=== PATIENT | male | born 1945 | race Caucasian/White ===

== ENCOUNTER 2021-02-14 21:49 | Inpatient (IN) ==
[2021-02-14] MEDS ORDERED: SODIUM CHLORIDE 0.9% 500 ML IV SCH (22:00)
[2021-02-14] MEDS ORDERED: OPTIRAY 320 125ml IV ONE (22:11)
[2021-02-14 22:14] LABS: Basophils # (auto) 0.03 K/uL (0-0.2); Basophils % (auto) 0.2 %; Eosinophils % (auto) 0.7 %; Hematocrit (blood only) 44.4 % (42-52); Hemoglobin 14.3 g/dL (14.0-18.0); Immature Granulocytes # (auto) 0.03 K/uL (0.00-0.02); Immature Granulocytes % (auto) 0.2 %; Lymphocytes # (auto) 2.23 K/uL (1.2-3.4); Lymphocytes % (auto) 14.9 %; Mean Corpuscular Hgb Conc 32.2 g/dL (32-36); Mean Corpuscular Volume 99.3 fL (80-100); Mean Platelet Volume 11.5 fL (7.4-10.4); Monocytes # (auto) 1.22 K/uL (0.11-0.59); Monocytes % (auto) 8.1 %; Neutrophils % (auto) 75.9 %; Platelet Count 232 K/uL (130-400); RDW Coefficient of Variation 13.9 % (11.5-14.5); RDW Standard Deviation 50.6 fL (36.4-46.3); Red Blood Count 4.47 M/uL (4.7-6.1); White Blood Count 15.01 K/uL (4.8-10.8)
[2021-02-14] MEDS ORDERED: ONDANSETRON INJ 2 MG/ML 2 ML VIAL ONE (22:23)
[2021-02-14 22:31] LABS: Alanine Aminotransferase 34 U/L (12-78); Albumin Level 3.6 gm/dl (3.4-5.0); Aspartate Aminotransferase 27 U/L (15-37); Blood Urea Nitrogen 18 mg/dl (7-18); Calcium 9.2 mg/dl (8.5-10.1); Carbon Dioxide 25 mmol/L (21-32); Chloride 110 mmol/L (98-107); Est GFR (African American) 67.9 ml/min; Est GFR (Non-African American) 58.6 ml/min; Glucose 189 mg/dl (70-99); Lipase 102 U/L (73-393); Magnesium 2.1 mg/dl (1.8-2.4); Potassium 5.1 mmol/L (3.5-5.1); Sodium 141 mmol/L (136-145)
[2021-02-14 22:42] LABS: Albumin Globulin Ratio 0.9 (0.9-2); Alkaline Phosphatase 100 U/L (45-117); Bilirubin,Total 0.9 mg/dl (0.2-1); Creatine Kinase 107 U/L (39-308); Creatine Kinase MB 1.1 ng/ml (0.5-3.6); Total Protein 7.6 gm/dl (6.4-8.2); Troponin I < 0.015 ng/ml (0-0.045)
[2021-02-14 23:00] LABS: T4 Free Thyroxine 1.12 ng/dl (0.8-1.6)
--- NOTE | 2021-02-14 23:09 | Emergency Department Note ---
Impression & Plan Syncope, Bradycardia, Abnormal EKG, Back pain ED Provider Note NAME: ABELINO BUENO AGE: 75 SEX: M : 1945 ARRIVES VIA: Ambulance INFORMANT: Patient, EMS personnel ED PROVIDER(S): Rj Akbar DO CHIEF COMPLAINT: Syncope HPI: The patient is a 75-year-old male who presented to the emergency department by ambulance for an evaluation after having a syncopal episode. The patient had a syncopal episode and states that over the course of the last few weeks he has been having dizziness and lightheadedness. He denies having any vertigo symptoms but states when he tries to stand up he gets very lightheaded and feels as though he may pass out. He states he did formally have a syncopal episode when he was in the shower last week. He thinks he did not hurt himself but went to see his family doctor recently and was scheduled for some testing. He had another episode tonight of dizziness and passed out. He now has severe pain between his shoulder blades. He has nausea. I did receive a prehospital notification about the patient. The patient was severely bradycardic but appeared to have a normal blood pressure. He was mentating well. He was given atropine without improvement of his severe bradycardia. He does have a history of atrial fibrillation. He states he does not take digoxin. He states he is been compliant with all his outpatient medications. He denies having any recent traveling. He said no fever. He denies having any rashes. The patient symptoms are moderate to severe. He was placed directly into room B1. ROS: See above HPI for pertinent positives & negatives. A total of 10 systems reviewed and were otherwise negative. PAST MEDICAL HISTORY: See Below PAST SURGICAL HISTORY: See Below FAMILY HISTORY: See Below SOCIAL HISTORY: See Below HOME MEDICATIONS: See Below ALLERGIES: See Below VITALS: See Below PHYSICAL EXAMINATION: GENERAL: The patient is awake and alert. He is very anxious appearing and appears to be uncomfortable. EYES: The conjunctivae are clear. The pupils are round and reactive. EARS, NOSE, MOUTH AND THROAT: The nose is without any evidence of any deformity. NECK: The neck is nontender and supple. RESPIRATORY: Normal respiratory effort is noted there is no evidence of wheezing rhonchi or rales CARDIOVASCULAR: Bradycardic rate was noted to auscultation. No definite murmur was noted. GASTROINTESTINAL: The abdomen is moderately distended. There is no guarding or rigidity. No pulsatile mass could be palpated. MUSCULOSKELETAL/EXTREMITIES: There is no evidence of gross deformity full range of motion is noted in the hips and shoulders. SKIN: Skin is warm and dry. Trace pedal edema was noted bilaterally. NEUROLOGIC: Patient is awake alert and oriented x3. MEDICAL DECISION MAKING: The patient is a 75-year-old male who presented to the emergency department for an evaluation after having a syncopal episode. The patient was found to be in very slow atrial fibrillation with a wide-complex. The patient was treated with atropine prior to arrival. He had no significant change in his cardiac rhythm. The patient's blood pressure was stable and was treated with IV fluids in the emergency department. He continued to complain of pain between his shoulder blades. There was concerned that this could represent a vascular emergency. The patient was taken directly to CT. No definite acute disease was noted on the CT that would explain the patient's presentation. He was further treated with IV fluids in the emergency department. He was placed on a front desk monitor as well as a transcutaneous pacemaker. His heart rate did improve. He was reevaluated multiple times. I discussed the patient's laboratory and radiographic studies with him. Given his symptomatic bradycardia he was discussed with the on-call [facility] hospitalist group. They have agreed to evaluate the patient in the emergency department for further management and disposition. Triage Nursing notes reviewed. Prior medical records reviewed Vital Signs: reviewed and remarkable for bradycardia and elevated blood pressure. Differential diagnosis: Vasovagal event, dehydration, infection, hypoglycemia, electrolyte abnormalities, cardiac sources, intracerebral event, pulmonary embolism, seizure, toxicologic, neurologic, as well as other pathologies. ER treatment provided: See below Diagnostics interpreted by me: ECG: An EKG was obtained in the emergency department. My interpretation is junctional rhythm at 31 bpm. Wide-complexes were appreciated. No definite P waves were noted. This favors a very slow atrial fibrillation versus a junctional rhythm with a wide complex. Diffuse ST and T wave abnormalities were noted. This was compared to a tracing from March 192019. Significant changes occurred. A second EKG was obtained in the emergency department. My interpretation is atrial fibrillation at 72 bpm. There were no PVCs noted. QRS continues to be wide at 152 ms. The T wave abnormalities have resolved compared to the earlier tracing. This was compared to the tracing from March 192019. The tracing does appear similar. Cardiac Monitoring: An order was placed for continuous cardiac monitoring. The monitor shows a rate of 29 bpm with bradycardia with atrial fibrillation rhythm. Laboratory studies: As stated above and show below. Imaging studies: See below Consultation(s): I discussed this case with Dr. Brunson [facility] evaluate the patient in the emergency department for further management and disposition. ED COURSE: Procedures: none PDMP:reviewed and no issues Critical Care: I have personally spent greater than 65 minutes of critical care time in the direct management of this patient. This includes bedside care, interpretation of diagnostic studies, and testing, discussion with consultants, patient, and family members, and other required patient management activities. This 65 minutes is in excess of all separately billable procedures. Past Med/Surg History Medical History (Updated 02/15/21 @ 02:20 by Rj Akbar DO) Acute renal failure Acute renal failure Atrial fibrillation and flutter Atrial fibrillation with RVR Diabetes mellitus Hyperkalemia (01/05/14) ND (myocardial infarction) Surgical History History of appendectomy History of arthroplasty of knee History of knee replacement Family History Father Coronary heart disease Mother Breast cancer Brother Pure hypercholesterolemia Other Family history non-contributory Social History Smoking Status: Former smoker Tobacco Type: Cigars Cigarettes Per Day: 40; Second Hand Exposure: Yes; Hx Alcohol Use: No Hx Substance Use: No Preferred Language: Lebanese Communication Ability: Effective Information Resource Consultant Required: No Beliefs That Will Affect Care: None Current Living Situation: Spouse Other Information That Helps Us Care for You: No Feels Safe at Home: Yes Safety Concerns: Feels Safe At This Time Assistive Devices: Denture - Upper and Glasses Allergies Allergies Allergy/AdvReac Type Severity Reaction Status Date / Time No Known Allergies Allergy Verified 02/14/21 22:26 Home Meds Home Medications Medication Instructions Recorded Confirmed diltiazem HCl [Cardizem CD] 120 mg PO QAM 05/14/18 02/14/21 docusate sodium 100 mg PO BIDM 05/14/18 02/14/21 iron,carbonyl-vitamin C [Vitron-C] 1 tab PO QAM 05/14/18 02/14/21 metformin [Glucophage] 1,000 mg PO BID 05/14/18 02/14/21 pantoprazole [Protonix] 40 mg PO QDD 05/14/18 02/14/21 rosuvastatin [Crestor] 40 mg PO QDD 05/14/18 02/14/21 tamsulosin [Flomax] 0.4 mg PO HS 05/14/18 02/14/21 metoprolol succinate 50 mg 50 mg PO QAM tab 04/05/19 02/14/21 tablet,extended release 24 hr warfarin 5 mg tablet See Rx Instructions .ROUTE 04/05/19 02/14/21 .COMPLEX #30 tab acetaminophen [Tylenol Extra 500 mg PO Q6H PRN 10/14/19 02/14/21 Strength] losartan 25 mg PO QDL 10/14/19 02/14/21 glipizide 10 mg PO BIDM 02/14/21 02/14/21 semaglutide [Ozempic] 0.5 mg SUBCUT WK 02/14/21 02/14/21 hydralazine 10 mg PO TID 02/15/21 02/15/21 metoprolol succinate 75 mg PO PM 02/15/21 02/15/21 Previous Rx's Medication Instructions Recorded BiPap Supplies #1 ea 12/06/20 Results & Data (ED) Vital Signs Vital Signs - 24 hr 02/14/21 21:55 02/14/21 22:00 02/14/21 22:25 Temperature 36.4 C L Temperature Source Oral Pulse Rate 32 L 31 L 29 L Pulse Rate from SpO2 Sensor Respiratory Rate 16 18 16 Respiratory Effort / Characteristics Non-Labored Spontaneous Respiratory Depth Normal Respiratory Pattern Regular Blood Pressure 127/64 Blood Pressure Mean 85 Blood Pressure Position Lying Pulse Oximetry 96 94 95 Oxygen Delivery Method Nasal Cannula Nasal Cannula Nasal Cannula Oxygen Flow Rate 2 Sepsis Recent Fever Within 48 Hours No Sepsis New/Unexplained Change in Mental Status N/A Sepsis Action Taken by Nursing No Action Required 02/14/21 22:29 02/14/21 22:43 02/14/21 22:46 Temperature Temperature Source Pulse Rate 66 61 Pulse Rate from SpO2 Sensor 59 L Respiratory Rate 18 23 Respiratory Effort / Characteristics Respiratory Depth Respiratory Pattern Blood Pressure 123/89 147/87 H Blood Pressure Mean 100 107 Blood Pressure Position Pulse Oximetry 96 96 94 Oxygen Delivery Method Nasal Cannula Room Air Oxygen Flow Rate 2 Sepsis Recent Fever Within 48 Hours Sepsis New/Unexplained Change in Mental Status Sepsis Action Taken by Nursing 02/14/21 23:00 02/14/21 23:16 02/14/21 23:30 Temperature Temperature Source Pulse Rate 70 64 60 Pulse Rate from SpO2 Sensor 71 70 64 Respiratory Rate 26 H 21 20 Respiratory Effort / Characteristics Respiratory Depth Respiratory Pattern Blood Pressure 158/103 H 145/92 H 155/81 H Blood Pressure Mean 121 109 105 Blood Pressure Position Pulse Oximetry 95 95 95 Oxygen Delivery Method Oxygen Flow Rate Sepsis Recent Fever Within 48 Hours Sepsis New/Unexplained Change in Mental Status Sepsis Action Taken by Nursing 02/14/21 23:46 02/15/21 00:00 02/15/21 00:16 Temperature Temperature Source Pulse Rate 66 78 85 Pulse Rate from SpO2 Sensor 67 83 79 Respiratory Rate 25 H 19 22 Respiratory Effort / Characteristics Respiratory Depth Respiratory Pattern Blood Pressure 149/75 H 162/106 H 173/88 H Blood Pressure Mean 99 124 116 Blood Pressure Position Pulse Oximetry 94 95 95 Oxygen Delivery Method Oxygen Flow Rate Sepsis Recent Fever Within 48 Hours Sepsis New/Unexplained Change in Mental Status Sepsis Action Taken by [facility] Medications Current Medication List: was personally reviewed by me Laboratory Data Attestation: I reviewed the patient's lab results. Result diagrams: 02/14/21 22:00 02/14/21 22:00 Lab Results 02/14/21 02/14/21 02/14/21 Range/Units 22:00 22:00 22:00 WBC 15.01 H (4.8-10.8) K/uL RBC 4.47 L (4.7-6.1) M/uL Hgb 14.3 (14.0-18.0) g/dL Hct 44.4 (42-52) % MCV 99.3 (80-100) fL MCH 32.0 (25-34) pg MCHC 32.2 (32-36) g/dL RDW Std Deviation 50.6 H (36.4-46.3) fL RDW Coeff of Cookie 13.9 (11.5-14.5) % Plt Count 232 (130-400) K/uL MPV 11.5 H (7.4-10.4) fL Immature Gran % (Auto) 0.2 % Neut % (Auto) 75.9 % Lymph % (Auto) 14.9 % [place] % (Auto) 8.1 % Eos % (Auto) 0.7 % Baso % (Auto) 0.2 % Neut # (Auto) 11.40 H (1.4-6.5) K/uL Lymph # (Auto) 2.23 (1.2-3.4) K/uL [place] # (Auto) 1.22 H (0.11-0.59) K/uL Eos # (Auto) 0.10 (0-0.5) K/uL Baso # (Auto) 0.03 (0-0.2) K/uL Immature Gran # (Auto) 0.03 H (0.00-0.02) K/uL PT Cancelled INR Cancelled APTT Cancelled PTT Ratio Cancelled Sodium (136-145) mmol/L Potassium (3.5-5.1) mmol/L Chloride (98-107) mmol/L Carbon Dioxide (21-32) mmol/L Anion Gap (3-11) BUN (7-18) mg/dl Creatinine (0.6-1.4) mg/dl Est Cr Clr Drug Dosing Est GFR ( Amer) ml/min Est GFR (Non-Af Amer) ml/min BUN/Creatinine Ratio (10-20) Glucose (70-99) mg/dl Calcium (8.5-10.1) mg/dl Magnesium (1.8-2.4) mg/dl Total Bilirubin (0.2-1) mg/dl AST (15-37) U/L ALT (12-78) U/L Alkaline Phosphatase (45-117) U/L Total Creatine Kinase (39-308) U/L CK-MB (CK-2) (0.5-3.6) ng/ml CK/CKMB % Calc (0-3.0) Troponin I (0-0.045) ng/ml Total Protein (6.4-8.2) gm/dl Albumin (3.4-5.0) gm/dl Globulin (2.5-4.0) gm/dl Albumin/Globulin Ratio (0.9-2) Lipase (73-393) U/L TSH (0.300-4.500) uIu/ml Free T4 (0.8-1.6) ng/dl Urine Color Urine Appearance (Clear) Urine pH (4.5-7.5) Ur Specific [place] (1.000-1.030) Urine Protein (Negative) Urine Glucose (UA) (Negative) Urine Ketones (Negative) Urine Blood (Negative) Urine Nitrite (Negative) Urine Bilirubin (Negative) Urine Urobilinogen (Negative) Ur Leukocyte Esterase (Negative) Urine WBC (Auto) (0-5) /hpf Urine RBC (Auto) (0-4) /hpf U Hyaline Cast (Auto) (0-5) /lpf U Epithel Cells (Auto) (0-5) /lpf Urine Bacteria (Auto) (Negative) COVID-19 Eval Order SARS-CoV-2 (PCR) (Negative) Blood Type Cancelled Antibody Screen Cancelled 02/14/21 02/14/21 02/14/21 Range/Units 22:00 22:26 22:26 WBC (4.8-10.8) K/uL RBC (4.7-6.1) M/uL Hgb (14.0-18.0) g/dL Hct (42-52) % MCV (80-100) fL MCH (25-34) pg MCHC (32-36) g/dL RDW Std Deviation (36.4-46.3) fL RDW Coeff of Cookie (11.5-14.5) % Plt Count (130-400) K/uL MPV (7.4-10.4) fL Immature Gran % (Auto) % Neut % (Auto) % Lymph % (Auto) % [place] % (Auto) % Eos % (Auto) % Baso % (Auto) % Neut # (Auto) (1.4-6.5) K/uL Lymph # (Auto) (1.2-3.4) K/uL [place] # (Auto) (0.11-0.59) K/uL Eos # (Auto) (0-0.5) K/uL Baso # (Auto) (0-0.2) K/uL Immature Gran # (Auto) (0.00-0.02) K/uL PT INR APTT PTT Ratio Sodium 141 (136-145) mmol/L Potassium 5.1 (3.5-5.1) mmol/L Chloride 110 H (98-107) mmol/L Carbon Dioxide 25 (21-32) mmol/L Anion Gap 6.0 (3-11) BUN 18 (7-18) mg/dl Creatinine 1.21 (0.6-1.4) mg/dl Est Cr Clr Drug Dosing Not Reportable Est GFR ( Amer) 67.9 ml/min Est GFR (Non-Af Amer) 58.6 ml/min BUN/Creatinine Ratio 15.0 (10-20) Glucose 189 H (70-99) mg/dl Calcium 9.2 (8.5-10.1) mg/dl Magnesium 2.1 (1.8-2.4) mg/dl Total Bilirubin 0.9 (0.2-1) mg/dl AST 27 (15-37) U/L ALT 34 (12-78) U/L Alkaline Phosphatase 100 (45-117) U/L Total Creatine Kinase 107 (39-308) U/L CK-MB (CK-2) 1.1 (0.5-3.6) ng/ml CK/CKMB % Calc 1.0 (0-3.0) Troponin I < 0.015 (0-0.045) ng/ml Total Protein 7.6 (6.4-8.2) gm/dl Albumin 3.6 (3.4-5.0) gm/dl Globulin 4.0 (2.5-4.0) gm/dl Albumin/Globulin Ratio 0.9 (0.9-2) Lipase 102 (73-393) U/L TSH 5.780 H (0.300-4.500) uIu/ml Free T4 1.12 (0.8-1.6) ng/dl Urine Color Urine Appearance (Clear) Urine pH (4.5-7.5) Ur Specific [place] (1.000-1.030) Urine Protein (Negative) Urine Glucose (UA) (Negative) Urine Ketones (Negative) Urine Blood (Negative) Urine Nitrite (Negative) Urine Bilirubin (Negative) Urine Urobilinogen (Negative) Ur Leukocyte Esterase (Negative) Urine WBC (Auto) (0-5) /hpf Urine RBC (Auto) (0-4) /hpf U Hyaline Cast (Auto) (0-5) /lpf U Epithel Cells (Auto) (0-5) /lpf Urine Bacteria (Auto) (Negative) COVID-19 Eval Order Covid19 at [facility] SARS-CoV-2 (PCR) NEGATIVE (Negative) Blood Type Antibody Screen 02/14/21 02/14/21 02/15/21 Range/Units 22:38 23:15 00:18 WBC (4.8-10.8) K/uL RBC (4.7-6.1) M/uL Hgb (14.0-18.0) g/dL Hct (42-52) % MCV (80-100) fL MCH (25-34) pg MCHC (32-36) g/dL RDW Std Deviation (36.4-46.3) fL RDW Coeff of Cookie (11.5-14.5) % Plt Count (130-400) K/uL MPV (7.4-10.4) fL Immature Gran % (Auto) % Neut % (Auto) % Lymph % (Auto) % [place] % (Auto) % Eos % (Auto) % Baso % (Auto) % Neut # (Auto) (1.4-6.5) K/uL Lymph # (Auto) (1.2-3.4) K/uL [place] # (Auto) (0.11-0.59) K/uL Eos # (Auto) (0-0.5) K/uL Baso # (Auto) (0-0.2) K/uL Immature Gran # (Auto) (0.00-0.02) K/uL PT 20.0 H INR 2.1 H APTT 31.2 H PTT Ratio 1.2 Sodium (136-145) mmol/L Potassium (3.5-5.1) mmol/L Chloride (98-107) mmol/L Carbon Dioxide (21-32) mmol/L Anion Gap (3-11) BUN (7-18) mg/dl Creatinine (0.6-1.4) mg/dl Est Cr Clr Drug Dosing Est GFR ( Amer) ml/min Est GFR (Non-Af Amer) ml/min BUN/Creatinine Ratio (10-20) Glucose (70-99) mg/dl Calcium (8.5-10.1) mg/dl Magnesium (1.8-2.4) mg/dl Total Bilirubin (0.2-1) mg/dl AST (15-37) U/L ALT (12-78) U/L Alkaline Phosphatase (45-117) U/L Total Creatine Kinase (39-308) U/L CK-MB (CK-2) (0.5-3.6) ng/ml CK/CKMB % Calc (0-3.0) Troponin I (0-0.045) ng/ml Total Protein (6.4-8.2) gm/dl Albumin (3.4-5.0) gm/dl Globulin (2.5-4.0) gm/dl Albumin/Globulin Ratio (0.9-2) Lipase (73-393) U/L TSH (0.300-4.500) uIu/ml Free T4 (0.8-1.6) ng/dl Urine Color Yellow Urine Appearance Clear (Clear) Urine pH 7.0 (4.5-7.5) Ur Specific [place] 1.042 H (1.000-1.030) Urine Protein Negative (Negative) Urine Glucose (UA) Negative (Negative) Urine Ketones Negative (Negative) Urine Blood Negative (Negative) Urine Nitrite Negative (Negative) Urine Bilirubin Negative (Negative) Urine Urobilinogen Negative (Negative) Ur Leukocyte Esterase 2+ H (Negative) Urine WBC (Auto) >30 H (0-5) /hpf Urine RBC (Auto) 0-4 (0-4) /hpf U Hyaline Cast (Auto) 1-5 (0-5) /lpf U Epithel Cells (Auto) 5-10 H (0-5) /lpf Urine Bacteria (Auto) 4+ H (Negative) COVID-19 Eval Order SARS-CoV-2 (PCR) (Negative) Blood Type A Positive Antibody Screen NEGATIVE Administered Medications Discontinued Medications Sodium Chloride (Nss) 500 mls @ 999 mls/hr IV .Q31M MAGALIE Stop: 02/14/21 22:30 Last Infusion: 02/14/21 23:00 Dose: 0 mls/hr Documented by: [id number] Admin: 02/14/21 22:24 Dose: 999 mls/hr Documented by: [id number] Ioversol (Optiray 320 125ml) 125 ml IV ONCE ONE Stop: 02/14/21 22:12 Last Admin: 02/14/21 22:12 Dose: 119 ml Documented by: [id number] Ondansetron HCl (Ondansetron Inj 2 Mg/Ml 2 Ml Vial) Confirm Administered Dose 4 mg .ROUTE .K-MED ONE Stop: 02/14/21 22:24 Last Admin: 02/14/21 22:24 Dose: 4 mg Documented by: [id number] Imaging Data Radiologist's Impression: Patient: ABELINO BUENO (Male) : 47 Status: ER Date: 02/14/21 22:31 Room #: History: SYNCOPE Slices: 67 Priors: Tech: Ceasar Carvalho @ [phone] Exams: CT HEAD Contrast: Accession Numbers: [id number] Preliminary Findings Only See Final Report For Complete Findings CT HEAD: No intracranial hemorrhage, mass effect or midline shift. There is no abnormal extra axial fluid collection. No evidence of acute infarct. Mild periventricular white matter hypodensities are most consistent with chronic microangiopathy. The visualized paranasal sinuses and mastoid air cells are clear. No fracture. Radiologist: Mishel Dietz MD Study ready at 22:45 and initial results transmitted at 22:52 Patient: ABELINO BUENO (Male) : 47 Status: ER Date: 02/14/21 22:34 Room #: History: SYNCOPE, PAIN BETWEEN SHOULDERS Slices: [id number] Priors: Tech: Ceasar Carvalho @ [phone] Exams: CT CHEST Without Contrast, CTA CHEST Contrast: IV Amt: 119 MLOPTIRAY 320 Accession Numbers: [id number] Preliminary Findings Only See Final Report For Complete Findings CT CHEST Without Contrast: There is an acute mild anterior wedge compression fracture of T8. The lungs are clear. Heart size is normal. No pathologically enlarged lymph nodes. Incidentally noted cholelithiasis. Slight nodularity of the liver is concerning for cirrhosis. Nonobstructing 1.3 cm right renal calculus. CTA CHEST: No aortic aneurysm or dissection. Minimal atherosclerosis without significant stenosis. Radiologist: Mishel Dietz MD Study ready at 22:40 and initial results transmitted at 22:50 Patient: ABELINO BUENO (Male) : 47 Status: ER Date: 02/14/21 22:42 Room #: History: SYNCOPE, PAIN BETWEEN SHOULDERS Slices: [phone] Priors: Tech: DoraCeasar farrar @ [phone] Exams: CTA ABDOMEN & PELVIS With Contrast Contrast: IV Amt: 119 ML OPTIRAY 320 Accession Numbers: [id number] Preliminary Findings Only See Final Report For Complete Findings CTA ABDOMEN & PELVIS With Contrast: IMPRESSION: 1. No dissection. 2. Ectasia of the infrarenal aorta measuring 2.8 cm. 3. Cholelithiasis. 4. Cirrhosis. 5. Nonobstructing 1.2 cm right renal calculus. 6. Appendectomy. 7. Diverticulosis. No obstruction. 8. Incidentally noted fat-containing bilateral inguinal hernias. 9. Incidentally noted accessory left renal artery. 10. No lumbar spine or pelvis fracture. Radiologist: Mishel Dietz MD Study ready at 22:45 and initial results transmitted at 22:59 Patient: ABELINO BUENO (Male) : 47 Status: ER Date: 02/14/21 22:52 Room #: History: SYNCOPE WITH PAIN BETWEENS SHOULDERS Slices: [phone] Priors: Tech: DoraCeasar farrar @ [phone] Exams: CT C SPINE Contrast: Accession Numbers: [id number] Preliminary Findings Only See Final Report For Complete Findings CT C SPINE: No fracture or malalignment. There is no prevertebral soft tissue swelling. There are degenerative changes of the spine. Radiologist: Mishel Dietz MD Study ready at 22:56 and initial results transmitted at 23:06 Discharge Plan Visit Data Chief Complaint: Syncope ED Provider: Rj Akbar Discharge Problem: Syncope, Bradycardia, Abnormal EKG, Back pain Patient Disposition: Admitted As Inpatient Condition: Good Discharge Instructions Interventions: ED Discharge Assessment Last Done: 02/15/21 01:12 Discharge Problem: Syncope Qualifiers: Syncope type: unspecified Qualified Code(s): R55 - Syncope and collapse Back pain Qualifiers: Back pain location: thoracic back pain Chronicity: acute Back pain laterality: midline Qualified Code(s): M54.6 - Pain in thoracic spine
[2021-02-14 23:53] LABS: INR 2.1 (0.9-1.1); Partial Thromboplastin Ratio 1.2; Partial Thromboplastin Time 31.2 Seconds (21.0-31.0)
[2021-02-15 00:57] LABS: Appearance Urine Clear (Clear); Bacteria Urine Automated 4+ (Negative); Bilirubin Urine Negative (Negative); Blood Urine Negative (Negative); Color Urine Yellow; Glucose Urine UA Negative (Negative); Ketones Urine Negative (Negative); Leukocyte Esterase Urine 2+ (Negative); Nitrite Urine Negative (Negative); Protein Urine Negative (Negative); Specific Gravity Urine 1.042 (1.000-1.030); Urobilinogen Urine Negative (Negative); WBC Urine Automated >30 /hpf (0-5)
[2021-02-15 01:33] LABS: RBC Urine Automated 0-4 /hpf (0-4)
[2021-02-15] MEDS ORDERED: [UNRECOGNIZED DRUG - OTHER] SCH (01:48)
[2021-02-15] MEDS ORDERED: POLYETHYLENE (MIRALAX) 17 GM PACK PO PRN (01:48)
[2021-02-15] MEDS ORDERED: NITROGLYCERIN SL 0.4 MG/TAB TAB SL PRN (01:48)
[2021-02-15] MEDS ORDERED: DEXTROSE 50% 50 ML SYRINGE IV PRN (02:00)
[2021-02-15] MEDS ORDERED: GLUCOSE 40% GEL 15 GM TUBE PO PRN (02:00)
[2021-02-15] MEDS ORDERED: CARBOHYDRATES FOR HYPOGLYCEMIA PO PRN (02:00)
[2021-02-15] MEDS ORDERED: GLUCOSE 10 TABS/TUBE PO PRN (02:00)
[2021-02-15] MEDS ORDERED: GLUCAGON FOR INJ 1 MG VIAL IM PRN (02:00)
--- NOTE | 2021-02-15 03:12 | History and Physical Report ---
DATE OF ADMISSION: 02/15/2021 CHIEF COMPLAINT: Syncope and bradycardia. HISTORY OF PRESENT ILLNESS: This is a 75-year-old male with past medical history significant for type 2 diabetes, nonproliferative diabetic retinopathy, hyperlipidemia, sleep apnea, COPD, CAD, chronic atrial fibrillation, hypertension, non-rheumatic aortic valve stenosis, history of colon polyps, obesity, GERD, cholelithiasis, BPH, renal calculi, generalized osteoarthrosis, localized hiatal hernia, choroidal nevus, who lives at home with his , ambulates without any support, comes with episode of syncope. They went to family doctor's office today because of episode of syncope last week when he fell in the bathroom and had a syncopal episode in his bath tub. So family doctor was planning to do carotid ultrasound and as per the patient also was planning to obtain his echo. He said he did fine and he went home. After going home, he was doing okay, and then he went outside to his shed to get something from the shed and when he closed the door of the shed and turned around to come back to his house, which was about 70 to 75 feet away, he suddenly collapsed on the ramp close to the shed. He thinks he laid there for few seconds. was not at that time in the house. She did not see him falling down. When he woke up, he shouted for his and she came and she called his brother and also EMS. When EMS arrived, his heart rate was in 20s. It did not improve even with atropine and when they stood him up he had an episode of vomiting and brought to the hospital. The patient stated that before the syncopal episode, he felt a little dizzy, but no other complaints. He does not remember exactly what happened. In the ER also when he came in, his heart rate initially was in 30s and then it improved into 60s. In AFib currently. Patient had imaging studies with CT of the head and CTA of the chest and CTA of the abdomen and pelvis for which he was given contrast. He says after he was given contrast, he developed some slight heaviness in the right side of chest, but otherwise he does not have any chest pain. He gets short of breath while lying flat. He has some cough from the allergies. He had an episode of head pressure several days ago after a cyst was removed from the back of his head. He had an episode yesterday also of head pressure lasted few seconds. Denies any blurred visions, no double vision, no earache, no runny nose, no sore throat, no dysphagia. Appetite is okay. Currently no nausea, no abdominal pain, normal bowel and bladder movements. Denies any blood in stools, occasional black stools, but he attributes this to the kind of diet he eats. He states he is micturating a lot. No swelling in the legs. Currently, his hemodynamics are stable, alert and oriented. He had his COVID shots. is in the room. ALLERGIES: No known drug allergies. PAST MEDICAL HISTORY: As mentioned above. PAST SURGICAL HISTORY: Bilateral knee arthroplasty, left heart catheterization, colonoscopies, EGDs, heart electroconversion, excision of sebaceous cyst from his back, right knee arthroscopy, right shoulder anterior acromioplasty, appendectomy, repair of left ruptured rotator cuff, repair of the umbilical hernia. MEDICATIONS: The patient is on Tylenol 500 mg p.o. q. 6 hours p.r.n., Cardizem 120 mg p.o. a.m., Colace 100 mg p.o. b.i.d., glipizide 10 mg p.o. b.i.d., hydralazine 10 mg p.o. t.i.d., Vitron-C one tablet p.o. a.m., losartan 25 mg p.o. daily, metformin 1000 mg p.o. b.i.d., Toprol-XL 50 mg in the a.m. and 75 mg in p.m., Protonix 40 mg p.o. daily, Crestor 40 mg p.o. daily, semaglutide 0.5 mg subcutaneous weekly, Flomax 0.4 mg p.o. at bedtime, Warfarin 5 mg as directed. FAMILY HISTORY: Significant for father has lymphoma; mother has breast cancer, colon cancer; father had CABG, defibrillator and pacemaker. SOCIAL HISTORY: , former smoker, quit in 1989, smoked 2 packs a day for 10 years. No alcohol use. No drug use. REVIEW OF SYSTEMS: As per HPI. Rest of the review of systems negative. PHYSICAL EXAMINATION: GENERAL: The patient is obese, currently not in acute distress. VITAL SIGNS: Temperature 36.4, pulse 64, respiratory rate 21, blood pressure 145/92, oxygen 94% on room air. HEENT: Pupils equal, round and reactive to light. Oral mucosa moist. NECK: No JVD. No masses. No carotid bruits. CARDIOVASCULAR: S1 and S2 heard. Irregular rhythm, no murmur, no gallop. RESPIRATORY SYSTEM: Normal AP diameter. No accessory muscle use. No wheezing, no crackles. ABDOMEN: Soft, bowel sounds present, nontender, no distention. CENTRAL NERVOUS SYSTEM: Cranial nerves II-XII grossly intact, nonfocal. EXTREMITIES: No edema, no erythema. LABORATORY DATA: WBC 15, hemoglobin 14.3, hematocrit 44.4, platelets 232. PT 20, INR 2.1, APTT 31.2. Sodium 141, potassium 5.1, chloride 110, bicarbonate 25, BUN 18, creatinine 1.2, serum glucose 189, calcium 9.2, magnesium 2.1, total bilirubin 0.9, AST 27, ALT 34, alkaline phosphatase 100, total creatinine kinase 107. CK-MB 1.1. Troponin less than 0.015. Lipase 102, TSH 5.7, free T4 of 1.1. SARS-CoV-2 PCR negative. IMAGING DATA: CT of the head, preliminary report, no acute findings. Chest CT, acute mild anterior wedge compression fracture of T8. CT of the chest, no dissection or aneurysm. Cervical spine CT, preliminary report, no acute findings. CT of the abdomen and pelvis concerning for liver cirrhosis, cholelithiasis, nonobstructive 1.2 cm right renal calculus. EKG: AFib at a rate of 72, right bundle-branch block, left axis deviation. ASSESSMENT AND PLAN: This 75-year-old male presents with syncope and collapse and bradycardia. 1. Syncope and collapse, symptomatic bradycardia: In the field, his heart rate was in 20s. It did not improve much with atropine. When he came to the ER, it was in 30s, currently it is in the 60s and 70s, and atrial fibrillation and also wide complex. The patient is currently hemodynamically stable. Pacer pads placed. Will hold his home Toprol-XL and diltiazem. Follow serial enzymes, echo. Closely monitor in tele floor. If needed, we will give atropine and notify cardiology urgently. For now, we will keep him n.p.o. and consult cardiology in the a.m. for possible tachybrady syndrome and pacemaker placement. We will also check for Lyme screen. 2. Leukocytosis: Possibly reactive. We will follow the repeat labs. 3. History of atrial fibrillation: Holding his diltiazem and metoprolol because of his bradycardia and syncope. May need pacemaker placement for tachybrady syndrome, on Coumadin. INR is 2.1. Holding Coumadin for any procedures. We will follow the INR. 4. History of diabetes type 2: Holding his glipizide, metformin, semaglutide. Currently npo. Will place him on Lantus 6 units daily and insulin sliding scale. Follow HbA1c level. Follow his blood sugars and adjust the insulin regimen. 5. History of hypertension: Continue with hydralazine and losartan. Holding his Toprol-XL and diltiazem. We will monitor the blood pressure. 6. History of hyperlipidemia: Continue statin. 7. History of gastroesophageal reflux disease: Continue Protonix. 8. History of chronic obstructive sleep apnea: On BiPAP at bedtime. 9. History of benign prostatic hypertrophy: On Flomax. 10. Acute mild wedge compression fracture of T8 on the preliminary report on the CAT scan. When stable, PT, OT, and may need ortho consult. 11. Deep venous thrombosis prophylaxis: On Coumadin, INR therapeutic. DISPOSITION: Closely monitor in the tele floor. Level 1 full code. PT, OT prior to discharge. Social service to help with discharge planning. Job ID: [id number] MTDD
[2021-02-15 05:40] LABS: Basophils # (auto) 0.03 K/uL (0-0.2); Basophils % (auto) 0.2 %; Eosinophils # (auto) 0.01 K/uL (0-0.5); Eosinophils % (auto) 0.1 %; Hematocrit (blood only) 41.5 % (42-52); Hemoglobin 13.6 g/dL (14.0-18.0); Immature Granulocytes # (auto) 0.03 K/uL (0.00-0.02); Immature Granulocytes % (auto) 0.2 %; Lymphocytes # (auto) 2.39 K/uL (1.2-3.4); Mean Corpuscular Hemoglobin 31.6 pg (25-34); Mean Corpuscular Hgb Conc 32.8 g/dL (32-36); Mean Corpuscular Volume 96.5 fL (80-100); Monocytes # (auto) 1.19 K/uL (0.11-0.59); Monocytes % (auto) 9.4 %; Neutrophils # (auto) 8.95 K/uL (1.4-6.5); Neutrophils % (auto) 71.1 %; Platelet Count 199 K/uL (130-400); RDW Standard Deviation 49.5 fL (36.4-46.3)
[2021-02-15 05:55] LABS: INR 2.1 (0.9-1.1); Prothrombin Time 19.7 Seconds (9.0-12.0)
[2021-02-15 06:14] LABS: Anion Gap 0 (3-11); BUN Creatinine Ratio 19.9 (10-20); Blood Urea Nitrogen 15 mg/dl (7-18); Carbon Dioxide 31 mmol/L (21-32); Chloride 110 mmol/L (98-107); Creatinine Clr Calc Pharmacy 103.7 ml/min; Est GFR (African American) 103.6 ml/min; Est GFR (Non-African American) 89.4 ml/min; Glucose 96 mg/dl (70-99); Magnesium 2.3 mg/dl (1.8-2.4); Potassium 4.3 mmol/L (3.5-5.1); Sodium 141 mmol/L (136-145); Troponin I < 0.015 ng/ml (0-0.045)
--- NOTE | 2021-02-15 06:39 | CT Scan Report ---
CT head/brain wo con CLINICAL HISTORY: 75 years-old Male with syncope. Acute syncope TECHNIQUE: Multiple axial CT images of the head were obtained without contrast. A dose lowering tech nique was utilized adhering to the principles of ALARA. CT DOSE: 5261.24 mGy.cm COMPARISON: CT cervical spine of same day, head CT 10/14/2019 FINDINGS: No acute intracranial hemorrhage, midline shift, intracranial mass, hydrocephalus, territorial ischem ia or abnormal extra-axial collection. White matter hypodensities redemonstrated statistically favori ng chronic microvascular ischemic disease. Unchanged calcifications of the left cerebellar hemisphere . The calvarium is intact. The paranasal sinuses, mastoid air cells, and middle ear cavities are clear . IMPRESSION: No acute intracranial abnormality. ACT 112: Negative or not required by law. The above report was generated using voice recognition software. It may contain grammatical, syntax o r spelling errors. Electronically signed by: Korey Chase M.D. 02/15/2021 6:38 AM
[2021-02-15 06:42] LABS: Estimated Average Glucose 174 mg/dl; Hemoglobin A1C 7.7 % (4.5-5.6)
[2021-02-15 06:47] LABS: Lyme Ab IgG w/WB Rflx Negative (Negative); Lyme Ab IgM w/WB Rflx Negative (Negative)
[2021-02-15] MEDS: ACETAMINOPHEN 325 MG TAB PO PRN ×2 (07:38→21:45)
[2021-02-15] MEDS: FERROUS SULFATE 325 MG TAB PO SCH (07:40)
[2021-02-15] MEDS: ASCORBIC ACID 500 MG TAB PO SCH (07:40)
[2021-02-15] MEDS: hydrALAZINE 10 MG TAB PO SCH ×3 (07:41→21:45)
[2021-02-15] MEDS: DOCUSATE SODIUM 100 MG CAP PO SCH ×2 (07:41→17:03)
[2021-02-15] MEDS: INSULIN ASPART 100 UNITS/ML 3 ML PEN SC SCH ×4 (07:53→21:00)
--- NOTE | 2021-02-15 08:02 | CT Scan Report ---
CT angio abdomen pelvis w con CLINICAL HISTORY: 75 years-old Male with syncope acute syncope with chest pain COMPARISON STUDY: CT abdomen pelvis 03/19/2020, chest CT 10/14/2019 TECHNIQUE: Following the IV administration of 119 cc of Optiray, CT angiogram of the abdomen and pelv is was performed from the lung bases the proximal femora. Images are reviewed in the axial, sagittal, and coronal planes. 3-D MIPS images are created and assessed. All measurements were obtained accordi ng to NASCET criteria. IV contrast was administered without complication. A dose lowering technique was utilized adhering to the principles of ALARA. FINDINGS: CTA: The imaged inferior cardiac chambers are unremarkable. Descending thoracic aorta is within normal camara its. Moderate atherosclerotic plaque the thoracic aorta, iliac and visualized femoral arteries. Saccu lar aneurysmal dilation involving the anterior wall of the infrarenal abdominal aorta redemonstrated measuring 3.1 x 2.4 cm. There is a linear transversely oriented line noted within this distribution o n image 387 which may reflect a chronic short segment dissection. The celiac trunk, superior and infe rior mesenteric arteries are widely patent. The common, internal and external iliac arteries and imag ed femoral arteries are patent. The renal arteries are patent. There is an accessory renal artery on the right which feeds the inferior pole. CT ABDOMEN/PELVIS: The lung bases are generally clear. There is no pneumatosis or pneumoperitoneum. Unremarkable spleen, pancreas and adrenal glands. Cholelithiasis without CT evidence of acute cholecystitis. Marginal nod ularity of the liver. No hepatic mass identified. There is no ascites. 1.4 cm calculus of the interpolar right kidney. A 2 mm calcification involves the interpolar cortex o f the right kidney. No ureteral calculi or hydronephrosis. There is a 1.6 cm exophytic lesion with [place] of 23 involving the posterior aspect of the inferior pole left kidney suggestive of a comple x cyst. This previously demonstrated water attenuation on comparison study. Urinary bladder wall thic kening with partial distention. Prostamegaly. Small right and moderate left fat filled inguinal herni as. Small hiatal hernia. Mild nonspecific stranding of the mid mesentery is unchanged. No bowel obstructi on or bowel wall thickening. Mild fecal retention. Colonic diverticulosis without acute diverticuliti s. The appendix appears surgically absent. Unremarkable soft tissues. No acute fracture. Degenerative changes of the spine, pelvis and hips. Lumbar levoscoliosis. IMPRESSION: 1. 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 Additionally, there may be a chronic associated short segment di ssection flap within this distribution. 2. Otherwise unremarkable CTA. 3. Prostamegaly with urinary bladder wall thickening suggestive of chronic bladder outlet obstruction . 4. Nonobstructing right nephrolithiasis. 5. Cholelithiasis. 6. Unchanged inflammatory stranding of the mid mesentery suggestive of mesenteritis. 7. Additional findings as above. ACT 112: Negative or not required by law. The above report was generated using voice recognition software. It may contain grammatical, syntax o r spelling errors. Electronically signed by: Korey Chase M.D. 02/15/2021 8:01 AM
--- NOTE | 2021-02-15 08:07 | CT Scan Report ---
CT OF THE CERVICAL SPINE CLINICAL HISTORY: Neck pain status post trauma COMPARISON STUDY: 10/14/2019 CT DOSE: TECHNIQUE: CT scan of the cervical spine was performed from the skull base to the thoracic inlet. Rema ges are reviewed in the axial, sagittal, and coronal planes. IV contrast was not administered for thi s examination. A dose lowering technique was utilized adhering to the principles of ALARA. FINDINGS: The visualized portions of the lung apices reveal no evidence of pneumothorax. The prevertebral soft tissues are normal. No fractures or subluxations are visualized. There are multilevel degenerative changes IMPRESSION: No evidence of acute fracture or traumatic subluxation. ACT 112: Negative or not required by law. Electronically signed by: Luis M Bonner M.D. 02/15/2021 8:05 AM
--- NOTE | 2021-02-15 08:18 | CT Scan Report ---
CT ANGIOGRAM OF THE CHEST COMBO CLINICAL HISTORY: Syncopal. Pain between shoulders. COMPARISON STUDY: None TECHNIQUE: Before and following the IV administration of 119 cc of Optiray, CT angiogram of the chest was performed from the thoracic inlet to the upper abdomen utilizing the dissection protocol. Images are reviewed in the axial, sagittal, and coronal planes. 3-D MIPS images are created and assessed. I V contrast was administered without complication. A dose lowering technique was utilized adhering to the principles of ALARA. CT DOSE: FINDINGS: There is no axillary, supra clavicle or internal mammary lymphadenopathy seen. Slightly enlarged AP window lymph node measuring 1.2 cm in short axis. Slightly enlarged subcarinal l ymph node measuring 1.2 cm in short axis. Thyroid: Imaged portions of the thyroid gland are normal in size and attenuation. Small esophageal diverticulum is seen at the region of thoracic inlet. Moderate hiatal hernia is seen . Thoracic aorta: The thoracic aorta is normal in caliber and demonstrates standard 3-vessel arch anato my. No dissection is seen. Mild atherosclerotic involvement of the thoracic aorta is seen. Pulmonary vasculature: Minimal dilatation of the main pulmonary artery is seen which measure 2.8 cm i n diameter, could be seen in pulmonary hypertension. Heart: Four-chamber cardiomegaly. Calcifications of the aortic valve and mitral annulus are seen. No pericardial effusion demonstrated. Mild coronary calcifications.. Lungs and pleural spaces: Tracheobronchial tree is patent. Mild atelectasis is seen on dependent portions of bilateral lower lobes. No pleural effusion is seen. Evaluation of lung parenchyma is limited due to respiratory motion artifact. -6 mm pulmonary micronodule is seen within the right upper lobe (8/66) Small pulmonary micronodule is seen within the right lung and marked in PACs on series 8. Upper abdomen: Partially visualized upper abdominal viscera shows mildly dilated stomach filled with ingested material and no acute abnormalities. Possible compression fracture deformity of anterior asp ect of T8. Skeletal structures: Multilevel degenerative changes of the spine. Evaluation is limited due to diffu se osteopenia. IMPRESSION: 1. Normal caliber in the appearance of thoracic aorta without evidence of dissection or aneurysmal d ilatation. There is no aortic wall hematoma is seen. 2. Possible compression fracture deformity of T8 of unknown acuity. Further evaluation with MRI of t horacic spine is suggested. 3. 6 mm pulmonary nodule within the right upper lobe. Further evaluation in 3-6 months with noncontr ast enhanced CT of the chest is recommended according to Fleischner Society guidelines. 4. Mild dilatation of the main pulmonary artery which could be seen in pulmonary hypertension 5. Four-chamber cardiomegaly. Calcifications of aortic valve. 6. Mild mediastinal lymphadenopathy. Attention on follow-up imaging. Please refer to below summary of Fleischner criteria recommendations for follow-up of incidental CT n odules (Kourtney Owens, Guidelines for management of small pulmonary nodules detected on CT scans: A sta tement from the Fleischner Society, Radiology 237: [phone].) SOLID NODULES Solitary nodule size: <6 mm * low risk patients: no follow-up needed * high risk patients: optional CT at 12 months Solitary nodule size: 6-8 mm * low risk patients: follow-up at 6-12 months, then consider further follow-up at 18-24 months * high risk patients: initial follow-up CT at 6-12 months and then at 18-24 months if no change Solitary nodule size: >8 mm * either low or high risk patients - consider follow-up CT at 3 months, and/or CT-PET, and/or biopsy Multiple nodules size: <6 mm * low risk patients: no routine follow-up * high risk patients: optional CT at 12 months Multiple nodules size: 6-8 mm * low risk patients: follow-up at 3-6 months, then consider further follow-up at 18-24 months * high risk patients: follow-up at 3-6 months, then at 18-24 months if no change Multiple nodules size: >8 mm * low risk patients: follow-up at 3-6 months, then consider further follow-up at 18-24 months * high risk patients: follow-up at 3-6 months, then at 18-24 months if no change Note: newly detected indeterminate nodule in persons 35 years of age or older. * low risk patients: minimal or absent history of smoking and/or other known risk factors * high risk patients: history of smoking or of other known risk factors (e.g. first degree relative with lung cancer, or exposure to asbestos, radon, uranium) * if a nodule up to 8 mm is partly solid or is ground glass further follow-up is required after 24 m onths to exclude possible slow growing adenocarcinoma (HERMAN) SUBSOLID NODULES Solitary pure ground-glass nodule * nodule size <6 mm - no CT follow-up required * nodule size >=6 mm - follow-up CT at 6-12 months, then every 2 years until 5 years Solitary part-solid nodule * nodule size <6 mm - no CT follow-up required * nodule size >=6 mm - follow-up CT at 3-6 months. If unchanged, and solid component remains <6 mm, then annual follow-up for 5 years Multiple subsolid nodules * nodule size <6 mm - follow-up CT at 3-6 months, consider further follow-up at 2 and 4 years if sta ble * nodule size >=6 mm - follow-up CT at 3-6 months, subsequent management based on the most suspiciou s nodule(s) ACT 112: Positive. There are findings on this exam that require communication between the performing entity and the patient following Patient Test Result Information Act ([place] Act 112) guidelines. The above report was generated using voice recognition software. It may contain grammatical, syntax o r spelling errors. Electronically signed by: Luci Schwartz DO 02/15/2021 8:17 AM
[2021-02-15] MEDS: INSULIN GLARGINE SOLOSTAR 100 UNITS/ML 3 ML PEN SC SCH (09:08)
[2021-02-15 09:14] LABS: iSTAT Creatinine 1.1 mg/dl (0.6-1.3); iSTAT Hemoglobin 14.6 g/dl (14.0-18.0); iSTAT Ionized Calcium 1.2 mmol/l (1.12-1.32); iSTAT Potassium 5.2 mmol/L (3.3-5.0)
--- NOTE | 2021-02-15 10:24 | Cardiology Consultation ---
Date of Consultation February 15, 2021 Assessment & Plan (1) Syncope: Patient is a complex 75-year-old male as outlined above who presents with 2 syncopal events in the last week with noted profound bradycardia on ER presentation. Heart rates in the 20s and 30s and chronic atrial fibrillation. 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 Suspect patient will warrant permanent pacemaker insertion given past history of similar bradycardia in 2013. Patient tentatively was planned for pacemaker today however review of laboratory studies reveals bacteria and elevated white cell count. Would likely treat urinary tract infection, hold warfarin and tentatively plan for pacemaker on Thursday We will continue to hold metoprolol and diltiazem and follow in hospital. Evaluation and treatment of back pain also warranted (2) Tachy-tye syndrome: (3) Chronic atrial fibrillation: (4) Moderate aortic stenosis: (5) Obstructive sleep apnea: History of Present Illness Reason for Consultation: Atrial fibrillation with symptomatic bradycardia, syncope Requesting Physician: Dr. Saenz Attending Physician: Edwin Saenz MD History of Present Illness Patient is a 75-year-old male with ongoing issues which include 1. Past paroxysmal and now chronic atrial fibrillation/flutter. 2. Aortic valve stenosis, moderate 3. Prior diagnostic cardiac catheterization 2001 without obstructive coronary disease. 4. Hypertension 5. Dyslipidemia 6. Type II diabetes mellitus 7. Obstructive sleep apnea on BiPAP supplementation. 8. Hospitalized in December 2013 following right knee replacement secondary to acute renal insufficiency complicated by acute hypotension and profound bradycardia requiring transient dialysis and trans-venous pacemaker Patient admitted with a history of recent syncope x2. On presentation was found to be in atrial fibrillation with slow ventricular response rate, 20-30. Patient notes a fall into the bathtub approximately 1 week ago with slow recovery. Still has flank and back pain from discomfort. No fevers chills unexplained infections. No chest pains or discomfort. No orthopnea PND or peripheral edema worsening. Allergies Allergy/AdvReac Type Severity Reaction Status Date / Time No Known Allergies Allergy Verified 02/14/21 22:26 Home Medications Medication Instructions Recorded Confirmed Type diltiazem HCl [Cardizem CD] 120 mg PO QAM 05/14/18 02/14/21 History docusate sodium 100 mg PO BIDM 05/14/18 02/14/21 History iron,carbonyl-vitamin C [Vitron-C] 1 tab PO QAM 05/14/18 02/14/21 History metformin [Glucophage] 1,000 mg PO BID 05/14/18 02/14/21 History pantoprazole [Protonix] 40 mg PO QDD 05/14/18 02/14/21 History rosuvastatin [Crestor] 40 mg PO QDD 05/14/18 02/14/21 History tamsulosin [Flomax] 0.4 mg PO HS 05/14/18 02/14/21 History metoprolol succinate 50 mg 50 mg PO QAM tab 04/05/19 02/14/21 History tablet,extended release 24 hr warfarin 5 mg tablet See Rx Instructions .ROUTE 04/05/19 02/14/21 History .COMPLEX #30 tab acetaminophen [Tylenol Extra 500 mg PO Q6H PRN 10/14/19 02/14/21 History Strength] losartan 25 mg PO QDL 10/14/19 02/14/21 History BiPap Supplies #1 ea 12/06/20 12/06/20 Rx glipizide 10 mg PO BIDM 02/14/21 02/14/21 History semaglutide [Ozempic] 0.5 mg SUBCUT WK 02/14/21 02/14/21 History hydralazine 10 mg PO TID 02/15/21 02/15/21 History metoprolol succinate 75 mg PO PM 02/15/21 02/15/21 History Patient History Medical History (Updated 02/15/21 @ 15:17 by Edwin Saenz MD) Acute renal failure Acute renal failure Atrial fibrillation and flutter Atrial fibrillation with RVR Diabetes mellitus Hyperkalemia (01/05/14) CT (myocardial infarction) Surgical History History of appendectomy History of arthroplasty of knee History of knee replacement Family History Father Coronary heart disease Mother Breast cancer Brother Pure hypercholesterolemia Other Family history non-contributory Social History Smoking Status: Former smoker Tobacco Type: Cigars Cigarettes Per Day: 40; Second Hand Exposure: Yes; Hx Alcohol Use: No Hx Substance Use: No Preferred Language: Citizen Of [place] Communication Ability: Effective Executive Creative Director Required: No Beliefs That Will Affect Care: None Current Living Situation: Spouse Other Information That Helps Us Care for You: No Feels Safe at Home: Yes Safety Concerns: Feels Safe At This Time Assistive Devices: Denture - Upper and Glasses Review of Systems Review of Systems: All systems reviewed & are unremarkable except as noted in HPI & below Physical Exam Constitutional: WD/WN, vitals as above + obese; no acute distress Eyes: PERRL, conjunctivae normal, anicteric sclerae ENMT: external ear and nose normal, oropharynx normal Neck: trachea midline, no thyromegaly + thick neck Respiratory: normal respiratory effort, lungs clear to auscultation Cardiovascular: Rate/Rhythm: + irregularly irregular Heart Sounds: normal S1, normal S2 and + murmur (Grade 2/6 systolic murmur throughout the precordium, no diastolic murmur); no gallop Palpation: normal PMI Vessels: normal carotid upstroke and radial pulses present; no JVD and no carotid bruit Extremities: no edema Gastrointestinal (Abdomen): normal bowel sounds, soft, nontender, no hepatosplenomegaly Musculoskeletal: no cyanosis or clubbing, extremities motor strength 5/5 Skin: no rashes, warm and dry Neurologic: PERRL, EOMI, accommodation nl, no face palsy, no dysarthria Psychiatric: A+Ox3, euthymic affect Results & Data ([facility]) Vital Signs (Past 12 Hours) Vital Signs Temp Pulse Pulse Resp BP BP Pulse Ox 02/15/21 07:55 36.8 C 88 18 172/89 H 98 02/15/21 07:07 73 02/15/21 03:04 37.1 C 84 20 182/90 H 93 02/15/21 02:38 90 22 96 02/15/21 01:59 36.7 C 78 20 175/100 H 93 02/15/21 01:55 76 02/15/21 01:00 75 29 H 165/110 H 95 02/15/21 00:45 85 27 H 164/100 H 95 02/15/21 00:30 77 28 H 157/92 H 96 02/15/21 00:16 85 22 173/88 H 95 02/15/21 00:00 78 19 162/106 H 95 02/14/21 23:46 66 25 H 149/75 H 94 02/14/21 23:30 60 20 155/81 H 95 02/14/21 23:16 64 21 145/92 H 95 02/14/21 23:00 70 26 H 158/103 H 95 02/14/21 22:46 61 23 147/87 H 94 02/14/21 22:43 96 02/14/21 22:29 66 18 123/89 96 02/14/21 22:25 29 L 16 95 Laboratory Results Laboratory Results - last 24 hr 02/14/21 02/14/21 02/14/21 22:00 22:00 22:00 WBC 15.01 H RBC 4.47 L Hgb 14.3 POC Hgb Hct 44.4 POC Hct MCV 99.3 MCH 32.0 MCHC 32.2 RDW Std Deviation 50.6 H RDW Coeff of Cookie 13.9 Plt Count 232 MPV 11.5 H Immature Gran % (Auto) 0.2 Neut % (Auto) 75.9 Lymph % (Auto) 14.9 [place] % (Auto) 8.1 Eos % (Auto) 0.7 Baso % (Auto) 0.2 Neut # (Auto) 11.40 H Lymph # (Auto) 2.23 [place] # (Auto) 1.22 H Eos # (Auto) 0.10 Baso # (Auto) 0.03 Immature Gran # (Auto) 0.03 H PT Cancelled INR Cancelled APTT Cancelled PTT Ratio Cancelled POC Sodium Sodium POC Potassium Potassium POC Chloride Chloride Carbon Dioxide POC Total CO2 Anion Gap POC Anion Gap POC BUN BUN Creatinine POC Creatinine Est Cr Clr Drug Dosing Est GFR ( Amer) Est GFR (Non-Af Amer) BUN/Creatinine Ratio Glucose POC Glucose POC Glucose (other) Estimat Average Glucose Hemoglobin A1c Calcium POC Ioniz Calcium Ivan Magnesium Total Bilirubin AST ALT Alkaline Phosphatase Total Creatine Kinase CK-MB (CK-2) CK/CKMB % Calc Troponin I Total Protein Albumin Globulin Albumin/Globulin Ratio Lipase TSH Free T4 Urine Color Urine Appearance Urine pH Ur Specific [place] Urine Protein Urine Glucose (UA) Urine Ketones Urine Blood Urine Nitrite Urine Bilirubin Urine Urobilinogen Ur Leukocyte Esterase Urine WBC (Auto) Urine RBC (Auto) U Hyaline Cast (Auto) U Epithel Cells (Auto) Urine Bacteria (Auto) Lyme Disease IgG Ab Lyme Disease IgM Ab COVID-19 Eval Order SARS-CoV-2 (PCR) Hepatitis C Ab Screen Blood Type Cancelled Antibody Screen Cancelled 02/14/21 02/14/21 02/14/21 22:00 22:11 22:26 WBC RBC Hgb POC Hgb 14.6 Hct POC Hct 43 MCV MCH MCHC RDW Std Deviation RDW Coeff of Cookie Plt Count MPV Immature Gran % (Auto) Neut % (Auto) Lymph % (Auto) [place] % (Auto) Eos % (Auto) Baso % (Auto) Neut # (Auto) Lymph # (Auto) [place] # (Auto) Eos # (Auto) Baso # (Auto) Immature Gran # (Auto) PT INR APTT PTT Ratio POC Sodium 144 Sodium 141 POC Potassium 5.2 H Potassium 5.1 POC Chloride 106 Chloride 110 H Carbon Dioxide 25 POC Total CO2 25 Anion Gap 6.0 POC Anion Gap 19.0 POC BUN 21 H BUN 18 Creatinine 1.21 POC Creatinine 1.1 Est Cr Clr Drug Dosing Not Reportable Est GFR ( Amer) 67.9 Est GFR (Non-Af Amer) 58.6 BUN/Creatinine Ratio 15.0 Glucose 189 H POC Glucose POC Glucose (other) 195 H Estimat Average Glucose Hemoglobin A1c Calcium 9.2 POC Ioniz Calcium Ivan 1.20 Magnesium 2.1 Total Bilirubin 0.9 AST 27 ALT 34 Alkaline Phosphatase 100 Total Creatine Kinase 107 CK-MB (CK-2) 1.1 CK/CKMB % Calc 1.0 Troponin I < 0.015 Total Protein 7.6 Albumin 3.6 Globulin 4.0 Albumin/Globulin Ratio 0.9 Lipase 102 TSH 5.780 H Free T4 1.12 Urine Color Urine Appearance Urine pH Ur Specific [place] Urine Protein Urine Glucose (UA) Urine Ketones Urine Blood Urine Nitrite Urine Bilirubin Urine Urobilinogen Ur Leukocyte Esterase Urine WBC (Auto) Urine RBC (Auto) U Hyaline Cast (Auto) U Epithel Cells (Auto) Urine Bacteria (Auto) Lyme Disease IgG Ab Lyme Disease IgM Ab COVID-19 Eval Order Covid19 at [facility] SARS-CoV-2 (PCR) Hepatitis C Ab Screen Blood Type Antibody Screen 02/14/21 02/14/21 02/14/21 22:26 22:38 23:15 WBC RBC Hgb POC Hgb Hct POC Hct MCV MCH MCHC RDW Std Deviation RDW Coeff of Cookie Plt Count MPV Immature Gran % (Auto) Neut % (Auto) Lymph % (Auto) [place] % (Auto) Eos % (Auto) Baso % (Auto) Neut # (Auto) Lymph # (Auto) [place] # (Auto) Eos # (Auto) Baso # (Auto) Immature Gran # (Auto) PT 20.0 H INR 2.1 H APTT 31.2 H PTT Ratio 1.2 POC Sodium Sodium POC Potassium Potassium POC Chloride Chloride Carbon Dioxide POC Total CO2 Anion Gap POC Anion Gap POC BUN BUN Creatinine POC Creatinine Est Cr Clr Drug Dosing Est GFR ( Amer) Est GFR (Non-Af Amer) BUN/Creatinine Ratio Glucose POC Glucose POC Glucose (other) Estimat Average Glucose Hemoglobin A1c Calcium POC Ioniz Calcium Ivan Magnesium Total Bilirubin AST ALT Alkaline Phosphatase Total Creatine Kinase CK-MB (CK-2) CK/CKMB % Calc Troponin I Total Protein Albumin Globulin Albumin/Globulin Ratio Lipase TSH Free T4 Urine Color Urine Appearance Urine pH Ur Specific [place] Urine Protein Urine Glucose (UA) Urine Ketones Urine Blood Urine Nitrite Urine Bilirubin Urine Urobilinogen Ur Leukocyte Esterase Urine WBC (Auto) Urine RBC (Auto) U Hyaline Cast (Auto) U Epithel Cells (Auto) Urine Bacteria (Auto) Lyme Disease IgG Ab Lyme Disease IgM Ab COVID-19 Eval Order SARS-CoV-2 (PCR) NEGATIVE Hepatitis C Ab Screen Blood Type A Positive Antibody Screen NEGATIVE 02/15/21 02/15/21 02/15/21 00:18 02:04 05:25 WBC 12.60 H RBC 4.30 L Hgb 13.6 L POC Hgb Hct 41.5 L POC Hct MCV 96.5 MCH 31.6 MCHC 32.8 RDW Std Deviation 49.5 H RDW Coeff of Cookie 14.0 Plt Count 199 MPV 11.0 H Immature Gran % (Auto) 0.2 Neut % (Auto) 71.1 Lymph % (Auto) 19.0 [place] % (Auto) 9.4 Eos % (Auto) 0.1 Baso % (Auto) 0.2 Neut # (Auto) 8.95 H Lymph # (Auto) 2.39 [place] # (Auto) 1.19 H Eos # (Auto) 0.01 Baso # (Auto) 0.03 Immature Gran # (Auto) 0.03 H PT INR APTT PTT Ratio POC Sodium Sodium POC Potassium Potassium POC Chloride Chloride Carbon Dioxide POC Total CO2 Anion Gap POC Anion Gap POC BUN BUN Creatinine POC Creatinine Est Cr Clr Drug Dosing Est GFR ( Amer) Est GFR (Non-Af Amer) BUN/Creatinine Ratio Glucose POC Glucose 117 H POC Glucose (other) Estimat Average Glucose Hemoglobin A1c Calcium POC Ioniz Calcium Ivan Magnesium Total Bilirubin AST ALT Alkaline Phosphatase Total Creatine Kinase CK-MB (CK-2) CK/CKMB % Calc Troponin I Total Protein Albumin Globulin Albumin/Globulin Ratio Lipase TSH Free T4 Urine Color Yellow Urine Appearance Clear Urine pH 7.0 Ur Specific [place] 1.042 H Urine Protein Negative Urine Glucose (UA) Negative Urine Ketones Negative Urine Blood Negative Urine Nitrite Negative Urine Bilirubin Negative Urine Urobilinogen Negative Ur Leukocyte Esterase 2+ H Urine WBC (Auto) >30 H Urine RBC (Auto) 0-4 U Hyaline Cast (Auto) 1-5 U Epithel Cells (Auto) 5-10 H Urine Bacteria (Auto) 4+ H Lyme Disease IgG Ab Lyme Disease IgM Ab COVID-19 Eval Order SARS-CoV-2 (PCR) Hepatitis C Ab Screen Blood Type Antibody Screen 02/15/21 02/15/21 02/15/21 05:25 05:25 05:25 WBC RBC Hgb POC Hgb Hct POC Hct MCV MCH MCHC RDW Std Deviation RDW Coeff of Cookie Plt Count MPV Immature Gran % (Auto) Neut % (Auto) Lymph % (Auto) [place] % (Auto) Eos % (Auto) Baso % (Auto) Neut # (Auto) Lymph # (Auto) [place] # (Auto) Eos # (Auto) Baso # (Auto) Immature Gran # (Auto) PT 19.7 H INR 2.1 H APTT PTT Ratio POC Sodium Sodium 141 POC Potassium Potassium 4.3 D POC Chloride Chloride 110 H Carbon Dioxide 31 POC Total CO2 Anion Gap 0 L POC Anion Gap POC BUN BUN 15 Creatinine 0.77 D POC Creatinine Est Cr Clr Drug Dosing 103.7 Est GFR ( Amer) 103.6 Est GFR (Non-Af Amer) 89.4 BUN/Creatinine Ratio 19.9 Glucose 96 POC Glucose POC Glucose (other) Estimat Average Glucose 174 Hemoglobin A1c 7.7 H Calcium 9.0 POC Ioniz Calcium Ivan Magnesium 2.3 Total Bilirubin AST ALT Alkaline Phosphatase Total Creatine Kinase CK-MB (CK-2) CK/CKMB % Calc Troponin I < 0.015 Total Protein Albumin Globulin Albumin/Globulin Ratio Lipase TSH Free T4 Urine Color Urine Appearance Urine pH Ur Specific [place] Urine Protein Urine Glucose (UA) Urine Ketones Urine Blood Urine Nitrite Urine Bilirubin Urine Urobilinogen Ur Leukocyte Esterase Urine WBC (Auto) Urine RBC (Auto) U Hyaline Cast (Auto) U Epithel Cells (Auto) Urine Bacteria (Auto) Lyme Disease IgG Ab Lyme Disease IgM Ab COVID-19 Eval Order SARS-CoV-2 (PCR) Hepatitis C Ab Screen Blood Type Antibody Screen 02/15/21 02/15/21 02/15/21 05:25 05:25 07:33 WBC RBC Hgb POC Hgb Hct POC Hct MCV MCH MCHC RDW Std Deviation RDW Coeff of Cookie Plt Count MPV Immature Gran % (Auto) Neut % (Auto) Lymph % (Auto) [place] % (Auto) Eos % (Auto) Baso % (Auto) Neut # (Auto) Lymph # (Auto) [place] # (Auto) Eos # (Auto) Baso # (Auto) Immature Gran # (Auto) PT INR APTT PTT Ratio POC Sodium Sodium POC Potassium Potassium POC Chloride Chloride Carbon Dioxide POC Total CO2 Anion Gap POC Anion Gap POC BUN BUN Creatinine POC Creatinine Est Cr Clr Drug Dosing Est GFR ( Amer) Est GFR (Non-Af Amer) BUN/Creatinine Ratio Glucose POC Glucose 116 H POC Glucose (other) Estimat Average Glucose Hemoglobin A1c Calcium POC Ioniz Calcium Ivan Magnesium Total Bilirubin AST ALT Alkaline Phosphatase Total Creatine Kinase CK-MB (CK-2) CK/CKMB % Calc Troponin I Total Protein Albumin Globulin Albumin/Globulin Ratio Lipase TSH Free T4 Urine Color Urine Appearance Urine pH Ur Specific [place] Urine Protein Urine Glucose (UA) Urine Ketones Urine Blood Urine Nitrite Urine Bilirubin Urine Urobilinogen Ur Leukocyte Esterase Urine WBC (Auto) Urine RBC (Auto) U Hyaline Cast (Auto) U Epithel Cells (Auto) Urine Bacteria (Auto) Lyme Disease IgG Ab Negative Lyme Disease IgM Ab Negative COVID-19 Eval Order SARS-CoV-2 (PCR) Hepatitis C Ab Screen Neg Blood Type Antibody Screen (1) Syncope Syncope type: unspecified Qualified Code(s): R55 - Syncope and collapse
[2021-02-15] MEDS: LOSARTAN POTASSIUM 25 MG TAB PO SCH (11:41)
[2021-02-15] MEDS: cefTRIAXone SODIUM 2,000 MG in DEXTROSE 5% 50 ML IV SCH (11:41)
--- NOTE | 2021-02-15 13:19 | Electrocardiogram Report ---
Test Reason : Blood Pressure : / mmHG Vent. Rate : 031 BPM Atrial Rate : 394 BPM P-R Int : 000 ms QRS Dur : 158 ms QT Int : 550 ms P-R-T Axes : 000 107 -52 degrees QTc Int : 395 ms Possible Idioventricular rhythm (regular rhythm) Underlying atrial fibrillation Right bundle branch block Marked T-wave abnormality, consider inferolateral ischemia Abnormal ECG When compared with ECG of 19-MAR-2020 19:25, Vent. rate has decreased BY 50 BPM Confirmed by Rj Cha ([id number]) on 02/15/2021 1:18:49 PM Referred By: REFERRED SELF Confirmed By:Rj Cha
--- NOTE | 2021-02-15 13:20 | Electrocardiogram Report ---
Test Reason : Blood Pressure : / mmHG Vent. Rate : 072 BPM Atrial Rate : 070 BPM P-R Int : 000 ms QRS Dur : 152 ms QT Int : 452 ms P-R-T Axes : 045 -64 017 degrees QTc Int : 494 ms Atrial fibrillation Left axis deviation Right bundle branch block Possible Lateral infarct , age undetermined Inferior infarct , age undetermined Abnormal ECG When compared with ECG of 14-FEB-2021 21:55, (unconfirmed) Confirmed by Rj Cha ([id number]) on 02/15/2021 1:19:53 PM Referred By: REFERRED SELF Confirmed By:Rj Cha
--- NOTE | 2021-02-15 15:27 | Hospitalist Progress Note ---
Date of Service February 15, 2021 Assessment & Plan (1) Tachy-tye syndrome: Presented with syncope x2 in last week and found to have bradycardia Has been having slow A. fib with occasional pauses Likely has tachybradycardia syndrome and will require pacemaker Appreciate cardiology input and recommendation Due to possible UTI pacemaker insertion will be done on Patient remains free of symptoms at rest (2) Moderate aortic stenosis: (3) Chronic atrial fibrillation: Has been having slow A. fib with significant bradyarrhythmias We are holding beta-sheldon and Cardizem Likely has tachybradycardia syndrome and will need pacemaker (4) Syncope: (5) Obstructive sleep apnea: Has obstructive sleep apnea and is on BiPAP at night No acute symptoms now (6) Diabetes mellitus: We will continue with SSI (7) UTI (urinary tract infection): Noted to have mild leukocytosis at presentation UA looks suggestive of UTI Ceftriaxone has been added and await urine culture and sensitivity Denies any symptoms (8) VENU treated with BiPAP: As above DVT prophylaxis Coumadin is on hold We will start subcu heparin Admission and Anticipated Discharge Date Admission Date: February 15, 2021 Subjective 02/15/2021 The patient was seen and examined in telemetry unit He was admitted with syncopal episodes with bradycardia Has been feeling much better since admission but is still getting dizzy spells with standing and sitting up Noted to have occasional sinus pauses in the hospital but denies any significant chest pain, palpitation, shortness of breath Denies any fever and/or chills Review of Systems Review of Systems: All systems reviewed and are unremarkable except as noted below Cardiovascular: + lightheadedness and + syncope; no chest pain with activity and no dyspnea at rest Physical Exam Physical Exam: Lying on bed without any acute distress Constitutional: well developed, well nourished, + ill appearing and + obese Eyes: PERRL, conjunctivae normal, anicteric sclerae ENMT: external ear and nose normal, oropharynx normal Neck: trachea midline, no thyromegaly Respiratory: no respiratory distress Auscultation: lungs clear to auscultation bilaterally Cardiovascular: Rate/Rhythm: + irregularly irregular Heart Sounds: + murmur (2/6 ESM over precordium) Extremities: + edema (Trace edema bilaterally) Gastrointestinal (Abdomen): Inspection/Auscultation: normal bowel sounds; abdomen not distended Percussion/Palpation: abdomen soft; abdomen nontender Musculoskeletal: No acute arthritis in any joint Neurologic: ,Alert, awake and oriented x generally weak and lethargic 3 Psychiatric: A+Ox3, euthymic affect Lymphatic: no cervical or axillary lymphadenopathy Results & Data Results & Data ([facility]) Vital Signs (Past 12 Hours) Vital Signs Temp Pulse Pulse Resp BP Pulse Ox 02/15/21 12:34 37.0 C 98 H 16 169/98 H 98 02/15/21 07:55 36.8 C 88 18 172/89 H 98 02/15/21 07:07 73 Laboratory Results Short CBC 02/14/21 02/15/21 Range/Units 22:00 05:25 WBC 15.01 H 12.60 H (4.8-10.8) K/uL Hgb 14.3 13.6 L (14.0-18.0) g/dL Hct 44.4 41.5 L (42-52) % Plt Count 232 199 (130-400) K/uL BMP 02/14/21 02/15/21 22:00 05:25 Sodium 141 141 Potassium 5.1 4.3 D Chloride 110 H 110 H Carbon Dioxide 25 31 BUN 18 15 Creatinine 1.21 0.77 D Glucose 189 H 96 Calcium 9.2 9.0 Cardiac Enzymes 02/14/21 02/15/21 02/15/21 Range/Units 22:00 05:25 11:07 Total Creatine Kinase 107 (39-308) U/L CK-MB (CK-2) 1.1 (0.5-3.6) ng/ml Troponin I < 0.015 < 0.015 < 0.015 (0-0.045) ng/ml Liver Function 02/14/21 Range/Units 22:00 Total Bilirubin 0.9 (0.2-1) mg/dl AST 27 (15-37) U/L ALT 34 (12-78) U/L Alkaline Phosphatase 100 (45-117) U/L Albumin 3.6 (3.4-5.0) gm/dl Urine 02/15/21 Range/Units 00:18 Urine Color Yellow Urine Appearance Clear (Clear) Urine pH 7.0 (4.5-7.5) Ur Specific [place] 1.042 H (1.000-1.030) Urine Protein Negative (Negative) Urine Glucose (UA) Negative (Negative) Medications Administered Current Inpatient Medications Acetaminophen (Acetaminophen 325 Mg Tab) 650 mg PO Q4H PRN PRN Reason: Pain or Fever Stop: 03/17/21 01:47 Last Admin: 02/15/21 07:38 Dose: 650 mg Documented by: Ascorbic Acid (Ascorbic Acid 500 Mg Tab) 250 mg PO QAM [facility] Stop: 03/17/21 08:59 Last Admin: 02/15/21 07:40 Dose: 250 mg Documented by: Dextrose (Dextrose 50% 50 Ml Syringe) 25 - 50 ml IV UD PRN; Protocol PRN Reason: Hypoglycemia Protocol Stop: 03/17/21 01:59 Docusate Sodium (Docusate Sodium 100 Mg Cap) 100 mg PO BIDM [facility] Stop: 03/17/21 07:59 Last Admin: 02/15/21 07:41 Dose: 100 mg Documented by: Ferrous Sulfate (Ferrous Sulfate 325 Mg Tab) [facility] [place]: 03/17/21 08:59 Last Admin: 02/15/21 07:40 Dose: 325 mg Documented by: Glucagon (Glucagon For Inj 1 Mg Vial) 1 mg IM UD PRN; Protocol PRN Reason: Hypoglycemia Protocol Stop: 03/17/21 01:59 Glucose (Glucose 40% Gel 15 Gm Tube) 15 - 30 gm PO UD PRN; Protocol PRN Reason: Hypoglycemia Protocol Stop: 03/17/21 01:59 Glucose (Glucose 10 Tabs/Tube) 4 - 8 tabs PO UD PRN; Protocol PRN Reason: Hypoglycemia Protocol Stop: 03/17/21 01:59 Hydralazine HCl (Hydralazine 10 Mg Tab) 10 mg PO TID [facility] Stop: 03/17/21 08:59 Last Admin: 02/15/21 13:39 Dose: 10 mg Documented by: Ceftriaxone Sodium 2,000 mg/ (Dextrose) 70 mls @ 100 mls/hr IV Q24H [facility]; Protocol Stop: 02/20/21 10:59 Last Infusion: 02/15/21 12:25 Dose: Infused Documented by: Insulin Aspart (Insulin Aspart 100 Units/Ml 3 Ml Pen) 0 units SC ACHS [facility] Stop: 03/17/21 07:29 Last Admin: 02/15/21 11:39 Dose: Not Given Documented by: Insulin Glargine (Insulin Glargine Solostar 100 Units/Ml 3 Ml Pen) 6 units SC DAILY [facility] Stop: 03/17/21 08:59 Last Admin: 02/15/21 09:08 Dose: Not Given Documented by: Losartan Potassium (Losartan Potassium 25 Mg Tab) 25 mg PO QDL [facility] Stop: 03/17/21 11:29 Last Admin: 02/15/21 11:41 Dose: 25 mg Documented by: Miscellaneous (Carbohydrates For Hypoglycemia ) 15 - 30 gm PO UD PRN PRN Reason: Hypoglycemia Treatment Stop: 03/17/21 01:59 Nitroglycerin (Nitroglycerin Sl 0.4 Mg/Tab Tab) 0.4 mg SL UD PRN PRN Reason: Chest Pain Stop: 03/17/21 01:47 Pantoprazole Sodium (Pantoprazole 40 Mg Tab) 40 mg PO QDD [facility] Stop: 03/17/21 16:29 Polyethylene Glycol (Polyethylene (Miralax) 17 Gm Pack) 17 gm PO DAILY PRN PRN Reason: Constipation Stop: 03/17/21 01:47 Rosuvastatin Calcium (Rosuvastatin Calcium 20 Mg Tab) 40 mg PO QDD [facility] Stop: 03/17/21 16:29 Tamsulosin HCl (Tamsulosin Hcl 0.4 Mg Cap) 0.4 mg PO HS [facility] Stop: 03/17/21 20:59 (1) Syncope Syncope type: unspecified Qualified Code(s): R55 - Syncope and collapse
[2021-02-15] MEDS: ROSUVASTATIN CALCIUM 20 MG TAB PO SCH (17:03)
[2021-02-15] MEDS: PANTOprazole 40 MG TAB PO SCH (17:03)
[2021-02-15] MEDS: TAMSULOSIN HCL 0.4 MG CAP PO SCH (21:45)
[2021-02-15] MEDS: HEPARIN SOD 5,000 UNIT/0.5 ML VIAL SQ SCH (21:46)
[2021-02-16 06:18] LABS: Basophils # (auto) 0.03 K/uL (0-0.2); Basophils % (auto) 0.3 %; Eosinophils # (auto) 0.11 K/uL (0-0.5); Eosinophils % (auto) 1.2 %; Hematocrit (blood only) 42.3 % (42-52); Hemoglobin 13.8 g/dL (14.0-18.0); INR 1.4 (0.9-1.1); Immature Granulocytes # (auto) 0.02 K/uL (0.00-0.02); Immature Granulocytes % (auto) 0.2 %; Lymphocytes # (auto) 2.28 K/uL (1.2-3.4); Lymphocytes % (auto) 25.1 %; Mean Corpuscular Hemoglobin 31.7 pg (25-34); Mean Corpuscular Hgb Conc 32.6 g/dL (32-36); Mean Platelet Volume 11.8 fL (7.4-10.4); Monocytes # (auto) 1.11 K/uL (0.11-0.59); Monocytes % (auto) 12.2 %; Neutrophils # (auto) 5.55 K/uL (1.4-6.5); Platelet Count 202 K/uL (130-400); RDW Coefficient of Variation 13.9 % (11.5-14.5); RDW Standard Deviation 49.9 fL (36.4-46.3); Red Blood Count 4.36 M/uL (4.7-6.1)
[2021-02-16 06:39] LABS: BUN Creatinine Ratio 22.4 (10-20); Calcium 9.2 mg/dl (8.5-10.1); Creatinine Clr Calc Pharmacy 109.7 ml/min; Est GFR (African American) 105.9 ml/min; Est GFR (Non-African American) 91.4 ml/min; Magnesium 2.2 mg/dl (1.8-2.4)
[2021-02-16 06:40] LABS: Phosphorus 3.1 mg/dl (2.5-4.9)
[2021-02-16] MEDS: INSULIN ASPART 100 UNITS/ML 3 ML PEN SC SCH ×4 (07:34→21:21)
[2021-02-16] MEDS: DOCUSATE SODIUM 100 MG CAP PO SCH ×2 (07:35→16:25)
[2021-02-16] MEDS: ASCORBIC ACID 500 MG TAB PO SCH (07:35)
[2021-02-16] MEDS: hydrALAZINE 10 MG TAB PO SCH ×3 (07:35→21:00)
[2021-02-16] MEDS: FERROUS SULFATE 325 MG TAB PO SCH (07:35)
[2021-02-16] MEDS: INSULIN GLARGINE SOLOSTAR 100 UNITS/ML 3 ML PEN SC SCH (07:36)
[2021-02-16] MEDS: HEPARIN SOD 5,000 UNIT/0.5 ML VIAL SQ SCH ×2 (07:38→21:01)
--- NOTE | 2021-02-16 07:47 | Cardiology Progress Note ---
Date of Service February 16, 2021 Assessment & Plan (1) Syncope: Patient is a complex 75-year-old male as outlined above who presents with 2 syncopal events in the last week with noted profound bradycardia on ER presentation. Heart rates in the 20s and 30s and chronic atrial fibrillation. 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 Suspect patient will warrant permanent pacemaker insertion given past history of similar bradycardia in 2014. Patient currently off metoprolol and diltiazem with heart rates controlled at rest. Pending treatment of urinary tract infections will proceed to elective single- chamber pacemaker insert (2) Tachy-tye syndrome: (3) Chronic atrial fibrillation: (4) Moderate aortic stenosis: (5) Obstructive sleep apnea: (6) VENU treated with BiPAP: (7) UTI (urinary tract infection): Admission and Anticipated Discharge Date Admission Date: February 15, 2021 Subjective Patient seen and examined, chart, medications, telemetry reviewed. No further arrhythmias or pauses. Blood pressure trending slightly higher off current medications. No chest pains, tachypalpitations dizziness or lightheadedness patient sedentary. Patient denies fevers chills or cough. No dysuria Review of Systems Review of Systems: All systems reviewed & are unremarkable except as noted in HPI & below Physical Exam Constitutional: WD/WN, vitals as above + obese; no acute distress Eyes: PERRL, conjunctivae normal, anicteric sclerae ENMT: external ear and nose normal, oropharynx normal Neck: trachea midline, no thyromegaly + thick neck Respiratory: normal respiratory effort, lungs clear to auscultation Cardiovascular: Rate/Rhythm: + irregularly irregular Heart Sounds: normal S1, normal S2 and + murmur (Grade 2/6 systolic murmur throughout the precordium, no diastolic murmur); no gallop Palpation: normal PMI Vessels: normal carotid upstroke and radial pulses present; no JVD and no carotid bruit Extremities: no edema Gastrointestinal (Abdomen): normal bowel sounds, soft, nontender, no hepatosplenomegaly Musculoskeletal: no cyanosis or clubbing, extremities motor strength 5/5 Skin: no rashes, warm and dry Neurologic: PERRL, EOMI, accommodation nl, no face palsy, no dysarthria Psychiatric: A+Ox3, euthymic affect Results & Data ([place]) Vital Signs (Past 12 Hours) Vital Signs Temp Pulse Pulse Resp BP BP Pulse Ox 02/16/21 07:06 36.9 C 77 169/88 H 96 02/16/21 04:07 37 C 65 20 146/90 H 92 02/16/21 02:55 74 18 96 02/15/21 23:21 58 L 02/15/21 22:41 37.0 C 69 19 155/84 H 92 02/15/21 22:18 86 26 H 95 Laboratory Results Laboratory Results - last 24 hr 02/14/21 02/15/21 02/15/21 22:11 05:25 11:07 WBC RBC Hgb POC Hgb 14.6 Hct POC Hct 43 MCV MCH MCHC RDW Std Deviation RDW Coeff of Cookie Plt Count MPV Immature Gran % (Auto) Neut % (Auto) Lymph % (Auto) [place] % (Auto) Eos % (Auto) Baso % (Auto) Neut # (Auto) Lymph # (Auto) [place] # (Auto) Eos # (Auto) Baso # (Auto) Immature Gran # (Auto) PT INR POC Sodium 144 Sodium POC Potassium 5.2 H Potassium POC Chloride 106 Chloride Carbon Dioxide POC Total CO2 25 Anion Gap POC Anion Gap 19.0 POC BUN 21 H BUN Creatinine POC Creatinine 1.1 Est Cr Clr Drug Dosing Est GFR ( Amer) Est GFR (Non-Af Amer) BUN/Creatinine Ratio Glucose POC Glucose POC Glucose (other) 195 H Calcium POC Ioniz Calcium Ivan 1.20 Phosphorus Magnesium Troponin I < 0.015 Hepatitis C Ab Screen Neg 02/15/21 02/15/21 02/15/21 11:34 16:13 20:31 WBC RBC Hgb POC Hgb Hct POC Hct MCV MCH MCHC RDW Std Deviation RDW Coeff of Cookie Plt Count MPV Immature Gran % (Auto) Neut % (Auto) Lymph % (Auto) [place] % (Auto) Eos % (Auto) Baso % (Auto) Neut # (Auto) Lymph # (Auto) [place] # (Auto) Eos # (Auto) Baso # (Auto) Immature Gran # (Auto) PT INR POC Sodium Sodium POC Potassium Potassium POC Chloride Chloride Carbon Dioxide POC Total CO2 Anion Gap POC Anion Gap POC BUN BUN Creatinine POC Creatinine Est Cr Clr Drug Dosing Est GFR ( Amer) Est GFR (Non-Af Amer) BUN/Creatinine Ratio Glucose POC Glucose 129 H 116 H 114 H POC Glucose (other) Calcium POC Ioniz Calcium Ivan Phosphorus Magnesium Troponin I Hepatitis C Ab Screen 02/16/21 02/16/21 02/16/21 05:22 05:22 05:22 WBC 9.10 RBC 4.36 L Hgb 13.8 L POC Hgb Hct 42.3 POC Hct MCV 97.0 MCH 31.7 MCHC 32.6 RDW Std Deviation 49.9 H RDW Coeff of Cookie 13.9 Plt Count 202 MPV 11.8 H Immature Gran % (Auto) 0.2 Neut % (Auto) 61.0 Lymph % (Auto) 25.1 [place] % (Auto) 12.2 Eos % (Auto) 1.2 Baso % (Auto) 0.3 Neut # (Auto) 5.55 Lymph # (Auto) 2.28 [place] # (Auto) 1.11 H Eos # (Auto) 0.11 Baso # (Auto) 0.03 Immature Gran # (Auto) 0.02 PT 14.0 H INR 1.4 H POC Sodium Sodium 139 POC Potassium Potassium 4.0 POC Chloride Chloride 107 Carbon Dioxide 28 POC Total CO2 Anion Gap 4.0 POC Anion Gap POC BUN BUN 16 Creatinine 0.73 POC Creatinine Est Cr Clr Drug Dosing 109.7 Est GFR ( Amer) 105.9 Est GFR (Non-Af Amer) 91.4 BUN/Creatinine Ratio 22.4 H Glucose 135 H POC Glucose POC Glucose (other) Calcium 9.2 POC Ioniz Calcium Ivan Phosphorus 3.1 Magnesium 2.2 Troponin I Hepatitis C Ab Screen 02/16/21 07:04 WBC RBC Hgb POC Hgb Hct POC Hct MCV MCH MCHC RDW Std Deviation RDW Coeff of Cookie Plt Count MPV Immature Gran % (Auto) Neut % (Auto) Lymph % (Auto) [place] % (Auto) Eos % (Auto) Baso % (Auto) Neut # (Auto) Lymph # (Auto) [place] # (Auto) Eos # (Auto) Baso # (Auto) Immature Gran # (Auto) PT INR POC Sodium Sodium POC Potassium Potassium POC Chloride Chloride Carbon Dioxide POC Total CO2 Anion Gap POC Anion Gap POC BUN BUN Creatinine POC Creatinine Est Cr Clr Drug Dosing Est GFR ( Amer) Est GFR (Non-Af Amer) BUN/Creatinine Ratio Glucose POC Glucose 133 H POC Glucose (other) Calcium POC Ioniz Calcium Ivan Phosphorus Magnesium Troponin I Hepatitis C Ab Screen (1) Syncope Syncope type: unspecified Qualified Code(s): R55 - Syncope and collapse
--- NOTE | 2021-02-16 10:07 | Hospitalist Progress Note ---
Date of Service February 16, 2021 Assessment & Plan (1) Tachy-tye syndrome: Presented with syncope x2 in last week and found to have bradycardia Has been having slow A. fib with occasional pauses Likely has tachybradycardia syndrome and will require pacemaker Appreciate cardiology input and recommendation Due to possible UTI pacemaker insertion will be done on Patient remains free of symptoms at rest Remains stable (2) Moderate aortic stenosis: (3) Chronic atrial fibrillation: Has been having slow A. fib with significant bradyarrhythmias We are holding beta-sehldon and Cardizem Likely has tachybradycardia syndrome and will need pacemaker No significant bradyarrhythmias (4) Syncope: (5) Obstructive sleep apnea: Has obstructive sleep apnea and is on BiPAP at night No acute symptoms now (6) Diabetes mellitus: We will continue with SSI (7) UTI (urinary tract infection): Noted to have mild leukocytosis at presentation UA suggestive of UTI Ceftriaxone has been added and await urine culture and sensitivity Denies any symptoms Urine culture is growing group B beta streptococci-no sensitivity to follow We will discontinue antibiotic after 3 days (8) VENU treated with BiPAP: As above DVT prophylaxis Coumadin is on hold We will start subcu heparin Admission and Anticipated Discharge Date Admission Date: February 15, 2021 Subjective 02/15/2021 The patient was seen and examined in telemetry unit He was admitted with syncopal episodes with bradycardia Has been feeling much better since admission but is still getting dizzy spells with standing and sitting up Noted to have occasional sinus pauses in the hospital but denies any significant chest pain, palpitation, shortness of breath Denies any fever and/or chills 02/16/2021 The patient was seen and examined in telemetry unit He complains of some back pain but denies any other symptoms Denies any fever and/or chills and no dysuria No dizziness at rest Review of Systems Review of Systems: All systems reviewed and are unremarkable except as noted below Musculoskeletal: + back pain (Without any radiation) Physical Exam Physical Exam: Lying on bed without any acute distress Constitutional: well developed, well nourished, + ill appearing and + obese Eyes: PERRL, conjunctivae normal, anicteric sclerae ENMT: external ear and nose normal, oropharynx normal Neck: trachea midline, no thyromegaly Respiratory: no respiratory distress Auscultation: lungs clear to auscultation bilaterally Cardiovascular: Rate/Rhythm: + irregularly irregular Heart Sounds: + murmur (2/6 ESM over precordium) Extremities: + edema (Trace edema bilaterally) Gastrointestinal (Abdomen): Inspection/Auscultation: normal bowel sounds; abdomen not distended Percussion/Palpation: abdomen soft; abdomen nontender Musculoskeletal: Lower thoracic spinal area is tender. No radiation of the pain Neurologic: Alert, awake and oriented x3. No focal sensory and motor deficit appreciated Psychiatric: A+Ox3, euthymic affect Lymphatic: no cervical or axillary lymphadenopathy Results & Data Results & Data ([facility]) Vital Signs (Past 12 Hours) Vital Signs Temp Pulse Pulse Resp BP BP Pulse Ox 02/16/21 08:00 82 02/16/21 07:06 36.9 C 77 169/88 H 96 02/16/21 04:07 37 C 65 20 146/90 H 92 02/16/21 02:55 74 18 96 02/15/21 23:21 58 L 02/15/21 22:41 37.0 C 69 19 155/84 H 92 02/15/21 22:18 86 26 H 95 Laboratory Results Short CBC 02/16/21 Range/Units 05:22 WBC 9.10 (4.8-10.8) K/uL Hgb 13.8 L (14.0-18.0) g/dL Hct 42.3 (42-52) % Plt Count 202 (130-400) K/uL BMP 02/16/21 05:22 Sodium 139 Potassium 4.0 Chloride 107 Carbon Dioxide 28 BUN 16 Creatinine 0.73 Glucose 135 H Calcium 9.2 Cardiac Enzymes 02/15/21 Range/Units 11:07 Troponin I < 0.015 (0-0.045) ng/ml Medications Administered Current Inpatient Medications Acetaminophen (Acetaminophen 325 Mg Tab) 650 mg PO Q4H PRN PRN Reason: Pain or Fever Stop: 03/17/21 01:47 Last Admin: 02/15/21 21:45 Dose: 650 mg Documented by: Ascorbic Acid (Ascorbic Acid 500 Mg Tab) 250 mg PO QAM [facility] Stop: 03/17/21 08:59 Last Admin: 02/16/21 07:35 Dose: 250 mg Documented by: Dextrose (Dextrose 50% 50 Ml Syringe) 25 - 50 ml IV UD PRN; Protocol PRN Reason: Hypoglycemia Protocol Stop: 03/17/21 01:59 Diclofenac Sodium (Diclofenac Sod 1% Gel 100 Gm Tube) 2 gm EXT BID [facility] Stop: 03/18/21 10:14 Docusate Sodium (Docusate Sodium 100 Mg Cap) 100 mg PO BIDM [facility] Stop: 03/17/21 07:59 Last Admin: 02/16/21 07:35 Dose: 100 mg Documented by: Ferrous Sulfate (Ferrous Sulfate 325 Mg Tab) 325 mg PO QAM [facility] Stop: 03/17/21 08:59 Last Admin: 02/16/21 07:35 Dose: 325 mg Documented by: Glucagon (Glucagon For Inj 1 Mg Vial) 1 mg IM UD PRN; Protocol PRN Reason: Hypoglycemia Protocol Stop: 03/17/21 01:59 Glucose (Glucose 40% Gel 15 Gm Tube) 15 - 30 gm PO UD PRN; Protocol PRN Reason: Hypoglycemia Protocol Stop: 03/17/21 01:59 Glucose (Glucose 10 Tabs/Tube) 4 - 8 tabs PO UD PRN; Protocol PRN Reason: Hypoglycemia Protocol Stop: 03/17/21 01:59 Heparin Sodium (Porcine) (Heparin Sod 5,000 Unit/0.5 Ml Vial) 5,000 units SQ Q12 [facility] Stop: 03/17/21 20:59 Last Admin: 02/16/21 07:38 Dose: 5,000 units Documented by: Hydralazine HCl (Hydralazine 10 Mg Tab) 10 mg PO TID [facility] Stop: 03/17/21 08:59 Last Admin: 02/16/21 07:35 Dose: 10 mg Documented by: Ceftriaxone Sodium 2,000 mg/ (Dextrose) 70 mls @ 100 mls/hr IV Q24H [facility]; Protocol Stop: 02/20/21 10:59 Last Infusion: 02/15/21 12:25 Dose: Infused Documented by: Insulin Aspart (Insulin Aspart 100 Units/Ml 3 Ml Pen) 0 units SC ACHS [facility] Stop: 03/17/21 07:29 Last Admin: 02/16/21 07:34 Dose: 7 units Documented by: Insulin Glargine (Insulin Glargine Solostar 100 Units/Ml 3 Ml Pen) 6 units SC DAILY [facility] Stop: 03/17/21 08:59 Last Admin: 02/16/21 07:36 Dose: 6 units Documented by: Losartan Potassium (Losartan Potassium 25 Mg Tab) 25 mg PO QDL [facility] Stop: 03/17/21 11:29 Last Admin: 02/15/21 11:41 Dose: 25 mg Documented by: Miscellaneous (Carbohydrates For Hypoglycemia ) 15 - 30 gm PO UD PRN PRN Reason: Hypoglycemia Treatment Stop: 03/17/21 01:59 Nitroglycerin (Nitroglycerin Sl 0.4 Mg/Tab Tab) 0.4 mg SL UD PRN PRN Reason: Chest Pain Stop: 03/17/21 01:47 Pantoprazole Sodium (Pantoprazole 40 Mg Tab) 40 mg PO QDD [facility] Stop: 03/17/21 16:29 Last Admin: 02/15/21 17:03 Dose: 40 mg Documented by: Polyethylene Glycol (Polyethylene (Miralax) 17 Gm Pack) 17 gm PO DAILY PRN PRN Reason: Constipation Stop: 03/17/21 01:47 Rosuvastatin Calcium (Rosuvastatin Calcium 20 Mg Tab) 40 mg PO QDD [facility] Stop: 03/17/21 16:29 Last Admin: 02/15/21 17:03 Dose: 40 mg Documented by: Tamsulosin HCl (Tamsulosin Hcl 0.4 Mg Cap) 0.4 mg PO HS [facility] Stop: 03/17/21 20:59 Last Admin: 02/15/21 21:45 Dose: 0.4 mg Documented by: (1) Syncope Syncope type: unspecified Qualified Code(s): R55 - Syncope and collapse
[2021-02-16] MEDS: DICLOFENAC SOD 1% GEL 100 GM TUBE EXT SCH ×2 (10:28→21:01)
[2021-02-16] MEDS: cefTRIAXone SODIUM 2,000 MG in DEXTROSE 5% 50 ML IV SCH (10:34)
[2021-02-16] MEDS: LOSARTAN POTASSIUM 25 MG TAB PO SCH (10:34)
--- NOTE | 2021-02-16 11:45 | Cardiology Consultation ---
Date of Consultation February 16, 2021 Assessment & Plan (1) Syncope: Although not documented his syncope is almost certainly due to development of complete heart block, probably with a delay in initiation of his escape rhythm, which he then remained in until after his admission in the ER and al lowed him to become conscious again. (2) Atrioventricular block, complete: Although the onset of complete heart block was not identified he presented to the emergency room in it and remained in it for a short time in the emergency room. It then resolved and has not recurred. This is almost certainly due to intrinsic conduction disease, possibly related to aortic stenosis and calcification in the AV conduction area. He will need a pacemaker and he is agreeable. (3) Chronic atrial fibrillation: He is in permanent atrial fibrillation and over the long run will need anticoagulation. He is currently on warfarin which is on hold. His INR has dropped and should be acceptable for pacemaker implantation Thursday. (4) Aortic stenosis: He has aortic stenosis, patients with aortic stenosis are prone to syncope but in this case I believe we have enough evidence to support heart block as a cause of his syncope which may or may not be related to the aortic stenosis. (5) HBP (high blood pressure): His blood pressure is markedly elevated today and has been since shortly after admission. History of Present Illness Reason for Consultation: Syncope, CHB Attending Physician: Edwin Saenz MD History of Present Illness This is a 75-year-old male who has a history of permanent atrial fibrillation, moderate aortic stenosis with no coronary artery disease based on a catheterization in 2001. He does have a history of hypertension and dyslipidemia as well as diabetes mellitus. He has been having syncope. He presented to the emergency room on February 14, 2021 with a syncopal episode and he also has been having dizziness and lightheadedness over the last several weeks as well as at least one other episode of syncope. Initial evaluation included an electrocardiogram in the emergency room February 14, 2021 at 2155. This showed a regular wide-complex rhythm with a rightward axis and a right bundle pattern at a rate of 31 bpm, consistent with complete heart block and a ventricular escape rhythm. He had underlying atrial fibrillation at that time on his electrocardiogram. Telemetry also showed this rhythm consistently until 20-30 when he suddenly regained AV conduction with an increase in heart rate to a rhythm consistent with atrial fibrillation with normal to rapid AV conduction and a different morphology. Electrocardiography on February 14, 2021 at 2233 showed atrial fibrillation with a heart rate of 72 bpm with a right bundle branch pattern but a leftward axis. He describes his syncopal events as being very sudden although being preceded by a momentary feeling of lightheadedness, then loss of consciousness with no recollection of falling. On this last episode he evidently fell into something, he is not sure what, with some facial trauma. He does have the occasional lightheadedness and dizziness but no other cardiovascular symptoms. He has noticed no change in his exercise ability and has no palpitations. Allergies Allergy/AdvReac Type Severity Reaction Status Date / Time No Known Allergies Allergy Verified 02/14/21 22:26 Home Medications Medication Instructions Recorded Confirmed Type diltiazem HCl [Cardizem CD] 120 mg PO QAM 05/14/18 02/14/21 History docusate sodium 100 mg PO BIDM 05/14/18 02/14/21 History iron,carbonyl-vitamin C [Vitron-C] 1 tab PO QAM 05/14/18 02/14/21 History metformin [Glucophage] 1,000 mg PO BID 05/14/18 02/14/21 History pantoprazole [Protonix] 40 mg PO QDD 05/14/18 02/14/21 History rosuvastatin [Crestor] 40 mg PO QDD 05/14/18 02/14/21 History tamsulosin [Flomax] 0.4 mg PO HS 05/14/18 02/14/21 History metoprolol succinate 50 mg 50 mg PO QAM tab 04/05/19 02/14/21 History tablet,extended release 24 hr warfarin 5 mg tablet See Rx Instructions .ROUTE 04/05/19 02/14/21 History .COMPLEX #30 tab acetaminophen [Tylenol Extra 500 mg PO Q6H PRN 10/14/19 02/14/21 History Strength] losartan 25 mg PO QDL 10/14/19 02/14/21 History BiPap Supplies #1 ea 12/06/20 12/06/20 Rx glipizide 10 mg PO BIDM 02/14/21 02/14/21 History semaglutide [Ozempic] 0.5 mg SUBCUT WK 02/14/21 02/14/21 History hydralazine 10 mg PO TID 02/15/21 02/15/21 History metoprolol succinate 75 mg PO PM 02/15/21 02/15/21 History Patient History Medical History (Updated 02/16/21 @ 11:54 by Yuri Rubio MD) Acute renal failure Acute renal failure Atrial fibrillation and flutter Atrial fibrillation with RVR Diabetes mellitus Hyperkalemia (01/05/14) [place] (myocardial infarction) Surgical History History of appendectomy History of arthroplasty of knee History of knee replacement Family History Father Coronary heart disease Mother Breast cancer Brother Pure hypercholesterolemia Other Family history non-contributory Social History Smoking Status: Former smoker Tobacco Type: Cigars Cigarettes Per Day: 40; Second Hand Exposure: Yes; Hx Alcohol Use: No Hx Substance Use: No Preferred Language: Thai Communication Ability: Effective Tungsten [employer]iner Required: No Beliefs That Will Affect Care: None Current Living Situation: Spouse Other Information That Helps Us Care for You: No Feels Safe at Home: Yes Safety Concerns: Feels Safe At This Time Assistive Devices: Oxygen - Continuous Review of Systems Review of Systems: All systems reviewed & are unremarkable except as noted in HPI & below Physical Exam Physical Exam: Constitutional: Alert, cooperative and in no distress. He is overweight. HEENT: Unremarkable Neck: No jugular venous distention, carotid pulses are irregular but otherwise normal and equal bilaterally without bruits. Pulmonary: Clear to auscultation bilaterally. Cardiac: Irregular rhythm with no murmur, gallop or rub. Abdomen: Soft, nontender with normal bowel sounds. Extremities: No edema. Distal pulses intact. Neurologic: No focal findings. Gait is steady. Skin: No rash, ecchymoses or petechiae. Results & Data ([facility]) Vital Signs (Past 12 Hours) Vital Signs Temp Pulse Pulse Resp BP Pulse Ox 02/16/21 11:03 36.5 C 80 15 175/107 H 94 02/16/21 08:00 82 02/16/21 07:06 36.9 C 77 169/88 H 96 02/16/21 04:07 37 C 65 20 146/90 H 92 02/16/21 02:55 74 18 96 Laboratory Results Cardiac Enzymes 02/15/21 Range/Units 11:07 Troponin I < 0.015 (0-0.045) ng/ml Coagulation 02/16/21 Range/Units 05:22 PT 14.0 H (9.0-12.0) Seconds CBC 02/16/21 Range/Units 05:22 WBC 9.10 (4.8-10.8) K/uL RBC 4.36 L (4.7-6.1) M/uL Hgb 13.8 L (14.0-18.0) g/dL Hct 42.3 (42-52) % Plt Count 202 (130-400) K/uL Neut # (Auto) 5.55 (1.4-6.5) K/uL Lymph # (Auto) 2.28 (1.2-3.4) K/uL [place] # (Auto) 1.11 H (0.11-0.59) K/uL Eos # (Auto) 0.11 (0-0.5) K/uL Baso # (Auto) 0.03 (0-0.2) K/uL Comprehensive Metabolic Panel 02/16/21 Range/Units 05:22 Sodium 139 (136-145) mmol/L Potassium 4.0 (3.5-5.1) mmol/L Chloride 107 (98-107) mmol/L Carbon Dioxide 28 (21-32) mmol/L BUN 16 (7-18) mg/dl Creatinine 0.73 (0.6-1.4) mg/dl Glucose 135 H (70-99) mg/dl Calcium 9.2 (8.5-10.1) mg/dl Intake and Output 02/15/21 02/16/21 02/16/21 22:59 06:59 14:59 Intake Total 100 / 570 200 / 570 70 / 70 Balance 100 / 570 200 / 570 70 / 70 Intake: IV 70 / 70 [id number] SODIUM 2,000 mg In 70 / 70 Dextrose 5% 50 ml @ 100 mls/hr IV Q24H [facility] Rx#:[id number] Oral 100 / 500 200 / 500 Other: # Unmeasured Voids 1 2 Weight 112.4 kg Weight Measurement Method Standing Scale Diagnostic Findings Telemetry: Complete heart block until 20:30 on February 15, 2021, atrial fibrillation with a controlled heart rate since. PG Care Time/CCT Total # of Minutes Spent Total Time Spent with Patient: Total time spent is greater than 50% in coordination of care (as documented) at patient's floor/unit and/or counseling patient: Coding Level of Care Code 21620 Initial Inpt Care Lvl 3 Diagnoses Syncope R55 Syncope type: unspecified Atrioventricular block, complete I44.2 Chronic atrial fibrillation I48.20 Aortic stenosis I35.0 Cardiac valve disease etiology: nonrheumatic HBP (high blood pressure) I10 Hypertension type: essential hypertension (1) Aortic stenosis Cardiac valve disease etiology: nonrheumatic Qualified Code(s): I35.0 - Nonrheumatic aortic (valve) stenosis (2) Syncope Syncope type: unspecified Qualified Code(s): R55 - Syncope and collapse (3) HBP (high blood pressure) Hypertension type: essential hypertension Qualified Code(s): I10 - Essential (primary) hypertension
[2021-02-16] MEDS: ACETAMINOPHEN 325 MG TAB PO PRN ×2 (16:24→21:01)
[2021-02-16] MEDS: ROSUVASTATIN CALCIUM 20 MG TAB PO SCH (16:25)
[2021-02-16] MEDS: PANTOprazole 40 MG TAB PO SCH (16:25)
[2021-02-16] MEDS: TAMSULOSIN HCL 0.4 MG CAP PO SCH (21:00)
[2021-02-17] MEDS: METOPROLOL TARTRATE 25 MG TAB PO SCH ×3 (04:25→20:26)
[2021-02-17] MEDS: ACETAMINOPHEN 325 MG TAB PO PRN (04:27)
[2021-02-17 05:25] LABS: Basophils # (auto) 0.03 K/uL (0-0.2); Basophils % (auto) 0.4 %; Eosinophils % (auto) 1.3 %; Hematocrit (blood only) 44.8 % (42-52); Hemoglobin 14.4 g/dL (14.0-18.0); Immature Granulocytes # (auto) 0.01 K/uL (0.00-0.02); Immature Granulocytes % (auto) 0.1 %; Lymphocytes # (auto) 1.92 K/uL (1.2-3.4); Lymphocytes % (auto) 24.1 %; Mean Corpuscular Hemoglobin 31.6 pg (25-34); Mean Corpuscular Hgb Conc 32.1 g/dL (32-36); Mean Corpuscular Volume 98.5 fL (80-100); Monocytes # (auto) 0.85 K/uL (0.11-0.59); Monocytes % (auto) 10.7 %; Neutrophils # (auto) 5.05 K/uL (1.4-6.5); Neutrophils % (auto) 63.4 %; Platelet Count 208 K/uL (130-400); RDW Coefficient of Variation 13.7 % (11.5-14.5); RDW Standard Deviation 49.4 fL (36.4-46.3); Red Blood Count 4.55 M/uL (4.7-6.1); White Blood Count 7.96 K/uL (4.8-10.8)
[2021-02-17 05:34] LABS: INR 1.2 (0.9-1.1); Prothrombin Time 11.8 Seconds (9.0-12.0)
[2021-02-17 05:51] LABS: BUN Creatinine Ratio 22.4 (10-20); Calcium 9.2 mg/dl (8.5-10.1); Creatinine Clr Calc Pharmacy 119.5 ml/min; Est GFR (African American) 109.7 ml/min; Est GFR (Non-African American) 94.7 ml/min; Magnesium 2.1 mg/dl (1.8-2.4); Potassium 3.7 mmol/L (3.5-5.1)
[2021-02-17] MEDS: FERROUS SULFATE 325 MG TAB PO SCH (07:44)
[2021-02-17] MEDS: INSULIN ASPART 100 UNITS/ML 3 ML PEN SC SCH ×4 (07:44→20:39)
[2021-02-17] MEDS: ASCORBIC ACID 500 MG TAB PO SCH (07:45)
[2021-02-17] MEDS: DOCUSATE SODIUM 100 MG CAP PO SCH ×2 (07:45→17:44)
[2021-02-17] MEDS: hydrALAZINE 10 MG TAB PO SCH ×3 (07:45→20:26)
[2021-02-17] MEDS: INSULIN GLARGINE SOLOSTAR 100 UNITS/ML 3 ML PEN SC SCH (07:46)
[2021-02-17] MEDS: DICLOFENAC SOD 1% GEL 100 GM TUBE EXT SCH ×4 (07:46→20:27)
[2021-02-17] MEDS: HEPARIN SOD 5,000 UNIT/0.5 ML VIAL SQ SCH ×2 (07:54→20:26)
--- NOTE | 2021-02-17 09:34 | Cardiology Progress Note ---
Date of Service February 17, 2021 Assessment & Plan (1) Syncope: Although not documented his syncope is almost certainly due to development of complete heart block, probably with a delay in initiation of his escape rhythm, which he then remained in until after his admission in the ER and allowed him to become conscious again. (2) Atrioventricular block, complete: Although the onset of complete heart block was not identified he presented to the emergency room in it and remained in it for a short time in the emergency room. It then resolved and has not recurred. This is almost certainly due to intrinsic conduction disease, possibly related to aortic stenosis and calcification in the AV conduction area. He will need a pacemaker and he is agreeable. I discussed the indications, procedure, risks and alternatives with him and he understands and agrees to proceed. Consent obtained. We will plan on an 8 AM procedure tomorrow. (3) Chronic atrial fibrillation: He is in permanent atrial fibrillation and over the long run will need anticoagulation. He was on warfarin which is on hold. His INR has dropped and will be acceptable for pacemaker implantation Thursday. He had rapid heart rates during the night which appears to have been associated with anxiety, he will probably need AV yulissa blocking medications but I would not start them until we have a pacemaker in place. (4) Aortic stenosis: He has aortic stenosis, patients with aortic stenosis are prone to syncope but in this case I believe we have enough evidence to support heart block as a cause of his syncope which may or may not be related to the aortic stenosis. (5) HBP (high blood pressure): His blood pressure remains elevated today and has been since shortly after admission. Admission and Anticipated Discharge Date Admission Date: February 15, 2021 Subjective He is feeling well today, he had some sort of episode during the night where he had to sit on the edge of the bed and had an elevated heart rate. It sounds though he may have been agitated although I cannot tell. That resolved quickly and he feels well this morning. No bradycardia observed. Physical Exam Physical Exam: Constitutional: Alert, cooperative and in no distress. He is overweight. HEENT: Unremarkable Neck: No jugular venous distention, carotid pulses are irregular but otherwise normal and equal bilaterally without bruits. Pulmonary: Clear to auscultation bilaterally. Cardiac: Irregular rhythm with no murmur, gallop or rub. Abdomen: Soft, nontender with normal bowel sounds. Extremities: No edema. Distal pulses intact. Neurologic: No focal findings. Gait is steady. Skin: No rash, ecchymoses or petechiae. Results & Data ([facility]) Vital Signs (Past 12 Hours) Vital Signs Temp Pulse Pulse Resp BP Pulse Ox 02/17/21 08:00 78 02/17/21 07:04 36.7 C 85 20 165/86 H 96 02/17/21 03:58 36.6 C 88 20 146/97 H 91 02/17/21 02:52 79 18 96 02/16/21 23:57 36.4 C L 82 87 18 163/103 H 91 02/16/21 22:00 91 H 20 95 Laboratory Results Coagulation 02/17/21 Range/Units 05:13 PT 11.8 (9.0-12.0) Seconds CBC 02/17/21 Range/Units 05:13 WBC 7.96 (4.8-10.8) K/uL RBC 4.55 L (4.7-6.1) M/uL Hgb 14.4 (14.0-18.0) g/dL Hct 44.8 (42-52) % Plt Count 208 (130-400) K/uL Neut # (Auto) 5.05 (1.4-6.5) K/uL Lymph # (Auto) 1.92 (1.2-3.4) K/uL [place] # (Auto) 0.85 H (0.11-0.59) K/uL Eos # (Auto) 0.10 (0-0.5) K/uL Baso # (Auto) 0.03 (0-0.2) K/uL Comprehensive Metabolic Panel 02/17/21 Range/Units 05:13 Sodium 140 (136-145) mmol/L Potassium 3.7 (3.5-5.1) mmol/L Chloride 109 H (98-107) mmol/L Carbon Dioxide 28 (21-32) mmol/L BUN 15 (7-18) mg/dl Creatinine 0.67 (0.6-1.4) mg/dl Glucose 147 H (70-99) mg/dl Calcium 9.2 (8.5-10.1) mg/dl Intake and Output 02/16/21 02/17/21 02/17/21 22:59 06:59 14:59 Other: # Unmeasured Voids 1 Weight 108.3 kg Weight Measurement Method Standing Scale Diagnostic Findings Telemetry: Atrial fibrillation with a generally well-controlled heart rate averaging around 70, however intermittent rapid heart rates up to 175 with agitation. Some aberrancy at high heart rates. PG Care Time/CCT Total # of Minutes Spent Total Time Spent with Patient: Total time spent is greater than 50% in coordination of care (as documented) at patient's floor/unit and/or counseling patient: Coding Level of Care Code 76579 Subseq Hosp Care Lvl 3 Diagnoses Syncope R55 Syncope type: unspecified Atrioventricular block, complete I44.2 Chronic atrial fibrillation I48.20 Aortic stenosis I35.0 Cardiac valve disease etiology: nonrheumatic HBP (high blood pressure) I10 Hypertension type: essential hypertension (1) Syncope Syncope type: unspecified Qualified Code(s): R55 - Syncope and collapse (2) Aortic stenosis Cardiac valve disease etiology: nonrheumatic Qualified Code(s): I35.0 - Nonrheumatic aortic (valve) stenosis (3) HBP (high blood pressure) Hypertension type: essential hypertension Qualified Code(s): I10 - Essential (primary) hypertension
--- NOTE | 2021-02-17 11:47 | Cardiology Progress Note ---
Date of Service February 17, 2021 Assessment & Plan (1) Syncope: Patient is a complex 75-year-old male as outlined above who presents with 2 syncopal events in the last week with noted profound bradycardia on ER presentation. Heart rates in the 20s and 30s and chronic atrial fibrillation. 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 Patient will warrant permanent pacemaker insertion given past history of similar bradycardia in 2014, underlying conduction system disease, bifascicular heart block Plan: Patient for pacemaker tomorrow metoprolol restarted at reduced dose due to elevated heart rates Resume warfarin post pacemaker (2) Tachy-tye syndrome: (3) Chronic atrial fibrillation: (4) Moderate aortic stenosis: (5) Obstructive sleep apnea: (6) VENU treated with BiPAP: Would ensure patient is being treated in hospital (7) UTI (urinary tract infection): Admission and Anticipated Discharge Date Admission Date: February 15, 2021 Subjective Patient was seen and examined, chart, medications, telemetry reviewed. Concern was raised last evening regarding elevated heart rates. Mechanism appear to be atrial fibrillation with underlying conduction abnormalities no ventricular tachycardia. Episode occurred while patient was sitting on side of bed. He denies any chest pains or discomfort. Notes no dizziness or lightheadedness.. No fevers or chills Review of Systems Review of Systems: All systems reviewed & are unremarkable except as noted in Subjective Physical Exam Constitutional: WD/WN, vitals as above + obese; no acute distress Eyes: PERRL, conjunctivae normal, anicteric sclerae ENMT: external ear and nose normal, oropharynx normal Neck: trachea midline, no thyromegaly + thick neck Respiratory: normal respiratory effort, lungs clear to auscultation Cardiovascular: Rate/Rhythm: + irregularly irregular Heart Sounds: normal S1, normal S2 and + murmur (Grade 2/6 systolic murmur throughout the precordium, no diastolic murmur); no gallop Palpation: normal PMI Vessels: normal carotid upstroke and radial pulses present; no JVD and no carotid bruit Extremities: no edema Gastrointestinal (Abdomen): normal bowel sounds, soft, nontender, no hepatosplenomegaly Musculoskeletal: no cyanosis or clubbing, extremities motor strength 5/5 Skin: no rashes, warm and dry Neurologic: PERRL, EOMI, accommodation nl, no face palsy, no dysarthria Psychiatric: A+Ox3, euthymic affect Results & Data ([facility]) Vital Signs (Past 12 Hours) Vital Signs Temp Pulse Pulse Resp BP Pulse Ox 02/17/21 11:38 36.6 C 100 H 20 131/97 95 02/17/21 08:00 78 02/17/21 07:04 36.7 C 85 20 165/86 H 96 02/17/21 03:58 36.6 C 88 20 146/97 H 91 02/17/21 02:52 79 18 96 02/16/21 23:57 36.4 C L 82 87 18 163/103 H 91 Laboratory Results Laboratory Results - last 24 hr 02/16/21 02/16/21 02/17/21 16:04 21:00 05:13 WBC RBC Hgb Hct MCV MCH MCHC RDW Std Deviation RDW Coeff of Cookie Plt Count MPV Immature Gran % (Auto) Neut % (Auto) Lymph % (Auto) [place] % (Auto) Eos % (Auto) Baso % (Auto) Neut # (Auto) Lymph # (Auto) [place] # (Auto) Eos # (Auto) Baso # (Auto) Immature Gran # (Auto) PT 11.8 INR 1.2 H Sodium Potassium Chloride Carbon Dioxide Anion Gap BUN Creatinine Est Cr Clr Drug Dosing Est GFR ( Amer) Est GFR (Non-Af Amer) BUN/Creatinine Ratio Glucose POC Glucose 115 H 105 H Calcium Magnesium 02/17/21 02/17/21 02/17/21 05:13 05:13 07:29 WBC 7.96 RBC 4.55 L Hgb 14.4 Hct 44.8 MCV 98.5 MCH 31.6 MCHC 32.1 RDW Std Deviation 49.4 H RDW Coeff of Cookie 13.7 Plt Count 208 MPV 11.0 H Immature Gran % (Auto) 0.1 Neut % (Auto) 63.4 Lymph % (Auto) 24.1 [place] % (Auto) 10.7 Eos % (Auto) 1.3 Baso % (Auto) 0.4 Neut # (Auto) 5.05 Lymph # (Auto) 1.92 [place] # (Auto) 0.85 H Eos # (Auto) 0.10 Baso # (Auto) 0.03 Immature Gran # (Auto) 0.01 PT INR Sodium 140 Potassium 3.7 Chloride 109 H Carbon Dioxide 28 Anion Gap 3.0 BUN 15 Creatinine 0.67 Est Cr Clr Drug Dosing 119.5 Est GFR ( Amer) 109.7 Est GFR (Non-Af Amer) 94.7 BUN/Creatinine Ratio 22.4 H Glucose 147 H POC Glucose 135 H Calcium 9.2 Magnesium 2.1 02/17/21 11:36 WBC RBC Hgb Hct MCV MCH MCHC RDW Std Deviation RDW Coeff of Cookie Plt Count MPV Immature Gran % (Auto) Neut % (Auto) Lymph % (Auto) [place] % (Auto) Eos % (Auto) Baso % (Auto) Neut # (Auto) Lymph # (Auto) [place] # (Auto) Eos # (Auto) Baso # (Auto) Immature Gran # (Auto) PT INR Sodium Potassium Chloride Carbon Dioxide Anion Gap BUN Creatinine Est Cr Clr Drug Dosing Est GFR ( Amer) Est GFR (Non-Af Amer) BUN/Creatinine Ratio Glucose POC Glucose 131 H Calcium Magnesium (1) Syncope Syncope type: unspecified Qualified Code(s): R55 - Syncope and collapse
[2021-02-17] MEDS: cefTRIAXone SODIUM 2,000 MG in DEXTROSE 5% 50 ML IV SCH (11:50)
[2021-02-17] MEDS: LOSARTAN POTASSIUM 25 MG TAB PO SCH (11:51)
--- NOTE | 2021-02-17 11:54 | Hospitalist Progress Note ---
Date of Service February 17, 2021 Assessment & Plan (1) Tachy-tye syndrome: Presented with syncope x2 in last week and found to have bradycardia Has been having slow A. fib with occasional pauses Likely has tachybradycardia syndrome and will require pacemaker Appreciate cardiology input and recommendation Due to possible UTI pacemaker insertion will be done on Patient remains free of symptoms at rest Has had short runs of V. tach last night and started on a small dose of beta- sheldon Remains tachycardic Will have pacemaker placement tomorrow Compression fracture of the T8 vertebrae Has localized tenderness and pain without any radiation Pain seems to be improving with local NSAID's No radiculopathy If no improvement will get MRI of the thoracic spine (2) Moderate aortic stenosis: (3) Chronic atrial fibrillation: Has been having slow A. fib with significant bradyarrhythmias We are holding beta-sheldon and Cardizem Likely has tachybradycardia syndrome and will need pacemaker No significant bradyarrhythmias in hospital (4) Syncope: (5) Obstructive sleep apnea: Has obstructive sleep apnea and is on BiPAP at night No acute symptoms now (6) Diabetes mellitus: We will continue with SSI (7) UTI (urinary tract infection): Noted to have mild leukocytosis at presentation UA suggestive of UTI Ceftriaxone has been added and await urine culture and sensitivity Denies any symptoms Urine culture is growing group B beta streptococci-no sensitivity to follow We will discontinue antibiotic after 3 days (8) VNEU treated with BiPAP: As above DVT prophylaxis Coumadin is on hold We will start subcu heparin Admission and Anticipated Discharge Date Admission Date: February 15, 2021 Subjective 02/15/2021 The patient was seen and examined in telemetry unit He was admitted with syncopal episodes with bradycardia Has been feeling much better since admission but is still getting dizzy spells with standing and sitting up Noted to have occasional sinus pauses in the hospital but denies any significant chest pain, palpitation, shortness of breath Denies any fever and/or chills 02/16/2021 The patient was seen and examined in telemetry unit He complains of some back pain but denies any other symptoms Denies any fever and/or chills and no dysuria No dizziness at rest 02/17/2021 The patient was seen and examined in telemetry unit He is back pain is reasonably better with Voltaren gel He has had short runs of V. tach yesterday and has been put back on small dose of beta-sheldon Denies any symptoms secondary to UTI Will up PPM placement tomorrow Review of Systems Review of Systems: All systems reviewed and are unremarkable except as noted below Cardiovascular: + lightheadedness and + syncope; no chest pain with activity and no dyspnea at rest Musculoskeletal: + back pain (Without any radiation) Physical Exam Physical Exam: Lying on bed without any acute distress Constitutional: well developed, well nourished, + ill appearing and + obese Eyes: PERRL, conjunctivae normal, anicteric sclerae ENMT: external ear and nose normal, oropharynx normal Neck: trachea midline, no thyromegaly Respiratory: no respiratory distress Auscultation: lungs clear to auscultation bilaterally Cardiovascular: Rate/Rhythm: + irregularly irregular Heart Sounds: + murmur (2/6 ESM over precordium) Extremities: + edema (Trace edema bilaterally) Gastrointestinal (Abdomen): Inspection/Auscultation: normal bowel sounds; abdomen not distended Percussion/Palpation: abdomen soft; abdomen nontender Musculoskeletal: No acute arthritis in any joint Neurologic: Alert, awake and oriented x3. No focal sensory and motor deficit appreciated Psychiatric: A+Ox3, euthymic affect Lymphatic: no cervical or axillary lymphadenopathy Results & Data Results & Data ([facility]) Vital Signs (Past 12 Hours) Vital Signs Temp Pulse Pulse Resp BP Pulse Ox 02/17/21 11:38 36.6 C 100 H 20 131/97 95 02/17/21 08:00 78 02/17/21 07:04 36.7 C 85 20 165/86 H 96 02/17/21 03:58 36.6 C 88 20 146/97 H 91 02/17/21 02:52 79 18 96 02/16/21 23:57 36.4 C L 82 87 18 163/103 H 91 Laboratory Results Short CBC 02/17/21 Range/Units 05:13 WBC 7.96 (4.8-10.8) K/uL Hgb 14.4 (14.0-18.0) g/dL Hct 44.8 (42-52) % Plt Count 208 (130-400) K/uL BMP 02/17/21 05:13 Sodium 140 Potassium 3.7 Chloride 109 H Carbon Dioxide 28 BUN 15 Creatinine 0.67 Glucose 147 H Calcium 9.2 Medications Administered Current Inpatient Medications Acetaminophen (Acetaminophen 325 Mg Tab) 650 mg PO Q4H PRN PRN Reason: Pain or Fever Stop: 03/17/21 01:47 Last Admin: 02/17/21 04:27 Dose: 650 mg Documented by: Ascorbic Acid (Ascorbic Acid 500 Mg Tab) 250 mg PO QAM [facility] Stop: 03/17/21 08:59 Last Admin: 02/17/21 07:45 Dose: 250 mg Documented by: Cefazolin Sodium (Cefazolin 250 Mg/Ml 1 Gm Vial) 2,000 mg IV PREOP MAGALIE; Protocol Stop: 02/19/21 05:59 Dextrose (Dextrose 50% 50 Ml Syringe) 25 - 50 ml IV UD PRN; Protocol PRN Reason: Hypoglycemia Protocol Stop: 03/17/21 01:59 Diclofenac Sodium (Diclofenac Sod 1% Gel 100 Gm Tube) 2 gm EXT QID [facility] Stop: 03/19/21 12:59 Docusate Sodium (Docusate Sodium 100 Mg Cap) 100 mg PO BIDM [facility] Stop: 03/17/21 07:59 Last Admin: 02/17/21 07:45 Dose: 100 mg Documented by: Ferrous Sulfate (Ferrous Sulfate 325 Mg Tab) 325 mg PO QAM [facility] Stop: 03/17/21 08:59 Last Admin: 02/17/21 07:44 Dose: 325 mg Documented by: Glucagon (Glucagon For Inj 1 Mg Vial) 1 mg IM UD PRN; Protocol PRN Reason: Hypoglycemia Protocol Stop: 03/17/21 01:59 Glucose (Glucose 40% Gel 15 Gm Tube) 15 - 30 gm PO UD PRN; Protocol PRN Reason: Hypoglycemia Protocol Stop: 03/17/21 01:59 Glucose (Glucose 10 Tabs/Tube) 4 - 8 tabs PO UD PRN; Protocol PRN Reason: Hypoglycemia Protocol Stop: 03/17/21 01:59 Heparin Sodium (Porcine) (Heparin Sod 5,000 Unit/0.5 Ml Vial) 5,000 units SQ Q12 [facility] Stop: 03/17/21 20:59 Last Admin: 02/17/21 07:54 Dose: 5,000 units Documented by: Hydralazine HCl (Hydralazine 10 Mg Tab) 10 mg PO TID [facility] Stop: 03/17/21 08:59 Last Admin: 02/17/21 07:45 Dose: 10 mg Documented by: Ceftriaxone Sodium 2,000 mg/ (Dextrose) 70 mls @ 100 mls/hr IV Q24H [facility]; Protocol Stop: 02/20/21 10:59 Last Admin: 02/17/21 11:50 Dose: 100 mls/hr Documented by: Lactated Ringer's (Lr) 1,000 mls @ 15 mls/hr IV .Q24H [facility] Stop: 02/21/21 00:39 Insulin Aspart (Insulin Aspart 100 Units/Ml 3 Ml Pen) 0 units SC ACHS [facility] Stop: 03/17/21 07:29 Last Admin: 02/17/21 07:44 Dose: 5 units Documented by: Insulin Glargine (Insulin Glargine Solostar 100 Units/Ml 3 Ml Pen) 6 units SC DAILY [facility] Stop: 03/17/21 08:59 Last Admin: 02/17/21 07:46 Dose: 6 units Documented by: Losartan Potassium (Losartan Potassium 25 Mg Tab) 25 mg PO QDL [facility] Stop: 03/17/21 11:29 Last Admin: 02/16/21 10:34 Dose: 25 mg Documented by: Metoprolol Tartrate (Metoprolol Tartrate 25 Mg Tab) 25 mg PO BID [facility] Stop: 03/19/21 04:19 Last Admin: 02/17/21 08:09 Dose: 25 mg Documented by: Miscellaneous (Carbohydrates For Hypoglycemia ) 15 - 30 gm PO UD PRN PRN Reason: Hypoglycemia Treatment Stop: 03/17/21 01:59 Nitroglycerin (Nitroglycerin Sl 0.4 Mg/Tab Tab) 0.4 mg SL UD PRN PRN Reason: Chest Pain Stop: 03/17/21 01:47 Pantoprazole Sodium (Pantoprazole 40 Mg Tab) 40 mg PO QDD [facility] Stop: 03/17/21 16:29 Last Admin: 02/16/21 16:25 Dose: 40 mg Documented by: Polyethylene Glycol (Polyethylene (Miralax) 17 Gm Pack) 17 gm PO DAILY PRN PRN Reason: Constipation Stop: 03/17/21 01:47 Rosuvastatin Calcium (Rosuvastatin Calcium 20 Mg Tab) 40 mg PO QDD [facility] Stop: 03/17/21 16:29 Last Admin: 02/16/21 16:25 Dose: 40 mg Documented by: Tamsulosin HCl (Tamsulosin Hcl 0.4 Mg Cap) 0.4 mg PO HS [facility] Stop: 03/17/21 20:59 Last Admin: 02/16/21 21:00 Dose: 0.4 mg Documented by: (1) Syncope Syncope type: unspecified Qualified Code(s): R55 - Syncope and collapse
[2021-02-17] MEDS: ROSUVASTATIN CALCIUM 20 MG TAB PO SCH (17:43)
[2021-02-17] MEDS: PANTOprazole 40 MG TAB PO SCH (17:43)
[2021-02-17] MEDS: TAMSULOSIN HCL 0.4 MG CAP PO SCH (20:26)
[2021-02-18 06:09] LABS: INR 1.1 (0.9-1.1); Prothrombin Time 10.9 Seconds (9.0-12.0)
[2021-02-18] MEDS ORDERED: LIDOCAINE 1% LOCAL 20 ML VIAL ONE (06:48)
[2021-02-18] MEDS ORDERED: VANCOMYCIN HCL 1000MG/20ML VIAL ONE (06:49)
[2021-02-18] MEDS ORDERED: BACITRACIN OINT 0.9 GM PKT ONE (06:49)
[2021-02-18] MEDS ORDERED: WATER, STERILE FOR INJ 10 ML VIAL ONE (06:49)
[2021-02-18] MEDS ORDERED: MIDAZOLAM HCL 5 MG/ML 1 ML VIAL ONE (08:02)
[2021-02-18] MEDS ORDERED: fentaNYL citrate 100 MCG/2 ML VIAL ONE (08:03)
--- NOTE | 2021-02-18 08:21 | History & Physical Bridge Note ---
Date of Service February 18, 2021 History & Physical Bridge Note I have examined the patient, reviewed the History & Physical and in the interval since the performance of the History & Physical I have noted the following changes of clinical significance: no changes noted. I reviewed the indications, procedure, risks and alternatives with the patient, as well as his who was in the waiting room, answered all questions. Consent obtained yesterday. Patient understands and agrees to the procedure. I also reviewed the risks and use of sedation, patient understands and consent obtained yesterday.
[2021-02-18] MEDS: LACTATED RINGER'S 1,000 ML IV SCH (09:43)
[2021-02-18] MEDS ORDERED: KETOROLAC TROMETHAMINE 10 MG TABLET PO PRN (10:12)
--- NOTE | 2021-02-18 10:22 | Electrophysiology Report ---
Date of Service February 18, 2021 Electrophysiology Procedure Electrophysiology Procedure Report Preoperative diagnosis: Intermittent complete heart block Permanent atrial fibrillation Postoperative diagnosis: Same Procedure: Single chamber pacemaker implantation Surgeon: Yuri Rubio MD Estimated blood loss: 20 cc Complications: None Disposition: Set Up Technician recovery Procedure details: After obtaining informed consent for the procedure, the patient was brought to the laboratory and prepped and draped in the standard sterile manner. Dye was injected the left arm IV site to opacify the left subclavian vein. The subclavian vein was identified and found to be free of obstruction. The left prepectoral region was anesthetized with 1% lidocaine local anesthetic and left axillary venipuncture was performed by percutaneous technique and a guidewire placed through the left subclavian vein into the superior vena cava. The area was further infiltrated with 1% lidocaine local anesthetic and a 5 cm incision was made parallel to the left clavicle and 2 cm below it and carried down to the anterior pectoralis fascia. A pacemaker pocket was formed by blunt dissection anterior to the pectoralis fascia and a vancomycin-soaked sponge was placed in the pocket. An 8 [place] Medtronic lead introducer was placed over the guidewire into the left subclavian vein, the dilator and guidewire were removed and a C315 sheath was advanced into the right ventricle over a guidewire. The guidewire and the dilator were removed and a bipolar active fixation Select Secure steroid tipped ventricular lead was advanced through the introducer into right ventricle. The ventricular lead was advanced through the sheath into a mid to distal septal location. The screw was extended fixing the lead in position. Penetration into the septum was confirmed with dye injection. Pacing and sensing thresholds were evaluated in bipolar configuration and are recorded on the implant data sheet. Diaphragmatic pacing was evaluated at full output as noted on the implant data sheet. The sheath system was stripped from the ventricular lead and the 7 [place] sheath was also stripped from the lead. Once the lead was in position it was attached to the anterior pectoralis fascia using 2 sutures of 2-0 silk around the lead collar. The vancomycin-soaked sponge was removed from the pocket, hemostasis was obtained, the pacemaker was attached to the lead and placed in the pocket with the lead coiled beneath it. The incision was closed with a running double subcutaneous closure of 3-0 Vicryl absorbable suture, followed by running subcuticular skin closure of 4-0 Vicryl absorbable suture. Bacitracin ointment was placed on the incision and a dressing applied. [facility] Electrophysiology codes Pacing Procedure 1: Pacin Insert/Replace Pacer V Miscellaneous Procedures Procedure 1: EP Miscellaneous: 51114 Contrast injection for venography Procedure 2: EP Miscellaneous: 74272-77 Vengraphy, extremity PG Moderate Sedation Codes Moderate Sedation Codes Procedure 1: Sedation/Anesthesia: 88297 Mod Sedation by the same physician;Init15 Min Child Age 5 & Up Procedure 2: Sedation/Anesthesia: 41207 Mod Sedation by the same physician; Ea [id number] Minutes
[2021-02-18] MEDS: METOPROLOL TARTRATE 25 MG TAB PO SCH (10:58)
[2021-02-18] MEDS ORDERED: METOPROLOL SUCC 50MG EXT REL TAB PO SCH (11:00)
[2021-02-18] MEDS: INSULIN ASPART 100 UNITS/ML 3 ML PEN SC SCH ×4 (11:01→22:33)
[2021-02-18] MEDS: DICLOFENAC SOD 1% GEL 100 GM TUBE EXT SCH ×4 (11:24→20:05)
[2021-02-18] MEDS: HEPARIN SOD 5,000 UNIT/0.5 ML VIAL SQ SCH ×2 (11:24→20:04)
[2021-02-18] MEDS: ASCORBIC ACID 500 MG TAB PO SCH (11:25)
[2021-02-18] MEDS: DOCUSATE SODIUM 100 MG CAP PO SCH ×2 (11:25→16:59)
[2021-02-18] MEDS: INSULIN GLARGINE SOLOSTAR 100 UNITS/ML 3 ML PEN SC SCH (11:28)
[2021-02-18] MEDS: hydrALAZINE 10 MG TAB PO SCH ×3 (11:29→20:03)
[2021-02-18] MEDS: FERROUS SULFATE 325 MG TAB PO SCH (11:29)
[2021-02-18] MEDS: cefTRIAXone SODIUM 2,000 MG in DEXTROSE 5% 50 ML IV SCH (11:32)
--- NOTE | 2021-02-18 11:35 | Cardiology Progress Note ---
Date of Service February 18, 2021 Assessment & Plan (1) Syncope: Patient is a complex 75-year-old male as outlined above who presents with 2 syncopal events in the last week with noted profound bradycardia on ER presentation. Heart rates in the 20s and 30s and chronic atrial fibrillation. 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 Plan: Patient underwent single-chamber pacemaker insertion today. We will resume metoprolol succinate at 50 mg twice per day. Continue to hold diltiazem Resume anticoagulation with warfarin 10 mg ordered p.o. for this evening (2) Tachy-tye syndrome: (3) Chronic atrial fibrillation: (4) Moderate aortic stenosis: (5) Obstructive sleep apnea: (6) VENU treated with BiPAP: Would ensure patient is being treated in hospital (7) UTI (urinary tract infection): Admission and Anticipated Discharge Date Admission Date: February 15, 2021 Subjective Patient seen and examined, chart, medications, telemetry reviewed. Exam performed post pacemaker insertion. Patient without complaint doing well. Tolerated procedure without issues. No chest pains or discomfort. No fevers or chills. Pacemaker incision site clean and bandaged Review of Systems Review of Systems: All systems reviewed & are unremarkable except as noted in Subjective Physical Exam Constitutional: WD/WN, vitals as above + obese; no acute distress Eyes: PERRL, conjunctivae normal, anicteric sclerae ENMT: external ear and nose normal, oropharynx normal Neck: trachea midline, no thyromegaly + thick neck Respiratory: normal respiratory effort, lungs clear to auscultation Cardiovascular: Rate/Rhythm: + irregularly irregular Heart Sounds: normal S1, normal S2 and + murmur (Grade 2/6 systolic murmur throughout the precordium, no diastolic murmur); no gallop Palpation: normal PMI Vessels: normal warner tid upstroke and radial pulses present; no JVD and no carotid bruit Extremities: no edema Chest (Breasts): Chest: + pacemaker (Site clean) Gastrointestinal (Abdomen): normal bowel sounds, soft, nontender, no hepatosplenomegaly Musculoskeletal: no cyanosis or clubbing, extremities motor strength 5/5 Skin: no rashes, warm and dry Neurologic: PERRL, EOMI, accommodation nl, no face palsy, no dysarthria Psychiatric: A+Ox3, euthymic affect Results & Data ([facility]) Vital Signs (Past 12 Hours) Vital Signs Temp Pulse Pulse Resp BP Pulse Ox 02/18/21 10:20 74 18 142/94 H 96 02/18/21 10:07 78 18 169/96 H 96 02/18/21 07:34 91 H 02/18/21 07:23 36.8 C 85 20 147/85 H 91 02/18/21 03:26 36.8 C 82 18 140/91 93 02/18/21 03:10 18 02/18/21 00:00 83 Laboratory Results Laboratory Results - last 24 hr 02/17/21 02/17/21 02/17/21 11:36 16:18 20:27 PT INR POC Glucose 131 H 124 H 110 H 02/18/21 02/18/21 02/18/21 05:41 07:23 11:08 PT 10.9 INR 1.1 POC Glucose 131 H 179 H Medications Administered Current Medications Acetaminophen (Acetaminophen 325 Mg Tab) 650 mg PO Q4H PRN PRN Reason: Pain or Fever Stop: 03/17/21 01:47 Last Admin: 02/17/21 04:27 Dose: 650 mg Documented by: Ascorbic Acid (Ascorbic Acid 500 Mg Tab) [facility] [place] Stop: 03/17/21 08:59 Last Admin: 02/18/21 11:25 Dose: 250 mg Documented by: Cefazolin Sodium (Cefazolin 250 Mg/Ml 1 Gm Vial) 2,000 mg IV PREOP [facility]; Protocol Stop: 02/19/21 05:59 Last Admin: 02/18/21 09:43 Dose: 2,000 mg Documented by: Dextrose (Dextrose 50% 50 Ml Syringe) 25 - 50 ml IV UD PRN; Protocol PRN Reason: Hypoglycemia Protocol Stop: 03/17/21 01:59 Diclofenac Sodium (Diclofenac Sod 1% Gel 100 Gm Tube) 2 gm EXT QID [facility] Stop: 03/19/21 12:59 Last Admin: 02/18/21 11:24 Dose: 2 gm Documented by: Docusate Sodium (Docusate Sodium 100 Mg Cap) 100 mg PO BIDM [facility] Stop: 03/17/21 07:59 Last Admin: 02/18/21 11:25 Dose: 100 mg Documented by: Ferrous Sulfate (Ferrous Sulfate 325 Mg Tab) [facility] [place] Stop: 03/17/21 08:59 Last Admin: 02/18/21 11:29 Dose: 325 mg Documented by: Glucagon (Glucagon For Inj 1 Mg Vial) 1 mg IM UD PRN; Protocol PRN Reason: Hypoglycemia Protocol Stop: 03/17/21 01:59 Glucose (Glucose 40% Gel 15 Gm Tube) 15 - 30 gm PO UD PRN; Protocol PRN Reason: Hypoglycemia Protocol Stop: 03/17/21 01:59 Glucose (Glucose 10 Tabs/Tube) 4 - 8 tabs PO UD PRN; Protocol PRN Reason: Hypoglycemia Protocol Stop: 03/17/21 01:59 Heparin Sodium (Porcine) (Heparin Sod 5,000 Unit/0.5 Ml Vial) 5,000 units SQ Q12 [facility] Stop: 03/17/21 20:59 Last Admin: 02/18/21 11:24 Dose: 5,000 units Documented by: Hydralazine HCl (Hydralazine 10 Mg Tab) 10 mg PO TID [facility] Stop: 03/17/21 08:59 Last Admin: 02/18/21 11:29 Dose: 10 mg Documented by: Ceftriaxone Sodium 2,000 mg/ (Dextrose) 70 mls @ 100 mls/hr IV Q24H [facility]; Pr otocol Stop: 02/20/21 10:59 Last Admin: 02/18/21 11:32 Dose: 100 mls/hr Documented by: Lactated Ringer's (Lr) 1,000 mls @ 15 mls/hr IV .Q24H [facility] Stop: 02/21/21 00:39 Last Admin: 02/18/21 09:43 Dose: 15 mls/hr Documented by: Insulin Aspart (Insulin Aspart 100 Units/Ml 3 Ml Pen) 0 units SC ACHS [facility] Stop: 03/17/21 07:29 Last Admin: 02/18/21 11:01 Dose: Not Given Documented by: Insulin Glargine (Insulin Glargine Solostar 100 Units/Ml 3 Ml Pen) 6 units SC DAILY [facility] Stop: 03/17/21 08:59 Last Admin: 02/18/21 11:28 Dose: 6 units Documented by: Ketorolac Tromethamine (Ketorolac Tromethamine 10 Mg Tablet) 10 mg PO Q6H PRN PRN Reason: Pain (rating 4,5,6,7,8,9,10) Stop: 02/23/21 10:11 Losartan Potassium (Losartan Potassium 25 Mg Tab) 25 mg PO QDL [facility] Stop: 03/17/21 11:29 Last Admin: 02/17/21 11:51 Dose: 25 mg Documented by: Metoprolol Succinate (Metoprolol Succ 50mg Ext Rel Tab) 50 mg PO QAM [facility] Stop: 03/20/21 10:59 Last Admin: 02/18/21 11:23 Dose: 50 mg Documented by: Miscellaneous (Carbohydrates For Hypoglycemia ) 15 - 30 gm PO UD PRN PRN Reason: Hypoglycemia Treatment Stop: 03/17/21 01:59 Nitroglycerin (Nitroglycerin Sl 0.4 Mg/Tab Tab) 0.4 mg SL UD PRN PRN Reason: Chest Pain Stop: 03/17/21 01:47 Pantoprazole Sodium (Pantoprazole 40 Mg Tab) 40 mg PO QDD [facility] Stop: 03/17/21 16:29 Last Admin: 02/17/21 17:43 Dose: 40 mg Documented by: Polyethylene Glycol (Polyethylene (Miralax) 17 Gm Pack) 17 gm PO DAILY PRN PRN Reason: Constipation Stop: 03/17/21 01:47 Rosuvastatin Calcium (Rosuvastatin Calcium 20 Mg Tab) 40 mg PO QDD [facility] Stop: 03/17/21 16:29 Last Admin: 02/17/21 17:43 Dose: 40 mg Documented by: Tamsulosin HCl (Tamsulosin Hcl 0.4 Mg Cap) 0.4 mg PO HS [facility] Stop: 03/17/21 20:59 Last Admin: 02/17/21 20:26 Dose: 0.4 mg Documented by: (1) Syncope Syncope type: unspecified Qualified Code(s): R55 - Syncope and collapse
[2021-02-18] MEDS: LOSARTAN POTASSIUM 25 MG TAB PO SCH (12:21)
--- NOTE | 2021-02-18 13:52 | Electrocardiogram Report ---
Test Reason : Blood Pressure : / mmHG Vent. Rate : 076 BPM Atrial Rate : 576 BPM P-R Int : 000 ms QRS Dur : 142 ms QT Int : 418 ms P-R-T Axes : 000 -71 019 degrees QTc Int : 470 ms Atrial fibrillation Left axis deviation Right bundle branch block Inferior infarct (cited on or before 14-FEB-2021) Anterolateral infarct (cited on or before 14-FEB-2021) Abnormal ECG When compared with ECG of 14-FEB-2021 22:33, No significant change Confirmed by Yuri Rubio ([id number]) on 02/18/2021 1:52:04 PM Referred By: REFERRED SELF Confirmed By:Yuri Rubio
--- NOTE | 2021-02-18 13:59 | Hospitalist Progress Note ---
Date of Service February 18, 2021 Assessment & Plan (1) Tachy-tye syndrome: Presented with syncope x2 in last week and found to have bradycardia Has been having slow A. fib with occasional pauses Likely has tachybradycardia syndrome and will require pacemaker Appreciate cardiology input and recommendation Due to possible UTI pacemaker insertion will be done on Patient remains free of symptoms at rest Has had short runs of V. tach last night and started on a small dose of beta- sheldon Status post permanent pacemaker placement with ventricular lead on 02/18/2021 Remains stable and will be sent home tomorrow Compression fracture of the T8 vertebrae Has localized tenderness and pain without any radiation Pain seems to be improving with local NSAID's No radiculopathy If no improvement will get MRI of the thoracic spine Back pain is much better (2) Moderate aortic stenosis: (3) Chronic atrial fibrillation: Has been having slow A. fib with significant bradyarrhythmias We are holding beta-sheldon and Cardizem Likely has tachybradycardia syndrome and will need pacemaker No significant bradyarrhythmias in hospital Coumadin has been restarted Beta-sheldon has been restarted (4) Syncope: (5) Obstructive sleep apnea: Has obstructive sleep apnea and is on BiPAP at night No acute symptoms now (6) Diabetes mellitus: We will continue with SSI (7) UTI (urinary tract infection): Noted to have mild leukocytosis at presentation UA suggestive of UTI Ceftriaxone has been added and await urine culture and sensitivity Denies any symptoms Urine culture is growing group B beta streptococci-no sensitivity to follow We will discontinue antibiotic after 3 days We will discontinue antibiotic from tomorrow (8) VENU treated with BiPAP: As above DVT prophylaxis Coumadin Discharge home tomorrow Admission and Anticipated Discharge Date Admission Date: February 15, 2021 Subjective 02/15/2021 The patient was seen and examined in telemetry unit He was admitted with syncopal episodes with bradycardia Has been feeling much better since admission but is still getting dizzy spells with standing and sitting up Noted to have occasional sinus pauses in the hospital but denies any significant chest pain, palpitation, shortness of breath Denies any fever and/or chills 02/16/2021 The patient was seen and examined in telemetry unit He complains of some back pain but denies any other symptoms Denies any fever and/or chills and no dysuria No dizziness at rest 02/17/2021 The patient was seen and examined in telemetry unit He is back pain is reasonably better with Voltaren gel He has had short runs of V. tach yesterday and has been put back on small dose of beta-sheldon Denies any symptoms secondary to UTI PPM tomorrow 02/18/2021 The patient was seen and examined in telemetry unit He is a status post PPM placement with ventricular lead He has been stable since surgery Complains some local pain but denies any other symptoms Review of Systems Review of Systems: All systems reviewed and are unremarkable except as noted below Cardiovascular: no chest pain with activity, no dyspnea at rest, no lightheadedness and no syncope Musculoskeletal: + back pain (Without any radiation) Physical Exam Physical Exam: Lying on bed without any acute distress Constitutional: well developed, well nourished, + ill appearing and + obese Eyes: PERRL, conjunctivae normal, anicteric sclerae ENMT: external ear and nose normal, oropharynx normal Neck: trachea midline, no thyromegaly Respiratory: no respiratory distress Auscultation: lungs clear to auscultation bilaterally Cardiovascular: Rate/Rhythm: + irregularly irregular Heart Sounds: + murmur (2/6 ESM over precordium) Extremities: + edema (Trace edema bilaterally) Gastrointestinal (Abdomen): Inspection/Auscultation: normal bowel sounds; abdomen not distended Percussion/Palpation: abdomen soft; abdomen nontender Musculoskeletal: Some pain at the pacemaker insertion site. Has left upper extremity sling Neurologic: Alert, awake and oriented x3 Psychiatric: A+Ox3, euthymic affect Lymphatic: no cervical or axillary lymphadenopathy Results & Data Results & Data ([facility]) Vital Signs (Past 12 Hours) Vital Signs Temp Pulse Pulse Resp BP Pulse Ox 02/18/21 12:30 16 136/107 H 93 02/18/21 11:57 16 138/114 H 91 02/18/21 11:27 105 H 17 142/90 H 92 02/18/21 10:57 16 142/92 H 91 02/18/21 10:42 37 C 98 H 16 145/96 H 93 02/18/21 10:20 74 18 142/94 H 96 02/18/21 10:07 78 18 169/96 H 96 02/18/21 07:34 91 H 02/18/21 07:23 36.8 C 85 20 147/85 H 91 02/18/21 03:26 36.8 C 82 18 140/91 93 02/18/21 03:10 18 Medications Administered Current Inpatient Medications Acetaminophen (Acetaminophen 325 Mg Tab) 650 mg PO Q4H PRN PRN Reason: Pain or Fever Stop: 03/17/21 01:47 Last Admin: 02/17/21 04:27 Dose: 650 mg Documented by: Ascorbic Acid (Ascorbic Acid 500 Mg Tab) 250 mg PO QAM [facility] Stop: 03/17/21 08:59 Last Admin: 02/18/21 11:25 Dose: 250 mg Documented by: Cefazolin Sodium (Cefazolin 250 Mg/Ml 1 Gm Vial) 2,000 mg IV PREOP [facility]; Protocol Stop: 02/19/21 05:59 Last Admin: 02/18/21 09:43 Dose: 2,000 mg Documented by: Dextrose (Dextrose 50% 50 Ml Syringe) 25 - 50 ml IV UD PRN; Protocol PRN Reason: Hypoglycemia Protocol Stop: 03/17/21 01:59 Diclofenac Sodium (Diclofenac Sod 1% Gel 100 Gm Tube) 2 gm EXT QID [facility] Stop: 03/19/21 12:59 Last Admin: 02/18/21 12:23 Dose: 2 gm Documented by: Docusate Sodium (Docusate Sodium 100 Mg Cap) 100 mg PO BIDM [facility] Stop: 03/17/21 07:59 Last Admin: 02/18/21 11:25 Dose: 100 mg Documented by: Ferrous Sulfate (Ferrous Sulfate 325 Mg Tab) 325 mg PO QAM [facility] Stop: 03/17/21 08:59 Last Admin: 02/18/21 11:29 Dose: 325 mg Documented by: Glucagon (Glucagon For Inj 1 Mg Vial) 1 mg IM UD PRN; Protocol PRN Reason: Hypoglycemia Protocol Stop: 03/17/21 01:59 Glucose (Glucose 40% Gel 15 Gm Tube) 15 - 30 gm PO UD PRN; Protocol PRN Reason: Hypoglycemia Protocol Stop: 03/17/21 01:59 Glucose (Glucose 10 Tabs/Tube) 4 - 8 tabs PO UD PRN; Protocol PRN Reason: Hypoglycemia Protocol Stop: 03/17/21 01:59 Heparin Sodium (Porcine) (Heparin Sod 5,000 Unit/0.5 Ml Vial) 5,000 units SQ Q12 [facility] Stop: 03/17/21 20:59 Last Admin: 02/18/21 11:24 Dose: 5,000 units Documented by: Hydralazine HCl (Hydralazine 10 Mg Tab) 10 mg PO TID [facility] Stop: 03/17/21 08:59 Last Admin: 02/18/21 13:30 Dose: Not Given Documented by: Ceftriaxone Sodium 2,000 mg/ (Dextrose) 70 mls @ 100 mls/hr IV Q24H [facility]; Protocol Stop: 02/20/21 10:59 Last Infusion: 02/18/21 12:23 Dose: Infused Documented by: Lactated Ringer's (Lr) 1,000 mls @ 15 mls/hr IV .Q24H [facility] Stop: 02/21/21 00:39 Last Admin: 02/18/21 09:43 Dose: 15 mls/hr Documented by: Insulin Aspart (Insulin Aspart 100 Units/Ml 3 Ml Pen) 0 units SC ACHS [facility] Stop: 03/17/21 07:29 Last Admin: 02/18/21 12:04 Dose: 7 units Documented by: Insulin Glargine (Insulin Glargine Solostar 100 Units/Ml 3 Ml Pen) 6 units SC DAILY [facility] Stop: 03/17/21 08:59 Last Admin: 02/18/21 11:28 Dose: 6 units Documented by: Ketorolac Tromethamine (Ketorolac Tromethamine 10 Mg Tablet) 10 mg PO Q6H PRN PRN Reason: Pain (rating 4,5,6,7,8,9,10) Stop: 02/23/21 10:11 Losartan Potassium (Losartan Potassium 25 Mg Tab) 25 mg PO QDL [facility] Stop: 03/17/21 11:29 Last Admin: 02/18/21 12:21 Dose: 25 mg Documented by: Metoprolol Succinate (Metoprolol Succ 50mg Ext Rel Tab) 50 mg PO BID [facility] Stop: 03/20/21 20:59 Miscellaneous (Carbohydrates For Hypoglycemia ) 15 - 30 gm PO UD PRN PRN Reason: Hypoglycemia Treatment Stop: 03/17/21 01:59 Nitroglycerin (Nitroglycerin Sl 0.4 Mg/Tab Tab) 0.4 mg SL UD PRN PRN Reason: Chest Pain Stop: 03/17/21 01:47 Pantoprazole Sodium (Pantoprazole 40 Mg Tab) 40 mg PO QDD [facility] Stop: 03/17/21 16:29 Last Admin: 02/17/21 17:43 Dose: 40 mg Documented by: Polyethylene Glycol (Polyethylene (Miralax) 17 Gm Pack) 17 gm PO DAILY PRN PRN Reason: Constipation Stop: 03/17/21 01:47 Rosuvastatin Calcium (Rosuvastatin Calcium 20 Mg Tab) 40 mg PO QDD [facility] Stop: 03/17/21 16:29 Last Admin: 02/17/21 17:43 Dose: 40 mg Documented by: Tamsulosin HCl (Tamsulosin Hcl 0.4 Mg Cap) 0.4 mg PO HS [facility] Stop: 03/17/21 20:59 Last Admin: 02/17/21 20:26 Dose: 0.4 mg Documented by: Warfarin Sodium (Warfarin Sod 10 Mg Tab) 10 mg PO TODAY@1600 ONE Stop: 02/18/21 16:01 (1) Syncope Syncope type: unspecified Qualified Code(s): R55 - Syncope and collapse
--- NOTE | 2021-02-18 14:03 | Electrocardiogram Report ---
Test Reason : Blood Pressure : / mmHG Vent. Rate : 110 BPM Atrial Rate : 102 BPM P-R Int : 000 ms QRS Dur : 152 ms QT Int : 340 ms P-R-T Axes : 000 -78 043 degrees QTc Int : 460 ms Poor data quality, interpretation may be adversely affected Atrial fibrillation with rapid ventricular response Left axis deviation Right bundle branch block Possible Lateral infarct (cited on or before 14-FEB-2021) Abnormal ECG When compared with ECG of 16-FEB-2021 17:44, (unconfirmed) HR has increased Confirmed by Yuri Rubio ([id number]) on 02/18/2021 2:02:51 PM Referred By: REFERRED SELF Confirmed By:Yuri Rubio
[2021-02-18] MEDS ORDERED: WARFARIN SOD 10 MG TAB PO ONE (16:00)
[2021-02-18] MEDS: ROSUVASTATIN CALCIUM 20 MG TAB PO SCH (16:57)
[2021-02-18] MEDS: PANTOprazole 40 MG TAB PO SCH (16:57)
[2021-02-18] MEDS: TAMSULOSIN HCL 0.4 MG CAP PO SCH (20:04)
[2021-02-18] MEDS: METOPROLOL SUCC 50MG EXT REL TAB PO SCH (20:04)
[2021-02-19 06:27] LABS: Basophils # (auto) 0.03 K/uL (0-0.2); Basophils % (auto) 0.3 %; Eosinophils # (auto) 0.15 K/uL (0-0.5); Eosinophils % (auto) 1.7 %; Immature Granulocytes # (auto) 0.02 K/uL (0.00-0.02); Immature Granulocytes % (auto) 0.2 %; Lymphocytes # (auto) 2.36 K/uL (1.2-3.4); Lymphocytes % (auto) 26.9 %; Mean Corpuscular Hemoglobin 31.3 pg (25-34); Mean Corpuscular Hgb Conc 31.8 g/dL (32-36); Mean Corpuscular Volume 98.4 fL (80-100); Mean Platelet Volume 11.2 fL (7.4-10.4); Monocytes # (auto) 1.02 K/uL (0.11-0.59); Monocytes % (auto) 11.6 %; Neutrophils % (auto) 59.3 %; Platelet Count 224 K/uL (130-400); RDW Coefficient of Variation 13.7 % (11.5-14.5); RDW Standard Deviation 48.9 fL (36.4-46.3); Red Blood Count 4.47 M/uL (4.7-6.1); White Blood Count 8.78 K/uL (4.8-10.8)
[2021-02-19 06:34] LABS: INR 1.1 (0.9-1.1); Prothrombin Time 10.9 Seconds (9.0-12.0)
[2021-02-19 07:00] LABS: BUN Creatinine Ratio 27.5 (10-20); Calcium 9.3 mg/dl (8.5-10.1); Est GFR (African American) 95.9 ml/min; Est GFR (Non-African American) 82.7 ml/min; Magnesium 2.2 mg/dl (1.8-2.4); Phosphorus 3.3 mg/dl (2.5-4.9); Potassium 4.1 mmol/L (3.5-5.1)
[2021-02-19] MEDS: LACTATED RINGER'S 1,000 ML IV SCH (07:38)
[2021-02-19] MEDS: INSULIN GLARGINE SOLOSTAR 100 UNITS/ML 3 ML PEN SC SCH (08:13)
[2021-02-19] MEDS: INSULIN ASPART 100 UNITS/ML 3 ML PEN SC SCH ×2 (08:13→11:48)
[2021-02-19] MEDS: DICLOFENAC SOD 1% GEL 100 GM TUBE EXT SCH ×2 (08:56→14:03)
[2021-02-19] MEDS: ASCORBIC ACID 500 MG TAB PO SCH (08:57)
[2021-02-19] MEDS: FERROUS SULFATE 325 MG TAB PO SCH (08:57)
[2021-02-19] MEDS: DOCUSATE SODIUM 100 MG CAP PO SCH (08:57)
[2021-02-19] MEDS: HEPARIN SOD 5,000 UNIT/0.5 ML VIAL SQ SCH (08:58)
[2021-02-19] MEDS: hydrALAZINE 10 MG TAB PO SCH ×2 (08:58→14:03)
[2021-02-19] MEDS: METOPROLOL SUCC 50MG EXT REL TAB PO SCH (08:59)
--- NOTE | 2021-02-19 09:17 | XRay Report ---
XR chest 2V PA/lateral HISTORY: Pacemaker placement. Follow-up. Evaluate for pneumothorax. COMPARISON: Chest 05/13/2018. FINDINGS: Interval placement left-sided single lead pacemaker. The lead appears intact. No pneumothor ax. No pleural effusions. The heart is top normal in size. No new focal lung consolidations to sugges t pneumonia. No evidence for bone edema. IMPRESSION: 1. Interval placement of a left-sided single lead pacemaker. No pneumothorax. 2. The patient's known T8 fracture is better appreciated on the recent chest CT ACT 112: Negative or not required by law. Electronically signed by: Joseph Hector M.D. 02/19/2021 9:16 AM
--- NOTE | 2021-02-19 10:53 | Hospitalist Progress Note ---
Date of Service February 19, 2021 Assessment & Plan (1) Tachy-tye syndrome: Presented with syncope x2 in last week and found to have bradycardia Has been having slow A. fib with occasional pauses Likely has tachybradycardia syndrome and will require pacemaker Appreciate cardiology input and recommendation Due to possible UTI pacemaker insertion will be done on Patient remains free of symptoms at rest Has had short runs of V. tach last night and started on a small dose of beta- sheldon Status post permanent pacemaker placement with ventricular lead on 02/18/2021 Remains stable following pacemaker insertion Status post chest x-ray-no pneumothorax Will be discharged this afternoon Compression fracture of the T8 vertebrae Has localized tenderness and pain without any radiation Pain seems to be improving with local NSAID's No radiculopathy If no improvement will get MRI of the thoracic spine Back pain is much better-advised to have further evaluation if pain is persisting (2) Moderate aortic stenosis: (3) Chronic atrial fibrillation: Has been having slow A. fib with significant bradyarrhythmias We are holding beta-sheldon and Cardizem Likely has tachybradycardia syndrome and will need pacemaker No significant bradyarrhythmias in hospital Coumadin has been restarted Beta-sheldon has been restarted (4) Syncope: (5) Obstructive sleep apnea: Has obstructive sleep apnea and is on BiPAP at night No acute symptoms now (6) Diabetes mellitus: We will continue with SSI (7) UTI (urinary tract infection): Noted to have mild leukocytosis at presentation UA suggestive of UTI Ceftriaxone has been added and await urine culture and sensitivity Denies any symptoms Urine culture is growing group B beta streptococci-no sensitivity to follow We will discontinue antibiotic after 3 days We will discontinue antibiotic from tomorrow (8) VENU treated with BiPAP: As above DVT prophylaxis Coumadin Discharge home this afternoon Admission and Anticipated Discharge Date Admission Date: February 15, 2021 Subjective 02/15/2021 The patient was seen and examined in telemetry unit He was admitted with syncopal episodes with bradycardia Has been feeling much better since admission but is still getting dizzy spells with standing and sitting up Noted to have occasional sinus pauses in the hospital but denies any significant chest pain, palpitation, shortness of breath Denies any fever and/or chills 02/16/2021 The patient was seen and examined in telemetry unit He complains of some back pain but denies any other symptoms Denies any fever and/or chills and no dysuria No dizziness at rest 02/17/2021 The patient was seen and examined in telemetry unit He is back pain is reasonably better with Voltaren gel He has had short runs of V. tach yesterday and has been put back on small dose of beta-sheldon Denies any symptoms secondary to UTI PPM tomorrow 02/18/2021 The patient was seen and examined in telemetry unit He is a status post PPM placement with ventricular lead He has been stable since surgery Complains some local pain but denies any other symptoms 02/19/2021 The patient was seen and examined in telemetry unit He has been feeling a lot better following pacemaker insertion denies any more dizziness His back pain is almost resolved Review of Systems Review of Systems: All systems reviewed and are unremarkable except as noted below Musculoskeletal: + back pain (Resolved with local NSAID use) Physical Exam Physical Exam: Lying in bed comfortably Constitutional: well developed, well nourished and + obese; no acute distress and not ill appearing Eyes: PERRL, conjunctivae normal, anicteric sclerae ENMT: external ear and nose normal, oropharynx normal Mallampati Class: III Neck: trachea midline, no thyromegaly + thick neck Respiratory: no respiratory distress Auscultation: lungs clear to auscultation bilaterally Cardiovascular: Rate/Rhythm: + irregularly irregular Heart Sounds: normal S1, normal S2 and + murmur (2/6 ESM over precordium) Extremities: + edema (Trace edema bilaterally) Chest (Breasts): Chest: + pacemaker (Site tender to palpate) Gastrointestinal (Abdomen): normal bowel sounds, soft, nontender, no hepatosplenomegaly Inspection/Auscultation: normal bowel sounds; abdomen not distended Percussion/Palpation: abdomen soft; abdomen nontender Musculoskeletal: No acute arthritis in any joint Skin: no rashes, warm and dry Neurologic: PERRL, EOMI, accommodation nl, no face palsy, no dysarthria Psychiatric: A+Ox3, euthymic affect Lymphatic: no cervical or axillary lymphadenopathy Results & Data Results & Data ([facility]) Vital Signs (Past 12 Hours) Vital Signs Temp Pulse Pulse Resp BP Pulse Ox 02/19/21 07:35 71 02/19/21 07:00 36.7 C 77 18 114/75 93 02/19/21 04:00 84 02/19/21 03:51 37.1 C 76 18 139/79 92 02/19/21 02:19 78 21 92 02/18/21 23:50 78 18 93 02/18/21 23:18 36.6 C 67 18 149/99 H 92 Laboratory Results Short CBC 02/19/21 Range/Units 06:05 WBC 8.78 (4.8-10.8) K/uL Hgb 14.0 (14.0-18.0) g/dL Hct 44.0 (42-52) % Plt Count 224 (130-400) K/uL BMP 02/19/21 06:05 Sodium 140 Potassium 4.1 Chloride 108 H Carbon Dioxide 33 H BUN 25 H Creatinine 0.91 Glucose 153 H Calcium 9.3 Medications Administered Current Inpatient Medications Acetaminophen (Acetaminophen 325 Mg Tab) 650 mg PO Q4H PRN PRN Reason: Pain or Fever Stop: 03/17/21 01:47 Last Admin: 02/17/21 04:27 Dose: 650 mg Documented by: Ascorbic Acid (Ascorbic Acid 500 Mg Tab) 250 mg PO QAM [facility] Stop: 03/17/21 08:59 Last Admin: 02/19/21 08:57 Dose: 250 mg Documented by: Dextrose (Dextrose 50% 50 Ml Syringe) 25 - 50 ml IV UD PRN; Protocol PRN Reason: Hypoglycemia Protocol Stop: 03/17/21 01:59 Diclofenac Sodium (Diclofenac Sod 1% Gel 100 Gm Tube) 2 gm EXT QID [facility] Stop: 03/19/21 12:59 Last Admin: 02/19/21 08:56 Dose: 2 gm Documented by: Docusate Sodium (Docusate Sodium 100 Mg Cap) 100 mg PO BIDM [facility] Stop: 03/17/21 07:59 Last Admin: 02/19/21 08:57 Dose: 100 mg Documented by: Ferrous Sulfate (Ferrous Sulfate 325 Mg Tab) 325 mg PO QAM [facility] Stop: 03/17/21 08:59 Last Admin: 02/19/21 08:57 Dose: 325 mg Documented by: Glucagon (Glucagon For Inj 1 Mg Vial) 1 mg IM UD PRN; Protocol PRN Reason: Hypoglycemia Protocol Stop: 03/17/21 01:59 Glucose (Glucose 40% Gel 15 Gm Tube) 15 - 30 gm PO UD PRN; Protocol PRN Reason: Hypoglycemia Protocol Stop: 03/17/21 01:59 Glucose (Glucose 10 Tabs/Tube) 4 - 8 tabs PO UD PRN; Protocol PRN Reason: Hypoglycemia Protocol Stop: 03/17/21 01:59 Heparin Sodium (Porcine) (Heparin Sod 5,000 Unit/0.5 Ml Vial) 5,000 units SQ Q12 [facility] Stop: 03/17/21 20:59 Last Admin: 02/19/21 08:58 Dose: 5,000 units Documented by: Hydralazine HCl (Hydralazine 10 Mg Tab) 10 mg PO TID [facility] Stop: 03/17/21 08:59 Last Admin: 02/19/21 08:58 Dose: 10 mg Documented by: Ceftriaxone Sodium 2,000 mg/ (Dextrose) 70 mls @ 100 mls/hr IV Q24H [facility]; Protocol Stop: 02/20/21 10:59 Last Infusion: 02/18/21 12:23 Dose: Infused Documented by: Lactated Ringer's (Lr) 1,000 mls @ 15 mls/hr IV .Q24H [facility] Stop: 02/21/21 00:39 Last Infusion: 02/19/21 07:38 Dose: Infused Documented by: Insulin Aspart (Insulin Aspart 100 Units/Ml 3 Ml Pen) 0 units SC ACHS [facility] Stop: 03/17/21 07:29 Last Admin: 02/19/21 08:13 Dose: 5 units Documented by: Insulin Glargine (Insulin Glargine Solostar 100 Units/Ml 3 Ml Pen) 6 units SC DAILY [facility] Stop: 03/17/21 08:59 Last Admin: 02/19/21 08:13 Dose: 6 units Documented by: Ketorolac Tromethamine (Ketorolac Tromethamine 10 Mg Tablet) 10 mg PO Q6H PRN PRN Reason: Pain (rating 4,5,6,7,8,9,10) Stop: 02/23/21 10:11 Last Admin: 02/18/21 17:12 Dose: 10 mg Documented by: Losartan Potassium (Losartan Potassium 25 Mg Tab) 25 mg PO QDL [facility] Stop: 03/17/21 11:29 Last Admin: 02/18/21 12:21 Dose: 25 mg Documented by: Metoprolol Succinate (Metoprolol Succ 50mg Ext Rel Tab) 50 mg PO BID [facility] Stop: 03/20/21 20:59 Last Admin: 02/19/21 08:59 Dose: 50 mg Documented by: Miscellaneous (Carbohydrates For Hypoglycemia ) 15 - 30 gm PO UD PRN PRN Reason: Hypoglycemia Treatment Stop: 03/17/21 01:59 Nitroglycerin (Nitroglycerin Sl 0.4 Mg/Tab Tab) 0.4 mg SL UD PRN PRN Reason: Chest Pain Stop: 03/17/21 01:47 Pantoprazole Sodium (Pantoprazole 40 Mg Tab) 40 mg PO QDD [facility] Stop: 03/17/21 16:29 Last Admin: 02/18/21 16:57 Dose: 40 mg Documented by: Polyethylene Glycol (Polyethylene (Miralax) 17 Gm Pack) 17 gm PO DAILY PRN PRN Reason: Constipation Stop: 03/17/21 01:47 Rosuvastatin Calcium (Rosuvastatin Calcium 20 Mg Tab) 40 mg PO QDD [facility] Stop: 03/17/21 16:29 Last Admin: 02/18/21 16:57 Dose: 40 mg Documented by: Tamsulosin HCl (Tamsulosin Hcl 0.4 Mg Cap) 0.4 mg PO HS [facility] Stop: 03/17/21 20:59 Last Admin: 02/18/21 20:04 Dose: 0.4 mg Documented by: (1) Syncope Syncope type: unspecified Qualified Code(s): R55 - Syncope and collapse
--- NOTE | 2021-02-19 11:31 | Electrocardiogram Report ---
Test Reason : Blood Pressure : / mmHG Vent. Rate : 078 BPM Atrial Rate : 000 BPM P-R Int : 000 ms QRS Dur : 164 ms QT Int : 420 ms P-R-T Axes : 000 -71 031 degrees QTc Int : 478 ms Atrial fibrillation Left axis deviation Non-specific intra-ventricular conduction block Minimal voltage criteria for LVH, may be normal variant ( Guin product ) Abnormal ECG When compared with ECG of 17-FEB-2021 03:54, (unconfirmed) No significant change Confirmed by Yuri Rubio ([id number]) on 02/19/2021 11:30:54 AM Referred By: REFERRED SELF Confirmed By:Yuri Rubio
[2021-02-19] MEDS: LOSARTAN POTASSIUM 25 MG TAB PO SCH (11:48)
--- NOTE | 2021-02-19 12:02 | Cardiology Progress Note ---
Date of Service February 19, 2021 Assessment & Plan (1) Status post placement of cardiac pacemaker: He is doing well postop pacemaker implantation and the device is working well. The chest x-ray looks good with good lead position and no pneumothorax. The incision looks good. From my standpoint he is stable for discharge. He is scheduled for follow-up with Astrid. Admission and Anticipated Discharge Date Admission Date: February 15, 2021 Subjective He is feeling well today with minimal incisional discomfort. He has had no chest discomfort, no shortness of breath and no further lightheadedness or dizziness. Physical Exam Physical Exam: The incision is clean and dry, no bleeding or drainage. The site is not swollen and minimally tender. Lungs are clear Cardiac rhythm is regular with no rub Results & Data ([facility]) Vital Signs (Past 12 Hours) Vital Signs Temp Pulse Pulse Resp BP Pulse Ox 02/19/21 07:35 71 02/19/21 07:00 36.7 C 77 18 114/75 93 02/19/21 04:00 84 02/19/21 03:51 37.1 C 76 18 139/79 92 02/19/21 02:19 78 21 92 02/18/21 23:50 78 18 93 02/18/21 23:18 36.6 C 67 18 149/99 H 92 Laboratory Results Coagulation 02/19/21 Range/Units 06:05 PT 10.9 (9.0-12.0) Seconds CBC 02/19/21 Range/Units 06:05 WBC 8.78 (4.8-10.8) K/uL RBC 4.47 L (4.7-6.1) M/uL Hgb 14.0 (14.0-18.0) g/dL Hct 44.0 (42-52) % Plt Count 224 (130-400) K/uL Neut # (Auto) 5.20 (1.4-6.5) K/uL Lymph # (Auto) 2.36 (1.2-3.4) K/uL Long # (Auto) 1.02 H (0.11-0.59) K/uL Eos # (Auto) 0.15 (0-0.5) K/uL Baso # (Auto) 0.03 (0-0.2) K/uL Comprehensive Metabolic Panel 02/19/21 Range/Units 06:05 Sodium 140 (136-145) mmol/L Potassium 4.1 (3.5-5.1) mmol/L Chloride 108 H (98-107) mmol/L Carbon Dioxide 33 H (21-32) mmol/L BUN 25 H (7-18) mg/dl Creatinine 0.91 (0.6-1.4) mg/dl Glucose 153 H (70-99) mg/dl Calcium 9.3 (8.5-10.1) mg/dl Intake and Output 02/18/21 02/19/21 02/19/21 22:59 06:59 14:59 Intake Total 360 / 940 150 / 940 328.75 / 328.75 Balance 360 / 940 150 / 940 328.75 / 328.75 Intake: IV 328.75 / 328.75 Lactated Ringer's 1,000 ml @ 15 328.75 / 328.75 mls/hr IV .Q24H [facility] Rx#: [id number] Oral 360 / 870 150 / 870 Other: # Unmeasured Voids 1 Weight 107.3 kg Weight Measurement Method Standing Scale Diagnostic Findings Telemetry: Occasional ventricular pacing, appropriate pacemaker function Chest x-ray: Good lead position, no pneumothorax Postop electrocardiogram: Appropriate pacemaker inhibition (atrial fibrillation with a controlled heart rate) Pacemaker evaluation: Excellent pacing and sensing characteristics PG Care Time/CCT Total # of Minutes Spent Total Time Spent with Patient: Total time spent is greater than 50% in coordination of care (as documented) at patient's floor/unit and/or counseling patient: Coding Level of Care Code None Diagnoses Status post placement of cardiac pacemaker Z95.0 CPT Codes Pacemaker Single Lead Programming - 10955 ([id number])
--- NOTE | 2021-02-19 13:26 | Cardiology Progress Note ---
Date of Service February 19, 2021 Assessment & Plan (1) Syncope: Patient is a complex 75-year-old male as outlined above who presents with 2 syncopal events in the last week with noted profound bradycardia on ER presentation. Heart rates in the 20s and 30s and chronic atrial fibrillation. 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 Plan: Patient underwent single-chamber pacemaker insertion . Patient stable for discharge, resume previous dosing warfarin 7.5 mg p.o. daily Continue metoprolol as ordered Would not restart diltiazem Cardiology appointment scheduled 03/01/2021 (2) Tachy-tye syndrome: (3) Chronic atrial fibrillation: (4) Moderate aortic stenosis: (5) Obstructive sleep apnea: (6) VENU treated with BiPAP: Would ensure patient is being treated in hospital (7) UTI (urinary tract infection): Admission and Anticipated Discharge Date Admission Date: February 15, 2021 Subjective Patient was seen and examined, chart, medications, telemetry reviewed. No complaints. Pacemaker site healing well. Rhythm with intermittent pacing dev ice interrogation functioning appropriate Review of Systems Review of Systems: All systems reviewed & are unremarkable except as noted in Subjective Physical Exam Constitutional: WD/WN, vitals as above + obese; no acute distress Eyes: PERRL, conjunctivae normal, anicteric sclerae ENMT: external ear and nose normal, oropharynx normal Neck: trachea midline, no thyromegaly + thick neck Respiratory: normal respiratory effort, lungs clear to auscultation Cardiovascular: Rate/Rhythm: + irregularly irregular Heart Sounds: normal S1, normal S2 and + murmur (Grade 2/6 systolic murmur throughout the precordium, no diastolic murmur); no gallop Palpation: normal PMI Vessels: normal carotid upstroke and radial pulses present; no JVD and no carotid bruit Extremities: no edema Chest (Breasts): Chest: + pacemaker (Site clean) Gastrointestinal (Abdomen): normal bowel sounds, soft, nontender, no hepatosplenomegaly Musculoskeletal: no cyanosis or clubbing, extremities motor strength 5/5 Skin: no rashes, warm and dry Neurologic: PERRL, EOMI, accommodation nl, no face palsy, no dysarthria Psychiatric: A+Ox3, euthymic affect Results & Data ([facility]) Vital Signs (Past 12 Hours) Vital Signs Temp Pulse Pulse Resp BP BP Pulse Ox 02/19/21 12:05 37.0 C 73 20 114/75 94 02/19/21 11:24 37.0 C 73 20 163/57 H 94 02/19/21 11:04 36.6 C 80 18 147/85 H 98 02/19/21 07:35 71 02/19/21 07:00 36.7 C 77 18 114/75 93 02/19/21 04:00 84 02/19/21 03:51 37.1 C 76 18 139/79 92 02/19/21 02:19 78 21 92 (1) Syncope Syncope type: unspecified Qualified Code(s): R55 - Syncope and collapse
--- NOTE | 2021-02-19 18:11 | Discharge Summary ---
Date of Service February 19, 2021 Admission HPI Per Admitting Provider DICTATED BY: Brandin Brunson MD DATE OF ADMISSION: 02/15/2021 CHIEF COMPLAINT: Syncope and bradycardia. HISTORY OF PRESENT ILLNESS: This is a 75-year-old male with past medical history significant for type 2 diabetes, nonproliferative diabetic retinopathy, hyperlipidemia, sleep apnea, COPD, CAD, chronic atrial fibrillation, hypertension, non-rheumatic aortic valve stenosis, history of colon polyps, obesity, GERD, cholelithiasis, BPH, renal calculi, generalized osteoarthrosis, localized hiatal hernia, choroidal nevus, who lives at home with his , ambulates without any support, comes with episode of syncope. They went to family doctor's office today because of episode of syncope last week when he fell in the bathroom and had a syncopal episode in his bath tub. So family doctor was planning to do carotid ultrasound and as per the patient also was planning to obtain his echo. He said he did fine and he went home. After going home, he was doing okay, and then he went outside to his shed to get something from the shed and when he closed the door of the shed and turned around to come back to his house, which was about 70 to 75 feet away, he suddenly collapsed on the ramp close to the shed. He thinks he laid there for few seconds. was not at that time in the house. She did not see him falling down. When he woke up, he shouted for his and she came and she called his brother and also EMS. When EMS arrived, his heart rate was in 20s. It did not improve even with atropine and when they stood him up he had an episode of vomiting and brought to the hospital. The patient stated that before the syncopal episode, he felt a little dizzy, but no other complaints. He does not remember exactly what happened. In the ER also when he came in, his heart rate initially was in 30s and then it improved into 60s. In AFib currently. Patient had imaging studies with CT of the head and CTA of the chest and CTA of the abdomen and pelvis for which he was given contrast. He says after he was given contrast, he developed some slight heaviness in the right side of chest, but otherwise he does not have any chest pain. He gets short of breath while lying flat. He has some cough from the allergies. He had an episode of head pressure several days ago after a cyst was removed from the back of his head. He had an episode yesterday also of head pressure lasted few seconds. Denies any blurred visions, no double vision, no earache, no runny nose, no sore throat, no dysphagia. Appetite is okay. Currently no nausea, no abdominal pain, normal bowel and bladder movements. Denies any blood in stools, occasional black stools, but he attributes this to the kind of diet he eats. He states he is micturating a lot. No swelling in the legs. Currently, his hemodynamics are stable, alert and oriented. He had his COVID shots. is in the room. Admission Exam Per Admitting Provider GENERAL: The patient is obese, currently not in acute distress. VITAL SIGNS: Temperature 36.4, pulse 64, respiratory rate 21, blood pressure 145/92, oxygen 94% on room air. HEENT: Pupils equal, round and reactive to light. Oral mucosa moist. NECK: No JVD. No masses. No carotid bruits. CARDIOVASCULAR: S1 and S2 heard. Irregular rhythm, no murmur, no gallop. RESPIRATORY SYSTEM: Normal AP diameter. No accessory muscle use. No wheezing, no crackles. ABDOMEN: Soft, bowel sounds present, nontender, no distention. CENTRAL NERVOUS SYSTEM: Cranial nerves II-XII grossly intact, nonfocal. EXTREMITIES: No edema, no erythema. Principal Diagnosis Tachybradycardia syndrome status post PPM placement, syncope, chronic atrial fibrillation on anticoagulation, type 2 diabetes, compression fracture of T8 vertebrae without radiculopathy. Discharge Exam Constitutional well developed, well nourished and + obese; no acute distress and not ill appearing Eyes PERRL, conjunctivae normal, anicteric sclerae ENMT external ear and nose normal, oropharynx normal Mallampati Class: III Neck trachea midline, no thyromegaly + thick neck Respiratory no respiratory distress Auscultation: lungs clear to auscultation bilaterally Cardiovascular Rate/Rhythm: + irregularly irregular Heart Sounds: normal S1, normal S2 and + murmur (2/6 ESM over precordium) Extremities: + edema (Trace edema bilaterally) Chest (Breasts) Chest: + pacemaker (Site tender to palpate) Gastrointestinal (Abdomen) normal bowel sounds, soft, nontender, no hepatosplenomegaly Inspection/Auscultation: normal bowel sounds; abdomen not distended Percussion/Palpation: abdomen soft; abdomen nontender Skin no rashes, warm and dry Neurologic PERRL, EOMI, accommodation nl, no face palsy, no dysarthria Psychiatric A+Ox3, euthymic affect Lymphatic no cervical or axillary lymphadenopathy Discharge Data Allergies Allergy/AdvReac Type Severity Reaction Status Date / Time No Known Allergies Allergy Verified 02/14/21 22:26 Consultations 02/14/21 23:37 ED Decision to Admit Stat 02/15/21 08:00 Consult Cardiology Routine 02/15/21 10:17 Consult Cardiac Electrophysiology Routine Procedures Performed Operation Date: 02/15/21 13:00 <No data on this case meets the specified criteria> Operation Date: 02/18/21 08:00 Actual Procedures p Pacer with Ventricular Lead - Yuri Rubio MD s Venogram, Unilateral - Yuri Rubio MD Ordered Studies 02/14/21 21:54 CT angio abdomen pelvis w con Urgent CT angio chest dissec wo/w con Urgent CT cervical spine wo con Urgent 02/14/21 21:55 CT head/brain wo con Urgent 02/18/21 06:40 CL Cath Imgs for PACS use only Routine Hospital Course (1) Tachy-tye syndrome: Presented with syncope x2 in last week and found to have bradycardia Has been having slow A. fib with occasional pauses Likely has tachybradycardia syndrome and will require pacemaker Appreciate cardiology input and recommendation Due to possible UTI pacemaker insertion will be done on Patient remains free of symptoms at rest Has had short runs of V. tach last night and started on a small dose of beta- sheldon Status post permanent pacemaker placement with ventricular lead on 02/18/2021 Remains stable following pacemaker insertion Status post chest x-ray-no pneumothorax Will be discharged this afternoon Compression fracture of the T8 vertebrae Has localized tenderness and pain without any radiation Pain seems to be improving with local NSAID's No radiculopathy If no improvement will get MRI of the thoracic spine Back pain is much better-advised to have further evaluation if pain is persisting (2) Moderate aortic stenosis: (3) Chronic atrial fibrillation: Has been having slow A. fib with significant bradyarrhythmias We are holding beta-sheldon and Cardizem Likely has tachybradycardia syndrome and will need pacemaker No significant bradyarrhythmias in hospital Coumadin has been restarted Beta-sheldon has been restarted (4) Syncope: (5) Obstructive sleep apnea: Has obstructive sleep apnea and is on BiPAP at night No acute symptoms now (6) Diabetes mellitus: We will continue with SSI (7) UTI (urinary tract infection): Noted to have mild leukocytosis at presentation UA suggestive of UTI Ceftriaxone has been added and await urine culture and sensitivity Denies any symptoms Urine culture is growing group B beta streptococci-no sensitivity to follow We will discontinue antibiotic after 3 days We will discontinue antibiotic from tomorrow (8) VENU treated with BiPAP: As above DVT prophylaxis Coumadin Discharge home this afternoon Total Time Total Time Spent Total Time Spent (In Minutes): 35 minutes Total Time Includes: Examination of the Patient, Discharge Planning, Medication Reconciliation and Communication With Other Providers Discharge Plan Discharge Items Patient Disposition: Home - Self-Care Reason For Visit: SYNCOPE Discharge Diagnosis: Tachybradycardia syndrome status post PPM placement, syncope, chronic atrial fibrillation on anticoagulation, type 2 diabetes, compression fracture of T8 vertebrae without radiculopathy. Condition on Discharge: Good Activity: As commented below Lifting: Gradually increase as tolerated Exercise/Sports: Gradually increase as tolerated Non-emergency contact: Primary Care Provider Call non-emergency contact if: you have any medication questions and your symptoms worsen Follow-up/Referrals: Jason Jameson DO [Primary Care Provider] - (Date & Time 02/26/2021 11:00 AM Provider Jason Jameson DO Department [facility] ) Diet: Carb Consistent or DM2 Addtl Attending Provider Instructions: Your diltiazem has been discontinued Please keep appointments with your PCP and the installation coordinator Have regular follow-up appointment with coagulation clinic-take your Coumadin 7.5 mg daily for the next few days until you are evaluated by the coagulation clinic within 3 to 4 days. If your back pain gets worse or if you develop any referred pain, you will need to have further evaluation by orthopedic surgeon as discussed ACTIVITY RECOMMENDATIONS: * Do not raise affected arm over head for 2 weeks. SPECIAL CARE INSTRUCTIONS: * If bleeding occurs, apply direct pressure to area for 5 minutes. * Call your doctor if you have severe pain, fever, drainage or bleeding at site. * Keep dressing on and dry for 48 hours then remove. * Keep any scheduled doctor's appointment. * Implant Card - hand held device with website information given. SKIN IRRITATION: * You may experience some redness and/or swelling in the area where radiation was administered. If any skin irritation occurs, please contact your family physician. FOLLOW UP VISIT: Keep any scheduled doctor appointments. Pending Studies at Discharge: No Stand-Alone Forms: My [facility] [employer], Smoking Cessation Medications and DC Order Prescriptions: New diclofenac sodium 1 % gel 2 g topical QID PRN (Reason: pain) Qty: 50 RF: 0 Continued warfarin 5 mg tablet See Rx Instructions .ROUTE .COMPLEX Qty: 30 RF: 0 (DME) BiPap Supplies Misc See Rx Instructions .MEDSUPPLY Qty: 1 RF: 0 Vitron-C 65 mg iron- 125 mg Tablet,Delayed Release (Dr/Ec) 1 tab PO QAM RF: 0 tamsulosin [Flomax] 0.4 mg capsule 0.4 mg PO HS RF: 0 pantoprazole [Protonix] 40 mg tablet,delayed release (DR/EC) 40 mg PO QDD RF: 0 metformin [Glucophage] 1,000 mg tablet 1,000 mg PO BID RF: 0 docusate sodium 100 mg Capsule 100 mg PO BIDM RF: 0 rosuvastatin [Crestor] 40 mg tablet 40 mg PO QDD RF: 0 acetaminophen [Tylenol Extra Strength] 500 mg Tablet 500 mg PO Q6H PRN (Reason: Pain) RF: 0 losartan 25 mg tablet 25 mg PO QDL RF: 0 glipizide 10 mg Tablet 10 mg PO BIDM RF: 0 Ozempic 0.25 mg or 0.5 mg(2 mg/1.5 mL) Pen Injector 0.5 mg SUBCUT WK RF: 0 hydralazine 10 mg tablet 10 mg PO TID RF: 0 Changed metoprolol succinate 50 mg tablet extended release 24 hr 50 mg PO BID Qty: 0 RF: 0 Discontinued diltiazem HCl [Cardizem CD] 120 mg capsule,extended release 24hr 120 mg PO QAM RF: 0 metoprolol succinate 50 mg Tablet Extended Release 24 Hr 75 mg PO PM RF: 0 Discharge Orders: Discharge Order (Routine); Ordered 02/19/21 Ordered By: Edwin Buitrago/Other Patient Handouts: Managing Type 2 Diabetes, Discharge Instructions for ..., A1C Admission Data Admit Date/Time: 02/15/21 00:22 Attending Provider: Edwin Saenz Admit Provider: Brandin Brunson Primary Care Provider: Jason Jameson Other Providers: Brandin Brunson ; Stanford Solitario ; Desmond Watson ; Wil Anglin ; Preston Tamez ; Kyle Brown ; Fabiano Scott ; Nichol Morales ; Estefany Newell ; Anita Pinon ; Oleksandr Du ; Yuri Rubio Other Interventions: Discharge Summary Assessment (RN) Last Done: 02/19/21 12:05
== END 2021-02-19 15:08 | disposition home or self-care (01) | DRG 243 ==
LOC: ED 21:49 → 2E 02-15 00:22

== ENCOUNTER 2024-08-31 18:03 | Observation (INO) ==
[2024-08-31 18:41] VITALS: TEMP 98.4
[2024-08-31 20:54] LABS: iSTAT Creatinine 0.9 mg/dl (0.6-1.3); iSTAT Hemoglobin 14.6 g/dl (14.0-18.0); iSTAT Ionized Calcium 1.12 mmol/l (1.12-1.32); iSTAT Potassium 4.4 mmol/L (3.3-5.0)
[2024-08-31 20:55] LABS: Base Excess VBG -0.6 mEq/L; HCO3 VBG 28 mmol/L; Oxygen Saturation VBG < 60.0 %; PCO2 VBG 64 mmHg (38-50); PO2 VBG 31 mmHg; pH VBG 7.25 (7.36-7.41)
[2024-08-31 21:03] LABS: Albumin Globulin Ratio 1.2 (0.9-2); Albumin Level 3.9 gm/dl (3.4-5.0); BUN Creatinine Ratio 15.1 (10-20); Bilirubin,Total 1.7 mg/dl (0.2-1.0); Calcium 8.6 mg/dl (8.6-10.3); Creatinine Clr Calc Pharmacy 85.7 ml/min; Globulin 3.3 gm/dl (2.5-4.0); Magnesium 2.1 mg/dl (1.7-2.4); Potassium 4.3 mmol/L (3.5-5.1); Total Protein 7.2 gm/dl (6.0-8.3)
[2024-08-31 21:09] LABS: Troponin I High Sensitivity 8.8 pg/ml (0-20)
[2024-08-31 21:16] LABS: Basophils # (auto) 0.04 K/uL (0.00-0.20); Basophils % (auto) 0.3 %; Hematocrit (blood only) 42.9 % (42.0-52.0); Hemoglobin 13.5 g/dl (14.0-18.0); Immature Granulocytes # (auto) 0.05 K/uL (0.01-0.20); Immature Granulocytes % (auto) 0.4 %; Lymphocytes # (auto) 1.27 K/uL (1.20-3.40); Lymphocytes % (auto) 10.8 %; Mean Corpuscular Hemoglobin 30.6 pg (25.0-34.0); Mean Corpuscular Hgb Conc 31.5 g/dL (32.0-36.0); Mean Corpuscular Volume 97.3 fL (80.0-100.0); Mean Platelet Volume 12.6 fL (9.4-12.4); Monocytes # (auto) 0.68 K/uL (0.11-0.59); Monocytes % (auto) 5.8 %; Neutrophils # (auto) 9.67 K/uL (1.40-6.50); Neutrophils % (auto) 82.7 %; Platelet Count 151 K/uL (130-400); RDW Coefficient of Variation 13.6 % (11.5-14.5); RDW Standard Deviation 48.6 fL (36.4-46.3); Red Blood Count 4.41 M/uL (4.70-6.10); White Blood Count 11.71 K/ul (4.8-10.8)
[2024-08-31 21:32] LABS: INR 1.1 (0.9-1.1); Prothrombin Time 12.3 Seconds (9.0-12.0)
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
--- NOTE | 2024-08-31 22:16 | XRay Report ---
Exam(s): XR CXR 1 VIEW EXAM: XR Chest, 1 View CLINICAL HISTORY: Reason for exam: ams. TECHNIQUE: Frontal view of the chest. COMPARISON: 02/19/21 FINDINGS: Lungs: Pulmonary vascular congestion and bilateral interstitial opacities. No consolidation. Pleural space: Unremarkable. No pleural effusion or pneumothorax. Heart: Cardiomegaly and aortic valve replacement. Bones/joints: Degenerative skeletal changes without evidence of acute osseous abnormality. Tubes, lines and devices: Left chest wall ICD with single right ventricular lead. IMPRESSION: Pulmonary vascular congestion and bilateral interstitial opacities. Appearance suggests pulmonary edema, but atypical infection is a possibility. Electronically signed by: Sharron Miller M.D. 08/31/24 22:15 PM
--- NOTE | 2024-08-31 22:27 | CT Scan Report ---
Exam(s): CT HEAD Without Contrast EXAM: CT Head Without Intravenous Contrast CLINICAL HISTORY: Reason for exam: ams. TECHNIQUE: Axial computed tomography images of the head/brain without intravenous contrast. CTDI is 38.03 mGy and DLP is 703.85 mGy-cm. Automated exposure control was utilized for the study. A dose lowering technique was utilized adhering to the principles of ALARA. COMPARISON: 03/22/22 FINDINGS: Brain: Age-related parenchymal volume loss. Mild chronic small vessel ischemic change. Frias-white matter differentiation maintained. No hemorrhage, mass effect, parenchymal edema, or midline shift. Stable left cerebellar calcifications. Ventricles: Unremarkable. No hydrocephalus. Bones/joints: Unremarkable. No acute fracture. Soft tissues: Stable nonspecific focal subcutaneous induration of the right parieto-occipital scalp (axial 24). Vasculature: Intracranial atherosclerosis. Sinuses: Unremarkable as visualized. Mastoid air cells: Unremarkable as visualized. No mastoid effusion. IMPRESSION: No acute intracranial process. Electronically signed by: Sharron Miller M.D. 08/31/24 22:26 PM
[2024-08-31 22:40] LABS: Appearance Urine Cloudy (Clear); Bacteria Urine Automated 4+ (None Seen); Bilirubin Urine Negative (Negative); Blood Urine Negative (Negative); Color Urine Yellow; Epithelial Cell Urine Auto 0-2 /hpf (0-2); Glucose Urine UA 2+ (Negative); Ketones Urine 1+ (Negative); Leukocyte Esterase Urine 2+ (Negative); Nitrite Urine Positive (Negative); Protein Urine 1+ (Negative); Specific Gravity Urine 1.023 (1.000-1.030); Urobilinogen Urine Negative (Negative); WBC Urine Automated >50 /hpf (0-5)
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
[2024-09-01] MEDS: ACETAMINOPHEN 1,000 MG/100 ML VIAL IV STA (00:34)
[2024-09-01] MEDS ORDERED: POLYETHYLENE (MIRALAX) 17 GM PACK PO PRN (00:36)
[2024-09-01] MEDS ORDERED: NITROGLYCERIN SL 0.4 MG/TAB TAB SL PRN (00:36)
[2024-09-01] MEDS ORDERED: GLUCOSE 10 TAB/TUBE PO PRN (00:36)
[2024-09-01] MEDS ORDERED: DEXTROSE 50% 50 ML SYRINGE IV PRN (00:36)
[2024-09-01] MEDS ORDERED: GLUCAGON FOR INJ 1 MG VIAL SQ PRN (00:36)
[2024-09-01] MEDS ORDERED: CARBOHYDRATES FOR HYPOGLYCEMIA PO PRN (00:36)
[2024-09-01] MEDS ORDERED: GLUCOSE 40% GEL 15 GM TUBE PO PRN (00:36)
[2024-09-01] MEDS ORDERED: ACETAMINOPHEN 325 MG TAB PO PRN (00:36)
[2024-09-01] MEDS ORDERED: ACETAMINOPHEN 1,000 MG/100 ML VIAL IV PRN (00:36)
[2024-09-01] MEDS: FUROSEMIDE INJ 20 MG/2 ML VIAL IV ONE (01:37)
[2024-09-01] MEDS: cefTRIAXone SODIUM 2,000 MG/50 ML BAG IV SCH (01:45)
[2024-09-01 04:30] LABS: Base Excess VBG 1.8 mEq/L; HCO3 VBG 29 mmol/L; Oxygen Saturation VBG 72.5 %; PCO2 VBG 53 mmHg (38-50); PO2 VBG 41 mmHg; pH VBG 7.34 (7.36-7.41)
[2024-09-01 04:41] LABS: Basophils # (auto) 0.02 K/uL (0.00-0.20); Basophils % (auto) 0.2 %; Hematocrit (blood only) 39.4 % (42.0-52.0); Hemoglobin 12.7 g/dl (14.0-18.0); Immature Granulocytes # (auto) 0.03 K/uL (0.01-0.20); Immature Granulocytes % (auto) 0.3 %; Lymphocytes # (auto) 1.68 K/uL (1.20-3.40); Lymphocytes % (auto) 16.2 %; Mean Corpuscular Hemoglobin 31.3 pg (25.0-34.0); Mean Corpuscular Hgb Conc 32.2 g/dL (32.0-36.0); Mean Platelet Volume 11.4 fL (9.4-12.4); Monocytes # (auto) 1.18 K/uL (0.11-0.59); Monocytes % (auto) 11.4 %; Neutrophils # (auto) 7.48 K/uL (1.40-6.50); Neutrophils % (auto) 71.9 %; Platelet Count 144 K/uL (130-400); RDW Coefficient of Variation 13.4 % (11.5-14.5); RDW Standard Deviation 47.8 fL (36.4-46.3); Red Blood Count 4.06 M/uL (4.70-6.10); White Blood Count 10.39 K/ul (4.8-10.8)
[2024-09-01 04:50] LABS: BUN Creatinine Ratio 15.1 (10-20); Calcium 8.2 mg/dl (8.6-10.3); Creatinine Clr Calc Pharmacy 69.5 ml/min; Magnesium 1.9 mg/dl (1.7-2.4)
--- OUTSIDE RECORDS SUMMARY | 2024-09-01 05:15 | External Medical Summary | Summary of Care ---
Author Name Unknown Organization [facility] Address [address] [address] Phone [phone] Care Team Providers Care Insulation Inspector Name Role Phone Jason Jameson DO Primary Care Provider Reason for Visit * Reason Comments Follow Up Encounter Details Date Type Department Care Team (Late st Contact Info) Description 08/09/2024 9:00 AM EST Office Visit Cardiology, [facility] [address] [place] [id number] Nichol Morales PA-C [address] [place] [phone] Chronic atrial fibrillation (HCC)*; DYSLIPIDEMIA, GOAL LDL BELOW 70; HTN, goal below 130/80; S/P TAVR (transcatheter aortic valve replacement) Allergies No known active allergiesdocumented as of this encounter (statuses as of 08/16/2024) Medications aspirin enteric coated 81 MG TBEC TAKE 1 TABLET BY MOUTH DAILY. 31 Tab 11 018 Active Accu-Chek Softclix Lancets USE TO TEST BLOOD SUGAR 4 TIMES DAILY DIRECTED E11.9 400 Each 3 021 Active Additional Information Patient taking differently: Use to test blood sugar 1 time daily as directed E11.9, Reported on 08/09/2024 BiPAP every night at bedtime. Active Amoxicillin 500 MG Oral Capsule (Amoxil)Indication s:Severe aortic stenosis,S/P TAVR (transcatheter aortic valve replacement),Perma nent atrial fibrillation (HCC),Tachy-tye syndrome (HCC),Cardiac pacemaker in situ,HTN, goal below 130/80,VENU (obstructive sleep apnea),Nonobstruct brie atherosclerosis of coronary artery,Abdominal aortic aneurysm (AAA) 30 to 34 mm in diameter ([facility]) Take 4 capsules 1 hour prior to any dental work 4 Capsule 4 023 Active Additional Information Patient not taking.Reported on 08/09/2024 Accu-Chek Guide w/Device Kit Use as directed. Use to test BG values E11.9 1 Kit 023 Active Accu-Chek Softclix Lancets Use to test BG once daily E11.9 100 Each 5 023 Active Metoprolol Succinate ER 50 MG Oral Tablet Extended Release 24 Hour (toPROL XL)Indications:HTN , goal below 140/90,Atrial flutter, unspecified type ([facility]) TAKE 1 TABLET BY MOUTH TWICE A DAY 180 Tablet 3 024 Active Ozempic (2 MG/DOSE) 8 MG/3ML Subcutaneous Solution Pen-injector (Semaglutide (2 MG/DOSE))Indicatio ns:DM type 2, goal HbA1c < 8% ([facility]) Inject 2 mg under the skin once a week. 9 mL 3 024 Active Pantoprazole Sodium 40 MG Oral Tablet Delayed Release (Protonix)Indicati ons:Dyspepsia TAKE 1 TABLET BY MOUTH EVERY DAY 90 Tablet 3 024 Active Rosuvastatin Calcium 40 MG Oral Tablet (Crestor) TAKE 1 TABLET BY MOUTH EVERY DAY 90 Tablet 3 024 Active Vitron-C 65-125 MG Oral Tablet (Iron-Vitamin C 65-125 mg per tab)Indications:Lo w ferritin level TAKE 1 TABLET BY MOUTH EVERY DAY 90 Tablet 3 024 Active metFORMIN HCl 1000 MG Oral Tablet (Glucophage)Indica tions:HTN, goal below 140/90 TAKE 1 TABLET BY MOUTH TWICE A DAY WITH BREAKFAST AND DINNER 180 Tablet 3 024 Active Warfarin Sodium 5 MG Oral Tablet (Coumadin)Indicati ons:Chronic atrial fibrillation (HCC),Anticoagulat ion management encounter,[facility] current use of anticoagulant therapy,Atrial flutter, unspecified type (HCC) TAKE 10MG (2 TABLETS) MON AND FRI, 7.5MG (1 AND 1/2 TABLETS) ALL OTHER DAYS 160 Tablet 3 024 Active hydroCHLOROthiazid e 12.5 MG Oral CapsuleIndications :Hyperkalemia,HTN, goal below 140/90 Take 1 Capsule by mouth in the morning. 90 Capsule 5 024 Active hydrALAZINE HCl 10 MG Oral Tablet (Apresoline) TAKE 1 TABLET BY MOUTH THREE TIMES A DAY 270 Tablet 5 024 Active Accu-Chek Guide In Vitro Strip (Glucose Blood) USE TO TEST BLOOD SUGAR VALUES ONCE DAILY E 11.9 100 Strip 11 024 Active Finasteride 5 MG Oral Tablet (Proscar) Take 1 Tablet by mouth in the morning. 90 Tablet 3 024 Active Pen [place] 32G X 6 MM Use as directed. Inject 15 units daily E11.9 100 Each 3 024 Active Tresiba FlexTouch 200 UNIT/ML Subcutaneous Solution Pen-injector (Insulin Degludec) Inject 17 Units under the skin in the morning. E11.9. 15 mL 3 024 Active Tamsulosin HCl 0.4 MG Oral Capsule (Flomax) TAKE 1 CAPSULE BY MOUTH EVERY DAY IN THE MORNING 90 Capsule 1 024 Active Losartan Potassium 25 MG Oral Tablet (Cozaar)Indication s:HTN, goal below 140/90 TAKE 1 TABLET BY MOUTH EVERY DAY 90 Tablet 1 024 Active Mupirocin 2 % External Ointment (Bactroban)Indicat ions:Folliculitis To affected area for up to 14 days. 30 g 1 023 2023 Discontinued documented as of this encounter (statuses as of 08/16/2024) Active Problems Problem Noted Date Diagnosed Date Carpal tunnel syndrome, right 2024 Left inguinal pain 05/04/2024 Nocturia 05/04/2024 Impotence 05/04/2024 Urge incontinence 05/04/2024 S/P TAVR (transcatheter aortic valve replacement ) 10/07/2022 VENU treated with BiPAP 08/20/2021 AAA (abdominal aortic aneurysm) 04/04/2021 Overview (04/04/2021): 3.2 cm AAA noted on US Aorta 03/18/21 Scapholunate advanced collapse of right wrist Hiatal hernia 11/14/2020 Cholelithiasis 11/14/2020 Inguinal hernia 11/14/2020 Renal calculi 11/14/2020 BPH with obstruction/lower urinary tract symptom s 12/30/2017 Gastroesophageal reflux disease without esophagi tis 03/18/2017 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 DM type 2, goal HbA1c < 8% 06/21/2009 Overview (12/18/2015): Per Diabetes Taxonomy. ICD-10 update of inactive term Localized, primary osteoarthritis of hand 2008 HYPERTENSIVE HEART DZ 04/12/2009 Overview (04/12/2009): Per Heart Failure Taxonomy Protocol. HX COLON POLYP- 02/2000 + 04/15/05 02/20/2005 ATHEROSCLEROTIC CORONARY DISEASE 08/27/2002 Sleep apnea 02/19/2001 GENERAL OSTEOARTHROSIS documented as of this encounter (statuses as of 08/16/2024) Resolved Problems Problem Noted Date Diagnosed Date Resolved Date COPD, group B, by GOLD 2017 classification 03/04/2021 08/20/2021 Overview: Per COPD GOLD Classification CKD (chronic kidney disease) stage 3, GFR 30-59 ml/min 10/18/2019 02/14/2021 COPD, severity to be determined 05/19/2018 09/03/2018 Chronic obstructive pulmonary disease 05/19/2018 03/07/2021 Overview: Per COPD GOLD Classification Nonrheumatic aortic valve stenosis 11/06/2017 10/08/2022 ATN (acute tubular necrosis) 03/24/2014 12/16/2016 Overview (03/24/2014): Needed acute hemodialysis HTN, GOAL BELOW 140/80 04/12/201211/28 Overview: Per HTN Protocol #27. 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 Orozco 10/201003/04/2011 03/18/2017 Diabetes mellitus with background retinopathy 11/21/19 11 09/03/2018 Overview (11/08/2015): ICD-10 update of inactive term Retinal edema 10/24/2009 03/18/2017 HTN, GOAL BELOW 130/80 09/19/200904/15 Overview (09/19/2009): Per HTN Taxonomy. ADVANCE DIRECTIVE INFORMATION 03/16/2006 06/27/2024 Overview (03/16/2006): Yes, Patient instructed to provide copy of advance directive for provider to review and to be scanned into Electronic Medical Record Type 2 diabetes mellitus wit h hemoglobin A1c goal of less than 7.0% 09/19/2003 06/21/2009 Overview (12/18/2015): Per Diabetes Taxonomy. ICD-10 update of inactive term OBESITY, UNSPECIFIED 12/21/2002 010 Overview (11/19/2009): Per Obesity Taxonomy Hypertensive Heart Dz, severity unknown 08/27/2002 04/12/2009 Overview (04/12/2009): Per Heart Failure Taxonomy Protocol. Other chest pain 02/19/2001 01/21/2017 HTN, goal below 140/90 09/19 Overview (09/19/2009): Per HTN Taxonomy. Esophageal reflux 03/18/2017 PURE HYPERCHOLESTEROLEM 07/24 Overview (08/02/2009): Per Lipid Taxonomy. documented as of this encounter (statuses as of 08/16/2024) Immunizations Name Administration Dates Next Due COVID-19 mRNA, LNP-s, No Pre serve, 2-Dose Series (Moderna) 11/26/2020,10/29/2020 COVID-19, MRNA-LNP, PF, 30 M CG/0.3 mL, 12 YRS AND ABOVE, IM (PFIZER-Comirnaty) 05/24/2023 COVID-19, mRNA, LNP-s, PF, B ooster, 100mcg/0.5mg (Moderna) 08/12/2021 Covid-19, Mrna, Lnp-s, Pf, B ivalent, 30 Mcg, IM, 12 yrs and above (Pfizer) 06/06/2022 H1N1 2009 Influenza, IM 09/24/2009 Pneumococcal Conjugate Vacc, 13 Valent (Prevnar) 12/27/2014 Pneumococcal Polysaccharide PPV23 (Pneumovax) 06/22/2012,02/19/2006 RSV Vac., Recomb, Adjuvant, PF,0.5 Ml (Arexvy) 10/19/2023 Season Influenza, Quad, PF, Adjuvanted, 65+ Yrs, IM (FLUAD) 05/07/2020 Seasonal Influenza Vac., MDV , IM, 0.5 mL (Fluzone) 05/02/2015,05/05/2014,05/09/2013,05/18,05/13/2011,06/07/2010,05/24/2009 ,06/16/2008,07/06/2007,06/26/2006 Seasonal Influenza, PF, 6 M & above, IM , (FluLaval or Fluzone) 05/10/2018,05/18/2017 Seasonal Influenza, Quadriva lent Hd (Fluzone Hd) 05/20/2023,05/01/2022,05/06/2021 Seasonal Influenza, Quadriva lent, No Preserve, IM 06/04/2016 Seasonal Influenza, Trivalen t, Adjuvanted, 65+ YRS, PF, (Fluad) 05/11/2019 TDAP (age 10 and older)(Boostrix) 09/03/2018 TDAP, Age 7 and older, IM (Adacel) 02/07/2008 Varicella Zoster Vaccine (Adult) 04/12/2012 documented as of this encounter Social History Tobacco Use Types Packs/Day Years Used Date Smoking Tobacco: Former Cigarettes 3 25.9 1 965 - 07/27/1990 Smokeless Tobacco: Never Comments:passive smoke expos ure at wk - as of 10-22-06 no smoke exposure Alcohol Use Standard Drinks/Week Comments No 0 (1 standard drink = 0.6 oz pur e alcohol) PHQ-2 Answer Date Recorded PHQ Adult Total Score 0 10/22/2023 Hunger Vital Sign Answer Date Recorded Within the past 12 months, y ou worried that your food would run out before you got the money to buy more. Never true 12/19/19 24 Within the past 12 months, t he food you bought just didn't last and you didn't have money to get more. Never true 12/19/2023 Childcare Answer Date Recorded Do you feel overwhelmed with taking care of a child, family member or friend? No 12/19/2023 Does your family need help f inding childcare? (Household - for ages 0-17 years) Not on file 12/19/2023 Clothing Answer Date Recorded Have you been unable to get clothing when it was really needed? No 12/19/2023 Is your family able to get c lothes or diapers when needed? (Household - for ages 0-17 years) Not on file 12/19/2023 Personal Safety Answer Date Recorded Do you feel unsafe or have concerns for your saf ety? No 12/19/2023 Do you have concerns for you r family's safety? (Household - for ages 0-17 years) Not on file 12/19/2023 Utilities Answer Date Recorded Do you have trouble paying y our heating, water, or electric bill? No 12/19/2023 Is your family able to pay t he heat, water, or electric bill? (Household - for ages 0-17 years) Not on file 12/19/2023 Does your family have access to good internet? (Household - for ages 0-17 years) Not on file 12/19/2023 Employment Status Answer Date Recorded Are you unemployed or without regular income? No 12/19/2023 Does the household have a re gular source of income? (Household - for ages 0-17 years) Not on file 12/19/2023 Social Connections Answer Date Recorded How often do you feel lonely or isolated from th ose around you? Never 12/19/2023 Financial Resource Strain Answer Date R ecorded Do you have any trouble payi ng for your medications, or do you think you might in the future? No 12/19/2023 Does your family have troubl e paying for medicine? (Household - for ages 0-17 years) Not on file 12/19/2023 Transportation Needs Answer Date Record ed READ ONLY Do you have troubl e getting a ride to medical visits or work? Never True 12/19/2023 Does your family have a hard time getting a ride to doctors visits? (Household - for ages 0-17 years) Not on file 12/19/2023 Has lack of transportation k ept you from medical appointments, meetings, work, or from getting things needed for daily living? Check all that apply. (Adult - for ages 18 years and over) Not on file 12/19/2023 Do you (or your family) have trouble finding or paying for a ride (transportation)? (Household - for ages 0-17 years) Not on file 12/19/2023 Housing Stability Answer Date Recorded Do you currently live in a s helter or have no steady place to sleep at night? No 12/19/2023 READ ONLY Do you think you a re at risk of becoming homeless? No 12/19/2023 Does your family worry about paying for your home or becoming homeless? (Household - for ages 0-17 years) Not on file 0 12/19/2023 Are you homeless or worried that you might be in the future? (Adult - for ages 18 years and over) Not on file Are you (or your family) alcira eless or worried that you might be in the future? (Household - for ages 0-17 years) Not on file Food Insecurity Answer Date Recorded Do you need food for this week? No 12/19/2023 Are you able to get enough f ood for your family? (Household - for ages 0-17 years) Not on file 12/19/2023 Does your family need food t his week? (Household - for ages 0-17 years) Not on file 12/19/2023 Do you always have enough fo od for your family? 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 Answer Date of Assessment Author No 10/07/2022 8:37 PM Rhiannon Duncan RN * Are you blind or do you have serious difficulty seeing, even when wearing glasses? Answer Date of Assessment Author No 10/07/2022 8:37 PM Rhiannon Duncan RN * Do you have serious difficulty walking or climbing stairs? (5 years old or older) Answer Date of Assessment Author No 10/07/2022 8:37 PM Rhiannon Duncan RN * Do you have difficulty dressing or bathing? (5 years old or older) Answer Date of Assessment Author No 10/07/2022 8:37 PM Rhiannon Duncan RN * Because of a physical, mental, or emotional condition, do you have difficulty doing errands alone such as visiting a doctors office or shopping? (15 years old or older) Answer Date of Assessment Author No 10/07/2022 8:37 PM Rhiannon Duncan RN documented as of this encounter Mental Status * Because of a physical, mental, or emotional condition, do you have serious difficulty concentrating, remembering, or making decisions? (5 years old or older) Answer Entry Date Author No 10/07/2022 8:37 PM Rhiannon Duncan RN documented in this encounter Progress Notes * Nichol Morales PA-C - 08/09/2024 9:14 AM EST Cardiology F/U: Primary [facility] Dr. Anglin Past medical history: Severe aortic stenosis, status post TAVR (#26 mm Pal Ford S3 ultra valve underinflated by 1cc) , 10/07/[address] Smith Persistent atrial fibrillation/flutter, on coumadin Nonobstructive CAD per cardiac catheterization, 2001 Angiographically normal coronary arteries per cardiac catheterization 07/16/2022, pre TAVR Hypertension Dyslipidemia Type 2 diabetes VENU, on BiPAP Hospitalized in December 2013 following right knee replacement secondary to acute renal insufficiency complicated by acute hypotension and profound bradycardia requiring transient dialysis and trans-venous pacemaker Profound bradycardia requiring hospitalization February 14, 2021, single-chamber LBB pacemaker insertion February 18, 2021 Medtronic Sipsey XT SR MRI [id number] Infrarenal abdominal aneurysm, small-- stable on recent CTA of the abdomen History of Present Illness The patient, with a history of severe aortic stenosis status post TAVR, chronic atrial fibrillationon chronic Coumadin, nonobstructive CAD, hypertension, dyslipidemia, VENU, type two diabetes, and bradycardia leading to single chamber pacemaker, presents today feeling well. The patient reports sporadic episodes of chest heaviness and shortness of breath, which can occur both at rest and during activity. These episodes are brief, lasting approximately fifteen seconds, and are not associated with any other symptoms. The patient denies any correlation between these episodes and exertion, noting he can unload a ton of food pellets without experiencing any chest discomfort. No palpitations, dizziness, syncope or near syncope. No orthopnea, PND, or increased lower extremity edema. No fever, chills, cough, hematochezia, melena, or hemoptysis. Most recent echo dated 10/23/2023 (1 year post TAVR) showed a preserved LVEF of 55-59%. TAVR gradients stable. Patient states he is compliant with all medications and offers no side effects. Review of Systems: See HPI for pertinent positives. All others negative, other than those noted in HPI. 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 (HCC) DM type 2 with diabetic peripheral neuropathy (HCC) Gastroesophageal reflux disease without esophagitis BPH with obstruction/lower urinary tract symptoms Hiatal hernia Cholelithiasis Inguinal hernia Renal calculi Scapholunate advanced collapse of right wrist AAA (abdominal aortic aneurysm) (HCC) VENU treated with BiPAP S/P TAVR (transcatheter aortic valve replacement) Left inguinal pain Nocturia Impotence Urge incontinence Carpal tunnel syndrome, right Social History Tobacco Use Smoking status: Former Current packs/day: 0.00 Average packs/day: 3.0 packs/day for 25.9 years (77.8 ttl pk-yrs) Types: Cigarettes Start date: 1964 Quit date: 07/27/1990 Years since quittin.0 Smokeless tobacco: Never Tobacco comments: passive smoke exposure at wk - as of 10-22-06 no smoke exposure Vaping Use Vaping status: Never Used Substance Use Topics Alcohol use: No Drug use: No Review of patient's allergies indicates: No Known Allergies Current Outpatient Medications Medication Sig Dispense Refill aspirin enteric coated 81 MG TBEC TAKE 1 TABLET BY MOUTH DAILY. 31 Tab 11 Accu-Chek Softclix Lancets USE TO TEST BLOOD SUGAR 4 TIMES DAILY DIRECTED E11.9 (Patient taking differently: Use to test blood sugar 1 time daily as directed E11.9) 400 Each 3 BiPAP every night at bedtime. Accu-Chek Guide w/Device Kit Use as directed. Use to test BG values E11.9 1 Kit 0 Accu-Chek Softclix Lancets Use to test BG once daily E11.9 100 Each 5 Metoprolol Succinate ER 50 MG Oral Tablet Extended Release 24 Hour (toPROL XL) TAKE 1 TABLET BY MOUTH TWICE A DAY 180 Tablet 3 Ozempic (2 MG/DOSE) 8 MG/3ML Subcutaneous Solution Pen-injector (Semaglutide (2 MG/DOSE)) Inject 2 mg under the skin once a week. 9 mL 3 Pantoprazole Sodium 40 MG Oral Tablet Delayed Release (Protonix) TAKE 1 TABLET BY MOUTH EVERY DAY 90 Tablet 3 Rosuvastatin Calcium 40 MG Oral Tablet (Crestor) TAKE 1 TABLET BY MOUTH EVERY DAY 90 Tablet 3 Vitron-C 65-125 MG Oral Tablet (Iron-Vitamin C 65-125 mg per tab) TAKE 1 TABLET BY MOUTH EVERY DAY 90 Tablet 3 metFORMIN HCl 1000 MG Oral Tablet (Glucophage) TAKE 1 TABLET BY MOUTH TWICE A DAY WITH BREAKFAST AND DINNER 180 Tablet 3 Warfarin Sodium 5 MG Oral Tablet (Coumadin) TAKE 10MG (2 TABLETS) MON AND FRI, 7.5MG (1 AND 1/2 TABLETS) ALL OTHER DAYS 160 Tablet 3 hydroCHLOROthiazide 12.5 MG Oral Capsule Take 1 Capsule by mouth in the morning. 90 Capsule 5 hydrALAZINE HCl 10 MG Oral Tablet (Apresoline) TAKE 1 TABLET BY MOUTH THREE TIMES A DAY 270 Tablet 5 Accu-Chek Guide In Vitro Strip (Glucose Blood) USE TO TEST BLOOD SUGAR VALUES ONCE DAILY E 11.9 100Strip 11 Finasteride 5 MG Oral Tablet (Proscar) Take 1 Tablet by mouth in the morning. 90 Tablet 3 Pen [place] 32G X 6 MM Use as directed. Inject 15 units daily E11.9 100 Each 3 Tresiba FlexTouch 200 UNIT/ML Subcutaneous Solution Pen-injector (Insulin Degludec) Inject 17 Unitsunder the skin in the morning. E11.9. 15 mL 3 Tamsulosin HCl 0.4 MG Oral Capsule (Flomax) TAKE 1 CAPSULE BY MOUTH EVERY DAY IN THE MORNING 90 Capsule 1 Losartan Potassium 25 MG Oral Tablet (Cozaar) TAKE 1 TABLET BY MOUTH EVERY DAY 90 Tablet 1 Amoxicillin 500 MG Oral Capsule (Amoxil) Take 4 capsules 1 hour prior to any dental work (Patient not taking: Reported on 08/09/2024) 4 Capsule 4 No current facility-administered medications for this visit. I. Physical Exam BP 130/72 | Pulse 74 | Wt 113.4 kg (250 lb) | BMI 35.87 kg/m | BSA 2.37 m General: No acute distress. A+Ox3. HEENT: Normocephalic. Atraumatic. Conjunctiva and sclera clear. NECK: No carotid bruits. No JVD. Carotid upstrokes are brisk. Heart: RRR. +S1, S2, no murmur. Lungs: Clear to auscultation. No wheezes, rhonchi, rales. Abdomen: Normal bowel sounds. Soft. Nontender. No masses or organomegaly. No abdominal bruits. Extremities: No edema. No clubbing or cyanosis. Pulses: radial=2/4, posterior tibial=2/4, dorsalis pedis = 2/4. NEURO: No focal deficits. PSYCH: Normal. Lab data/imaging study review: EKG performed today and reviewed personally: Ventricular paced rhythm Device interrogation - see scanned report Jun 2024 Appropriate function and battery longevity Echo 1 year post TAVR 10/23/2023 The examination is limited quality but adequate for evaluation of the referral indication. The LV wall thickness is mildly increased (concentric). The septal motion is abnormal consistent with intraventricular conduction delay. The regional left ventricular wall motion is otherwise normal. The left atrium is severely enlarged. The patient is status post TAVR with Ford type prosthetic valve. The aortic valve prosthesis systolic gradients are normal for this type prosthesis. Significant aortic valve prosthesis regurgitation is absent. The peak aortic valve velocity through the TAVR is 2.7 m/sec, mean gradient=13 mm Hg. Mild mitral regurgitation is present. Mild tricuspid regurgitation is present. There is no evidence of pulmonary hypertension. Compared to the report of the previous study dated 11/27/2022, no significant interval change. Echo 1 month post TAVR 11/27/2022 Interpretation Summary The examination is adequate to evaluate the referral indication. The LV wall thickness is mildly increased (concentric). The septal motion is abnormal consistent with intraventricular conduction delay. The regional left ventricular wall motion is otherwise normal. The qualitative LV ejection fraction is 60-64% (normal). The left atrium is severely enlarged. The patient is status post TAVR with Ford type prosthetic valve. Aortic valve prosthesis stenosis is absent. Significant aortic valve prosthesis regurgitation is absent. The peak aortic valve velocity through the TAVR is 2.7 m/sec, mean gradient=14 mm Hg. Mild mitral regurgitation is present. Mild tricuspid regurgitation is present. The aortic root and proximal ascending aorta are normal sized. Compared to the report of the prior study dated 10/08/22, there has been no significant interval change Echocardiogram POD1 10/08/2022 The qualitative LV ejection fraction is 60-64% (normal). The patient is status post TAVR with Ford type prosthetic valve. Aortic valve prosthesis stenosis is absent. Significant aortic valve prosthesis regurgitation is absent. Mild mitral regurgitation is present. Intraop Echocardiogram 10/07/2022 Transthoracic echocardiogram performed pre and post transcatheter implant of a 26 mm Ford aortic valve. Findings discussed with Dr. Smith. Pre-DELORES The qualitative LV ejection fraction is 60-64% (normal). No LV segmental wall motion abnormalities. Severe aortic valve stenosis is present. Post-DELORES The qualitative LV ejection fraction is 60-64% (normal). No LV segmental wall motion abnormalities. The patient is status post TAVR with Ford type prosthetic valve. Aortic valve prosthesis stenosis is absent. Significant aortic valve prosthesis regurgitation is absent. No pericardial effusion is noted. The peak velocity/mean gradient may be underestimated due to imaging while the patient is supine during the procedure Cardiac Catheterization 07/16/2022 The coronary arteries are angiographically normal. 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 Compared to last available study changes are noted as follows: severe aortic stenosis is now present. Normal LV chamber size with mild concentric LVH. Normal LV systolic function without regional wall motion abnormalities. Calculated LV ejection Fraction = 61% (bi-plane method of discs). The aortic valve has three leaflets. The aortic valve is severely calcified. The aortic valve opening is severely reduced. Severe aortic valve stenosis is present. There is no significant aortic regurgitation. There is severe mitral annular calcification. Mitral stenosis is absent. Mild mitral regurgitation is present. Mild tricuspid regurgitation. Pulmonary hypertension is present. The estimated pulmonary artery systolic pressure is 42 mm Hg. Severe left atrial enlargement. Moderate right atrial enlargement. Ao V2 max: 436.3 cm/sec Ao mean P.1 mmHg JUAN CARLOS(I,D): 0.69 cm 2 Echo 12/2021 The examination is adequate to evaluate the referral indication. There was atrial fibrillation during the examination. The LV wall thickness is mildly increased (concentric). The left ventricular wall motion is normal. The qualitative LV ejection fraction is 55-59% (normal). The left atrium is mildly enlarged. Mild mitral regurgitation is present. The aortic valve has three leaflets. The aortic valve is severely calcified. Borderline severe to severe aortic stenosis is present. Mild tricuspid regurgitation is present. There is no evidence of pulmonary hypertension. There is some degree of oxyj-hi-bmrw variability of the aortic valve velocities/should gradients. Compared to the previous study dated 11/05/2020, the severity aortic stenosis has progressed. Ao V2 max: 398.6 cm/sec Ao mean P.6 mmHg JUAN CARLOS(I,D): 0.76 cm 2 Impression/Plan: Assessment & Plan Right Wrist Lump - Preop Eval/risk assessment Lump on right wrist for two years post-fall. -stable EKG findings -stable cardiac symptoms Severe aortic stenosis S/P TAVR (transcatheter aortic valve replacement) -H/O Severe aortic stenosis, status post TAVR (#26 mm Pal Ford S3 ultra valve underinflated by 1cc) , 10/07/[address] Smith -NYHA class 2 -1 year post TAVR echocardiogram demonstrated stable TAVR gradients. 1. Antibiotics are needed for all dental work: Amoxicillin 2 g- Take 4 capsules 1 hour prior to anydental work 2. ASA 81 mg daily continued indefinitely Atrial Fibrillation Chronic atrial fibrillation managed with Coumadin. History of three mini- strokes. Instructed to hold Coumadin before surgery but continue aspirin. Discussed perioperative management with Coumadin clinic. - Hold Coumadin before surgery for 5 days - Continue aspirin - Coordinate with Coumadin clinic for perioperative management Abdominal aortic aneurysm (AAA) 30 to 34 mm in diameter -The infrarenal abdominal aorta is focally dilated measuring up to 3.1 cm, stable per CT abdomen 05/2023 Chest Heaviness and Shortness of Breath Intermittent chest heaviness and shortness of breath, not exertion-related. Symptoms brief, lasting~15 seconds. Nonobstructive CAD with normal coronary arteries on recent cath. EKG normal. Symptoms possibly related to environmental dust exposure. - Monitor symptoms - Consider environmental modifications to reduce dust exposure General Health Maintenance Blood pressure and cholesterol well-controlled. Compliant with medications and regular follow-ups. - Continue current medications - Schedule regular follow-ups for blood pressure and cholesterol monitoring The patient is to continue all current medications as listed above. No changes were made at today'svisit. Patient is being evaluated in the cardiology office for ongoing care/risk management for TAVR; Afib; Pacemaker. I spent a total of 30 minutes on the date of service in preparation, delivery, and documentation ofthe care provided to Dave Dow excluding any time spent in the performance of separately billed services. The patient agrees to the above plan and will call with additional questions or concerns. ER with all emergencies advised. Follow-up: Return in about 6 months (around 02/07/2025). | Check-out note: With Dr. Derrek Morales PA-C Department of Cardiology Text in this note was generated using an ambient documentation service. I discussed the use of a device to record and summarize our discussion today. All persons present during the encounter consented to its use. This chart was completed in part utilizing [employer] Speech Voice Recognition Software. Grammatical errors, random word insertions, prounoun errors, and incomplete sentences are an occasional consequence of this system due to software limitations, ambient noise, and hardware issues. Any formal questions or concerns about the content, text, or information contained within the body of this dictation should be directly addressed to the provider for clarification. documented in this encounter Procedure Notes * Desmond Watson DO - 08/09/2024 9:15 AM ESTAssociated Order(s): EKG REASON FOR STUDY: routine;routine CONCLUSIONS: Ventricular-paced rhythm Abnormal ECG When compared with ECG of 16-Jun-2023 15:21, Ventricular paced rhythm has replaced atrial fibrillation with intermittent ventricular paced rhythm. Ventricular Rate: 73 Atrial Rate: 81 QRS Duration: 180 QT/QTc: 456/502 ms P-R-T Wilcox: 0 : 86 : -31 degrees documented in this encounter Nursing Notes * Oberteuffer, Cori, TRACK LAYING EQUIPMENT OPERATOR - 08/09/2024 9:01 AM EST Examination Room: 1 Name: Dave Dow Date of : (1945) Reason for Visit: 6m Interim Hospitalization(s): none Problems/Concerns: denied Chest Pain/SOB: occasional chest pain and SOB. Happens at rest. My [facility] is a way you can talk to your provider online through e-mail. Would you like to sign up? I can activate it for you? ALREADY ACTIVE Patient was instructed to not get up on the exam table until directed and assisted by their provider; patient is to remain seated in the chair/ wheelchair/ exam table for fall prevention and safety reasons. Patient is aware to have assistance to step down off exam table with personnel. Patient voiced full comprehension of instructions. documented in this encounter Plan of Treatment Upcoming Encounters Date Type Department Care Team (Latest Contact Info) Description 08/31/2024 10:24 AM EST Hospital Encounter OR [facility], Operating Room [facility] [address] [place] [phone] Damien Morales MD [address] [place] [address] 08/31/2024 10:24 AM EST - 08/31/2024 1:01 PM EST Surgery OR [facility], Operating Room [facility] [address] [place] [phone] Damien Morales MD [address] [place] [address] NEUROPLASTY MEDIAN NERVE AT CARPAL TUNNEL 09/01/2024 10:40 AM EST Anticoagulation Pharmacy, [facility] [address] [place] [address] [facility] [address] [place] [address] 09/01/2024 10:50 AM EST [facility] [place] [address] [facility] [address] [place] [address] 09/01/2024 1:00 PM EST Office Visit Orthopaedics [facility] [place] [address] Nichol Vargas PA-C [address] [place] [address] 09/07/2024 11:30 AM EST Office Visit [facility]opaedics [facility] [address] [facility] [place] [address] Damien Morales MD [address] [place] [address] 09/14/2024 11:15 AM EST Procedure Only Urology, [facility] [place] [address] Luis Manuel Tyler MD [address] [place] [address] 10/27/2024 3:40 PM EST Office Visit Family Practice [facility] [address] [place] [address] Jason Jameson DO [address] [place] [address] 02/23/2025 4:00 PM EDT Office Visit Cardiology, [facility] [address] [place] [address] Wil Anglni MD [address] [place] [address] 05/31/2025 11:40 AM EDT Office Visit Sleep Disorders Ctr [facility] [address] [place] [phone] Radha Waldrop, [address] [place] [address] Scheduled Procedures Name Priority Associated Diagnoses Date/Ti me NEUROPLASTY MEDIAN NERVE AT CARPAL TUNNEL Scapholunate advanced collapse of right wrist 08/31/2024 10:24 AM EST ARTHRODESIS WRIST LIMITED WITH AUTOGRAFT Scapholunate advanced collapse of right wrist 08/31/2024 10:24 AM EST Health Maintenance Due Date Last Done Comments COVID-19 Vaccine ( season) 2024 04/29/2024, 05/24/2023, 06/06/2022, Additional history exists Albumin/Creatinine Ratio 10/21/2024 024, 04/30/2023, 11/10/2022, Additional history exists B-12 10/21/2024 10/22/2023, 10/23, 02/18/2022, Additional history exists Depression Screening 10/21/2024 10/22/2023 Diabetic Eye Exam 12/10/2024 12/11/2023, , 05/03/2021, Additional history exists HbA1c 01/04/2025 07/07/2024, 10/0 04/2024, 03/01/2024, Additional history exists GFR 05/04/2025 05/04/2024, 10/22, 10/22/2023, Additional history exists Adult Wellness Visit 05/12/2025 05/12/2024 Diabetic Foot Exam 07/07/2025 07/07/2024, 0 02/19/2023, 02/18/2022, Additional history exists DTap/Tdap Vaccines (3 - Td or Tdap) 09/03/2028 09/03/2018, 02/07/2008, 08/21/1997, Additional history exists Zoster Vaccines Discontinued 04/12/2012 Pneumococcal Vaccine: 65+ Years Completed 12/27/2014, 06/22/2012, 02/19/2006 Influenza Vaccine (FLU shot) Completed 04/29/2024, 05/20/2023, 05/01/2022, Additional history exists HPV (Gardasil) Vaccine Aged Out No lo nger eligible based on patient's age to complete this topic Hepatitis B Vaccine Aged Out No longe r eligible based on patient's age to complete this topic MENINGOCOCCAL (MENACTRA/MENVEO) Aged Out No longer eligible based on patient's age to complete this topic documented as of this encounter Medical Devices Implanted Type Area Equipment Operating Engineer Device Identifier Shelf Expiration Date Model / Serial / Lot Electrode Pacing [id number] - [id number] Implanted:Qty: 1 on 10/07/2022 by Giovanni Smith MD at [facility] : MEDICAL [id number] 06/23/2027 [id number] / / [id number] Valve Ford 3 Ultra 26mm - [id number] Implanted:Qty: 1 on 10/07/2022 by Giovanni Smith MD at [facility] [employer] [id number] 04/07/2023 [id number] / / documented as of this encounter Procedures Procedure Name Priority Date/Time Associated Diagnosis Comments AR ECG ROUTINE ECG W/LEAST 12 LDS W/I&R Routine 08/09/2024 9:15 AM EST Chronic atrial fibrillation (HCC) DYSLIPIDEMIA, GOAL LDL BELOW 70 HTN, goal below 130/80 S/P TAVR (transcatheter aortic valve replacement) documented in this encounter Results * EKG (08/09/2024 9:15 AM EST) 08/09/2024 9:15 AM EST Narrative Procedure Note Desmond Watson, - 08/09/2024 9:15 AM EST REASON FOR STUDY: routine;routine CONCLUSIONS: Ventricular-paced rhythm Abnormal ECG When compared with ECG of 16-Jun-2023 15:21, Ventricular paced rhythm has replaced atrial fibrillation withintermittent ventricular paced rhythm. Ventricular Rate: 73 Atrial Rate: 81 QRS Duration: 180 QT/QTc: 456/502 ms P-R-T Wilcox: 0 : 86 : -31 degrees us Nichol Morales PA-C EKG Final Result [facility] documented in this encounter Visit Diagnoses Diagnosis Scapholunate advanced collapse of right wrist- Primary Chronic atrial fibrillation (HCC)- Primary Atrial fibrillation DYSLIPIDEMIA, GOAL LDL BELOW 70 Other and unspecified hyperlipidemia HTN, goal below 130/80 Unspecified essential hypertension S/P TAVR (transcatheter aortic valve replacement) Heart valve replaced by other means Scapholunate advanced collapse of right wrist documented in this encounter Advance Directives * Full Code (Latest Code Status on File) Date Activated Date Inactivated Comments 10/07/2022 1:07 PM 10/08/2022 8:13 PM This order r eflects the patients wishes and were consensually agreed upon. Question Answer Comments Discussion of Advance Direct mago occurred with: Not Discussed due to patient's condition Care Teams Insulation Inspector Relationship Specialty Start Date End Date Jason Jameson DO [address] [facility] [place] [address] PCP - General Family Medicine 05/11/19 documented as of this encounter"
--- OUTSIDE RECORDS SUMMARY | 2024-09-01 05:15 | External Medical Summary | Summary of Care ---
Author Name Unknown Organization [facility] Address [address] [place] [address] Care Team Providers Care Fiber Analyst Name Role Phone Erna Jamesonr Tammy Primary Care Provider Reason for Visit * Reason Onset Date Comments Surgery 08/25/2024 Encounter Details Date Type Department Care Team (Late st Contact Info) Description 08/25/2024 Telephone Pharmacy, [facility] [place] [address] [facility] [place] [address] [facility] [address] [place] [address] Surgery Allergies No known active allergiesdocumented as of this encounter (statuses as of 08/25/2024) Medications aspirin enteric coated 81 MG TBEC TAKE 1 TABLET BY MOUTH DAILY. 31 Tab 11 03/17/20 18 Active Accu-Chek Softclix Lancets USE TO TEST BLOOD SUGAR 4 TIMES DAILY DIRECTED E11.9 400 Each 3 12/19/19 21 Active Additional Information Patient taking differently: Use to test blood sugar 1 time daily as directed E11.9, Reported on 08/25/2024 BiPAP every night at bedtime. Active Amoxicillin 500 MG Oral Capsule (Amoxil)Indications :Severe aortic stenosis,S/P TAVR (transcatheter aortic valve replacement),Perman ent atrial fibrillation (HCC),Tachy-tye syndrome (HCC),Cardiac pacemaker in situ,HTN, goal below 130/80,VENU (obstructive sleep apnea),Nonobstructi ve atherosclerosis of coronary artery,Abdominal aortic aneurysm (AAA) 30 to 34 mm in diameter (HCC) Take 4 capsules 1 hour prior to any dental work 4 Capsule 4 11/11/19 23 Active Additional Information Patient not taking.Reported on 08/25/2024 Accu-Chek Guide w/Device Kit Use as directed. Use to test BG values E11.9 1 Kit 03/17/20 23 Active Accu-Chek Softclix Lancets Use to test BG once daily E11.9 100 Each 5 03/18/20 23 Active Metoprolol Succinate ER 50 MG Oral Tablet Extended Release 24 Hour (toPROL XL)Indications:HTN, goal below 140/90,Atrial flutter, unspecified type (HCC) TAKE 1 TABLET BY MOUTH TWICE A DAY 180 Tablet 3 09/09/19 24 Active Ozempic (2 MG/DOSE) 8 MG/3ML Subcutaneous Solution Pen-injector (Semaglutide (2 MG/DOSE))Indication s:DM type 2, goal HbA1c < 8% (HCC) Inject 2 mg under the skin once a week. 9 mL 3 10/29/19 24 Active Pantoprazole Sodium 40 MG Oral Tablet Delayed Release (Protonix)Indicatio ns:Dyspepsia TAKE 1 TABLET BY MOUTH EVERY DAY 90 Tablet 3 11/21/19 24 Active Additional Information Patient taking differently: DINNER, This med should NOT be Crushed or Chewed, Reported on 08/25/2024 Rosuvastatin Calcium 40 MG Oral Tablet (Crestor) TAKE 1 TABLET BY MOUTH EVERY DAY 90 Tablet 3 11/21/19 24 Active Additional Information Patient taking differently: HS, Reported on 08/25/2024 Vitron-C 65-125 MG Oral Tablet (Iron-Vitamin C 65-125 mg per tab)Indications:Low ferritin level TAKE 1 TABLET BY MOUTH EVERY DAY 90 Tablet 3 11/23/19 24 Active metFORMIN HCl 1000 MG Oral Tablet (Glucophage)Indicat ions:HTN, goal below 140/90 TAKE 1 TABLET BY MOUTH TWICE A DAY WITH BREAKFAST AND DINNER 180 Tablet 3 11/21/19 24 Active Warfarin Sodium 5 MG Oral Tablet (Coumadin)Indicatio ns:Chronic atrial fibrillation (HCC),Anticoagulati on management encounter,snf current use of anticoagulant therapy,Atrial flutter, unspecified type (HCC) TAKE 10MG (2 TABLETS) MON AND FRI, 7.5MG (1 AND 1/2 TABLETS) ALL OTHER DAYS 160 Tablet 3 01/13/20 24 Active hydroCHLOROthiazide 12.5 MG Oral CapsuleIndications: Hyperkalemia,HTN, goal below 140/90 Take 1 Capsule by mouth in the morning. 90 Capsule 5 01/25/20 24 Active hydrALAZINE HCl 10 MG Oral Tablet (Apresoline) TAKE 1 TABLET BY MOUTH THREE TIMES A DAY 270 Tablet 5 04/22/20 24 Active Accu-Chek Guide In Vitro Strip (Glucose Blood) USE TO TEST BLOOD SUGAR VALUES ONCE DAILY E 11.9 100 Strip 11 04/26/20 24 Active Finasteride 5 MG Oral Tablet (Proscar) Take 1 Tablet by mouth in the morning. 90 Tablet 3 05/04/20 24 Active Pen Ouray 32G X 6 MM Use as directed. Inject 15 units daily E11.9 100 Each 3 06/02/20 24 Active Tresiba FlexTouch 200 UNIT/ML Subcutaneous Solution Pen-injector (Insulin Degludec) Inject 17 Units under the skin in the morning. E11.9. 15 mL 3 06/02/20 24 Active Tamsulosin HCl 0.4 MG Oral Capsule (Flomax) TAKE 1 CAPSULE BY MOUTH EVERY DAY IN THE MORNING 90 Capsule 1 06/03/20 24 Active Losartan Potassium 25 MG Oral Tablet (Cozaar)Indications :HTN, goal below 140/90 TAKE 1 TABLET BY MOUTH EVERY DAY 90 Tablet 1 07/20/20 24 Active Additional Information Patient taking differently: DAILY NOON, Reported on 08/25/2024 documented as of this encounter (statuses as of 08/25/2024) Active Problems Problem Noted Date Diagnosed Date [...] 130/80 10/29/2015 Overview: Per HTN Protocol #27. snf current use of anticoagulant therapy 0 03/09/2012 [...] as of this encounter (statuses as of 08/25/2024) Resolved Problems Problem Noted Date Diagnosed Date [...] 03/18/2017 Overview (12/26/2011): 01/02 dx CORNEAL FOREIGN BODY-patriciai merlene- Dr. 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 Diagosis for coumadin therapy is atrial fib. No hx of recent DVT, PE, MVR, [place] or CVA. CHADS2 score of 4 Patient will take their last dose of coumadin 1, then restart coumadin the evening of the procedure with 10 mg for 2 days, then resume previous dose. Repeat pt/inr 2 weeks after procedure. Lindsay Mercedes [facility] Clinical Pharmacist 08/25/2024, 1:03 PM * Telephone Encounter - Licha Senior cigar machine feeder - 08/25/2024 12:49 PM EST Caller's name: Dave Preferred call back number(OFFICE NUMBER FOR ): Patient Phone Numbers Reason for call: Pt called back wanting to speak to pharmacist, stated he really needs a call back today. I told him I would resend the message as a high priority. Please advise. Thank you, Licha Senior Forest Fire Warden [facility] 08/25/2024, 12:49 PM * Telephone Encounter - Sandra Jung CPhT - 08/25/2024 10:13 AM EST Caller's name: Dave Preferred call back number(OFFICE NUMBER FOR [facility]): [phone] Reason for call: requesting a call from Lindsay, he is scheduled for orthopedic surgery 08/31/2024 and needs instructions for holding the warfarin. Sandra Jung CPhT, MA Blueprint Machine Operator II [facility] (formerly Telepharmacy) [address] [facility] [phone] [place] [address] ext [phone] documented in this encounter Plan of Treatment Upcoming Encounters Date Type Department Care Team (Latest Contact Info) Description 08/31/2024 10:24 AM EST Hospital Encounter OR [facility], Operating Room [facility] [address] [place] [address] Damien Morales MD [address] [place] [address] 08/31/2024 10:24 AM EST - 08/31/2024 1:01 PM EST Surgery OR [facility], Operating Room [facility] [address] [place] [address] Damien Morales MD [address] [place] [address] NEUROPLASTY MEDIAN NERVE AT CARPAL TUNNEL 09/01/2024 1:00 PM EST Office Visit Orthopaedics [facility] [address] [place] [address] Nichol Vargas PA-C [address] [place] [address] 09/07/2024 11:30 AM EST Office Visit Orthopaedics [facility] [address] [place] [address] Damien Morales MD [address] [place] [address] 09/14/2024 11:15 AM EST Procedure Only Urology, [facility] [address] [place] [address] Luis Manuel Tyler MD [address] [place] [id number] 09/20/2024 9:40 AM EST [facility]ticoagulation Pharmacy, [facility] [address] [facility] [place] [address] [facility] [place] [address] 09/20/2024 9:50 AM EST Office Visit Pharmacy, [facility] [address] [facility] [place] [address] [facility] [address] [facility] [place] [address] 10/27/2024 3:40 PM EST Office Visit Family Practice [facility] [address] [facility] [place] [address] Jason Jameson, DO [address] [place] [address] 02/23/2025 4:00 PM EDT Office Visit Cardiology, [facility] [address] [facility] [place] [address] Wil Anglin MD [address] [place] [address] 05/31/2025 11:40 AM EDT Office Visit Sleep Disorders Ctr [facility] [address] [facility] [place] [phone] Radha Waldrop, DO [address] [place] [address] Scheduled Procedures Name Priority Associated Diagnoses Date/Ti [...] 05/03/2021, Additional history exists HbA1c 01/04/2025 07/07/2024, 100 04/2024, 03/01/2024, Additional history exists GFR 05/04/2025 05/04/2024, 10/22, 10/22/2023, Additional history exists Adult Wellness Visit 05/12/2025 05/12/2024 Diabetic Foot Exam 07/07/2025 07/07/2024, 0 02/19/2023, 02/18/2022, Additional history exists DTap/Tdap Vaccines (3 - Td or Tdap) 09/03/2028 09/03/2018, 02/07/2008, 08/21/1997, Additional history exists Zoster Vaccines Discontinued 04/12/2012 Pneumococcal Vaccine: 50+ Years Completed 12/27/2014, 06/22/2012, 02/19/2006 Influenza Vaccine [...] this encounter Medical Devices Implanted Type Area Drug Abuse Technician Device Identifier Shelf Expiration Date Model / Serial / Lot Electrode Pacing [id number] - [id number] Implanted:Qty: 1 on 10/07/2022 by Giovanni Smith MD at [facility] : MEDICAL [id number] 06/23/2027 007 [id number] / / [id number] Valve Ford 3 Ultra 26mm - [id number] Implanted:Qty: 1 on 10/07/2022 by Giovanni Smith MD at [facility] [employer] [id number] 04/07/2023 [id number] / / documented as of this encounter Advance Directives * Full Code (Latest Code Status on File) Date Activated Date Inactivated Comments 10/07/2022 1:07 PM 10/08/2022 8:13 PM This order r eflects the patients wishes and were consensually agreed upon. Question Answer Comments Discussion of Advance Direct mago occurred with: Not Discussed due to patient's condition Care Teams Fiber Analyst Relationship Specialty Start Date End Date Jason Jameson DO [address] [place] [address] PCP - General Family Medicine 05/11/19 documented as of this encounter
--- OUTSIDE RECORDS SUMMARY | 2024-09-01 05:15 | External Medical Summary ---
Author Name Unknown Address Unknown Organization : Laboratory Report Ordering Provider Test Date Status RAPHAEL KANG 08/31/2024 13:56:54 Final Observation Date Value Abnormality Reference (Units ) Status Glucose Point of Care 08/31/2024 13:56:54 179 Above high normal 70-120 (mg/dL) Final Performing Location
--- OUTSIDE RECORDS SUMMARY | 2024-09-01 05:15 | External Medical Summary | Summary of Care ---
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 Name Role Phone Jason Jameson Primary Care Provider Reason for Referral * Evaluate & Treat - Unlimited Visits (Within 10 days (routine)) - Authorized Specialty Diagnoses / Procedures Referred By Eric grullon Referred To Contact Physical Therapy / Physical Medicine And Rehab Diagnoses Scapholunate advanced collapse of right wrist Damien Morales MD [address] [place] [address] Phone: tel: fax: Referral ID Status Reason Start Date Expiration Date Visits Requested Visits Authorized [id number] Authorized Specialty Services Required 4 [phone] Question Answer Referral Priority Within 10 days (routine) Where should this appointment be scheduled? External Comments Diagnosis: SLAC wrist right wrist Rx: Hand therapy referral for adaptive aids. He will be seeing you postop but has some concern about personal hygiene and may need adaptive aids to perform perineal care. This consultation should occur preoperatively. This referral is valid only for Molly Alfaro CHT, MPT Reason for Visit * Reason Comments Follow Up R wrist and hand Encounter Details Date Type Department Care Team (Late st Contact Info) Description 2024 9:00 AM EST Office Visit Orthopaedics [facility] [address] [place] [address] Damien Morales MD [address] [place] [address] Scapholunate advanced collapse of right wrist*; Carpal tunnel syndrome, right Allergies No known active allergiesdocumented as of this encounter (statuses as of 07/26/2024) Medications aspirin enteric coated 81 MG TBEC TAKE 1 TABLET BY MOUTH DAILY. 31 Tab 11 03/17/20 18 Active Accu-Chek Softclix Lancets USE TO TEST BLOOD SUGAR 4 TIMES DAILY DIRECTED E11.9 400 Each 3 12/19/19 21 Active Additional Information Patient taking differently: Use to test blood sugar 1 time daily as directed E11.9, Reported on 10/14/2022 BiPAP every night at bedtime. Active Amoxicillin [...] work 4 Capsule 4 11/11/19 23 Active Mupirocin 2 % External Ointment (Bactroban)Indicati ons:Folliculitis To affected area for up to 14 days. 30 g 1 02/20/20 23 Active Additional Information Patient not taking.Reported on 05/31/2024 Accu-Chek Guide w/Device Kit Use as directed. 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 90 Tablet 05/04/20 24 Active Pen Ladoga 32G X 6 MM Use as directed. Inject 15 units daily E11.9 100 Each 3 06/02/20 24 Active Tresiba FlexTouch 200 UNIT/ML Subcutaneous Solution Pen-injector (Insulin Degludec) Inject 17 Units under the skin in the morning. E11.9. 15 mL 3 06/02/20 Active Tamsulosin HCl 0.4 MG Oral Capsule (Flomax) TAKE 1 CAPSULE BY MOUTH EVERY DAY IN THE MORNING 90 Capsule 1 06/03/20 Active Losartan Potassium 25 MG Oral Tablet (Cozaar)Indications :HTN, goal below 140/90 TAKE 1 TABLET BY MOUTH EVERY DAY 90 Tablet 1 07/20/20 Active documented as of this encounter (statuses as of 07/26/2024) Active Problems Problem Noted Date Diagnosed Date [...] 130/80 10/29/2015 Overview: Per HTN Protocol #27. 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 Orozco 10/201003/04/2011 03/18/2017 Diabetes mellitus with background [...] as of this encounter (statuses as of 07/26/2024) Immunizations Name Administration Dates Next Due COVID-19 mRNA, LNP-s, No Pre serve, 2-Dose Series (Moderna) 11/26/2020,10/29/2020 COVID-19, MRNA-LNP, PF, 30 M CG/0.3 mL, 12 YRS AND ABOVE, IM (PFIZER-Comirnaty) 05/24/2023 COVID-19, mRNA, LNP-s, PF, B ooster, 100mcg/0.5mg (Moderna) 08/12/2021 Covid-19, Mrna, Lnp-s, Pf, B ivalent, 30 Mcg, IM, 12 yrs and above (Pfizer) 06/06/2022 Diptheria/Tetanus (Adult) 08/21/19972006 H1N1 2009 Influenza, IM 09/24/2009 Pneumococcal Conjugate Vacc, 13 Valent (Prevnar) 12/27/2014 Pneumococcal Polysaccharide PPV23 (Pneumovax) 06/22/2012,02/19/2006 RSV Vac., Recomb, Adjuvant, PF,0.5 Ml (Arexvy) 10/19/2023 Season Influenza, Quad, PF, Adjuvanted, 65+ Yrs, IM (FLUAD) 05/07/2020 Seasonal Influenza Vac., MDV , IM, 0.5 mL (Fluzone) 05/02/2015,05/05/2014,05/09/2013,04/25,05/13/2011,06/07/2010,05/24/20 09,06/16/2008,07/06/2007,06/26/2006,1 ,06/13/2003,06/23/2002,08/04,06/11/1999 Seasonal Influenza, PF, 6 M & above, [...] expos ure at wk - as of 3-1-07 no smoke exposure Alcohol Use Standard Drinks/Week [...] 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 He has been working on his diabetes and his hemoglobin A1c isnow 7.9 which is down from 9.4 which it was several months ago when we had to cancel his surgery. He continues to have pain in the right wrist. Patient Active Problem List Diagnosis Sleep apnea ATHEROSCLEROTIC CORONARY DISEASE HX COLON POLYP- 02/2000 + 04/15/05 GENERAL OSTEOARTHROSIS HYPERTENSIVE HEART DZ Localized, primary osteoarthritis of hand DM type 2, goal HbA1c < 8% (HCC) DYSLIPIDEMIA, GOAL LDL BELOW 70 Severe obesity with body mass index (BMI) of 35.0 to 39.9 with serious comorbidity (HCC) retirement current use of anticoagulant therapy Chronic atrial [...] Impotence Urge incontinence Carpal tunnel syndrome, right Current Outpatient Medications Medication Sig Dispense Refill aspirin enteric coated 81 MG TBEC TAKE 1 TABLET BY MOUTH DAILY. 31 Tab 11 Accu-Chek Softclix Lancets USE TO TEST BLOOD SUGAR 4 TIMES DAILY DIRECTED E11.9 (Patient taking differently: Use to test blood sugar 1 time daily as directed E11.9) 400 Each 3 BiPAP every night at bedtime. Amoxicillin 500 MG Oral Capsule (Amoxil) Take 4 capsules 1 hour prior to any dental work 4 Capsule 4 Mupirocin 2 % External Ointment (Bactroban) To affected area for up to 14 days. (Patient not taking: Reported on 05/31/2024) 30 g 1 Accu-Chek Guide w/Device Kit Use as directed. [...] in the morning. 90 Tablet 3 Pen Ladoga 32G X 6 MM Use as directed. [...] BY MOUTH EVERY DAY 90 Tablet 1 No current facility-administered medications for this visit. 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 Orozco 11/20/2010 DM type 2, goal A1c below 7 Dyslipidemia, goal LDL below 70 08/02/2009 Per Lipid Taxonomy. Encounter for long-term (current) use of anticoagulants 03/09/2012 Esophageal reflux GENERAL OSTEOARTHROSIS HTN, goal below 140/80 04/12/2012 Per HTN Protocol #27. HTN, goal to be determined HX COLON POLYP- 02/2000 + 04/15/05 02/20/2005 HYPERTENSIVE HEART DZ 04/12/2009 Per Heart Failure Taxonomy Protocol. LOC PRIM OSTEOARTH-HAND 05/25/2009 Low testosterone 12/26/2011 Retinal edema 10/24/2009 SLEEP APNEA NOS 02/19/2001 Sleep apnea, obstructive Social History Tobacco Use Smoking status: Former Current packs/day: 0.00 Average packs/day: 3.0 packs/day for 25.9 years (77.8 ttl pk-yrs) Types: Cigarettes Start date: 1964 Quit date: 07/27/1990 Years since quittin.0 Smokeless tobacco: Never Tobacco comments: passive smoke exposure at wk - as of 10-22-06 no smoke exposure Substance Use Topics Alcohol use: No Vaping/E-Cigarette Use Vaping/E-Cigarette Use Never User Passive Exposure No Counseling Given? No Vaping/E-Cigarette Substances Nicotine No Other No Flavoring No THC No Cannabidiol (CBD) No Vaping/E-Cigarette Devices Disposable No Pre-filled or Refillable Cartridge No Refillable Tank No Pre-filled Pod No PHYSICAL EXAM: He continues to have numbness in his right thumb index and middle fingers. Range of motion of the right wrist is limited in his painful. Does not make a tight fist. X-rays of the right wrist were obtained today and they show essentially no significant interval change. I personally reviewed these films. There is a rather advanced SLAC wrist. 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 PLAN: When I had talked him about surgery last time, I was considering performing a proximal row carpectomy with an OATS procedure to resurface the capitate. I had a long talk with him today regarding his level of activity. I am not sure that this procedure would hold up well enough for him. I therefore recommended that we perform a midcarpal fusion along with excision of the scaphoid and triquetrum (SLAC wrist reconstruction. ). I will also release his carpal tunnel concurrently. Risks, benefits, alternatives and realistic expectations were explained in detail.. Surgery is to be scheduled under general anesthesia. Damien Morales MD documented in this encounter Nursing Notes * Saira Morataya CMA - 2024 9:00 AM EST Chief Complaint Patient presents with Follow Up R wrist and hand A1C 7.9 as of 07/07/24 FU to reschedule sx documented in this encounter Plan of Treatment Upcoming Encounters Date Type Department Care Team (Latest Contact Info) Description 08/09/2024 9:00 AM EST Office Visit Cardiology, [facility] [address] [place] [address] Nichol Morales PA-C [address] [place] [address] 08/31/2024 9:37 AM EST Hospital Encounter OR [facility], Operating Room [facility] [address] [place] [address] Damien Morales MD [address] [place] [address] 08/31/2024 9:37 AM EST - 08/31/2024 12:14 PM EST Surgery OR [facility], Operating Room [facility] [address] [place] [phone] Damien Morales MD [address] [place] [address] NEUROPLASTY MEDIAN NERVE AT CARPAL TUNNEL 09/01/2024 10:40 AM EST Anticoagulation Pharmacy, [facility] [address] [place] [address] [facility] [address] [place] [address] 09/01/2024 10:50 AM EST Office Visit Pharmacy, [facility] [address] [place] [address] [facility] [address] [place] [address] 09/02/2024 10:00 AM EST Nurse Only Orthopaedics [facility] [address] [place] [address] Dusty, Nurse Ortho [facility] [address] [place] [address] 09/07/2024 11:30 AM EST Office Visit Orthopaedics [facility] [address] [place] [address] Damien Morales MD [address] [facility] [place] [address] 09/14/2024 11:15 AM EST Procedure Only Urology, [facility] [address] [facility] [place] [address] Luis Manuel Tyler MD [address] [place] [address] 10/27/2024 3:40 PM EST Office Visit Family Practice [facility] [place] [address] Jason Jameson, DO [address] [place] [address] 05/31/2025 11:40 AM EDT Office Visit Sleep Disorders Ctr [facility] [address] [facility] [place] [phone] Radha Waldrop, DO [address] [place] [address] Scheduled Procedures Name Priority Associated Diagnoses Date/Ti me NEUROPLASTY MEDIAN NERVE AT CARPAL TUNNEL Scapholunate advanced collapse of right wrist 08/31/2024 9:37 AM EST ARTHRODESIS WRIST LIMITED WITH AUTOGRAFT Scapholunate advanced collapse of right wrist 08/31/2024 9:37 AM EST Scheduled Referrals Name Type Priority Associated Diagnoses Orde r Schedule PHYSICAL THERAPY REFERRAL OP Referral Within 10 days (routine) Scapholunate advanced collapse of right wrist Ordered: 2024 Health Maintenance Due Date Last Done Comments COVID-19 Vaccine ( season) 2024 04/29/2024, 05/24/2023, 06/06/2022, Additional history exists Albumin/Creatinine Ratio 10/21/2024 024, 04/30/2023, 11/10/2022, Additional history exists B-12 10/21/2024 10/22/2023, 10/23, 02/18/2022, Additional history exists Depression Screening 10/21/2024 10/22/2023 Diabetic Eye Exam 12/10/2024 12/11/2023, , 05/03/2021, Additional history exists HbA1c 01/04/2025 07/07/2024, 1004/2024, 03/01/2024, Additional history exists GFR 05/04/2025 05/04/2024, [...] this encounter Medical Devices Implanted Type Area Software Engineer Intern Device Identifier Shelf Expiration Date Model / Serial / Lot Electrode Pacing [id number] - [id number] Implanted:Qty: 1 on 10/07/2022 by Giovanni Smith MD at [facility] : MEDICAL [id number] 06/23/2027 [id number] / / [id number] Valve Ford 3 Ultra 26mm - [id number] Implanted:Qty: 1 on 10/07/2022 by Giovanni Smith MD at [facility] [employer] [id number] 04/07/2023 [id number] / / documented as of this encounter Procedures Procedure Name Priority Date/Time Associated Diagnosis Comments XR WRIST 3 OR MORE VIEWS Routine 2024 9:10 AM EST Scapholunate advanced collapse of right wrist documented in this encounter Results * XR WRIST 3 OR MORE VIEWS (2024 9:10 AM EST) Anatomical Region Laterality Modality Upper Extremity, Wrist Digital R adiography 07/23/2024 7:01 AM EST Impressions 07/23/2024 6:59 AM EST IMPRESSION Stable chronic findings as above. Narrative 07/23/2024 6:59 AM EST EXAM XR WRIST 3 OR MORE VIEWS,2024 9:10 am HISTORY 79 y/o withpain COMPARISON XR WRIST 3 OR MORE VIEWS, ACC: [id number], dated 2024-01-08 10:05:23 TECHNIQUE XR WRIST 3 OR MORE VIEWSRT FINDINGS No visible fracture. Severe 1st CMC osteoarthritis again noted. There is widening of the scapholunate interval. Complete loss of the radioscaphoid joint space with subchondral sclerosis. Similar changes at the lunate-capitate articulation. Findings are consistent with early stage scapholunate advanced collapse (SLAC). Atherosclerotic calcifications are noted. There is mild diffuse soft tissue swelling. Overall, there has been no significant interval change. Procedure Note Evert Lovett MD - 07/23/2024 EXAM XR WRIST 3 OR MORE VIEWS,2024 9:10 am HISTORY 79 y/o withpain COMPARISON XR WRIST 3 OR MORE VIEWS, ACC: [id number], dated 2024-01-08 10:05:23 TECHNIQUE XR WRIST 3 OR MORE VIEWSRT FINDINGS No visible fracture. Severe 1st CMC osteoarthritis again noted. There iswidening of the scapholunate interval. Complete loss of the radioscaphoidjoint space with subchondral sclerosis. Similar changes at thelunate-capitate articulation. Findings are consistent with early stagescapholunate advanced collapse (SLAC). Atherosclerotic calcifications arenoted. There is mild diffuse soft tissue swelling. Overall, there hasbeen no significant interval change. IMPRESSION IMPRESSION Stable chronic findings as above. us Damien Morales MD RADIOLOGY ([facility]) Final Result documented in this encounter Visit Diagnoses Diagnosis Scapholunate advanced collapse of right wrist- Primary Carpal tunnel syndrome, right Carpal tunnel syndrome Scapholunate advanced collapse of right wrist- Primary Scapholunate advanced collapse of right wrist documented in this encounter Advance Directives * Full Code (Latest Code Status on File) Date Activated Date Inactivated Comments 10/07/2022 1:07 PM 10/08/2022 8:13 PM This order r eflects the patients wishes and were consensually agreed upon. Question Answer Comments Discussion of Advance Direct mago occurred with: Not Discussed due to patient's condition Care Teams Sewage Plant Supervisor Relationship Specialty Start Date End Date Jason Jameson DO [address] [place] [address] PCP - General Family Medicine 05/11/19 documented as of this encounter
--- OUTSIDE RECORDS SUMMARY | 2024-09-01 05:15 | External Medical Summary ---
Author Name Unknown Address Unknown Organization : Laboratory Report Ordering Provider Test Date Status RAPHAEL KANG 08/31/2024 09:07:38 Final Observation Date Value Abnormality Reference (Units ) Status Glucose Point of Care 08/31/2024 09:07:38 148 Above high normal 70-120 (mg/dL) Final Performing Location
--- OUTSIDE RECORDS SUMMARY | 2024-09-01 05:15 | External Medical Summary ---
Author Name Unknown Address Unknown Organization : Laboratory Report Ordering Provider Test Date Status RAPHAEL KANG 08/31/2024 12:54:33 Final Observation Date Value Abnormality Reference (Units ) Status Glucose Point of Care 08/31/2024 12:54:33 150 Above high normal 70-120 (mg/dL) Final Performing Location
--- OUTSIDE RECORDS SUMMARY | 2024-09-01 05:15 | External Medical Summary ---
Author Name Unknown Address Unknown Organization : Laboratory Report Ordering Provider Test Date Status RAPHAEL KANG 08/31/2024 16:30:52 Final Observation Date Value Abnormality Reference (Units ) Status Glucose Point of Care 08/31/2024 16:30:52 211 Above high normal 70-120 (mg/dL) Final Performing Location
--- OUTSIDE RECORDS SUMMARY | 2024-09-01 05:16 | External Medical Summary | Summary of Care ---
Author Name Unknown Organization [facility] Address [address] [place] [address] Phone [phone] Care Team Providers Care Job Honer Name Role Phone Jason Jameson Primary Care Provider Encounter Details Date Type Department Care Team (Late st Contact Info) Description 04/21/2024 Telephone Family Practice [facility] [address] [place] [address] Amy Jeff CRNP [address] [place] [address] Allergies No known active allergiesdocumented as of this encounter (statuses as of 07/21/2024) Medications aspirin enteric coated 81 MG TBEC [...] dental work 4 Capsule 4 023 Active Mupirocin 2 % External Ointment (Bactroban)Indicat ions:Folliculitis To affected area for up to 14 days. 30 g 1 023 Active Additional Information Patient not taking.Reported on 05/31/2024 Accu-Chek Guide w/Device Kit Use as directed. Use to test BG values E11.9 1 Kit 023 Active Accu-Chek Softclix Lancets Use to test BG once daily E11.9 100 Each 5 023 Active Metoprolol Succinate ER 50 MG Oral Tablet Extended Release 24 Hour (toPROL XL)Indications:HTN , goal below 140/90,Atrial flutter, unspecified type ([facility]) TAKE 1 TABLET BY MOUTH TWICE A DAY 180 Tablet 3 024 Active Ozempic (2 MG/DOSE) 8 MG/3ML Subcutaneous Solution Pen-injector (Semaglutide (2 MG/DOSE))Indicatio ns:DM type 2, goal HbA1c < 8% ([facility]) Inject 2 mg under [...] (Coumadin)Indicati ons:Chronic atrial fibrillation (HCC),Anticoagulat ion management encounter,retirement current use of anticoagulant therapy,Atrial flutter, unspecified type (HCC) TAKE 10MG (2 TABLETS) MON AND FRI, 7.5MG (1 AND 1/2 TABLETS) ALL OTHER DAYS 160 Tablet 3 024 Active hydroCHLOROthiazid e 12.5 MG Oral CapsuleIndications :Hyperkalemia,HTN, goal below 140/90 Take 1 Capsule by mouth in the morning. 90 Capsule 5 024 Active Losartan Potassium 25 MG Oral Tablet (Cozaar)Indication s:HTN, goal below 140/90 TAKE 1 TABLET BY MOUTH EVERY DAY 90 Tablet 1 024 2023 Discontinued documented as of this encounter (statuses as of 07/21/2024) Active Problems Problem Noted Date Diagnosed Date Left inguinal pain 05/04/2024 Nocturia 05/04/2024 Impotence [...] 130/80 10/29/2015 Overview: Per HTN Protocol #27. retirement current use of anticoagulant therapy 0 03/09/2012 [...] as of this encounter (statuses as of 07/21/2024) Resolved Problems Problem Noted Date Diagnosed Date [...] as of this encounter (statuses as of 07/21/2024) Immunizations Name Administration Dates Next Due COVID-19 [...] expos ure at wk - as of 307 no smoke exposure Alcohol Use Standard Drinks/Week [...] No 12/19/2023 Does the household have a [facility] general hospitallar source of income? 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 file [...] Rhiannon Duncan RN documented in this encounter Plan of Treatment Upcoming Encounters Date Type Department Care Team (Late st Contact Info) Description 2024 9:00 AM EST Office Visit Orthopaedics [facility] [address] [place] [address] Damien Morales MD [address] [place] [address] 08/09/2024 9:00 AM EST Office Visit Cardiology, [facility] [address] [place] [address] Nichol Morales PA-C [address] [place] [address] 09/01/2024 10:40 AM EST Anticoagulation Pharmacy, [facility] [address] [place] [address] [facility] [place] [address] 09/01/2024 10:50 AM EST Office Visit Pharmacy, [facility] [address] [facility] [place] [address] [facility] [address] [facility] [place] [address] 09/14/2024 11:15 AM EST Procedure Only Urology, [facility] [address] [facility] [place] [address] Luis Manuel Tyler MD [address] [place] [id number] 10/27/2024 3:40 PM EST Office Visit Family Practice [facility] [address] [facility] [place] [address] Jason Jameson, DO [address] [facility] [place] [address] 05/31/2025 11:40 AM EDT Office Visit Sleep Disorders Ctr [facility] [address] [facility] [place] [phone] Radha Waldrop, DO [address] [facility] [place] [address] Health Maintenance Due Date Last Done Comments [...] this encounter Medical Devices Implanted Type Area Red Lead Burner Device Identifier Shelf Expiration Date Model / Serial / Lot Electrode Pacing [id number] - [id number] Implanted:Qty: 1 on 10/07/2022 by Giovanni Smith MD at [facility] : MEDICAL [id number] 06/23/2027 007 [id number] / / [id number] Valve Ford 3 Ultra 26mm - [id number] Implanted:Qty: 1 on 10/07/2022 by Giovanni Smith MD at [facility] [employer] [id number] 04/07/2023 [id number] / / documented as of this encounter Advance Directives * Full Code (Latest Code Status on File) Date Activated Date Inactivated Comments 10/07/2022 1:07 PM 10/08/2022 8:13 PM This order r eflects the patients wishes and were consensually agreed upon. Question Answer Comments Discussion of Advance Direct mago occurred with: Not Discussed due to patient's condition Care Teams Job Honer Relationship Specialty Start Date End Date Jason Jameson DO [address] [place] [address] PCP - General Family Medicine 05/11/19 documented as of this encounter
--- OUTSIDE RECORDS SUMMARY | 2024-09-01 05:16 | External Medical Summary | Summary of Care ---
Author Name Unknown Organization [facility] [address] [facility] [address] Phone [phone] Care Team Providers Care Adviser Sales Name Role Phone aJson Jameson Primary Care Provider Reason for Visit * Reason Comments Dosage Adjustment In Person (Anticoag Cl inic) Diabetes Follow-Up Encounter Details Date Type Department Care Team (Late st Contact Info) Description 07/07/2024 10:10 AM EST Office Visit Pharmacy, [facility] [address] [facility] [place] [address] [facility] [address] [facility] [place] [address] DM type 2, goal HbA1c < 8% ([facility])*; Type 2 diabetes mellitus with hemoglobin A1c goal of less than 7.0% ([facility]) Allergies No known active allergiesdocumented as of this encounter (statuses as of 07/07/2024) Medications aspirin enteric coated 81 MG TBEC TAKE 1 TABLET BY MOUTH DAILY. 31 Tab 11 03/17/20 18 Active Accu-Chek Softclix Lancets USE TO TEST BLOOD SUGAR 4 TIMES DAILY DIRECTED E11.9 400 Each 3 12/19/19 Active Additional Information Patient taking differently: Use [...] (AAA) 30 to 34 mm in diameter ([facility]) Take 4 capsules 1 hour prior to any dental work 4 Capsule 4 11/11/19 23 Active Mupirocin 2 % External Ointment (Bactroban)Indicati ons:Folliculitis To affected area for up to 14 days. 30 g 1 02/20/20 23 Active Additional Information Patient not taking.Reported on 05/31/2024 Accu-Chek Guide w/Device Kit Use as directed. Use to test BG values E11.9 1 Kit 03/17/20 Active Accu-Chek Softclix Lancets Use to test BG once daily E11.9 100 Each 5 03/18/20 23 Active Metoprolol Succinate ER 50 MG Oral Tablet Extended Release 24 Hour (toPROL XL)Indications:HTN, goal below 140/90,Atrial flutter, unspecified type ([facility]) TAKE 1 TABLET BY MOUTH TWICE A DAY 180 Tablet 3 09/09/19 24 Active Ozempic (2 MG/DOSE) 8 MG/3ML Subcutaneous Solution Pen-injector (Semaglutide (2 MG/DOSE))Indication s:DM type 2, goal HbA1c < 8% ([facility]) Inject 2 mg under the skin once a week. 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 [...] MORNING 90 Capsule 1 06/03/20 24 Active documented as of this encounter (statuses as of 07/07/2024) Active Problems Problem Noted Date Diagnosed Date [...] 130/80 10/29/2015 Overview: Per HTN Protocol #27. 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 - 07/07/2024 10:54 AM ARCHELLE Diabetes: Keeping Feet Healthy Inspect your feet every day for signs of a problem. Diabetes can damage nerves in your feet and cause neuropathy. This condition makes it hard for you to feel injuries or sore spots. Diabetes can also change blood flow, making it harder for small problems, like a blister, to heal properly. In fact, minor injuries can quickly become serious infections that send you to the hospital. Practice self-care to protect your feet and keep them healthy. Take Special Care Inspect your feet daily for problems such as redness, blisters, cracks, dry skin, or numbness. Use a mirror to see the bottoms of your feet. Or, ask for help. Manage your diabetes. Monitor and control your blood sugar. Take all your medications as prescribed. Avoid walking barefoot, even indoors. Wash your feet with warm water and mild soap. Dry well, especially between toes. Dont treat corns or calluses yourself. Talk to your doctor or planning division superintendent (a doctor who specializes in foot care) if you need assistance trimming your toenails. Use moisturizing cream or lotion if you have dry skin, but dont use it between toes. Dont use heating pads on your feet. If you have neuropathy, you could get a burn and not feel it. Stop smoking. Smoking restricts blood flow and can make it harder for wounds to heal. Have Regular Checkups Foot problems can develop quickly. So be sure to follow your healthcare teams schedule for regular checkups. During office visits, take off your shoes and socks as soon as you get in the exam room. Ask your healthcare provider to examine your feet for problems. This will make it easier to find and treat small skin irritations before they get worse. Regular checkups can also help keep track of the blood flow and feeling in your feet. If you have neuropathy, you may need to have checkups more often. Wear Proper Footwear Wearing proper footwear is very important. If areas of your feet have been damaged by too much pressure, your healthcare provider may recommend changing your footwear. In some cases, avoiding high heels or tight work boots may be all thats needed. Or, your healthcare provider may recommend special shoes or custom inserts. These help protect your feet and keep existing irritations from getting worse. If you need special footwear, ask your healthcare provider if you qualify for [employer] diabetic shoe program. Make Sure Shoes and Socks Fit Any pair of shoes--new or old--should feel comfortable as soon as you put them on. There shouldnt be any rubbing when you walk. Wear the right shoe for any activity. For instance, a running shoe is designed to keep your feet injury-free while jogging. Buy shoes at the end of the day, when your feet are larger. Make sure they provide support without feeling too loose. Make sure your socks fit, t oo. Wear soft, seamless, well-padded socks for activity. Cotton or microfiber socks are best to help to absorb sweat. To protect your feet, avoid shoes that are open-toed or open-heeled. If you have questions about what kinds of shoes and socks are best, talk to your healthcare team. Get Regular Exercise Regular exercise improves blood flow in your feet. It also increases foot strength and flexibility.Gentle exercises, like walking or riding a stationary bicycle, are best. You can also do special foot exercises. Just be sure to talk with your healthcare provider before starting any exercise program. Also mention if any exercise causes pain, redness, or other signs of foot problems. Note: If you have any kind of break in the skin of your foot or ankle, keep the area clean. Then call your doctor--especially if the area doesnt appear to be healing. [id number] [employer], [address] [place] [address], [place] [address]. All rights reserved. This information is not intended as a substitute for professional medical care. Always follow your healthcare professional's instructions. documented in this encounter Progress Notes * Miriam Lloyd RPh - 07/07/2024 10:18 AM EST Medication Therapy [facility] - Diabetes Management Progress Note Dave Jurado Paloma, identified by name and date of , is a 78 year old male being seen for diabetes management/education. Patient presents for return diabetic visit. DIABETES: Current diabetic medications: Ozempic 2 mg weekly - Thursday INCREASE: Tresiba 20 units daily Metformin 1000 mg BID Medication Injection Site: Abdomen Lifestyle: Diet: unchanged Glucose Review/SMBG: Readings per patient memory/recall: Patient is currently testing 1 times a day, rotating times - 160s on average Hypoglycemia: Does your blood sugar go below 70 mg/dL? No Hyperglycemia symptoms present: none Recent Labs Units 06/01/24 1550 03/01/24 1345 10/22/23 1540 HEMOGLOBIN A1C - [facility] % 8.7* -- 9.3* HEMOGLOBIN A1C POCT - [facility] % -- 9.4* -- Recent Labs Units 05/04/24 1209 11/04/23 1059 10/22/23 1540 ESTIMATED GLOMERULAR FILTRATION RATE - [facility] mL/min 61 53* 68 CREATININE - [facility] mg/dL 1.2 1.4* 1.1 HYPERTENSION: Patient on ACEi/ARB: yes BP Readings from Last 3 Encounters: 05/31/24 116/80 05/12/24 131/57 04/21/24 122/68 Blood pressure at goal: yes HYPERLIPIDEMIA: Recent Labs Units 05/04/24 1209 10/22/23 1540 04/30/23 1254 LDL CHOLESTEROL (CALCULATED) - [facility] mg/dL 71 -- -- LDL CHOLESTEROL (DIRECT MEASURE) - [facility] mg/dL -- 76 80 Does patient have clinical ASCVD? Yes, is patient LDL less than 55 mg/dL? No: Maxed on statin, consider starting ezetimibe at next visit HEALTH MAINTENANCE REVIEW: Health Maintenance Due Topic Date Due Diabetic Foot Exam 02/20/2024 COVID-19 Vaccine ( season) 2024 ASSESSMENT & PLAN: ICD-10-CM 1. DM type 2, goal HbA1c < 8% ([facility]) E11.9 BG Readings - Blood sugars controlled. POC A1c today is at goal of <8%. Patient reported POC BG averages 160s. Congratulated patient on this achievement. Patient interested in CGM but was unable to get Dexcom caprice set up on phone and would prefer a brownfield program coordinator. Will send Josselyn 3 to [facility]. Medications - Reviewed current regimen, patient is adherent to regimen. Reports no side effects to Ozempic. Diet, Exercise, Lifestyle - No significant lifestyle changes since last visit. Discussed with patient. Patient is agreeable to SMBG 1 time(s) daily vs CGM if able. Patient aware to contact clinic if any hypoglycemia before next visit. MEDICATION CHANGES: no change Diabetic Medications: Ozempic 2 mg weekly - Thursday Tresiba 20 units daily Metformin 1000 mg BID Freestyle Josselyn 3 bundle sent to [facility] HEALTH MAINTENANCE INTERVENTIONS: Labs: Up to Date, POC A1c checked today Immunizations: Needs COVID Foot Exam: Completed today Eye Exam: Up to Date Annual Wellness Visit: Up to Date FOLLOW UP: Return to clinic in 8 weeks 09/01/2024 I spent a total of 40-54 minutes (exact time 50 mins) on the date of service in preparation, delivery, and documentation of the care provided to Dave Dow excluding any time spent in the performance of separately billed services. Miriam Lloyd, PharmD, [facility] Clinical Pharmacist - Windshield Installer Medication Therapy Management Clinic 07/07/2024, 10:18 AM Socks and Shoes Removed for Annual Diabetic Foot Screening RIGHT FOOT: No Reddened, Cracking, Or Open Areas Noted. RIGHT Dorsalis Pedis Pulse: Palpable RIGHT Posterior Tibial Pulse: Palpable RIGHT Monofilament:Patient reports feeling monofilament pressure on plantar surface of foot LEFT FOOT: No Reddened, Cracking or Open Areas Noted. LEFT Dorsalis Pedis Pulse: Palpable LEFT Posterior Tibial Pulse: Palpable LEFT Monofilament:Patient reports difficulty feeling monofilament at Great toe- plantar surface Do you need diabetic shoes: No documented in this encounter Plan of Treatment Upcoming Encounters Date Type Department Care Team (Late st Contact Info) Description 08/09/2024 9:00 AM EST Office Visit Cardiology, [facility] [address] [facility] [place] [address] Nichol Morales, ALAN [address] [place] [address] 09/01/2024 10:40 AM EST Anticoagulation Pharmacy, [facility] [address] [facility] [place] [address] [facility] [address] [facility] [place] [address] 09/01/2024 10:50 AM EST Office Visit Pharmacy, [facility] [address] [facility] [place] [address] [facility] [address] [facility] [place] [address] 09/14/2024 11:15 AM EST Procedure Only Urology, [facility] [address] [facility] [place] [address] Luis Manuel Tyler MD [address] [place] [id number] 10/27/2024 3:40 PM EST Office Visit Family Practice [facility] [address] [facility] [place] [address] Jason Jameson, DO [address] [place] [address] 05/31/2025 11:40 AM EDT Office Visit Sleep Disorders Ctr [facility] [address] [facility] [place] [phone] Radha Waldrop, DO [address] [place] [address] Health Maintenance Due Date Last Done Comments [...] this encounter Medical Devices Implanted Type Area Validation Architect Device Identifier Shelf Expiration Date Model / Serial / Lot Electrode Pacing [id number] - [id number] Implanted:Qty: 1 on 10/07/2022 by Giovanni Smith MD at [facility] : MEDICAL [id number] 06/23/2027 007 [id number] / / [id number] Valve Ford 3 Ultra 26mm - [id number] Implanted:Qty: 1 on 10/07/2022 by Giovanni Smith MD at [facility] [employer] [id number] 04/07/2023 [id number] / / documented as of this encounter Procedures Procedure Name Priority Date/Time Associated Diagnosis Comments HEMOGLOBIN A1C, POINT OF CARE ARLIN 07/07/2024 10:19 AM EST DM type 2, goal HbA1c < 8% (HCC) documented in this encounter Results * (ABNORMAL) HEMOGLOBIN A1C, POINT OF CARE (07/07/2024 10:19 AM EST) Hemoglobin A1c 7.9(H) 4.0 - 5.6 % 07/07/2024 10:59 AM EST [facility] Blood 07/07/2024 10:1 9 AM EST 07/07/2024 10:59 AM EST [facility] LAB POINT OF CARE TEST DOCKED DEVICE UNSOLICITED RESULTS Final Result [facility]10 [address] [facility] [place] [address] documented in this encounter Visit Diagnoses Diagnosis DM type 2, goal HbA1c < 8% (HCC)- Primary Type 2 diabetes mellitus with hemoglobin A1c goal of less than 7.0% (HCC) documented in this encounter Advance Directives * Full Code (Latest Code Status on File) Date Activated Date Inactivated Comments 10/07/2022 1:07 PM 10/08/2022 8:13 PM This order r eflects the patients wishes and were consensually agreed upon. Question Answer Comments Discussion of Advance Direct mago occurred with: Not Discussed due to patient's condition Care Teams Adviser Sales Relationship Specialty Start Date End Date Jason Jameson DO [address] [place] [address] PCP - General Family Medicine 05/11/19 documented as of this encounter
--- OUTSIDE RECORDS SUMMARY | 2024-09-01 05:16 | External Medical Summary | Summary of Care ---
Author Name Unknown Organization [facility] Address [address] [facility] [place] [address] Phone [phone] Care Team Providers Care Legal Investigator Name Role Phone Jason Jameson Primary Care Provider Reason for Visit * Reason Onset Date Comments Advice 07/15/2024 Patient has call ed in and is asking for a return call back to go over his lab results for his A1C? He is trying to get his hand surgery rescheduled? He has had recent labs done on 07/07/24 in [facility]. Encounter Details Date Type Department Care Team (Late st Contact Info) Description 07/15/2024 Telephone Orthopaedics [facility] [address] [place] [address] Damien Morales MD [address] [facility] [place] [address] Advice (Patient has called in and is askin... 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 [...] as of this encounter (statuses as of 07/18/2024) Active Problems Problem Noted Date Diagnosed Date [...] 130/80 10/29/2015 Overview: Per HTN Protocol #27. halfway current use of anticoagulant therapy 0 03/09/2012 [...] as of this encounter (statuses as of 07/18/2024) Resolved Problems Problem Noted Date Diagnosed Date [...] as of this encounter (statuses as of 07/18/2024) Immunizations Name Administration Dates Next Due COVID-19 [...] No 12/19/2023 Does the household have a [facility] source of income? 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 * Telephone Encounter - Jackelyn Genao OSA - 07/15/2024 9:39 AM EST Patient has called in and is asking for a return call back to go over his lab results for his A1C? He is trying to get his hand surgery rescheduled? He has had recent labs done on 07/07/24 in [facility]. documented in this encounter Plan of Treatment Upcoming Encounters Date Type Department Care Team (Late st Contact Info) Description 2024 9:00 AM EST Office Visit Orthopaedics [facility] [address] [place] [address] [place] Morales MD [address] [place] [address] 08/09/2024 9:00 AM EST Office Visit Cardiology, [facility] [address] [place] [address] Nichol Morales PA-C [address] [place] [address] 09/01/2024 10:40 AM EST Anticoagulation Pharmacy, [facility] [address] [facility] [place] [address] [facility] [place] [address] 09/01/2024 10:50 AM EST Office Visit Pharmacy, [facility] [address] [facility] [place] [address] [facility] [address] [facility] [place] [address] 09/14/2024 11:15 AM EST Procedure Only Urology, [facility] [address] [facility] [place] [address] Luis Manuel Tyler MD [address] [place] [id number] 10/27/2024 3:40 PM EST Office Visit Family Practice [facility] [address] [facility] [place] [address] Jason Jameson, DO [address] [facility] [place] [address] 05/31/2025 11:40 AM EDT Office Visit Sleep Disorders Ctr [facility] [address] [facility] [place] [phone] Radha Waldrop, DO [address] [facility] [place] [address] Health Maintenance Due Date Last Done Comments [...] this encounter Medical Devices Implanted Type Area Solder Cream Maker Device Identifier Shelf Expiration Date Model / Serial / Lot Electrode Pacing [id number] - [id number] Implanted:Qty: 1 on 10/07/2022 by Giovanni Smith MD at [facility] : MEDICAL [id number] 06/23/2027 007 [id number] / / [id number] Valve Ford 3 Ultra 26mm - [id number] Implanted:Qty: 1 on 10/07/2022 by Giovanni Smith MD at [facility] [employer] [id number] 04/07/2023 [id number] / / documented as of this encounter Advance Directives * Full Code (Latest Code Status on File) Date Activated Date Inactivated Comments 10/07/2022 1:07 PM 10/08/2022 8:13 PM This order r eflects the patients wishes and were consensually agreed upon. Question Answer Comments Discussion of Advance Direct mago occurred with: Not Discussed due to patient's condition Care Teams Legal Investigator Relationship Specialty Start Date End Date Jason Jameson DO [address] [place] [address] PCP - General Family Medicine 05/11/19 documented as of this encounter
--- OUTSIDE RECORDS SUMMARY | 2024-09-01 05:16 | External Medical Summary | Summary of Care ---
Author Name Unknown Organization [facility] Address [address] [place] [address] Phone [phone] Care Team Providers Care Real Property Appraiser Name Role Phone Cristian Jameson DO Primary Care Provider Reason for Visit * Reason Comments eRx-Medication Refill Encounter Details Date Type Department Care Team (Late st Contact Info) Description 07/20/2024 Refill Pharmacy[facility] [address] [place] [address] Cristian Jameson DO [address] [place] [address] HTN, goal below 140/90 Allergies No known active allergiesdocumented as of this encounter (statuses as of 07/20/2024) Medications aspirin enteric coated 81 MG TBEC [...] , goal below 140/90,Atrial flutter, unspecified type ([facility]) TAKE 1 TABLET BY MOUTH TWICE A DAY 180 Tablet 3 024 Active Ozempic (2 MG/DOSE) 8 MG/3ML Subcutaneous Solution Pen-injector (Semaglutide (2 MG/DOSE))Indicatio ns:DM type 2, goal HbA1c < 8% ([facility]) Inject 2 mg under the [...] (Coumadin)Indicati ons:Chronic atrial fibrillation (HCC),Anticoagulat ion management encounter,longterm current use of anticoagulant therapy,Atrial flutter, unspecified [...] morning. 90 Tablet 3 024 Active Pen [place] 32G X 6 MM Use as directed. [...] EVERY DAY 90 Tablet 1 024 Active Losartan Potassium 25 MG Oral Tablet (Cozaar)Indication s:HTN, goal below 140/90 TAKE 1 TABLET BY MOUTH EVERY DAY 90 Tablet 1 024 2023 Discontinued documented as of this encounter (statuses as of 07/20/2024) Active Problems Problem Noted Date Diagnosed Date [...] 130/80 10/29/2015 Overview: Per HTN Protocol #27. 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 file Not [...] Notes * Telephone Encounter - Lindsay Mercedes [facility] - 07/20/2024 8:03 AM EST Signed Prescriptions: Disp Refills Losartan Potassium 25 MG Oral Tablet (Coza*90 Tab*1 Sig: TAKE 1 TABLET BY MOUTH EVERY DAYAuthorizing Provider: CRISTIAN JAMESON User: LINDSAY MERCEDES documented in this encounter Plan of Treatment Upcoming Encounters Date Type Department Care Team (Late st Contact Info) Description 2024 9:00 AM EST Office Visit [facility] [address] [place] [address] Damien Morales MD [address] [place] [address] 08/09/2024 9:00 AM EST Office Visit Cardiology, [facility] [address] [place] [address] Nichol Morales PA-C [address] [place] [address] 09/01/2024 10:40 AM EST Anticoagulation Pharmacy, [facility] [address] [place] [address] [facility] [address] [place] [address] 09/01/2024 10:50 AM EST Office Visit Pharmacy, [facility] [address] [facility] [place] [address] [facility] [address] [facility] [place] [address] 09/14/2024 11:15 AM EST Procedure Only Urology, [facility] [address] [facility] [place] [address] Luis Manuel Tyler MD [address] [place] [address] 10/27/2024 3:40 PM EST Office [facility] [place] [address] Cristian Jameson, DO [address] [place] [address] 05/31/2025 11:40 AM EDT Office Visit Sleep Disorders Ctr [facility] [address] [facility] [place] [phone] Radha Waldrop, DO 132 [facility] [place] [address] Health Maintenance Due Date Last Done Comments [...] this encounter Medical Devices Implanted Type Area Nursery Hand Device Identifier Shelf Expiration Date Model / Serial / Lot Electrode Pacing [id number] - [id number] Implanted:Qty: 1 on 10/07/2022 by Giovanni Smith MD at [facility] : MEDICAL [id number] 06/23/2027 007 151P / / [id number] Valve Ford 3 Ultra 26mm - [id number] Implanted:Qty: 1 on 10/07/2022 by Giovanni Smith MD at [facility] [employer] [id number] 04/07/2023 [id number] / / documented as of this encounter Visit Diagnoses Diagnosis HTN, goal below 140/90 Unspecified essential hypertension documented in this encounter Advance Directives * Full Code (Latest Code Status on File) Date Activated Date Inactivated Comments 10/07/2022 1:07 PM 10/08/2022 8:13 PM This order r eflects the patients wishes and were consensually agreed upon. Question Answer Comments Discussion of Advance Direct mago occurred with: Not Discussed due to patient's condition Care Teams Real Property Appraiser Relationship Specialty Start Date End Date Cristian Jameson DO [address] [place] [address] PCP - General Family Medicine 05/11/19 documented as of this encounter
--- OUTSIDE RECORDS SUMMARY | 2024-09-01 05:16 | External Medical Summary | Summary of Care ---
Author Name Unknown Organization [facility] Address [address] [place] [address] Phone [phone] Care Team Providers Care Tattoo Technician Name Role Phone Jason Jameson Primary Care Provider Reason for Referral * Evaluate & Treat - Unlimited Visits (Within 10 days (routine)) - Authorized Specialty Diagnoses / Procedures Referred By Eric grullon Referred To Contact Physical Therapy / Physical Medicine And Rehab Diagnoses Scapholunate advanced collapse of right wrist Damien Morales MD [address] [place] [address] Phone: tel: fax: Referral ID Status Reason Start Date Expiration Date Visits Requested Visits Authorized [id number] Authorized Specialty Services Required 4 [phone] [...] 2024 9:00 AM EST Office Visit Orthopaedics [facility] [address] [facility] [place] [address] Damien Morales MD [address] [place] [address] Scapholunate advanced collapse of right wrist*; Carpal tunnel syndrome, right Allergies No known active allergiesdocumented as of this encounter (statuses as of 2024) Medications aspirin enteric coated 81 MG TBEC [...] (Coumadin)Indicatio ns:Chronic atrial fibrillation (HCC),Anticoagulati on management encounter,prison current use of anticoagulant therapy,Atrial flutter, unspecified [...] morning. 90 Tablet 05/04/20 24 Active Pen [place] 32G X 6 MM Use as directed. [...] as of this encounter (statuses as of 2024) Active Problems Problem Noted Date Diagnosed Date [...] 130/80 10/29/2015 Overview: Per HTN Protocol #27. 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 90 Tablet 3 Pen [place] 32G X 6 MM Use as directed. [...] 08/09/2024 9:00 AM EST Office Visit Cardiology, [facility] [place] [address] Nichol Morales PA-C [address] [place] [address] 09/01/2024 10:40 AM EST Anticoagulation Pharmacy, [facility] [address] [facility] [place] [address] [facility] [place] [address] 09/01/2024 10:50 AM EST Office Visit Pharmacy, [facility] [place] [address] [facility] [place] [address] 09/14/2024 11:15 AM EST Procedure Only Urology, [facility] [address] [facility] [place] [address] Luis Manuel Tyler MD [address] [place] [address] 10/27/2024 3:40 PM EST Office Visit Family Practice [facility] [address] [facility] [place] [address] Jason Jameson, DO [address] [place] [address] 05/31/2025 11:40 AM EDT Office Visit Sleep Disorders Ctr [facility] [address] [facility] [place] [phone] Radha Waldrop, DO [address] [place] [address] Pending Results Name Type Priority Associated Diagnoses Date /Time XR WRIST 3 OR MORE VIEWS Medical Imaging Routine Scapholunate advanced collapse of right wrist 2024 9:10 AM EST Scheduled Procedures Name Priority Associated Diagnoses Date/Ti me NEUROPLASTY MEDIAN NERVE AT CARPAL TUNNEL Scapholunate advanced collapse of right wrist ARTHRODESIS WRIST LIMITED WI TH AUTOGRAFT Scapholunate advanced collapse of right wrist Scheduled Referrals Name Type Priority Associated Diagnoses [...] 03/01/2024, Additional history exists GFR 05/04/2025 05/04/2024, 0310/2023, 10/22/2023, Additional history exists Adult Wellness Visit [...] this encounter Medical Devices Implanted Type Area Supervisor Safety Deposit Device Identifier Shelf Expiration Date Model / Serial / Lot Electrode Pacing [id number] - [id number] Implanted:Qty: 1 on 10/07/2022 by Giovanni Smith MD at [facility] [place] : MEDICAL [id number] 06/23/2027 007 151P / / [id number] Valve Ford 3 Ultra 26mm - [id number] Implanted:Qty: 1 on 10/07/2022 by Giovanni Smith MD at [facility] [employer] [id number] 04/07/2023 [id number] / / documented as of this encounter Visit Diagnoses Diagnosis Scapholunate advanced collapse of right wrist- Primary Carpal tunnel syndrome, right Carpal tunnel syndrome documented in this encounter Advance Directives * Full Code (Latest Code Status on File) Date Activated Date Inactivated Comments 10/07/2022 1:07 PM 10/08/2022 8:13 PM This order r eflects the patients wishes and were consensually agreed upon. Question Answer Comments Discussion of Advance Direct mago occurred with: Not Discussed due to patient's condition Care Teams Tattoo Technician Relationship Specialty Start Date End Date Jason Jameson DO [address] [facility] [place] [address] PCP - General Family Medicine 05/11/19 documented as of this encounter
--- OUTSIDE RECORDS SUMMARY | 2024-09-01 05:16 | External Medical Summary | Summary of Care ---
Author Name Unknown Organization [facility] Address [address] [facility] [address] Phone [phone] Care Team Providers Care Records Specialist Name Role Phone Jason Jameson DO Primary Care Provider Reason for Visit * Reason Onset Date Comments Other 07/19/2024 Encounter Details Date Type Department Care Team (Late st Contact Info) Description 07/19/2024 Telephone [facility], [facility] [address] [place] [address] [place] [address] Jason Jameson DO [address] [place] [address] Other Allergies No known active allergiesdocumented as of this encounter (statuses as of 07/19/2024) Medications aspirin enteric coated 81 MG TBEC [...] any dental work 4 Capsule 4 11/11/19 Active Mupirocin 2 % External Ointment (Bactroban)Indicati ons:Folliculitis To affected area for up to 14 days. 30 g 1 02/20/20 Active Additional Information Patient not taking.Reported on 05/31/2024 Accu-Chek Guide w/Device Kit Use as directed. Use to test BG values E11.9 1 Kit 03/17/20 Active Accu-Chek Softclix Lancets Use to test BG once daily E11.9 100 Each 5 03/18/20 Active Metoprolol Succinate ER 50 MG Oral Tablet Extended Release 24 Hour (toPROL XL)Indications:HTN, goal below 140/90,Atrial flutter, unspecified type ([facility]) TAKE 1 TABLET BY MOUTH TWICE A DAY 180 Tablet 3 09/09/19 24 Active Ozempic (2 MG/DOSE) 8 MG/3ML Subcutaneous Solution Pen-injector (Semaglutide (2 MG/DOSE))Indication s:DM type 2, goal HbA1c < 8% ([facility]) Inject 2 mg under the skin [...] (Coumadin)Indicatio ns:Chronic atrial fibrillation (HCC),Anticoagulati on management encounter,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 90 Tablet 3 05/04/20 Active Pen [place] 32G X 6 MM Use as directed. Inject 15 units daily E11.9 100 Each 3 06/02/20 Active Tresiba FlexTouch 200 UNIT/ML Subcutaneous Solution Pen-injector (Insulin Degludec) Inject 17 Units under the skin in the morning. E11.9. 15 mL 3 06/02/20 Active Tamsulosin HCl 0.4 MG Oral Capsule (Flomax) TAKE 1 CAPSULE BY MOUTH EVERY DAY IN THE MORNING 90 Capsule 1 06/03/20 Active documented as of this encounter (statuses as of 07/19/2024) Active Problems Problem Noted Date Diagnosed Date [...] 130/80 10/29/2015 Overview: Per HTN Protocol #27. 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 Lindsay Mercedes, Pharm D, BCACP Clinical Pharmacist 07/19/2024, 3:46 PM * Telephone Encounter - Love Troncoso PHARM Tech - 07/19/2024 3:32 PM EST Caller's name: Mahamed from [facility] call back number(OFFICE NUMBER FOR ): [phone] Reason for call: Mahamed called in, he said they need signed corresponding office notes as to why the patient needs the diabetes medical supplies. He wanted to let you know the patient already received them and is currently using them as well. Please advise. Thank you, Love Troncoso Electro Plater I [facility] ([facility]) 07/19/2024, 3:32 PM documented in this encounter Plan of Treatment Upcoming Encounters Date Type Department Care Team (Late st Contact Info) Description 2024 9:00 AM EST Office Visit Orthopaedics [facility] [address] [place] [address] Damien Morales MD [address] [place] [address] 08/09/2024 9:00 AM EST Office Visit Cardiology, [facility] [address] [place] [address] Nichol Morales PA-C [address] [place] [address] 09/01/2024 10:40 AM EST Anticoagulation Pharmacy, [facility] [address] [place] [address] [facility] [address] [place] [address] 09/01/2024 10:50 AM EST Office Visit Pharmacy, [facility] [address] [place] [address] [facility] [place] [address] 09/14/2024 11:15 AM EST Procedure Only Urology, [facility] [address] [place] [address] Luis Manuel Tyler MD [address] [place] [address] 10/27/2024 3:40 PM EST Office Visit Family Practice [facility] [address] [place] [address] Jason Jameson, DO [address] [place] [address] 05/31/2025 11:40 AM EDT Office Visit Sleep Disorders Ctr [facility] [place] [phone] Radha Waldrop, DO 132 [facility] [place] [address] Health Maintenance Due Date Last Done Comments [...] this encounter Medical Devices Implanted Type Area Data Abstractor Device Identifier Shelf Expiration Date Model / Serial / Lot Electrode Pacing [id number] - [id number] Implanted:Qty: 1 on 10/07/2022 by Giovanni Smith MD at [facility] : MEDICAL [id number] 06/23/2027 007 151P / / [id number] Valve Ford 3 Ultra 26mm - [id number] Implanted:Qty: 1 on 10/07/2022 by Giovanni Smith MD [place] [facility] [employer] [id number] 04/07/2023 [id number] / / documented as of this encounter Advance Directives * Full Code (Latest Code Status on File) Date Activated Date Inactivated Comments 10/07/2022 1:07 PM 10/08/2022 8:13 PM This order r eflects the patients wishes and were consensually agreed upon. Question Answer Comments Discussion of Advance Direct mago occurred with: Not Discussed due to patient's condition Care Teams Records Specialist Relationship Specialty Start Date End Date Jason Jameson DO [address] [place] [address] PCP - General Family Medicine 05/11/19 documented as of this encounter
--- OUTSIDE RECORDS SUMMARY | 2024-09-01 05:16 | External Medical Summary | Summary of Care ---
Author Name Unknown Organization [facility] Address [address] [place] [address] Phone [phone] Care Team Providers Care Field Advisor Name Role Phone Jason Jameson Primary Care Provider Reason for Referral * Evaluate & Treat - Unlimited Visits (Within 10 days (routine)) - Authorized Specialty Diagnoses / Procedures Referred By Eric grullon Referred To Contact Physical Therapy / Physical Medicine And Rehab Diagnoses Scapholunate advanced collapse of right wrist Damien Morales MD [address] [place] [address] Phone: tel: fax: Referral ID Status Reason Start Date Expiration Date Visits Requested Visits Authorized [id number] Authorized Specialty Services Required 4 [phone] [...] 2024 9:00 AM EST Office Visit Orthopaedics [facility] [address] [facility] [place] [address] Damien Morales MD [address] [place] [address] Scapholunate advanced collapse of right wrist*; Carpal [...] (Coumadin)Indicatio ns:Chronic atrial fibrillation (HCC),Anticoagulati on management encounter,halfway current use of anticoagulant therapy,Atrial flutter, unspecified [...] morning. 90 Tablet 05/04/20 24 Active Pen [place] 32G X 6 MM Use as directed. 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 90 Tablet 3 Pen [place] 32G X 6 MM Use as directed. [...] 08/09/2024 9:00 AM EST Office Visit Cardiology, [facility] [address] [facility] [place] [address] Nichol Morales PA-C [address] [place] [address] 09/01/2024 10:40 AM EST Anticoagulation Pharmacy, [facility] [address] [facility] [place] [address] [facility] [place] [address] 09/01/2024 10:50 AM EST Office Visit Pharmacy, [facility] [address] [facility] [place] [address] [facility] [place] [address] 09/14/2024 11:15 AM EST Procedure Only Urology, [facility] [address] [facility] [place] [address] Luis Manuel Tyler MD [address] [place] [address] 10/27/2024 3:40 PM EST Office Visit Family Practice [facility] [address] [facility] [place] [address] Jason Jameson, DO [address] [place] [address] 05/31/2025 11:40 AM EDT Office Visit [facility] Disorders Ctr [facility] [address] [facility] [place] [phone] Radha Waldrop, DO [address] [facility] [place] [address] Pending Results Name Type Priority Associated Diagnoses [...] this encounter Medical Devices Implanted Type Area Pharmacy Scheduler Device Identifier Shelf Expiration Date Model / Serial / Lot Electrode Pacing [id number] - [id number] Implanted:Qty: 1 on 10/07/2022 by Giovanni Smith MD at [facility] [place] [facility] [employer] : MEDICAL [id number] 06/23/2027 007 151P / / [id number] Valve Ford 3 Ultra 26mm - [id number] Implanted:Qty: 1 on 10/07/2022 by Giovanni Smith MD at [facility] [employer] [id number] 04/07/2023 [id number] / / documented as of this encounter [...] Discussed due to patient's condition Care Teams Field Advisor Relationship Specialty Start Date End Date Jason Jameson DO [address] [facility] [place] [address] PCP - General Family Medicine 05/11/19 documented as of this encounter
--- OUTSIDE RECORDS SUMMARY | 2024-09-01 05:16 | External Medical Summary | Summary of Care ---
Author Name Unknown Organization [facility] Address [address] [facility] [address] Phone [phone] Care Team Providers Care Oven Attendant Name Role Phone Jason Jameson Primary Care Provider Reason for Visit * Reason Comments Dosage Adjustment In Person (Anticoag Cl inic) Encounter Details Date Type Department Care Team (Latest Contact Info) Description 07/07/2024 10:00 AM [facility] Anticoagulation Pharmacy, [facility] [address] [facility] [place] [address] [facility] [address] [facility] [place] [address] Anticoagulation management encounter*; Chronic atrial fibrillation (HCC) Allergies No known active allergiesdocumented as of [...] (AAA) 30 to 34 mm in diameter ([facility]) Take 4 capsules 1 hour [...] XL)Indications:HTN, goal below 140/90,Atrial flutter, unspecified type ([facility]) TAKE 1 TABLET BY MOUTH TWICE A DAY 180 Tablet 3 09/09/19 24 Active Ozempic (2 MG/DOSE) 8 MG/3ML Subcutaneous Solution Pen-injector (Semaglutide (2 MG/DOSE))Indication s:DM type 2, goal HbA1c < 8% ([facility]) Inject 2 mg under the [...] (Coumadin)Indicatio ns:Chronic atrial fibrillation (HCC),Anticoagulati on management encounter,senior living current use of anticoagulant therapy,Atrial flutter, unspecified [...] 90 Tablet 3 05/04/20 24 Active Pen [place] 32G X 6 MM Use as directed. [...] 130/80 10/29/2015 Overview: Per HTN Protocol #27. 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 Not on file [...] Notes * Miriam Lloyd RPh - 07/07/2024 12:15 PM EST Medication Therapy Disease Management - Anticoagulation Patient: Dave Dow | : 1945 Subjective Contacts Contact Date/Time Type Contact Phone/Fax 06/30/2024 05:12 AM EST Vendor (Outgoing) Dave Dow [phone] Patient-Reported Symptoms: Patient Findings Negatives: Signs/symptoms of thrombosis, Signs/symptoms of bleeding, Change in health, Change in alcohol use, Change in activity, Upcoming invasive procedure, Missed doses, Extra doses, Change in medications, Change in diet/appetite, Bruising Objective Current Warfarin Dose As of 07/07/2024 Warfarin maintenance plan: 10 mg (5 mg x 2) every Mon, Fri; 5 mg (5 mg x 1) all other days INR Result As of 07/07/2024 INR goal: 2.0-3.0 INR used for dosin.3 (07/07/2024) Assessment & Plan Warfarin Plan As of 07/07/2024 Full warfarin instructions: 10 mg every Mon, Fri; 5 mg all other days No change documented: Miriam Lloyd RPh Next INR check: 09/01/2024 Repeat PT/INR in 8 week(s) Weekly dose: not changed Additional Dosing Information: I spent a total of 10-19 minutes (exact time 10 mins) on the date of service in preparation, delivery, and documentation of the care provided to Dave Dow excluding any time spent in the performance of separately billed services or time spent by another provider/QHP. Miriam Lloyd, PharmD, [facility] Clinical Pharmacist 07/07/2024, 12:15 PM documented in this encounter Plan of Treatment Upcoming Encounters Date Type Department Care Team (Late st Contact Info) Description 08/09/2024 9:00 AM EST Office Visit Cardiology, [facility] [address] [place] [address] Nichol Morales PA-C [address] [place] [address] 09/01/2024 10:40 AM EST Anticoagulation Pharmacy, [facility] [address] [facility] [place] [address] [facility] [place] [address] 09/01/2024 10:50 AM EST Office Visit Pharmacy, [facility] [address] [facility] [place] [address] [facility] [address] [facility] [place] [address] 09/14/2024 11:15 AM EST Procedure Only Urology, [facility] [address] [facility] [place] [address] Luis Manuel Tyler MD [address] [place] [address] 10/27/2024 3:40 PM EST Office Visit Family Practice [facility] [address] [facility] [place] [address] Jason Jameson, DO [address] [facility] [place] [address] 05/31/2025 11:40 AM EDT Office Visit Sleep Disorders Ctr [facility] [address] [facility] [place] [phone] Radha Waldrop, DO [address] [facility] [place] [address] Health Maintenance Due Date Last Done Comments COVID-19 Vaccine ( season) 2024 04/29/2024, 05/24/2023, 06/06/2022, Additional history exists Albumin/Creatinine Ratio 10/21/20242 024, 04/30/2023, 11/10/2022, Additional history exists B-12 10/21/2024 10/22/2023, 03/2 , 02/18/2022, Additional history exists Depression Screening 10/21/2024 [...] this encounter Medical Devices Implanted Type Area Bookkeeping Manager Device Identifier Shelf Expiration Date Model / Serial / Lot Electrode Pacing [id number] - [id number] Implanted:Qty: 1 on 10/07/2022 by Giovanni Smith MD at [facility] : MEDICAL [id number] 06/23/2027 007 [id number] / / [id number] Valve Ford 3 Ultra 26mm - [id number] Implanted:Qty: 1 on 10/07/2022 by Giovanni Smith MD at [facility] [place] [employer] [id number] 04/07/2023 [id number] / / documented as of this encounter Procedures Procedure Name Priority Date/Time Associated Diagnosis Comments INR FINGERSTICK, POINT OF CARE ARLIN 07/07/2024 10:14 AM EST documented in this encounter Results * INR FINGERSTICK, POINT OF CARE (07/07/2024 10:14 AM EST) Fingerstick INR 2.3 INR 10:52 AM EST [facility] Blood 07/07/2024 10:1 4 AM EST 07/07/2024 10:52 AM EST Narrative [facility] - 07/07/2024 10:52 AM EST Therapeutic ranges for non-operative patients: Prophylaxsis/treatment of DVT: (Range:2.0-3.0) Treatment of pulmonary embolism:(Range:2.0-3.0) Prevention of systemic embolism from: -tissue heart valves -acute myocardial infarction -valvular heart disease -atrial fibrillation (Range: 2.0-3.0) Mechanical prosthetic valves: (Range: 2.5-3.5) [facility] POINT OF CARE TEST DOCKED DEVICE UNSOLICITED RESULTS Final Result [facility] [address] [place] [address] documented in this encounter Visit Diagnoses Diagnosis Anticoagulation management encounter- Primary Encounter for therapeutic drug monitoring Chronic atrial fibrillation (HCC) Atrial fibrillation documented in this encounter Advance Directives * Full Code (Latest Code Status on File) Date Activated Date Inactivated Comments 10/07/2022 1:07 PM 10/08/2022 8:13 PM This order r eflects the patients wishes and were consensually agreed upon. Question Answer Comments Discussion of Advance Direct mago occurred with: Not Discussed due to patient's condition Care Teams Oven Attendant Relationship Specialty Start Date End Date Jason Jameson DO [address] [place] [address] PCP - General Family Medicine 05/11/19 documented as of this encounter"
--- OUTSIDE RECORDS SUMMARY | 2024-09-01 05:16 | External Medical Summary | Summary of Care ---
Author Name Unknown Organization [facility] Address [address] [place] [address] Phone [phone] Care Team Providers Care Zinc Plate Grainer Name Role Phone Jason Jameson Primary Care Provider Reason for Referral * Evaluate & Treat - Unlimited Visits (Within 10 days (routine)) - Authorized Specialty Diagnoses / Procedures Referred By Eric grullon Referred To Contact Physical Therapy / Physical Medicine And Rehab Diagnoses Scapholunate advanced collapse of right wrist Damien Morales MD [address] [place] [address] Phone: tel: fax: Referral ID Status Reason Start Date Expiration Date Visits Requested Visits Authorized [id number] Authorized Specialty Services Required 4 [phone] [...] 9:00 AM EST Office Visit Orthopaedics [facility] [address] [facility] [place] [address] Damien Morales MD [address] [place] [address] Scapholunate advanced collapse of right wrist*; Carpal [...] (Coumadin)Indicatio ns:Chronic atrial fibrillation (HCC),Anticoagulati on management encounter,[facility] current use of anticoagulant therapy,Atrial flutter, unspecified [...] morning. 90 Tablet 05/04/20 24 Active Pen [place] 32G X 6 MM Use as directed. [...] 130/80 10/29/2015 Overview: Per HTN Protocol #27. 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 90 Tablet 3 Pen [place] 32G X 6 MM Use as directed. [...] 9:00 AM EST Office Visit Cardiology, [facility] [address] [facility] [place] [address] Nichol Morales PA-C [address] [place] [address] 09/01/2024 10:40 AM EST Anticoagulation Pharmacy, [facility] [address] [facility] [place] [address] [facility] [place] [address] 09/01/2024 10:50 AM EST Office Visit Pharmacy, [facility] [address] [facility] [place] [address] [facility] [address] [facility] [place] [address] 09/14/2024 11:15 AM EST Procedure Only Urology, [facility] [address] [facility] [place] [address] Luis Manuel Tyler MD [address] [place] [address] 10/27/2024 3:40 PM EST Office Visit Family Practice [facility] [address] [facility] [place] [address] Jason Jameson, DO [address] [place] [address] 05/31/2025 11:40 AM EDT Office Visit Sleep Disorders Ctr [facility] [address] [facility] [place] [phone] Radha Waldrop, DO [address] [facility] [place] [address] Pending Results Name Type Priority Associated Diagnoses [...] this encounter Medical Devices Implanted Type Area Global Cmo Device Identifier Shelf Expiration Date Model / Serial / Lot Electrode Pacing [id number] - [id number] Implanted:Qty: 1 on 10/07/2022 by Giovanni Smith MD [place] [facility] [place] MEDICAL [id number] 06/23/2027 007 [id number] / / [id number] Valve Ford 3 Ultra 26mm - [id number] Implanted:Qty: 1 on 10/07/2022 by Giovanni Smith MD [place] [facility] [employer] [id number] 04/07/2023 [id number] / / documented as of this encounter [...] Discussed due to patient's condition Care Teams Zinc Plate Grainer Relationship Specialty Start Date End Date Jason Jameson DO [address] [facility] [place] [address] PCP - General Family Medicine 05/11/19 documented as of this encounter
--- OUTSIDE RECORDS SUMMARY | 2024-09-01 05:16 | External Medical Summary | Summary of Care ---
Author Name Unknown Organization [facility] Address [address] [place] [address] Phone [phone] Care Team Providers Care Rough And Trueing Machine Operator Name Role Phone Jason Jameson Primary Care Provider Encounter Details Date Type Department Care Team (Late st Contact Info) Description 07/12/2024 Result Scan Unspecified Department Wil Anglin MD [address] [place] [address] <No scans attached> Allergies No known active allergiesdocumented as of this encounter (statuses as of 07/12/2024) Medications aspirin enteric coated 81 MG TBEC [...] (Coumadin)Indicatio ns:Chronic atrial fibrillation (HCC),Anticoagulati on management encounter,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 90 Tablet 3 05/04/20 Active Pen [place] 32G X 6 MM Use as directed. [...] as of this encounter (statuses as of 07/12/2024) Active Problems Problem Noted Date Diagnosed Date [...] 130/80 10/29/2015 Overview: Per HTN Protocol #27. 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 Not on file [...] 08/09/2024 9:00 AM EST Office Visit Cardiology, [facility] [address] [place] [address] Nichol Morales PA-C [address] [place] [address] 09/01/2024 10:40 AM EST Anticoagulation Pharmacy, [facility] [address] [facility] [place] [address] [facility] [place] [address] 09/01/2024 10:50 AM EST Office Visit Pharmacy, [facility] [place] [address] [facility] [place] [address] 09/14/2024 11:15 AM EST Procedure Only Urology, [facility] [place] [address] Luis Manuel Tyler MD [address] [place] [id number] 10/27/2024 3:40 PM EST Office Visit Family Practice [facility] [address] [place] [address] Jason Jameson, DO [address] [facility] [place] [address] 05/31/2025 11:40 AM EDT Office Visit Sleep Disorders Ctr [facility] [address] [place] [phone] Radha Waldrop, DO [address] [place] [address] Health Maintenance Due Date Last Done Comments [...] this encounter Medical Devices Implanted Type Area Surface Water Technician Device Identifier Shelf Expiration Date Model / Serial / Lot Electrode Pacing [id number] - [id number] Implanted:Qty: 1 on 10/07/2022 by Giovanni Smith MD at [facility] BARD : MEDICAL [id number] 06/23/2027 007 [id number] / / [id number] Valve Ford 3 Ultra 26mm - [id number] Implanted:Qty: 1 on 10/07/2022 by Giovanni Smith MD at [facility] [employer] [id number] 04/07/2023 [id number] / / documented as of this encounter Procedures Procedure Name Priority Date/Time Associated Diagnosis Comments CARDIOLOGY SCANNED RESULT 07/12/2024 documented in this encounter Results * CARDIOLOGY SCANNED RESULT (07/12/2024) 07/12/2024 us Wil Anglin MD OTHER Final Result documented in this encounter Advance Directives * Full Code (Latest Code Status on File) Date Activated Date Inactivated Comments 10/07/2022 1:07 PM 10/08/2022 8:13 PM This order r eflects the patients wishes and were consensually agreed upon. Question Answer Comments Discussion of Advance Direct mago occurred with: Not Discussed due to patient's condition Care Teams Rough And Trueing Machine Operator Relationship Specialty Start Date End Date Jason Jameson DO [address] [place] [address] PCP - General Family Medicine 05/11/19 documented as of this encounter
--- OUTSIDE RECORDS SUMMARY | 2024-09-01 05:17 | External Medical Summary ---
Author Name Unknown Address Unknown Organization K0G:[facility] - [address] [place] [address] Laboratory Report Ordering Provider Test Date Status MALINI ASHBY 07/07/2024 10:19:39 Final Observation Date Value Abnormality Reference (Units ) Status HbA1C 07/07/2024 10:19:39 7.9 Above high normal 4. 0-5.6 (%) Final Performing Location [facility] 0 - [address] [place] [address]
--- OUTSIDE RECORDS SUMMARY | 2024-09-01 05:17 | External Medical Summary | Summary of Care ---
Author Name Unknown Organization [facility] Address [address] [address] Phone [phone] Care Team Providers Care Pit Crew Support Worker Name Role Phone Jason Jameson DO Primary Care Provider Reason for Visit * Reason Onset Date Comments Advice 05/31/2024 Encounter Details Date Type Department Care Team (Late st Contact Info) Description 05/31/2024 Telephone Orthopaedics [facility] [address] [place] [address] Damien Morales MD [address] [place] [phone] Advice Allergies No known active allergiesdocumented as of this encounter (statuses as of 06/02/2024) Medications Medication Sig Dispensed Refills Start Date End Date Status aspirin enteric coated 81 MG TBEC TAKE 1 TABLET BY MOUTH DAILY. 31 Tab 11 03/17/2018 Active Accu-Chek Softclix Lancets USE TO TEST BLOOD SUGAR 4 TIMES DAILY DIRECTED E11.9 400 Each 3 12/18/2020 Active Additional Information Patient taking differently: Use to test blood sugar 1 time daily as directed E11.9, Reported on 10/14/2022 BiPAP every night at bedtime. Active Amoxicillin 500 MG Oral Capsule (Amoxil)Indications: Severe aortic stenosis,S/P TAVR (transcatheter aortic valve replacement),Permane nt atrial fibrillation (HCC),Tachy-tye syndrome (HCC),Cardiac pacemaker in situ,HTN, goal below 130/80,VENU (obstructive sleep apnea),Nonobstructiv e atherosclerosis of coronary artery,Abdominal aortic aneurysm (AAA) 30 to 34 mm in diameter (HCC) Take 4 capsules 1 hour prior to any dental work 4 Capsule 4 11/10/2022 Active Mupirocin 2 % External Ointment (Bactroban)Indicatio ns:Folliculitis To affected area for up to 14 days. 30 g 1 02/19/2023 Active Additional Information Patient not taking.Reported on 05/31/2024 Accu-Chek Guide w/Device Kit Use as directed. Use to test BG values E11.9 1 Kit 03/17/2023 Active Accu-Chek Softclix Lancets Use to test BG once daily E11.9 100 Each 5 03/18/2023 Active Metoprolol Succinate ER 50 MG Oral Tablet Extended Release 24 Hour (toPROL XL)Indications:HTN, goal below 140/90,Atrial flutter, unspecified type (HCC) TAKE 1 TABLET BY MOUTH TWICE A DAY 180 Tablet 3 09/09/2023 Active Ozempic (2 MG/DOSE) 8 MG/3ML Subcutaneous Solution Pen-injector (Semaglutide (2 MG/DOSE))Indications :DM type 2, goal HbA1c < 8% ([facility]) Inject 2 mg under the skin once a week. 9 mL 3 10/29/2023 Active Pantoprazole Sodium 40 MG Oral Tablet Delayed Release (Protonix)Indication s:Dyspepsia TAKE 1 TABLET BY MOUTH EVERY DAY 90 Tablet 3 11/21/2023 Active Rosuvastatin Calcium 40 MG Oral Tablet (Crestor) TAKE 1 TABLET BY MOUTH EVERY DAY 90 Tablet 3 11/21/2023 Active Vitron-C 65-125 MG Oral Tablet (Iron-Vitamin C 65-125 mg per tab)Indications:Low ferritin level TAKE 1 TABLET BY MOUTH EVERY DAY 90 Tablet 3 11/23/2023 Active metFORMIN HCl 1000 MG Oral Tablet (Glucophage)Indicati ons:HTN, goal below 140/90 TAKE 1 TABLET BY MOUTH TWICE A DAY WITH BREAKFAST AND DINNER 180 Tablet 3 11/21/2023 Active Tamsulosin HCl 0.4 MG Oral Capsule (Flomax) TAKE 1 CAPSULE BY MOUTH EVERY MORNING 90 Capsule 1 12/31/2023 Active Warfarin Sodium 5 MG Oral Tablet (Coumadin)Indication s:Chronic atrial fibrillation (HCC),Anticoagulatio n management encounter,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 90 Capsule 5 01/25/2024 Active hydrALAZINE HCl 10 MG Oral Tablet (Apresoline) TAKE 1 TABLET BY MOUTH THREE TIMES A DAY 270 Tablet 5 04/22/2024 Active Accu-Chek Guide In Vitro Strip (Glucose Blood) USE TO TEST BLOOD SUGAR VALUES ONCE DAILY E 11.9 100 Strip 11 04/26/2024 Active Finasteride 5 MG Oral Tablet (Proscar) Take 1 Tablet by mouth in the morning. 90 Tablet 3 05/04/2024 Active Pen [place] 32G X 6 MM Use as directed. Inject 15 units daily E11.9 100 Each 3 03/01/2024 05/31/20 24 Discontinu ed(Refill) Tresiba FlexTouch 200 UNIT/ML Subcutaneous Solution Pen-injector (Insulin Degludec) Inject 17 Units under the skin in the morning. E11.9. 15 mL 3 03/31/2024 05/31/20 24 Discontinu ed(Refill) documented as of this encounter (statuses as of 06/02/2024) Active Problems Problem Noted Date Diagnosed Date Left inguinal pain 05/04/2024 Nocturia 05/04/2024 Impotence 05/04/2024 Urge incontinence 05/04/2024 S/P TAVR (transcatheter aortic valve replacement ) 10/07/2022 VENU treated with BiPAP 08/20/2021 AAA (abdominal aortic aneurysm) 04/04/2021 Overview: 3.2 cm AAA noted on US Aorta [...] 130/80 10/29/2015 Overview: Per HTN Protocol #27. 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 DM type 2, goal HbA1c < 8% 06/21/2009 Overview: Per Diabetes Taxonomy. ICD-10 update of inactive term Localized, primary osteoarthritis of hand 2008 HYPERTENSIVE HEART DZ 04/12/2009 Overview: Per Heart Failure Taxonomy Protocol. ADVANCE DIRECTIVE INFORMATION 03/16/2006 Overview: Yes, Patient instructed to provide copy of advance directive for provider to review and to be scanned into Electronic Medical Record HX COLON POLYP- 02/2000 + 04/15/05 02/20/2005 ATHEROSCLEROTIC CORONARY DISEASE 08/27/2002 Sleep apnea 02/19/2001 GENERAL OSTEOARTHROSIS documented as of this encounter (statuses as of 06/02/2024) Resolved Problems Problem Noted Date Diagnosed Date [...] 10/08/2022 ATN (acute tubular necrosis) 03/24/2014 12/16/2016 Overview: Needed acute hemodialysis HTN, GOAL BELOW 140/80 04/12/201211/28 Overview: Per HTN Protocol #27. 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 Orozco 10/201003/04/2011 03/18/2017 Diabetes mellitus with background retinopathy 11/21/19 11 09/03/2018 Overview: ICD-10 update of inactive term Retinal edema 10/24/2009 03/18/2017 HTN, GOAL BELOW 130/80 09/19/200904/15 Overview: Per HTN Taxonomy. Type 2 diabetes mellitus wit h hemoglobin A1c goal of less than 7.0% 09/19/2003 06/21/2009 Overview: Per Diabetes Taxonomy. ICD-10 update of inactive term OBESITY, UNSPECIFIED 12/21/2002 010 Overview: Per Obesity Taxonomy Hypertensive Heart Dz, severity unknown 08/27/2002 04/12/2009 Overview: Per Heart Failure Taxonomy Protocol. Other chest pain 02/19/2001 01/21/2017 HTN, goal below 140/90 09/19 Overview: Per HTN Taxonomy. Esophageal reflux 03/18/2017 PURE HYPERCHOLESTEROLEM 07/24 Overview: Per Lipid Taxonomy. documented as of this encounter (statuses as of 06/02/2024) Immunizations Name Administration Dates Next Due COVID-19 mRNA, LNP-s, No Pre serve, 2-Dose Series (Moderna) 11/26/2020,10/29/2020 COVID-19, MRNA-LNP, 23-24, P F, 30 MCG/0.3 mL, 12 YRS AND ABOVE, IM (PFIZER-Comirnat) 05/24/2023 COVID-19, mRNA, LNP-s, PF, B ooster, [...] Assigned at Male 10/18/2019 10:41 AM EST Gender Identity Male 10/18/2019 10:41 AM EST Sexual Orientation Straight 10/18/2019 10 :41 AM EST Job Start Date Occupation Industry Not on file Not on file Not on file documented as of this encounter Functional Status Functional Status Response Date of Assess ment Are you deaf or do you have serious difficulty h earing? No 10/07/2022 Are you blind or do you have serious difficulty seeing, even when wearing glasses? No 10/07/2022 Do you have serious difficul ty walking or climbing stairs? (5 years old or older) No 10/07/2022 Do you have difficulty dress ing or bathing? (5 years old or older) No 10/07/2022 Because of a physical, menta l, or emotional condition, do you have difficulty doing errands alone such as visiting a doctor s office or shopping? (15 years old or older) No 10/07/19 Cognitive Status Response Date of Assessm ent Because of a physical, menta l, or emotional condition, do you have serious difficulty concentrating, remembering, or making decisions? (5 years old or older) No 10/07/2022 documented as of this encounter Miscellaneous Notes * Telephone Encounter - Mame Zavaleta LPN - 06/01/2024 10:27 AM EDT Spoke with patient via telephone, last A1C was drawn in February 2024. New order placed for lab , pt states he has an appt this afternoon, will get blood drawn while at [facility]. Pt voiced understanding if A1C is less than 8, surgery can be rescheduled. Mame Osborn LPN * Telephone Encounter - Ashley Grider OSA - 05/31/2024 2:06 PM EDT Patient called in and would like to move forward with his surgery. I spoke with Mame Merlene and she is going to send a telemed to Dr Morales to see what his next course of action is. I told him we would call as soon as we heard back from Dr Morales documented in this encounter Plan of Treatment Upcoming Encounters Date Type Department Care Team (Late st Contact Info) Description 07/07/2024 10:00 AM EST Anticoagulation Pharmacy, [facility] [address] [facility] [place] [address] [facility] [address] [facility] [place] [address] 07/07/2024 10:10 AM EST Office Visit Pharmacy, [facility] [address] [facility] [place] [address] [facility] [address] [facility] [place] [address] 08/09/2024 9:00 AM EST Office Visit Cardiology, [facility] [address] [facility] [place] [address] Nichol Morales PA-C [address] [place] [address] 09/14/2024 11:15 AM EST Procedure Only Urology, [facility] [address] [facility] [place] [address] Luis Manuel Tyler MD [address] [place] [id number] 10/27/2024 3:40 PM EST Office Visit Family Practice [facility] [address] [facility] [place] [address] Jason Jameson DO [address] [place] [address] 05/31/2025 11:40 AM EDT Office Visit Sleep Disorders Ctr [facility] [address] [place] [phone] Radha Waldrop, [address] [place] [address] Health Maintenance Due Date Last Done Comments Diabetic Foot Exam 02/20/2024 02/19/2023, 0 02/18/2022, 02/14/2021, Additional history exists Albumin/Creatinine Ratio 10/21/2024 024, 04/30/2023, 11/10/2022, Additional history exists B-12 10/21/2024 10/22/2023, 10/23, 02/18/2022, Additional history exists Depression Screening 10/21/2024 10/22/2023 HbA1c 11/30/2024 06/01/2024, 07/0 04/2024, 10/22/2023, Additional history exists Diabetic Eye Exam 12/10/2024 12/11/2023, , 05/03/2021, Additional history exists GFR 05/04/2025 05/04/2024, 10/22, 10/22/2023, Additional history exists Adult Wellness Visit 05/12/2025 05/12/2024 DTap/Tdap Vaccines (3 - Td or Tdap) 09/03/2028 09/03/2018, 02/07/2008, 08/21/1997, Additional history exists Zoster Vaccines Discontinued 04/12/2012 Pneumococcal Vaccine: 65+ Years Completed 12/27/2014, 06/22/2012, 02/19/2006 COVID-19 Vaccine Completed 04/29/2024, 08/2022, 06/06/2022, Additional history exists Influenza Vaccine (FLU shot) Completed 04/29/2024, 05/20/2023, [...] this encounter Medical Devices Implanted Type Area Shingle Packer Device Identifier Shelf Expiration Date Model / Serial / Lot Electrode Pacing [id number] - [id number] Implanted:Qty: 1 on 10/07/2022 by Giovanni Smith MD at [facility]ARD : MEDICAL [id number] 06/23/2027 007 [id number] / / [id number] Valve Ford 3 Ultra 26mm - [id number] Implanted:Qty: 1 on 10/07/2022 by Giovanni Smith MD at [facility] [employer] [id number] 04/07/2023 [id number] / / documented as of this encounter Advance Directives * Full Code (Latest Code Status on File) Date Activated Date Inactivated Comments 10/07/2022 1:07 PM 10/08/2022 8:13 PM This order r eflects the patients wishes and were consensually agreed upon. Question Answer Comments Discussion of Advance Direct mago occurred with: Not Discussed due to patient's condition Care Teams Pit Crew Support Worker Relationship Specialty Start Date End Date Jason Jameson DO [address] [place] [address] PCP - General Family Medicine 05/11/19 documented as of this encounter
--- OUTSIDE RECORDS SUMMARY | 2024-09-01 05:17 | External Medical Summary | Summary of Care ---
Author Name Unknown Organization [facility] Address [address] [place] [address] Phone [phone] Care Team Providers Care Portable Feed Mill Operator Name Role Phone Jason Jameson Primary Care Provider Encounter Details Date Type Department Care Team (Late st Contact Info) Description 05/31/2024 Telephone Orthopaedics 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 90 Tablet 3 05/04/2024 Active Pen [place] 32G X 6 MM Use as directed. Inject 15 units daily E11.9 100 Each 3 03/01/2024 05/31/20 Discontinu ed(Refill) Tresiba FlexTouch 200 UNIT/ML Subcutaneous Solution Pen-injector (Insulin Degludec) Inject 17 Units under the skin in the morning. E11.9. 15 mL 3 03/31/2024 05/31/20 Discontinu ed(Refill) documented as of this encounter [...] 130/80 10/29/2015 Overview: Per HTN Protocol #27. 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 [...] MCG/0.3 mL, 12 YRS AND ABOVE, IM (PFIZER-Comirnaty) [...] Telephone Encounter - Mame Zavaleta LPN - 05/31/2024 2:00 PM EDT T/C from pt stating he is ready to reschedule surgery that was cancelled 03/02/24 documented in this encounter Plan of Treatment Upcoming Encounters Date Type Department Care Team (Late st Contact Info) Description 07/07/2024 10:00 AM EST [facility] [address] [place] [address] [facility] [facility] [place] [address] [place] [address] 07/07/2024 10:10 AM EST Office Visit Pharmacy, [facility] [address] [place] [address] [facility] [address] [place] [address] 08/09/2024 9:00 AM EST Office Visit Cardiology, [facility] [address] [place] [address] Nichol Morales, PAJaquelin [address] [place] [address] 09/14/2024 11:15 AM EST Procedure Only Urology, [facility] [address] [place] [address] Luis Manuel Tyler MD [address] [place] [address] 10/27/2024 3:40 PM EST Office Visit Family Practice [facility] [address] [facility] [place] [address] Jason Jameson, DO [address] [facility] [place] [address] 05/31/2025 11:40 AM EDT Office Visit Sleep Disorders Ctr [facility] [address] [facility] [place] [phone] Radha Waldrop, DO [address] [facility] [place] [address] Health Maintenance Due Date Last Done Comments Diabetic Foot Exam 02/20/2024 02/19/2023, 0 02/18/2022, 02/14/2021, Additional history exists Albumin/Creatinine Ratio 10/21/2024 024, 04/30/2023, 11/10/2022, Additional history exists B-12 10/21/2024 10/22/2023, 10/23, 02/18/2022, Additional history exists Depression Screening 10/21/2024 10/22/2023 HbA1c 11/30/2024 06/01/2024, 07/0 04/2024, 10/22/2023, Additional history exists Diabetic Eye Exam 12/10/2024 12/11/2023, , 05/03/2021, Additional history exists GFR 05/04/2025 05/04/2024, /10/2023, 10/22/2023, Additional history exists Adult Wellness Visit [...] this encounter Medical Devices Implanted Type Area Plastics Fabricator And Assembler Device Identifier Shelf Expiration Date Model / Serial / Lot Electrode Pacing [id number] - [id number] Implanted:Qty: 1 on 10/07/2022 by Giovanni Smith MD at [facility] : MEDICAL [id number] 06/23/2027 007 [id number] / / [id number] Valve Ford 3 Ultra 26mm - [id number] Implanted:Qty: 1 on 10/07/2022 by Giovanni Smith MD at [facility] [employer] [id number] 04/07/2023 [id number] / / documented as of this encounter Advance Directives * Full Code (Latest Code Status on File) Date Activated Date Inactivated Comments 10/07/2022 1:07 PM 10/08/2022 8:13 PM This order r eflects the patients wishes and were consensually agreed upon. Question Answer Comments Discussion of Advance Direct mago occurred with: Not Discussed due to patient's condition Care Teams Portable Feed Mill Operator Relationship Specialty Start Date End Date Jason Jameson DO [address] [place] [address] PCP - General Family Medicine 05/11/19 documented as of this encounter
--- OUTSIDE RECORDS SUMMARY | 2024-09-01 05:17 | External Medical Summary ---
Author Name Unknown Address Unknown Organization K01:[facility] [place] [address] [facility] [address] Laboratory Report Ordering Provider Test Date Status RAPHAEL KANG 06/01/2024 15:50:50 Final Observation Date Value Abnormality Reference (Units ) Status HbA1C 06/01/2024 15:50:50 8.7 Above high normal 4. 0-5.6 (%) Final The use of HbA1c to monitor glycemic status is based on normal hemoglobin and HbA composition. This test should not be used in patients with abnormal hemoglobin that affects the half life of the red blood cell or the in vivo glycation rates. Glucose, estimated average 06/01/2024 15:50:50 203 Above high normal <126 (mg/dL) Antonio العراقي Performing Location [facility] [place] [address] [facility] [address]
--- OUTSIDE RECORDS SUMMARY | 2024-09-01 05:17 | External Medical Summary | Summary of Care ---
Author Name Unknown Organization [facility] Address [address] [facility] [place] [address] Phone [phone] Care Team Providers Care Community Relations Officer Name Role Phone Jason Jameson Primary Care Provider Reason for Visit * Reason Comments Outpatient Testing Encounter Details Date Type Department Care Team (Late st Contact Info) Description 06/01/2024 4:40 PM EDT Laboratory Laboratory, [facility] [address] [facility] [place] [phone] [facility] 132 [place] [address] Scapholunate advanced collapse of right wrist; DM type 2, goal HbA1c < 8% ([facility]) Allergies No known active allergiesdocumented as of this encounter (statuses as of 06/01/2024) Medications Medication Sig Dispensed Refills Start Date [...] bedtime. Active Amoxicillin 500 MG Oral Capsule (Amoxil)Indications:S evere aortic stenosis,S/P TAVR (transcatheter aortic valve replacement),Permanen t atrial fibrillation (HCC),Tachy-tye syndrome (HCC),Cardiac pacemaker in situ,HTN, goal below 130/80,VENU (obstructive sleep apnea),Nonobstructive atherosclerosis of coronary artery,Abdominal aortic aneurysm (AAA) 30 to 34 mm in diameter ([facility]) Take 4 capsules 1 hour prior to any dental work 4 Capsule 4 11/10/2022 Active Mupirocin 2 % External Ointment (Bactroban)Indication s:Folliculitis To affected area for up to 14 [...] XL)Indications:HTN, goal below 140/90,Atrial flutter, unspecified type ([facility]) TAKE 1 TABLET BY MOUTH TWICE A DAY 180 Tablet 3 09/09/2023 Active Ozempic (2 MG/DOSE) 8 MG/3ML Subcutaneous Solution Pen-injector (Semaglutide (2 MG/DOSE))Indications: DM type 2, goal HbA1c < 8% ([facility]) Inject 2 mg under the skin once a week. 9 mL 3 10/29/2023 Active Pantoprazole Sodium 40 MG Oral Tablet Delayed Release (Protonix)Indications :Dyspepsia TAKE 1 TABLET BY MOUTH EVERY DAY 90 Tablet 3 11/21/2023 Active Rosuvastatin Calcium 40 MG Oral Tablet (Crestor) TAKE 1 TABLET BY MOUTH EVERY DAY 90 Tablet 3 11/21/2023 Active Vitron-C 65-125 MG Oral Tablet (Iron-Vitamin C 65-125 mg per tab)Indications:Low ferritin level TAKE 1 TABLET BY MOUTH EVERY DAY 90 Tablet 3 11/23/2023 Active metFORMIN HCl 1000 MG Oral Tablet (Glucophage)Indicatio ns:HTN, goal below 140/90 TAKE 1 TABLET BY MOUTH TWICE A DAY WITH BREAKFAST AND DINNER 180 Tablet 3 11/21/2023 Active Tamsulosin HCl 0.4 MG Oral Capsule (Flomax) TAKE 1 CAPSULE BY MOUTH EVERY MORNING 90 Capsule 1 12/31/2023 Active Warfarin Sodium 5 MG Oral Tablet (Coumadin)Indications :Chronic atrial fibrillation (HCC),Anticoagulation management encounter,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 90 Capsule 5 01/25/2024 Active Pen [place] 32G X 6 MM Use as directed. Inject 15 units daily E11.9 100 Each 3 03/01/2024 Active Tresiba FlexTouch 200 UNIT/ML Subcutaneous Solution Pen-injector (Insulin Degludec) Inject 17 Units under the skin in the morning. E11.9. 15 mL 3 03/31/2024 Active hydrALAZINE HCl 10 MG Oral Tablet (Apresoline) TAKE 1 TABLET BY MOUTH THREE TIMES A DAY 270 Tablet 5 04/22/2024 Active Accu-Chek Guide In Vitro Strip (Glucose Blood) USE TO TEST BLOOD SUGAR VALUES ONCE DAILY E 11.9 100 Strip 11 04/26/2024 Active Finasteride 5 MG Oral Tablet (Proscar) Take 1 Tablet by mouth in the morning. 90 Tablet 3 05/04/2024 Active documented as of this encounter (statuses as of 06/01/2024) Active Problems Problem Noted Date Diagnosed Date [...] 130/80 10/29/2015 Overview: Per HTN Protocol #27. 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 0 03/09/2012 [...] as of this encounter (statuses as of 06/01/2024) Resolved Problems Problem Noted Date Diagnosed Date [...] as of this encounter (statuses as of 06/01/2024) Immunizations Name Administration Dates Next Due COVID-19 [...] No 10/07/2022 documented as of this encounter Plan of Treatment Upcoming Encounters Date Type Department Care Team (Late st Contact Info) Description 07/07/2024 10:00 AM EST Anticoagulation Pharmacy, [facility] [address] [address] [facility] [address] [place] [address] 07/07/2024 10:10 AM EST Office Visit Pharmacy, [facility] [address] [place] [address] [facility] [address] [place] [address] 08/09/2024 9:00 AM EST Office Visit Cardiology, [facility] [address] [place] [address] Nichol Morales PA-C [address] [place] [address] 09/14/2024 11:15 AM EST Procedure Only Urology, [facility] [address] [place] [address] Luis Manuel Tyler MD [address] [place] [address] 10/27/2024 3:40 PM EST Office Visit Family Practice [facility] [address] [place] [address] Jason Jameson, DO [address] [place] [address] 05/31/2025 11:40 AM EDT Office Visit [facility] Disorders Ctr [facility] 132 [facility] [place] [phone] Radha Waldrop, DO [address] [place] [address] Pending Results Name Type Priority Associated Diagnoses Date /Time HEMOGLOBIN A1C Lab Routine Scapholunate advanced collapse of right wrist DM type 2, goal HbA1c < 8% ([facility]) 06/01/2024 3:50 PM EDT Health Maintenance Due Date Last Done Comments Diabetic Foot Exam 02/20/2024 02/19/2023, 0 02/18/2022, 02/14/2021, Additional history exists HbA1c 09/01/2024 03/01/2024, 09/25, 04/30/2023, Additional history exists Albumin/Creatinine Ratio 10/21/2024 024, [...] this encounter Medical Devices Implanted Type Area Behavioral Medical Director Device Identifier Shelf Expiration Date Model / Serial / Lot Electrode Pacing [id number] - [id number] Implanted:Qty: 1 on 10/07/2022 by Giovanni Smith MD at [facility] BARD : MEDICAL [id number] 06/23/2027 007 151P / / [id number] Valve Ford 3 Ultra 26mm - [id number] Implanted:Qty: 1 on 10/07/2022 by Giovanni Smith MD at [facility] [employer] [id number] 04/07/2023 [id number] / / documented as of this encounter Visit Diagnoses Diagnosis Scapholunate advanced collapse of right wrist DM type 2, goal HbA1c < 8% (HCC) documented in this encounter Advance Directives * Full Code (Latest Code Status on File) Date Activated Date Inactivated Comments 10/07/2022 1:07 PM 10/08/2022 8:13 PM This order r eflects the patients wishes and were consensually agreed upon. Question Answer Comments Discussion of Advance Direct mago occurred with: Not Discussed due to patient's condition Care Teams Community Relations Officer Relationship Specialty Start Date End Date Jason Jameson DO [address] [place] [address] PCP - General Family Medicine 05/11/19 documented as of this encounter
--- OUTSIDE RECORDS SUMMARY | 2024-09-01 05:17 | External Medical Summary | Summary of Care ---
Author Name Unknown Organization [facility] Address [address] [facility] [place] [address] Phone [phone] Care Team Providers Care Collar Closer Lockstitch Name Role Phone Jason Jameson Primary Care Provider Reason for Visit * Reason Onset Date Comments Advice 05/31/2024 Other 05/31/2024 Dave was in on 07/07/24 stating he had his A1C drawn again today, reading 7.9. He would like a call back to discuss moving forward with the surgery that was cancelled in February. He was a little upset because he said he has not heard anything back from anyone in regards to this.Please call patient Encounter Details Date Type Department Care Team (Late st Contact Info) Description 05/31/2024 Telephone Orthopaedics [facility] [address] [facility] [place] [address] Damien Morales MD [address] [facility] [place] [address] Advice; Other (Dave was in on 07/07/24 st... Allergies No known active allergiesdocumented as of [...] (AAA) 30 to 34 mm in diameter ([facility]) Take 4 capsules 1 hour prior to [...] , goal below 140/90,Atrial flutter, unspecified type ([facility]) TAKE 1 TABLET BY MOUTH TWICE A DAY 180 Tablet 3 024 Active Ozempic (2 MG/DOSE) 8 MG/3ML Subcutaneous Solution Pen-injector (Semaglutide (2 MG/DOSE))Indicatio ns:DM type 2, goal HbA1c < 8% ([facility]) Inject 2 mg under the skin once [...] (Coumadin)Indicati ons:Chronic atrial fibrillation (HCC),Anticoagulat ion management encounter,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 90 Tablet 3 024 Active Tamsulosin HCl 0.4 MG Oral Capsule (Flomax) TAKE 1 CAPSULE BY MOUTH EVERY MORNING 90 Capsule 1 024 2023 Discontinued Pen [place] 32G X 6 MM Use as directed. Inject 15 units daily E11.9 100 Each 3 024 2023 Discontinued(R efill) Tresiba FlexTouch 200 UNIT/ML Subcutaneous Solution Pen-injector (Insulin Degludec) Inject 17 Units under the skin in the morning. E11.9. 15 mL 3 024 2023 Discontinued(R efill) documented as of this encounter (statuses as [...] 130/80 10/29/2015 Overview: Per HTN Protocol #27. 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 He would like a call back to discuss moving forward with the surgery that was cancelled in February. He was a little upset because he said he has not heard anything back from anyone in regards to this. Please call patient * Telephone Encounter - Mame Zavaleta LPN - 06/01/2024 10:27 AM EDT Spoke with patient via telephone, last A1C was drawn in February 2024. New order placed for lab , pt states he has an appt this afternoon, will get blood drawn while at [facility]. Pt voiced understanding if A1C is less than 8, surgery can be rescheduled. Mame Osborn LPN * Telephone Encounter - Ashley Grider OSA - 05/31/2024 2:06 PM EDT Patient called in and would like to move forward with his surgery. I spoke with Mame Osborn and she is going to send a telemed to Dr Morales to see what his next course of action is. I told him we would call as soon as we heard back from Dr Morales documented in this encounter Plan of Treatment Upcoming Encounters Date Type Department Care Team (Late st Contact Info) Description 08/09/2024 9:00 AM EST Office Visit Cardiology, [facility] [address] [place] [address] Nichol Morales, ALAN [address] [place] [address] 09/01/2024 10:40 AM EST Anticoagulation Pharmacy, [facility] [address] [facility] [place] [address] [facility] [place] [address] 09/14/2024 11:15 AM EST Procedure Only Urology, [facility] [address] [facility] [place] [address] Luis Manuel Tyler MD [address] [place] [address] 10/27/2024 3:40 PM EST Office Visit Family Practice [facility] [address] [place] [phone] Jason Jameson, DO [address] [place] [address] 05/31/2025 11:40 AM EDT Office Visit Sleep Disorders Ctr [facility] [address] [place] [phone] Radha Waldrop, DO [address] [place] [address] Health Maintenance Due Date Last Done Comments COVID-19 Vaccine (7 - 2024-25 season) 2024 04/29/2024, 05/24/2023, 06/06/2022, Additional history exists Albumin/Creatinine Ratio 10/21/2024 024, 04/30/2023, 11/10/2022, Additional history exists B-12 10/21/2024 10/22/2023, 10/23, 02/18/2022, Additional history exists Depression Screening 10/21/2024 10/22/2023 Diabetic Eye Exam 12/10/2024 12/11/2023, , 05/03/2021, Additional history exists HbA1c 01/04/2025 07/07/2024, 04/2024, 03/01/2024, Additional history exists GFR 05/04/2025 [...] this encounter Medical Devices Implanted Type Area Bee Rancher Device Identifier Shelf Expiration Date Model / Serial / Lot Electrode Pacing [id number] - [id number] Implanted:Qty: 1 on 10/07/2022 by Giovanni Smith MD at [facility] : MEDICAL [id number] 06/23/2027 007 151P / / [id number] Valve Ford 3 Ultra 26mm - [id number] Implanted:Qty: 1 on 10/07/2022 by Giovanni Smith MD at [facility] [employer] [id number] 04/07/2023 [id number] / / documented as of this encounter Advance Directives * Full Code (Latest Code Status on File) Date Activated Date Inactivated Comments 10/07/2022 1:07 PM 10/08/2022 8:13 PM This order reflects the patients wishes and were consensually agreed upon. Question Answer Comments Discussion of Advance Direct mago occurred with: Not Discussed due to patient's condition Care Teams Collar Closer Lockstitch Relationship Specialty Start Date End Date Jason Jameson DO [address] [place] [phone] PCP - General Family Medicine 05/11/19 documented as of this encounter
--- OUTSIDE RECORDS SUMMARY | 2024-09-01 05:17 | External Medical Summary | Summary of Care ---
Author Name Unknown Organization [facility] Address [address] [facility] [place] [address] Phone [phone] Care Team Providers Care Sharepoint Specialist Name Role Phone Jason Jameson DO Primary Care Provider Reason for Visit * Reason Onset Date Comments Medication Refill 05/31/2024 Encounter Details Date Type Department Care Team (Late st Contact Info) Description 05/31/2024 Refill [facility]ized [facility], [facility] Bernard [address] [place] [address] [place] [phone] [facility] [address] [facility] [place] [address] Allergies No known active [...] :DM type 2, goal HbA1c < 8% ([facility]) Inject 2 mg under the skin [...] (Coumadin)Indication s:Chronic atrial fibrillation (HCC),Anticoagulatio n management encounter,[facility] current use of anticoagulant therapy,Atrial [...] morning. 90 Tablet 3 05/04/2024 Active Pen [place] 32G X 6 MM Use as directed. Inject 15 units daily E11.9 100 Each 3 06/02/2024 Active Tresiba FlexTouch 200 UNIT/ML Subcutaneous Solution Pen-injector (Insulin Degludec) Inject 17 Units under the skin in the morning. E11.9. 15 mL 3 06/02/2024 Active Pen [place] 32G X 6 MM Use as directed. [...] 130/80 10/29/2015 Overview: Per HTN Protocol #27. [facility] current use of anticoagulant therapy 0 03/09/2012 [...] encounter Miscellaneous Notes * Telephone Encounter - Aleisha Sullivan [facility] - 06/02/2024 9:08 AM EDTSigned Prescriptions: Disp Refills Pen [place] 32G X 6 MM 100 Ea*3 Sig: Use as directed. Inject 15 units daily E11.9 Authorizing Provider: BERNARDO SOLORZANO Ordering User: ALEISHA SULLIVAN Tresiramiro FlexTouch 200 UNIT/ML Subcutaneous*15 mL 3 Sig: Inject 17 Units under the skin in the morning. E11.9. Authorizing Provider: BERNARDO SOLORZANO Ordering er: ALEISHA SULLIVAN * Telephone Encounter - Liane Meraz, paediatrician - 05/31/2024 1:47 PM EDT Did you pend patient's preferred pharmacy and medication before forwarding?yes Pharmacy: [id number] [address] [facility] Pending Prescriptions: Disp Refills Pen [place] 32G X 6 MM 100 Ea*3 Sig: Use as directed. Inject 15 units daily E11.9 Tresiba FlexTouch 200 UNIT/ML Subcutaneou*15 mL 3 Sig: Inject 17 Units under the skin in the morning. E11.9. Last Visit: Visit date not found (in office), Visit date not found (telemedicine) Next Visit: Visit date not found If no future appointments scheduled, and last appointment is greater than a year ago, please schedule patient for a follow-up appointment Last date the medication was ordered: 03/01/24, 03/31/24 Is this request for a controlled substance?No Urine Drug Screen:No results found. However, due to the size of the patient record, not all encounters were searched. Please check Results Review for a complete set of results. Patient Phone Numbers Labs: Lab Results Component Value Date/Time CREAT 1.2 05/04/2024 12:09 PM CREAT 0.9 04/18/2020 10:22 AM POTASSIUM 4.8 05/04/2024 12:09 PM POTASSIUM 4.4 04/18/2020 10:22 AM TSH 1.62 11/04/2023 10:59 AM TSH 1.62 04/18/2020 10:22 AM LDL 71 05/04/2024 12:09 PM LDL 68 04/18/2020 10:22 AM LDL 73 08/12/2019 10:25 AM ALT 19 10/22/2023 03:40 PM ALT 13 01/28/2019 10:21 AM HGBA1C 9.4 (H) 03/01/2024 01:45 PM HGBA1C 7.2 (H) 04/18/2020 10:22 AM documented in this encounter Plan of Treatment Upcoming Encounters Date Type Department Care Team (Late st Contact Info) Description 07/07/2024 10:00 AM EST Anticoagulation Pharmacy, [facility] [address] [facility] [place] [address] [facility] [place] [address] 07/07/2024 10:10 AM EST Office Visit Pharmacy, [facility] [address] [facility] [place] [address] [facility] [address] [facility] [place] [address] 08/09/2024 9:00 AM EST Office Visit Cardiology, [facility] [address] [place] [address] Nichol Morales PA-C [address] [place] [address] 09/14/2024 11:15 AM EST Procedure Only Urology, [facility] [address] [facility] [place] [address] Luis Manuel Tyler MD [address] [place] [id number] 10/27/2024 3:40 PM EST Office Visit Family Practice [facility] [address] [facility] [place] [address] Jason Jameson DO [address] [place] [address] 05/31/2025 11:40 AM EDT Office Visit Sleep Disorders Ctr [facility] [address] [place] [phone] Radha Waldrop, [address] [place] [address] Health Maintenance Due Date Last Done Comments [...] this encounter Medical Devices Implanted Type Area Scouring Pads Supervisor Device Identifier Shelf Expiration Date Model / Serial / Lot Electrode Pacing [id number] - [id number] Implanted:Qty: 1 on 10/07/2022 by Giovanni Smith MD at [facility] [place] : MEDICAL [id number] 06/23/2027 007 151P / / [id number] Valve Ford 3 Ultra 26mm - [id number] Implanted:Qty: 1 on 10/07/2022 by Giovanni Smith MD at [facility] [employer] [id number] 04/07/2023 [id number] / / documented as of this encounter Advance Directives * Full Code (Latest Code Status on File) Date Activated Date Inactivated Comments 10/07/2022 1:07 PM 10/08/2022 8:13 PM This order r eflects the patients wishes and were consensually agreed upon. Question Answer Comments Discussion of Advance Direct maog occurred with: Not Discussed due to patient's condition Care Teams Sharepoint Specialist Relationship Specialty Start Date End Date Jason Jameson DO [address] [place] [address] PCP - General Family Medicine 05/11/19 documented as of this encounter
--- OUTSIDE RECORDS SUMMARY | 2024-09-01 05:17 | External Medical Summary | Summary of Care ---
Author Name Unknown Organization [facility] Address [address] [address] Phone [phone] Care Team Providers Care Tool Storage Attendant Name Role Phone Jason Jameson Primary Care Provider Reason for Visit * Reason Comments Follow Up Rt SLAC wrist Encounter Details Date Type Department Care Team (Late st Contact Info) Description 01/13/2024 2:30 PM EDT Office Visit Orthopaedics [facility] [address] [place] [address] Pearl Lim MD [address] [place] [address] Scapholunate advanced collapse of right wrist*; DM type 2, goal HbA1c < 8% ([facility]) Allergies No known active allergiesdocumented [...] (AAA) 30 to 34 mm in diameter ([facility]) Take 4 capsules 1 hour [...] XL)Indications:HTN, goal below 140/90,Atrial flutter, unspecified type ([facility]) TAKE 1 TABLET BY MOUTH TWICE A DAY 180 Tablet 3 09/09/19 24 Active Ozempic (2 MG/DOSE) 8 MG/3ML Subcutaneous Solution Pen-injector (Semaglutide (2 MG/DOSE))Indication s:DM type 2, goal HbA1c < 8% ([facility]) Inject 2 mg under the [...] DINNER 180 Tablet 3 11/21/19 24 Active Tamsulosin HCl 0.4 MG Oral Capsule (Flomax) TAKE 1 CAPSULE BY MOUTH EVERY MORNING 90 Capsule 1 12/31/19 24 Active Warfarin Sodium 5 MG Oral Tablet (Coumadin)Indicatio ns:Chronic atrial fibrillation (HCC),Anticoagulati on management encounter,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,Atrial flutter, unspecified type (HCC) TAKE 10MG (2 TABLETS) MON AND FRI, 7.5MG (1 AND 1/2 TABLETS) ALL OTHER DAYS 160 Tablet 3 01/13/20 24 Active Losartan Potassium 25 MG Oral Tablet (Cozaar)Indications :HTN, goal below 140/90 TAKE 1 TABLET BY MOUTH EVERY DAY 90 Tablet 1 01/13/20 24 Active hydrALAZINE HCl 10 MG Oral Tablet (Apresoline) TAKE 1 TABLET BY MOUTH THREE TIMES A DAY 270 Tablet 5 02/06/20 23 024 Discontinued Accu-Chek Guide In Vitro Strip (Glucose Blood) Use to test BG values once daily E 11.9 100 Strip 11 03/17/20 23 024 Discontinued hydroCHLOROthiazide 12.5 MG Oral Capsule (Hydrodiuril)Indica tions:Hyperkalemia, HTN, goal below 140/90 Take 1 Capsule by mouth in the morning. 30 Capsule 5 10/24/19 24 024 Discontinued(Re fill) documented as of this encounter (statuses as [...] 10/29/2015 Overview: Per HTN Protocol #27. 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 We had a long discussion last week about surgical options. Was very focused on preserving as much motion as possible and we decided on a proximal row carpectomy with an oats procedure. In thinking about this after he left and over the weekend, I was not comfortable that this was the best choice. He has at this point a good radial l unate joint and I think that the reconstruction should be centered about that joint which is working as opposed to trying to make the capitate work in the lunate facet by resurfacing it with an osteochondral bone plug. I explained that to him in detail and we decided together to change the proposedprocedure to a SLAC wrist reconstruction with bone graft from the distal radius. He is quite comfortable with that. Date of surgery is still going to be March 02, 2024. 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 ([facility]) DM type 2 with diabetic peripheral neuropathy ([facility]) Gastroesophageal reflux disease without esophagitis BPH with obstruction/lower urinary tract symptoms Hiatal hernia Cholelithiasis Inguinal hernia Renal calculi Scapholunate advanced collapse of right wrist AAA (abdominal aortic aneurysm) ([facility]) VENU treated with BiPAP S/P TAVR (transcatheter aortic valve replacement) Current Outpatient Medications Medication Sig Dispense Refill [...] to any dental work 4 Capsule 4 hydrALAZINE HCl 10 MG Oral Tablet (Apresoline) TAKE 1 TABLET BY MOUTH THREE TIMES A DAY 270 Tablet 5 Mupirocin 2 % External Ointment (Bactroban) To affected area for up to 14 days. 30 g 1 Accu-Chek Guide w/Device Kit Use as directed. Use to test BG values E11.9 1 Kit 0 Accu-Chek Guide In Vitro Strip (Glucose Blood) Use to test BG values once daily E 11.9 100 Strip 11 Accu-Chek Softclix Lancets Use to test BG once daily E11.9 100 Each 5 Metoprolol Succinate ER 50 MG Oral Tablet Extended Release 24 Hour (toPROL XL) TAKE 1 TABLET BY MOUTH TWICE A DAY 180 Tablet 3 hydroCHLOROthiazide 12.5 MG Oral Capsule (Hydrodiuril) Take 1 Capsule by mouth in the morning. 30 Capsule 5 Ozempic (2 MG/DOSE) 8 MG/3ML Subcutaneous Solution [...] WITH BREAKFAST AND DINNER 180 Tablet 3 Tamsulosin HCl 0.4 MG Oral Capsule (Flomax) TAKE 1 CAPSULE BY MOUTH EVERY MORNING 90 Capsule 1 Warfarin Sodium 5 MG Oral Tablet (Coumadin) TAKE 10MG (2 TABLETS) MON AND FRI, 7.5MG (1 AND 1/2 TABLETS) ALL OTHER DAYS 160 Tablet 3 Losartan Potassium 25 MG Oral Tablet (Cozaar) [...] date: 1963 Quit date: 07/27/1990 Years since quittin.4 Smokeless tobacco: Never Tobacco comments: passive smoke [...] Tank No Pre-filled Pod No PHYSICAL EXAM: No change ASSESSMENT: [facility] wrist PLAN: See above. Pearl Lim MD documented in this encounter Nursing Notes * Denise Zavaleta LPN - 01/13/2024 2:21 PM EDT Rt [facility] wrist discuss surgical options. Denise Osborn LPN documented in this encounter Miscellaneous Notes * Addendum Note - Denise Zavaleta LPN - 06/01/2024 10:30 AM EDTAddended by: DENISE ZAVALETA on: 06/01/2024 10:30 AM Modules accepted: Orders * Addendum Note - Pearl Lim MD - 01/13/2024 2:47 PM EDTAddended by: PEARL LIM on: 01/13/2024 02:47 PM Modules accepted: Orders documented in this encounter Plan of Treatment Upcoming Encounters Date Type Department Care Team (Late st Contact Info) Description 07/07/2024 10:00 AM EST Anticoagulation Pharmacy, [facility] [address] [facility] [place] [address] [facility] [address] [facility] [place] [address] 07/07/2024 10:10 AM EST Office Visit Pharmacy, [facility] [address] [facility] [place] [address] [facility] [address] [place] [address] 08/09/2024 9:00 AM EST Office Visit Cardiology, [facility] [address] [facility] [place] [address] Nichol Morales PA-C [address] [facility] [place] [address] 09/14/2024 11:15 AM EST Procedure Only Urology, [facility] [address] [place] [address] Luis Manuel Tyler MD [address] [facility] [place] [address] 10/27/2024 3:40 PM EST Office Visit Family Practice [facility] [address] [facility] [place] [address] Jason Jameson, DO [address] [facility] [place] [address] 05/31/2025 11:40 AM EDT Office Visit Sleep Disorders Ctr [facility] [address] [facility] [place] [phone] Radha Waldrop, DO [address] [facility] [place] [address] Scheduled Orders Name Type Priority Associated Diagnoses Orde r Schedule HEMOGLOBIN A1C Lab Routine Scapholunate advanced collapse of right wrist DM type 2, goal HbA1c < 8% ([facility]) Expected: 06/01/2024, Expires: 06/01/2025 Health Maintenance Due Date Last Done Comments [...] this encounter Medical Devices Implanted Type Area Content Publisher Device Identifier Shelf Expiration Date Model / Serial / Lot Electrode Pacing [id number] - [id number] Implanted:Qty: 1 on 10/07/2022 by Giovanni Smith MD at [facility] CR BARD : MEDICAL [id number] 06/23/2027 007 [id number] / / [id number] Valve Ford 3 Ultra 26mm - [id number] Implanted:Qty: 1 on 10/07/2022 by Giovanni Smith MD at [facility] [employer] [id number] 04/07/2023 [id number] / / documented as of this encounter Visit Diagnoses Diagnosis Scapholunate advanced collapse of right wrist- Primary DM type 2, goal HbA1c < 8% ([facility]) documented in this encounter Advance Directives * Full Code (Latest Code Status on File) Date Activated Date Inactivated Comments 10/07/2022 1:07 PM 10/08/2022 8:13 PM This order r eflects the patients wishes and were consensually agreed upon. Question Answer Comments Discussion of Advance Direct mago occurred with: Not Discussed due to patient's condition Care Teams Tool Storage Attendant Relationship Specialty Start Date End Date Jason Jameson DO [address] [place] [address] PCP - General Family Medicine 05/11/19 documented as of this encounter
--- OUTSIDE RECORDS SUMMARY | 2024-09-01 05:17 | External Medical Summary ---
Author Name Unknown Address Unknown Organization K0G[facility] [address] [place] [address] Laboratory Report Ordering Provider Test Date Status MALINI ASHBY 07/07/2024 10:14:27 Final Therapeutic ranges for non-o perative patients:
Prophylaxsis/treatment of DVT: (Range:2.0-3.0)
Treatment of pulmonary embolism:(Range:2.0-3.0)
Prevention of systemic embolism from:
-tissue heart valves
-acute myocardial infarction
-valvular heart disease
-atrial fibrillation
(Range: 2.0-3.0)
Mechanical prosthetic valves: (Range: 2.5-3.5) Observation Date Value Abnormality Reference (Units ) Status INR in Capillary blood by Coagulation assay 07/07/2024 10:14:27 2.3 (INR) Final Performing Location [facility] [address] [place] [id number]
--- OUTSIDE RECORDS SUMMARY | 2024-09-01 05:17 | External Medical Summary | Summary of Care ---
Author Name Unknown Organization [facility] Address [address] [facility] [facility] [address] Phone [phone] Care Team Providers Care Nurse Practitioner Manager Name Role Phone Jason Jameson DO Primary Care Provider Reason for Visit * Reason Onset Date Comments Advice 05/31/2024 Encounter Details Date Type Department Care Team (Late st Contact Info) Description 05/31/2024 Telephone Orthopaedics [facility] [address] [place] [phone] Damien Morales MD [address] [place] [address] Advice Allergies No known active allergiesdocumented as [...] XL)Indications:HTN, goal below 140/90,Atrial flutter, unspecified type ([facility]) TAKE 1 TABLET BY MOUTH TWICE A DAY 180 Tablet 3 09/09/2023 Active Ozempic (2 MG/DOSE) 8 MG/3ML Subcutaneous Solution Pen-injector (Semaglutide (2 MG/DOSE))Indications: DM type 2, goal HbA1c < 8% ([facility]) Inject 2 mg under the skin [...] Tablet (Coumadin)Indications :Chronic atrial fibrillation (HCC),Anticoagulation management encounter,correction current use of anticoagulant therapy,Atrial flutter, unspecified [...] morning. 90 Capsule 5 01/25/2024 Active Pen [place] 32G X 6 MM Use as directed. 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 Pt voiced understanding if A1C is [...] Description 07/07/2024 10:00 AM EST Anticoagulation Pharmacy, [facility] [address] [facility] [place] [address] [facility] [place] [address] 07/07/2024 10:10 AM EST Office Visit Pharmacy, [facility] [address] [facility] [place] [address] [facility] [place] [address] 08/09/2024 9:00 AM EST Office Visit Cardiology, [facility] [address] [facility] [place] [address] Nichol Morales PA-C [address] [place] [address] 09/14/2024 11:15 AM EST Procedure Only Urology, [facility] [address] [facility] [place] [address] Luis Manuel Tyler MD [address] [place] [address] 10/27/2024 3:40 PM EST Office Visit Family Practice [facility] [address] [facility] [place] [address] Jason Jameson DO [address] [place] [address] 05/31/2025 11:40 AM EDT Office Visit Sleep Disorders Ctr [facility] [address] [facility] [place] [phone] Radha Waldrop, [address] [place] [address] Health Maintenance Due Date Last Done Comments [...] this encounter Medical Devices Implanted Type Area Client Evaluator Device Identifier Shelf Expiration Date Model / Serial / Lot Electrode Pacing [id number] - [id number] Implanted:Qty: 1 on 10/07/2022 by Giovanni Smith MD [place] [facility] [place] : MEDICAL [id number] 06/23/2027 007 151P / / [id number] Valve Ford 3 Ultra 26mm - [id number] Implanted:Qty: 1 on 10/07/2022 by Giovanni Smith MD at [facility] [employer] [id number] 04/07/2023 [id number] / / documented as of this encounter Advance Directives * Full Code (Latest Code Status on File) Date Activated Date Inactivated Comments 10/07/2022 1:07 PM 10/08/2022 8:13 PM This order r eflects the patients wishes and were consensually agreed upon. Question Answer Comments Discussion of Advance Direct mago occurred with: Not Discussed due to patient's condition Care Teams Nurse Practitioner Manager Relationship Specialty Start Date End Date Jason Jameson DO [address] [place] [address] PCP - General Family Medicine 05/11/19 documented as of this encounter
--- OUTSIDE RECORDS SUMMARY | 2024-09-01 05:17 | External Medical Summary | Summary of Care ---
Author Name Unknown Organization [facility] Address [address] [facility] [address] Phone [phone] Care Team Providers Care Contract Agent Name Role Phone Jason Jameson Primary Care Provider Reason for Visit * Reason Onset Date Comments Advice 05/31/2024 Other 05/31/2024 Dvae was in on 07/07/24 stating he had [...] st Contact Info) Description 05/31/2024 Telephone Orthopaedics [facility] [address] [facility] [place] [address] [place]ien Morales MD [address] [facility] [place] [address] Advice; Other (Dave was in on 07/07/24 [...] 30 to 34 mm in diameter ([facility]) Take 4 capsules 1 hour prior [...] goal below 140/90,Atrial flutter, unspecified type ([facility]) TAKE 1 TABLET BY MOUTH TWICE A DAY 180 Tablet 3 024 Active Ozempic (2 MG/DOSE) 8 MG/3ML Subcutaneous Solution Pen-injector (Semaglutide (2 MG/DOSE))Indicatio ns:DM type 2, goal HbA1c < 8% ([facility]) Inject 2 mg under the skin [...] (Coumadin)Indicati ons:Chronic atrial fibrillation (HCC),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 [...] 130/80 10/29/2015 Overview: Per HTN Protocol #27. 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 Pt voiced understanding if A1C is [...] 08/09/2024 9:00 AM EST Office Visit Cardiology, [facility] [address] [place] [address] Nichol Morales, ALAN [address] [place] [address] 09/01/2024 10:40 AM EST Anticoagulation Pharmacy, [facility] [address] [facility] [place] [address] [facility] [place] [address] 09/14/2024 11:15 AM EST Procedure Only Urology, [facility] [address] [facility] [place] [address] Luis Manuel Tyler MD [address] [place] [address] 10/27/2024 3:40 PM EST Office Visit Family Practice [facility] [address] [place] [address] Jason Jameson, DO [address] [place] [address] 05/31/2025 11:40 AM EDT Office Visit Sleep Disorders Ctr [facility] [address] [place] [phone] Radha Waldrop, DO [address] [place] [address] Health Maintenance Due Date Last Done Comments [...] this encounter Medical Devices Implanted Type Area Fish House Worker Device Identifier Shelf Expiration Date Model / Serial / Lot Electrode Pacing [id number] - [id number] Implanted:Qty: 1 on 10/07/2022 by Giovanni Smith MD at [facility] CR BARD : MEDICAL [id number] 06/23/2027 007 151P / / [id number] Valve Ford 3 Ultra 26mm - [id number] Implanted:Qty: 1 on 10/07/2022 by Giovanni Smith MD at [facility] [employer] [id number] 04/07/2023 [id number] / / documented as of this encounter Advance Directives * Full Code (Latest Code Status on File) Date Activated Date Inactivated Comments 10/07/2022 1:07 PM 10/08/2022 8:13 PM This order reflects the patients wishes and were consensually agreed upon. Question Answer Comments Discussion of Advance Direct mago occurred with: Not Discussed due to patient's condition Care Teams Contract Agent Relationship Specialty Start Date End Date Jason Jameson DO [address] [place] [address] PCP - General Family Medicine 05/11/19 documented as of this encounter
--- OUTSIDE RECORDS SUMMARY | 2024-09-01 05:17 | External Medical Summary | Summary of Care ---
Author Name Unknown Organization [facility] Address [address] [facility] [place] [address] Phone [phone] Care Team Providers Care Plate Glass Polisher Name Role Phone Cristian Jameson DO Primary Care Provider Reason for Visit * Reason Comments eRx-Medication Refill Encounter Details Date Type Department Care Team (Late st Contact Info) Description 06/02/2024 Refill Family Practice [facility] [address] [place] [address] Cristian Jameson DO [address] [place] [address] Allergies No known active allergiesdocumented as of this encounter (statuses as of 06/03/2024) Medications Medication Sig Dispensed Refills Start Date End Date Status aspirin enteric coated 81 MG TBEC TAKE 1 TABLET BY MOUTH DAILY. 31 Tab 11 8 Active Accu-Chek Softclix Lancets USE TO TEST BLOOD SUGAR 4 TIMES DAILY DIRECTED E11.9 400 Each 3 1 Active Additional Information Patient taking differently: Use [...] to any dental work 4 Capsule 4 3 Active Mupirocin 2 % External Ointment (Bactroban)Indicati ons:Folliculitis To affected area for up to 14 days. 30 g 1 3 Active Additional Information Patient not taking.Reported on 05/31/2024 Accu-Chek Guide w/Device Kit Use as directed. Use to test BG values E11.9 1 Kit 3 Active Accu-Chek Softclix Lancets Use to test BG once daily E11.9 100 Each 5 3 Active Metoprolol Succinate ER 50 MG Oral Tablet Extended Release 24 Hour (toPROL XL)Indications:HTN, goal below 140/90,Atrial flutter, unspecified type ([facility]) TAKE 1 TABLET BY MOUTH TWICE A DAY 180 Tablet 3 4 Active Ozempic (2 MG/DOSE) 8 MG/3ML Subcutaneous Solution Pen-injector (Semaglutide (2 MG/DOSE))Indication s:DM type 2, goal HbA1c < 8% ([facility]) Inject 2 mg under the skin once a week. 9 mL 3 4 Active Pantoprazole Sodium 40 MG Oral Tablet Delayed Release (Protonix)Indicatio ns:Dyspepsia TAKE 1 TABLET BY MOUTH EVERY DAY 90 Tablet 3 4 Active Rosuvastatin Calcium 40 MG Oral Tablet (Crestor) TAKE 1 TABLET BY MOUTH EVERY DAY 90 Tablet 3 4 Active Vitron-C 65-125 MG Oral Tablet (Iron-Vitamin C 65-125 mg per tab)Indications:Low ferritin level TAKE 1 TABLET BY MOUTH EVERY DAY 90 Tablet 3 4 Active metFORMIN HCl 1000 MG Oral Tablet (Glucophage)Indicat ions:HTN, goal below 140/90 TAKE 1 TABLET BY MOUTH TWICE A DAY WITH BREAKFAST AND DINNER 180 Tablet 3 4 Active Warfarin Sodium 5 MG Oral Tablet (Coumadin)Indicatio ns:Chronic atrial fibrillation (HCC),Anticoagulati on management encounter,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 90 Capsule 5 4 Active hydrALAZINE HCl 10 MG Oral Tablet (Apresoline) TAKE 1 TABLET BY MOUTH THREE TIMES A DAY 270 Tablet 5 4 Active Accu-Chek Guide In Vitro Strip (Glucose Blood) USE TO TEST BLOOD SUGAR VALUES ONCE DAILY E 11.9 100 Strip 11 4 Active Finasteride 5 MG Oral Tablet (Proscar) Take 1 Tablet by mouth in the morning. 90 Tablet 3 4 Active Pen [place] 32G X 6 MM Use as directed. Inject 15 units daily E11.9 100 Each 3 4 Active Tresiba FlexTouch 200 UNIT/ML Subcutaneous Solution Pen-injector (Insulin Degludec) Inject 17 Units under the skin in the morning. E11.9. 15 mL 3 4 Active Tamsulosin HCl 0.4 MG Oral Capsule (Flomax) TAKE 1 CAPSULE BY MOUTH EVERY DAY IN THE MORNING 90 Capsule 1 4 Active Tamsulosin HCl 0.4 MG Oral Capsule (Flomax) TAKE 1 CAPSULE BY MOUTH EVERY MORNING 90 Capsule 1 4 06/03/20 24 Discontinued documented as of this encounter (statuses as of 06/03/2024) Active Problems Problem Noted Date Diagnosed Date [...] 10/29/2015 Overview: Per HTN Protocol #27. intermediate current use of anticoagulant therapy 0 03/09/2012 [...] as of this encounter (statuses as of 06/03/2024) Resolved Problems Problem Noted Date Diagnosed Date [...] as of this encounter (statuses as of 06/03/2024) Immunizations Name Administration Dates Next Due COVID-19 [...] encounter Miscellaneous Notes * Telephone Encounter - Arron Damon RPh - 06/03/2024 3:38 PM EDT Signed Prescriptions: Disp Refills Tamsulosin HCl 0.4 MG Oral Capsule (Flomax)90 Cap*1 Sig: TAKE 1 CAPSULE BY MOUTH EVERY DAY IN THE MORNINGAuthorizing Provider: CRISTIAN JAMESON User: ARRON DAMON documented in this encounter Plan of Treatment Upcoming Encounters Date Type Department Care Team (Late st Contact Info) Description 07/07/2024 10:00 AM EST Anticoagulation Pharmacy, [facility] [address] [facility] [place] [address] [facility] [place] [address] 07/07/2024 10:10 AM EST Office Visit Pharmacy, [facility] [address] [facility] [place] [address] [facility] [address] [facility] [place] [address] 08/09/2024 9:00 AM EST Office Visit Cardiology, [facility] [address] [facility] [place] [address] Nichol Morales, ALAN 132 [facility] [place] [address] 09/14/2024 11:15 AM EST Procedure Only Urology, [facility] [address] [facility] [place] [address] Luis Manuel Tyler MD [address] [place] [address] 10/27/2024 3:40 PM EST Office Visit Family Practice [facility] [address] [facility] [place] [address] Cristian Jameson, DO 132 [facility] [place] [address] 05/31/2025 11:40 AM EDT Office Visit Sleep Disorders Ctr [facility] [address] [facility] [place] [phone] Radha Waldrop, DO [address] [facility] [place] [address] Health Maintenance Due Date Last Done Comments [...] this encounter Medical Devices Implanted Type Area Director Labor Standards Device Identifier Shelf Expiration Date Model / Serial / Lot Electrode Pacing [id number] - [id number] Implanted:Qty: 1 on 10/07/2022 by Giovanni Smith MD at [facility] : MEDICAL [id number] 06/23/2027 007 [id number] / / [id number] Valve Ford 3 Ultra 26mm - [id number] Implanted:Qty: 1 on 10/07/2022 by Giovanni Smith MD at [facility] [place] [employer] [id number] 04/07/2023 [id number] / / documented as of this encounter Advance Directives * Full Code (Latest Code Status on File) Date Activated Date Inactivated Comments 10/07/2022 1:07 PM 10/08/2022 8:13 PM This order r eflects the patients wishes and were consensually agreed upon. Question Answer Comments Discussion of Advance Direct mago occurred with: Not Discussed due to patient's condition Care Teams Plate Glass Polisher Relationship Specialty Start Date End Date Cristian Jameson DO [address] [place] [address] PCP - General Family Medicine 05/11/19 documented as of this encounter
--- OUTSIDE RECORDS SUMMARY | 2024-09-01 05:18 | External Medical Summary | Summary of Care ---
Author Name Unknown Organization [facility] Address [address] [facility] [address] Phone [phone] Care Team Providers Care Coding Coordinator Name Role Phone Jason Jameson Primary Care Provider Reason for Visit * Reason Onset Date Comments FYI 05/13/2024 Encounter Details Date Type Department Care Team (Late st Contact Info) Description 05/13/2024 Telephone Centralized Clinical Pharmacy Services, Michael Bernard [address] [place] [address] [place] [phone] [facility] Becky [address] [facility] [place] [phone] FY Allergies No known active allergiesdocumented as of this encounter (statuses as of 05/13/2024) Medications Medication Sig Dispensed Refills Start Date [...] 14 days. 30 g 1 02/19/2023 Active Accu-Chek Guide w/Device Kit Use as directed. Use to test BG values E11.9 1 Kit 03/17/2023 Active Accu-Chek Softclix Lancets Use to test BG once daily E11.9 100 Each 5 03/18/2023 Active Metoprolol Succinate ER 50 MG Oral Tablet Extended Release 24 Hour (toPROL XL)Indications:HTN, goal below 140/90,Atrial flutter, unspecified type ([facility]) TAKE 1 TABLET BY MOUTH TWICE A DAY 180 Tablet 3 09/09/2023 Active Ozempic (2 MG/DOSE) 8 MG/3ML Subcutaneous Solution Pen-injector (Semaglutide (2 MG/DOSE))Indications: DM type 2, goal HbA1c < 8% ([facility]) Inject 2 mg under the skin once [...] Tablet (Coumadin)Indications :Chronic atrial fibrillation (HCC),Anticoagulation management encounter,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 90 Capsule 5 01/25/2024 Active Pen [place] 32G X 6 MM Use as directed. 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 hali Orozco [...] as of this encounter (statuses as of 05/13/2024) Immunizations Name Administration Dates Next Due COVID-19 [...] Adjuvanted, 65+ Yrs, IM (FLUAD) 05/07/2020 Seasonal Influenza, PF, 6 M & above, IM , (FluLaval or Fluzone) 05/10/2018,05/18/2017 Seasonal Influenza, Quadriva lent Hd (Fluzone Hd) 05/20/2023,05/01/2022,05/06/2021 Seasonal Influenza, Quadriva lent, No Preserve, IM 06/04/2016 Seasonal Influenza, Trivalen t, (IIV3), with Preserv, (Fluzone) 05/02/2015,05/05/2014,05/09/2013,05/18,05/13/2011,06/07/2010,05/24/2009 ,06/16/2008,07/06/2007,06/26/2006 Seasonal Influenza, Trivalen t, Adjuvanted, 65+ YRS, [...] expos ure at wk - as of 3--07 no smoke exposure Alcohol Use Standard Drinks/Week [...] Telephone Encounter - Lindsay Mercedes RPh - 05/13/2024 10:03 AM EDT Patient Phone Numbers Left message for patient. Told him to hold on to the Dexcom sensor andbring to next appointment Fausto'll help him download everything and set it up at next visit. I also am not in [place] today, so please do not return. Lindsay Mercedes, Pharm D, BCACP Clinical Pharmacist 05/13/2024, 10:05 AM * Telephone Encounter - Love Troncoso PHARM Tech - 05/13/2024 9:50 AM EDT Caller's name: Dave Lucho call back number(OFFICE NUMBER FOR ): [phone] Reason for call: Patient called in, he said he wants to return his G7 sensor since he is having trouble programming things into his phone. He was planning on bringing in the device this afternoon. Please advise. Thank you, Love Troncoso Hand Clipper I [facility] ([facility]) 05/13/2024, 9:50 AM documented in this encounter Plan of Treatment Upcoming Encounters Date Type Department Care Team (Late st Contact Info) Description 05/31/2024 11:20 AM EDT Office Visit [facility] Disorders Ctr [facility] [place] [phone] Radha Waldrop DO [address] [place] [address] 07/07/2024 10:00 AM EST Anticoagulation Pharmacy, [facility] 132 [facility] [place] [address] [place] [address] 07/07/2024 10:10 AM EST Office Visit Pharmacy, [facility] [address] [facility] [place] [address] [facility] [place] [address] 08/09/2024 9:00 AM EST Office Visit Cardiology, [facility] [address] [facility] [place] [address] Nichol Morales PA-C [address] [place] [address] 09/14/2024 11:15 AM EST Procedure Only Urology, [facility] [address] [facility] [place] [address] Luis Manuel Tyler MD [address] [place] [address] 10/27/2024 3:40 PM EST Office Visit Family [facility] [address] [place] [address] Jason Jameson, [address] [place] [address] Health Maintenance Due Date Last Done Comments [...] this encounter Medical Devices Implanted Type Area Author'S Agent Device Identifier Shelf Expiration Date Model / Serial / Lot Electrode Pacing [id number] - [id number] Implanted:Qty: 1 on 10/07/2022 by Giovanni Smith MD at [facility] : MEDICAL [id number] 06/23/2027 007 151P / / [id number] Valve Ford 3 Ultra 26mm - [id number] Implanted:Qty: 1 on 10/07/2022 by Giovanni Smith MD at [facility] [employer] [id number] 04/07/2023 [id number] / / documented as of this encounter Advance Directives * Full Code (Latest Code Status on File) Date Activated Date Inactivated Comments 10/07/2022 1:07 PM 10/08/2022 8:13 PM This order r eflects the patients wishes and were consensually agreed upon. Question Answer Comments Discussion of Advance Direct mago occurred with: Not Discussed due to patient's condition Care Teams Coding Coordinator Relationship Specialty Start Date End Date Jason Jameson DO 132 [facility] [place] [address] PCP - General Family Medicine 05/11/19 documented as of this encounter
--- OUTSIDE RECORDS SUMMARY | 2024-09-01 05:18 | External Medical Summary | Summary of Care ---
Author Name Unknown Organization [facility] Address [address] [facility] [address] Phone [phone] Care Team Providers Care Breast Surgeon Name Role Phone Jason Jameson Primary Care Provider Reason for Visit * Reason Comments Dosage Adjustment In Person (Anticoag Cl inic) Encounter Details Date Type Department Care Team (Latest Contact Info) Description 05/12/2024 1:00 PM EDT Anticoagulation Pharmacy, [facility] 132 [facility] [place] [address] [facility] 132 [facility] [place] [address] Anticoagulation management encounter*; Chronic atrial fibrillation (HCC) [...] to 34 mm in diameter ([facility]) Take 4 capsules 1 hour prior [...] below 140/90,Atrial flutter, unspecified type ([facility]) TAKE 1 TABLET BY MOUTH TWICE A DAY 180 Tablet 3 09/09/2023 Active Ozempic (2 MG/DOSE) 8 MG/3ML Subcutaneous Solution Pen-injector (Semaglutide (2 MG/DOSE))Indications: DM type 2, goal HbA1c < 8% ([facility]) Inject 2 mg under the [...] Tablet (Coumadin)Indications :Chronic atrial fibrillation (HCC),Anticoagulation management encounter,custodial current use of anticoagulant therapy,Atrial flutter, unspecified [...] 90 Capsule 5 01/25/2024 Active Pen [place] 32G X 6 MM Use as directed. [...] 130/80 10/29/2015 Overview: Per HTN Protocol #27. custodial current use of anticoagulant therapy 0 03/09/2012 [...] as of this encounter Progress Notes * Laurita Paula, [facility] - 05/12/2024 1:10 PM EDT Images from the original note were not included. Medication Therapy Disease Management - Anticoagulation Patient: Dave Dow | : 1945 Subjective Contacts Contact Date/Time Type Contact Phone/Fax 05/05/2024 05:10 AM EDT Vendor (Outgoing) PalomaDave alex [phone] 05/09/2024 05:13 AM EDT Vendor (Outgoing) Paloma Dave Jurado [phone] 05/11/2024 05:11 AM EDT Vendor (Outgoing) Paloma Dave Rhiannon [phone] Patient-Reported Symptoms: Patient Findings Negatives: Signs/symptoms of thrombosis, Signs/symptoms of bleeding, Change in health, Change in alcohol use, Change in activity, Upcoming invasive procedure, Missed doses, Extra doses, Change in medications, Change in diet/appetite, Bruising Objective Current Warfarin Dose As of 05/12/2024 INR Result As of 05/12/2024 INR goal: 2.0-3.0 INR used for dosin.3 (05/12/2024) Assessment & Plan Warfarin Plan As of 05/12/2024 Full warfarin instructions: 05/12: Hold; Otherwise 10 mg every Mon, Fri; 5 mg all other days Next INR check: 07/07/2024 Repeat PT/INR in 8 week(s) Weekly dose: not changed Additional Dosing Information: I spent a total of 10-19 minutes (exact time 15 mins) on the date of service in preparation, delivery, and documentation of the care provided to Dave Dow excluding any time spent in the performance of separately billed services or time spent by another provider/QHP. Laurita Paula PharmD, [facility] PGY1 Nat[facility] 05/13/2024 8:20 AM documented in this encounter Plan of Treatment Upcoming Encounters Date Type Department Care Team (Late st Contact Info) Description 05/31/2024 11:20 AM EDT Office Visit Sleep Disorders Ctr [facility] [address] [place] [phone] Radha Waldrop DO [address] [place] [address] 07/07/2024 10:00 AM EST Anticoagulation Pharmacy, [facility] [address] [place] [address] [facility] [address] [place] [address] 07/07/2024 10:10 AM EST Office Visit Pharmacy, [facility] [address] [address] [facility] [address] [place] [address] 08/09/2024 9:00 AM EST Office Visit [facility], [facility] [address] [place] [address] Nichol Morales, ALAN [address] [place] [address] 09/14/2024 11:15 AM EST Procedure Only Urology, [facility] [address] [place] [address] Luis Manuel Tyler MD [address] [place] [address] 10/27/2024 3:40 PM EST Office Visit Family Practice [facility] [address] [place] [address] Jason Jameson DO [address] [place] [address] Health Maintenance Due Date Last Done Comments [...] this encounter Medical Devices Implanted Type Area Rn Clinician Device Identifier Shelf Expiration Date Model / Serial / Lot Electrode Pacing [id number] - [id number] Implanted:Qty: 1 on 10/07/2022 by Giovanni Smith MD at [facility] : MEDICAL [id number] 06/23/2027 007 151P / / [id number] Valve Ford 3 Ultra 26mm - [id number] Implanted:Qty: 1 on 10/07/2022 by Giovanni Smith MD at [facility] [employer] [id number] 04/07/2023 [id number] / / documented as of this encounter Procedures Procedure Name Priority Date/Time Associated Diagnosis Comments INR FINGERSTICK, POINT OF CARE STAT 05/12/2024 1:16 PM EDT Chronic atrial fibrillation (HCC) Anticoagulation management encounter documented in this encounter Results * INR FINGERSTICK, POINT OF CARE (05/12/2024 1:16 PM EDT) Fingerstick INR 3.3 INR 7:34 AM EDT [facility]10 Blood 05/12/2024 1:16 PM EDT 05/13/2024 7:34 AM EDT Narrative [facility]-10 - 05/13/2024 7:34 AM EDT Therapeutic ranges for non-operative patients: Prophylaxsis/treatment of DVT: (Range:2.0-3.0) Treatment of pulmonary embolism:(Range:2.0-3.0) Prevention of systemic embolism from: -tissue heart valves -acute myocardial infarction -valvular heart disease -atrial fibrillation (Range: 2.0-3.0) Mechanical prosthetic valves: (Range: 2.5-3.5) Lindsaytre Mercedes [facility] LAB POINT OF C ARE TEST DOCKED DEVICE UNSOLICITED RESULTS [facility] [place] 57-10 [address] [address] documented in this encounter Visit Diagnoses Diagnosis [...] Discussed due to patient's condition Care Teams Breast Surgeon Relationship Specialty Start Date End Date Jason Jameson DO [address] [address] PCP - General Family Medicine 05/11/19 documented as of this encounter"
--- OUTSIDE RECORDS SUMMARY | 2024-09-01 05:18 | External Medical Summary | Summary of Care ---
Author Name Unknown Organization [facility] Address [address] [place] [place] [address] Phone [phone] Care Team Providers Care Pharmacy Student Name Role Phone Jason Jameson Primary Care Provider Encounter Details Date Type Department Care Team (Late st Contact Info) Description 05/31/2024 Telephone Orthopaedics [facility] [address] [place] [address] Damien Morales MD [address] [place] [address] Allergies No known active allergiesdocumented as of this encounter (statuses as of 05/31/2024) Medications Medication Sig Dispensed Refills Start Date [...] Tablet (Coumadin)Indications :Chronic atrial fibrillation (HCC),Anticoagulation management encounter,shelter current use of anticoagulant therapy,Atrial [...] morning. 90 Capsule 5 01/25/2024 Active Pen [place] 32G X 6 MM Use as directed. [...] as of this encounter (statuses as of 05/31/2024) Active Problems Problem Noted Date Diagnosed Date [...] 130/80 10/29/2015 Overview: Per HTN Protocol #27. 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 0 03/09/2012 [...] as of this encounter (statuses as of 05/31/2024) Resolved Problems Problem Noted Date Diagnosed Date [...] 10/201003/04/2011 03/18/2017 Diabetes mellitus with background retinopathy 11/21/1909/03/2018 Overview: ICD-10 update of inactive term Retinal [...] as of this encounter (statuses as of 05/31/2024) Immunizations Name Administration Dates Next Due COVID-19 [...] Description 07/07/2024 10:00 AM EST [facility] [address] [place] [address] [facility] [place] [address] [place] [address] 07/07/2024 10:10 AM EST [facility] [address] [place] [address] [facility] [place] [address] [place] [address] 08/09/2024 9:00 AM EST Office Visit Cardiology, [facility] 132 [facility] [place] [address] Nichol Morales PA-C [address] [place] [address] 09/14/2024 11:15 AM EST Procedure Only Urology, [facility] 132 [facility] [place] [address] Luis Manuel Tyler MD [address] [place] [address] 10/27/2024 3:40 PM EST Office Visit Family [facility] [place] [address] Jason Jameson, DO 132 [facility] [place] [address] 05/31/2025 11:40 AM EDT Office Visit [facility] Disorders Ctr [facility] 132 [facility] [place] [phone] Radha Waldrop, DO 132 [facility] [place] [address] Health Maintenance Due Date Last Done Comments [...] this encounter Medical Devices Implanted Type Area Departmental Secretary Device Identifier Shelf Expiration Date Model / Serial / Lot Electrode Pacing [id number] - [id number] Implanted:Qty: 1 on 10/07/2022 by Giovanni Smith MD at [facility] [employer] : MEDICAL [id number] 06/23/2027 007 151P / / [id number] Valve Ford 3 Ultra 26mm - [id number] Implanted:Qty: 1 on 10/07/2022 by Giovanni Smith MD at [facility] [employer] [id number] 04/07/2023 [id number] / / documented as of this encounter Advance Directives * Full Code (Latest Code Status on File) Date Activated Date Inactivated Comments 10/07/2022 1:07 PM 10/08/2022 8:13 PM This order r eflects the patients wishes and were consensually agreed upon. Question Answer Comments Discussion of Advance Direct mago occurred with: Not Discussed due to patient's condition Care Teams Pharmacy Student Relationship Specialty Start Date End Date Jason Jameson DO [address] [place] [address] PCP - General Family Medicine 05/11/19 documented as of this encounter
--- OUTSIDE RECORDS SUMMARY | 2024-09-01 05:18 | External Medical Summary | Summary of Care ---
Author Name Unknown Organization [facility] [address] [address] Phone [phone] Care Team Providers Care Dynamic Balancer Name Role Phone Jason Jameson DO Primary Care Provider Reason for Visit * Reason Comments Dosage Adjustment In Person (Anticoag Cl inic) Encounter Details Date Type Department Care Team (Late st Contact Info) Description 05/12/2024 1:10 PM EDT Office Visit Pharmacy, [facility] [address] [address] [place] [phone] [facility] [address] [place] [address] DM type 2, goal HbA1c < 8% ([facility])* Allergies No known active allergiesdocumented as of this encounter (statuses as of 05/12/2024) Medications Medication Sig Dispensed Refills Start Date [...] (AAA) 30 to 34 mm in diameter ([facility]) Take 4 capsules 1 hour [...] XL)Indications:HTN, goal below 140/90,Atrial flutter, unspecified type ([facility]) TAKE 1 TABLET BY MOUTH TWICE A DAY 180 Tablet 3 09/09/2023 Active Ozempic (2 MG/DOSE) 8 MG/3ML Subcutaneous Solution Pen-injector (Semaglutide (2 MG/DOSE))Indications: DM type 2, goal HbA1c < 8% ([facility]) Inject 2 mg under the [...] Tablet (Coumadin)Indications :Chronic atrial fibrillation (HCC),Anticoagulation management encounter,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 90 Capsule 5 01/25/2024 Active Pen Oneco 32G X 6 MM Use as directed. 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 Orozco 10/201003/04/2011 03/18/2017 Diabetes mellitus [...] as of this encounter (statuses as of 05/12/2024) Immunizations Name Administration Dates Next Due COVID-19 [...] as of this encounter Progress Notes * Lindsay Mercedes [facility] - 05/12/2024 2:31 PM EDT I agree with documented plan of care. Lindsay Mercedes, [facility] D, [facility] 05/12/2024, 2:31 PM * Laurita Paula [facility] - 05/12/2024 1:05 PM EDT Medication Therapy Disease Management [facility] - Diabetes Management Progress Note Dave Dow, identified by name and date of , is a 78 year old male being seen for diabetes management/education. Patient presents for return diabetic visit. DIABETES: Current diabetic medications: Ozempic 2 mg weekly - Thursday Tresiba 17 units daily Metformin 1000 mg BID Medication Injection Site: Abdomen Lifestyle: Diet: unchanged Glucose Review/SMBG: Readings obtained from patient documented BG logbook Pre am Post am Pre Lunch Post Lunch Pre pm Post pm HS 3am 145 140 146 191 148 146 190 180 181 180 173 185 162 180 178 211 210 198 156 155 170 190 150 196 164 136 173 168 192 190 180 206 169 185 170 157 170 180 217 206 147 170 212 Average 169 #DIV/0! 172 #DIV/0! 173 #DIV/0! 188 #DIV/0! Hi 210 0 198 0 217 0 212 0 Lo 145 0 136 0 [address] 0 [phone] 0 171.25 0 188.8889 0 Range 65 0 62 0 71 0 57 0 Hypoglycemia: Does your blood sugar go below 70 mg/dL? No Hyperglycemia symptoms present: none Recent Labs Units 03/01/24 1345 10/22/23 1540 04/30/23 1254 HEMOGLOBIN A1C - [facility] % -- 9.3* 8.8* HEMOGLOBIN A1C POCT - [facility] % 9.4* -- -- Recent Labs Units 05/04/24 1209 11/04/23 1059 10/22/23 1540 ESTIMATED GLOMERULAR FILTRATION RATE - [facility] mL/min 61 53* 68 CREATININE - [facility] mg/dL 1.2 1.4* 1.1 HYPERTENSION: Patient on ACEi/ARB: yes BP Readings from Last 3 Encounters: 04/21/24 122/68 03/02/24 130/66 01/01/24 100/58 Blood pressure at goal: yes HYPERLIPIDEMIA: Recent Labs Units 05/04/24 1209 10/22/23 1540 04/30/23 1254 LDL CHOLESTEROL (CALCULATED) - [facility] mg/dL 71 -- -- LDL CHOLESTEROL (DIRECT MEASURE) - [facility] mg/dL -- 76 80 Does patient have clinical ASCVD? Yes, is patient LDL less than 55 mg/dL? Yes HEALTH MAINTENANCE REVIEW: Health Maintenance Due Topic Date Due Adult Wellness Visit 04/06/2020 Diabetic Foot Exam 02/20/2024 ASSESSMENT & PLAN: ICD-10-CM 1. DM type 2, goal HbA1c < 8% ([facility]) E11.9 Pt was interested in CGM - educated pt on how it works and how to start. Gave pt a Dexcom G7 sampleto start at home since it was unsuccessful downloading the caprice. Will f/u at the next visit. Compelted AWV together at this visit. BG Readings - Blood sugars uncontrolled. Improved compared to past readings. Medications - Reviewed current regimen, patient is adherent to regimen. Diet, Exercise, Lifestyle - No significant lifestyle changes since last visit. Patient is agreeable to SMBG 1 time(s) daily. Patient aware to contact clinic if any hypoglycemia before next visit. MEDICATION CHANGES: yes, see below; preferred pharmacy: [facility] Diabetic Medications: Ozempic 2 mg weekly - Thursday INCREASE: Tresiba 20 units daily Metformin 1000 mg BID HEALTH MAINTENANCE INTERVENTIONS: Labs: assess with PCP Immunizations: assess with PCP Foot Exam: assess with PCP Eye Exam: Followed by [facility] Annual Wellness Visit: Completed today during visit. FOLLOW UP: Return to clinic in 8 weeks 07/07/2024 I spent a total of 30-39 minutes (exact time 35 mins) on the date of service in preparation, delivery, and documentation of the care provided to Dave Dow excluding any time spent in the performance of separately billed services. Laurita Paula RPh Clinical Pharmacist - Credit Risk Officer Medication Therapy Management Clinic 05/12/2024, 2:07 PM documented in this encounter Plan of Treatment Upcoming Encounters Date Type Department Care Team (Late st Contact Info) Description 05/31/2024 11:20 AM EDT [facility] [address] [address] [phone] Radha Waldrop DO [address] [place] [address] 07/07/2024 10:00 AM EST Anticoagulation Pharmacy, [facility] [address] [address] [facility] [address] [place] [address] 07/07/2024 10:10 AM EST Office Visit Pharmacy, [facility] [address] [place] [address] [facility] [address] [place] [phone] 08/09/2024 9:00 AM EST Office Visit Cardiology, [facility] [place] [address] Nichol Morales PA-C [address] [place] [address] 09/14/2024 11:15 AM EST Procedure Only Urology, [facility] [address] [facility] [place] [address] Luis Manuel Tyler MD [address] [place] [id number] 10/27/2024 3:40 PM EST Office Visit Family Practice [facility] [address] [facility] [place] [address] Jason Jameson DO [address] [place] [phone] Health Maintenance Due Date Last Done Comments Adult Wellness Visit 04/06/2020 04/06/2019 Diabetic Foot Exam 02/20/2024 02/19/2023, 0 02/18/2022, 02/14/2021, Additional history exists HbA1c 09/01/2024 03/01/2024, 09/25, 04/30/2023, Additional history exists Albumin/Creatinine Ratio 10/21/2024 024, 04/30/2023, 11/10/2022, Additional history exists B-12 10/21/2024 10/22/2023, 10/23, 02/18/2022, Additional history exists Depression Screening 10/21/2024 10/22/2023 Diabetic Eye Exam 12/10/2024 12/11/2023, , 05/03/2021, Additional history exists GFR 05/04/2025 05/04/2024, 10/22, 10/22/2023, Additional history exists DTap/Tdap Vaccines (3 - [...] this encounter Medical Devices Implanted Type Area Paver Operator Device Identifier Shelf Expiration Date Model / Serial / Lot Electrode Pacing [id number] - [id number] Implanted:Qty: 1 on 10/07/2022 by Giovanni Smith MD at [facility] [place] : MEDICAL [id number] 06/23/2027 [id number] [id number] / / [id number] Valve Ford 3 Ultra 26mm - [id number] Implanted:Qty: 1 on 10/07/2022 by Giovanni Smith MD [facility] [employer] [id number] 04/07/2023 [id number] / / documented as of this encounter Visit Diagnoses Diagnosis DM type 2, goal HbA1c < 8% ([facility])- Primary documented in this encounter Advance Directives * Full Code (Latest Code Status on File) Date Activated Date Inactivated Comments 10/07/2022 1:07 PM 10/08/2022 8:13 PM This order r eflects the patients wishes and were consensually agreed upon. Question Answer Comments Discussion of Advance Direct mago occurred with: Not Discussed due to patient's condition Care Teams Dynamic Balancer Relationship Specialty Start Date End Date Jason Jameson DO [address] [place] [address] PCP - General Family Medicine 9/18/19 documented as of this encounter
--- OUTSIDE RECORDS SUMMARY | 2024-09-01 05:18 | External Medical Summary | Summary of Care ---
Author Name Unknown Organization [facility] Address [address] [address] Phone [phone] Care Team Providers Care Psychiatric Technician Name Role Phone Jason Jameson DO Primary Care Provider Reason for Visit * Reason Onset Date Comments Advice 05/31/2024 Encounter Details Date Type Department Care Team (Late st Contact Info) Description 05/31/2024 Telephone Orthopaedics [facility] [address] [place] [address] Damien Morales MD [address] [place] [address] Advice Allergies No known active allergiesdocumented as [...] XL)Indications:HTN, goal below 140/90,Atrial flutter, unspecified type ([facility]) TAKE 1 TABLET BY MOUTH TWICE A DAY 180 Tablet 3 09/09/2023 Active Ozempic (2 MG/DOSE) 8 MG/3ML Subcutaneous Solution Pen-injector (Semaglutide (2 MG/DOSE))Indications: DM type 2, goal HbA1c < 8% ([facility]) Inject 2 mg under the [...] Tablet (Coumadin)Indications :Chronic atrial fibrillation (HCC),Anticoagulation management encounter,assisted current use of anticoagulant therapy,Atrial flutter, unspecified [...] morning. 90 Capsule 5 01/25/2024 Active Pen Stow 32G X 6 MM Use as directed. 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 0 03/09/2012 [...] encounter Miscellaneous Notes * Telephone Encounter - Ashley Grider OSA [...] Description 07/07/2024 10:00 AM EST Anticoagulation Pharmacy, [facility] [address] [address] [facility] [place] [id number] 07/07/2024 10:10 AM EST Office Visit Pharmacy, [facility] [address] [place] [address] [facility] [address] [facility] [place] [address] 08/09/2024 9:00 AM EST Office Visit [facility]iology, [facility] [address] [facility] [place] [address] Nichol Morales PA-C [address] [facility] [place] [address] 09/14/2024 11:15 AM EST Procedure Only Urology, [facility] [address] [place] [address] Luis Manuel Tyler MD [address] [place] [address] 10/27/2024 3:40 PM EST Office Visit Family Practice [facility] [address] [facility] [place] [address] Jason Jameson, DO [address] [facility] [place] [address] 05/31/2025 11:40 AM EDT Office Visit [facility] Disorders Ctr [facility] [address] [facility] [place] [phone] Radha Waldrop, DO [address] [facility] [place] [address] Health Maintenance Due Date Last Done Comments [...] this encounter Medical Devices Implanted Type Area Lay Ups Assembler Device Identifier Shelf Expiration Date Model / Serial / Lot Electrode Pacing [id number] - [id number] Implanted:Qty: 1 on 10/07/2022 by Giovanni Smith MD at [facility] : MEDICAL [id number] 06/23/2027 007 [id number] / / [id number] Valve Ford 3 Ultra 26mm - [id number] Implanted:Qty: 1 on 10/07/2022 by Giovanni Smith MD at [facility] [place] [employer] [id number] 04/07/2023 [id number] / / documented as of this encounter Advance Directives * Full Code (Latest Code Status on File) Date Activated Date Inactivated Comments 10/07/2022 1:07 PM 10/08/2022 8:13 PM This order r eflects the patients wishes and were consensually agreed upon. Question Answer Comments Discussion of Advance Direct mago occurred with: Not Discussed due to patient's condition Care Teams Psychiatric Technician Relationship Specialty Start Date End Date Jason Jameson DO [address] [place] [address] PCP - General Family Medicine 05/11/19 documented as of this encounter
--- OUTSIDE RECORDS SUMMARY | 2024-09-01 05:18 | External Medical Summary | Summary of Care ---
Author Name Unknown Organization [facility] Address [address] [place] [address] Phone [phone] Care Team Providers Care Edge Trimming Machine Operator Name Role Phone Jason Jameson Primary Care Provider Reason for Visit * Reason Comments Dosage Adjustment In Person (Anticoag Cl inic) Adult Annual Wellness Visit, Subsequent Visit Encounter Details Date Type Department Care Team (Late st Contact Info) Description 05/12/2024 1:40 PM EDT Pharmacy Pharmacy, [facility] [address] [facility] [place] [address] [facility] [address] [facility] [place] [address] Routine general medical examination at a health care facility* Allergies No known active allergiesdocumented as of [...] 30 to 34 mm in diameter ([facility]) Take 4 capsules 1 hour prior to [...] XL)Indications:HTN, goal below 140/90,Atrial flutter, unspecified type ([facility]) TAKE 1 TABLET BY MOUTH TWICE A DAY 180 Tablet 3 09/09/2023 Active Ozempic (2 MG/DOSE) 8 MG/3ML Subcutaneous Solution Pen-injector (Semaglutide (2 MG/DOSE))Indications: DM type 2, goal HbA1c < 8% ([facility]) Inject 2 mg under the skin [...] Tablet (Coumadin)Indications :Chronic atrial fibrillation (HCC),Anticoagulation management encounter,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 90 Capsule 5 01/25/2024 Active Pen [place] 32G X 6 MM Use as directed. [...] 130/80 10/29/2015 Overview: Per HTN Protocol #27. 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 0 03/09/2012 [...] on file documented as of this encounter Last Filed Vital Signs Vital Sign Reading Time Taken Comments Blood Pressure 131/57 05/12/2024 2:34 PM EDT Pulse 65 05/12/2024 2:34 PM EDT Temperature - - Respiratory Rate - - Oxygen Saturation - - Inhaled Oxygen Concentration - - Weight 112 kg (247 lb) 05/12/2024 2:34 PM EDT Height 177.8 cm (5' 10") 05/12/2024 2:34 PM EDT Body Mass Index 35.44 05/12/2024 2:34 PM EDT documented in this encounter Functional Status Functional Status Response [...] No 10/07/2022 documented as of this encounter Patient Instructions * Patient Instructions* Laurita Paula RPh - 05/12/2024 1:43 PM EDT Hi Mr. Dow, As your primary care physician, I know that regular visits with my patients who have several chronic conditions can go a long way in helping you stay healthy. Many times, the clinic team and I are in touch with you and/or other care team members between office visits to adjust medications, discuss any changes in your health, and review our care plan to make sure it is still meeting your needs. I am dedicated to helping you take a more active role in your overall care. It is important that there are resources available to you, so I created a personalized plan of care with a Health Calendar for you, which is included on the next page of this letter. Below is a list that summarizes your electronic health record: Health Maintenance Due: Health Maintenance Due Topic Date Due Adult Wellness Visit 04/06/2020 Diabetic Foot Exam 02/20/2024 Current Medication List: (as of 05/12/2024 (in office), Visit date not found (telemedicine) ) Current Outpatient Medications Medication Sig Dispense Refill [...] 24 Hour (toPROL XL) TAKE 1 TABLET BYMOUTH TWICE A DAY 180 Tablet 3 Ozempic [...] TABLETS) MON AND FRI, 7.5MG (1 AND 1/2TABLETS) ALL OTHER DAYS 160 Tablet 3 Losartan Potassium 25 MG Oral Tablet (Cozaar) TAKE 1 TABLET BY MOUTH EVERY DAY 90 Tablet 1 hydroCHLOROthiazide 12.5 MG Oral Capsule Take 1 Capsule by mouth in the morning. 90 Capsule 5 Pen [place] 32G X 6 MM Use as directed. Inject 15 units daily E11.9 100 Each 3 Tresiba FlexTouch 200 UNIT/ML Subcutaneous Solution Pen-injector (Insulin Degludec) Inject 17 Units under the skin in the morning. E11.9. 15 mL 3 hydrALAZINE HCl 10 MG Oral Tablet (Apresoline) TAKE 1 TABLET BY MOUTH THREE TIMES A DAY 270 Tablet 5 Accu-Chek Guide In Vitro Strip (Glucose Blood) USE TO TEST BLOOD SUGAR VALUES ONCE DAILY E 11.9100 Strip 11 Finasteride 5 MG Oral Tablet (Proscar) Take 1 Tablet by mouth in the morning. 90 Tablet 3 No current facility-administered medications for this visit. Current List of Allergies: (as of 05/12/2024 (in office), Visit date not found (telemedicine) ) Review of patient's allergies indicates: No Known Allergies Most Recent Lab Results: Results for orders placed or performed in visit on 05/04/24 BASIC METABOLIC PANEL Result Value Ref Range BUN 21 (H) 6 - 20 mg/dL CREATININE 1.2 0.6 - 1.2 mg/dL EGFR 61 >=60 mL/min SODIUM 140 135 - 146 mmol/L POTASSIUM 4.8 3.5 - 5.1 mmol/L CHLORIDE 101 98 - 107 mmol/L CO2 28 22 - 32 mmol/L ANION GAP 11 7 - 15 mmol/L GLUCOSE 141 (H) 70 - 120 mg/dL CALCIUM 9.8 8.4 - 10.2 mg/dL LIPID PANEL WITH DIRECT LDL IF TG IS HIGH Result Value Ref Range Triglycerides 163 <=174 mg/dL Cholesterol 140 <200 mg/dL HDL Cholesterol 36 (L) >39 mg/dL Non-HDL Cholesterol 104 <=159 mg/dL LDL Cholesterol 71 <=129 mg/dL PSA Result Value Ref Range PSA 2.45 <4.10 ng/mL CBC Result Value Ref Range WBC 8.30 4.00 - 10.80 K/uL RBC 4.27 4.50 - 5.25 M/uL HGB 13.2 (L) 14.0 - 16.8 g/dL HCT 42.1 40.0 - 48.4 % MCV 98.6 82.0 - 99.5 fL MCH 30.9 27.0 - 34.0 pg MCHC 31.4 32.0 - 36.0 g/dL RDW 13.0 11.5 - 15.5 % PLT 171 140 - 400 K/uL MPV 11.8 6.6 - 11.1 fL DIFFERENTIAL, TECHNOLOGIST REVIEW Result Value Ref Range WBC 8.30 4.00 - 10.80 K/uL Neutrophils % 55.0 40.0 - 75.0 % Lymphocytes % 32.0 18.0 - 42.0 % Monocytes % 11.0 1.0 - 11.0 % Eosinophils % 2.0 0.0 - 6.0 % Absolute Neutrophils 4.57 1.80 - 7.70 K/uL Absolute Lymphocytes 2.66 1.00 - 4.80 K/uL Absolute Monocytes 0.91 0.00 - 1.10 K/uL Absolute Eosinophils 0.17 0.00 - 0.70 K/uL nRBCs *Note: Due to a large number of results and/or encounters for the requested time period, some results have not been displayed. A complete set of results can be found in Results Review. Sincerely, Jason Jameson, DO 05/12/2024 [facility]'s Health Calendar (as of 05/12/2024 (in office), Visit date not found (telemedicine) ) Care needs Care needs Last completed Due next Adult Wellness Visit 04/06/2019 04/06/2020 Diabetic Foot Exam 02/19/2023 02/20/2024 A1C blood sugar test 03/01/2024 09/01/2024 Urine albumin/creatinine test 10/22/2023 10/21/2024 Yearly B-12 vitamin test 10/22/2023 10/21/2024 Diabetic Eye Exam 12/11/2023 12/10/2024 Kidney Function Test 05/04/2024 05/04/2025 Diphtheria, tetanus & pertussis vaccines (3 - Td or Tdap) 09/03/2018 09/03/2028 As you look over the recommended services, be sure to check with your insurance company to determine what's covered. [employer] is a great tool that helps you review your medical record online, including test results, doctor notes and your health summary. You can also schedule appointments with me and other members of your care team, request prescription refills and ask for advice related to your medical conditions at [email or web address]. documented in this encounter Progress Notes * Lindsay Mercedes RPh - 05/12/2024 2:53 PM EDT I agree with documented plan of care. Lindsay Mercedes, Pharm D, [facility] Clinical Pharmacist 05/12/2024, 2:53 PM * Laurita Paula [facility] - 05/12/2024 1:34 PM EDT I had the privilege of seeing Dave Dow for an Annual Wellness Visit today. Care Gaps and Best Practices were addressed as appropriate I reviewed health maintenance items and preventative health recommendations. All other screenings and interventions are noted below. Adult Annual Wellness Visit: Dave Dow is a 78 year old male who presents for an Adult Annual Wellness Visit. Depression Screening: Did the patient complete the screening questionnaire for Depression? Yes Is the patient's total score for Depression 15 or greater? No, no further intervention needed, unless requested by patient. Did the patient answer positively to the suicide question? No, no further intervention needed, unless requested by patient. In general, compared to other people your age, what would you say that your health is? Good Ht Readings from Last 1 Encounters: 05/12/24 1.778 m (5' 10") Wt Readings from Last 1 Encounters: 05/12/24 112 kg (247 lb) Body Mass Index: BMI Greater than 30 Body mass index is 35.44 kg/m. BP Readings from Last 1 Encounters: 05/12/24 131/57 Medical/Surgical/Family History Reviewed: Yes Past Medical History: Diagnosis Date Anticoagulation management [...] SLEEP APNEA NOS 02/19/2001 Sleep apnea, obstructive Past Surgical History: Procedure Laterality Date ARTHROPLASTY KNEE TOTAL 11/28 left- Dr. Souza ARTHROPLASTY KNEE TOTAL 12/29/2013 right- Dr. Souza CATHETERIZE LEFT HEART THRU SKIN [address] Anglin at [facility] COLONOSCOPY, DIAGNOSTIC (RECTUM) 04/16/10 int. hemorrhoids COLONOSCOPY, DIAGNOSTIC (RECTUM) 04/25/2015 hyperplastic tissue on bx, repeat 5 yrs/COLONOSCOPY FLEXIBLE PROXIMAL DIAGNOSTIC performed by Rj Menendez MD at [facility]COPY [facility] COLONOSCOPY, DIAGNOSTIC (RECTUM) 06/30/2018 normal/COLONOSCOPY FLEXIBLE PROXIMAL DIAGNOSTIC performed by Rj Menendez MD at [facility]OSCOPY [facility] COLONOSCOPY, REMOVE LESION 03/28 serrated adenoma polyp-repeat in 5 years CORONARY ANGIOGRAPHY W/LEFT HEART CATH 07/16/2022 CORONARY ANGIOGRAPHY W/LEFT HEART CATH performed by Celestino Cooper MD at [facility] EGD, FLEXIBLE, DIAGNOSTIC 06/30/2018 Mariann infection, hiatal hernia/ESOPHAGOGASTRODUODENOSCOPY (EGD), FLEXIBLE, TRANSORAL, DIAGNOSTIC performed by Rj Menendez MD at [facility]COPY [facility] EXERCISE ECHO 06/01 Normal- no ischemic changes HEART ELECTROCONVERSION, EXTERNAL 05/11/2012 Dr. Savage Anglin INFORMATION 1986 eye muscle INFORMATION 06/11/2011 06/11/2011 excision of sebaceous cyst from back - Joaquina Zamora INFORMATION 09/29/2012 I & D of sebaceous cyst left back - Dr. Anne Ryan KNEE ARTHROSCOPY, DIAGNOSTIC 03/27 Knee Arthroscopy-right PARTIAL REMOVAL OF SHOULDER BONE 04/27 right shoulder anterior acromioplasty REMOVAL OF APPENDIX 1992 Appendectomy REPAIR RUPTURED ROTATOR CUFF, CHRON 05/16/08 left- Dr. Souza + re-attachment biceps REPAIR UMBILICAL HERNIA, UNDER 5 YR 1993 Hernia,Umbilical REPLACE AORTIC VALVE, PERCUTANEOUS FEMORAL Bilateral 10/07/2022 REPLACE AORTIC VALVE, PERCUTANEOUS FEMORAL performed by Giovanni Smith MD at [facility] REPLACE AORTIC VALVE, PERCUTANEOUS FEMORAL Bilateral 10/07/2022 REPLACE AORTIC VALVE, PERCUTANEOUS FEMORAL performed by Teto Granados MD, PhD at [facility] Family History Problem Relation Name Age of Onset Cancer Mother breast ca, survived; also colon cancer- in her 80's Heart Disorder Father CABGx2, [place], defibrillator, pacemaker Cancer Father lymphoma, at age 83 + prostate cancer Eye Problems None denies family hx of eye problems No Past Hx Other denies any skin diseases, cancers, or melanoma Has patient ever had cancer? No Social History Tobacco Use Smoking status: Former Current packs/day: 0.00 Average packs/day: 3.0 packs/day for 25.9 years (77.8 ttl pk-yrs) Types: Cigarettes Start date: 1964 Quit date: 07/27/1990 Years since quittin.8 Smokeless tobacco: Never Tobacco comments: passive smoke exposure at wk - as of 10-22-06 no smoke exposure Substance Use Topics Alcohol use: No Vaping/E-Cigarette Use Vaping/E-Cigarette Use Never User Passive Exposure No Counseling Given? No Vaping/E-Cigarette Substances Nicotine No Other No Flavoring No THC No Cannabidiol (CBD) No Vaping/E-Cigarette Devices Disposable No Pre-filled or Refillable Cartridge No Refillable Tank No Pre-filled Pod No Tobacco/Alcohol screening completed today? Yes Hospital Care: Admissions (within the last year): No. ER within 30 days: No Does the patient have an Advance Directives/Living Will? Yes Last Physical Exam: Last physical exam: 04/21/2024 Does patient see primary provider regularly? Yes Does patient see other providers? Yes, Specialist Patient Care Team updated? Yes Review of patient's allergies indicates: No Known Allergies Immunization History Administered Date(s) Administered COVID-19 mRNA, LNP-s, No Preserve, 2-Dose Series (Moderna) 10/29/2020, 11/26/2020 COVID-19, MRNA-LNP, 23-24, PF, 30 MCG/0.3 mL, 12 YRS AND ABOVE, IM (Ravn- ComirGroove) 05/24/2023 COVID-19, MRNA-LNP, 24-25, WA, 30MCG/0.3ML, IM, 12YRS AND ABOVE (Cormedics- ComirnatReDigi) 04/29/2024 COVID-19, mRNA, LNP-s, PF, Booster, 100mcg/0.5mg (Moderna) 08/12/2021 Covid-19, Mrna, Lnp-s, Pf, Bivalent, 30 Mcg, IM, 12 yrs and above (Pfizer) 06/06/2022 Diptheria/Tetanus (Adult) 08/21/1997 H1N1 2009 Influenza, IM 09/24/2009 Pneumococcal Conjugate Vacc, 13 Valent (Prevnar) 12/27/2014 Pneumococcal Polysaccharide PPV23 (Pneumovax) 02/19/2006, 06/22/2012 RSV Vac., Recomb, Adjuvant, PF,0.5 Ml (Arexvy) 10/19/2023 Season Influenza, Quad, PF, Adjuvanted, 65+ Yrs, IM (FLUAD) 05/07/2020 Seasonal Influenza, PF, 6 M & above, IM , (FluLaval or Fluzone) 05/18/2017, 05/10/2018 Seasonal Influenza, Quadrivalent Hd (Fluzone Hd) 05/06/2021, 05/01/2022, 05/20/2023 Seasonal Influenza, Quadrivalent, No Preserve, IM 06/04/2016 Seasonal Influenza, Trivalent, (IIV3), with Preserv, (Fluzone) 06/11/1999, 08/04/2000, 06/23/2002, 06/13/2003, 06/19/2005, 06/26/2006, 07/06/2007, 06/16/2008, 05/24/2009, 06/07/2010, 05/13/2011, 05/18/2012, 05/09/2013, 05/05/2014, 05/02/2015 Seasonal Influenza, Trivalent, Adjuvanted, 65+ YRS, PF, (Fluad) 05/11/2019 TDAP (age 10 and older)(Boostrix) 09/03/2018 TDAP, Age 7 and older, IM (Adacel) 02/07/2008 Varicella Zoster Vaccine (Adult) 04/12/2012 Current Outpatient Medications Medication Sig Dispense Refill [...] BY MOUTH EVERY DAY 90 Tablet 1 hydroCHLOROthiazide 12.5 MG Oral Capsule Take 1 Capsule by mouth in the morning. 90 Capsule 5 Pen [place] 32G X 6 MM Use as directed. Inject 15 units daily E11.9 100 Each 3 Tresiba FlexTouch 200 UNIT/ML Subcutaneous Solution Pen-injector (Insulin Degludec) Inject 17 Unitsunder the skin in the morning. E11.9. 15 mL 3 hydrALAZINE HCl 10 MG Oral Tablet (Apresoline) TAKE 1 TABLET BY MOUTH THREE TIMES A DAY 270 Tablet 5 Accu-Chek Guide In Vitro Strip (Glucose Blood) USE TO TEST BLOOD SUGAR VALUES ONCE DAILY E 11.9 100Strip 11 Finasteride 5 MG Oral Tablet (Proscar) Take 1 Tablet by mouth in the morning. 90 Tablet 3 No current facility-administered medications for this visit. 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 Yes Patient takes medications as prescribed? Yes Patient manages own medications: Yes Patient uses a pill box? No Dental Exam: Yes: Every Year Eye Screening: Yes: Every year at [facility] Are you having trouble with hearing? No Do you use an assistive device to help your hearing? No Exercise Screening: only the exercise associated with activities at work Nutrition Assessment: Eats a balanced diet Pain Screening: Are you having any pain? Yes. Pain Scale: 0 = none Arthritis pain - worsened pain up to 8/10 whenever flares up Sleep Screening Tool 'STOP': Do you snore? Yes Do you feel fatigued during the day? No Do you wake up feeling like you haven't slept? No Have you been told you stop breathing at night? No Do you gasp for air or choke while sleeping? No Have you been told you have Sleep Apnea? No - wears BIPAP Do you have high blood pressure or are on medication(s) to control high blood pressure? Yes SCORE: If you check YES to two or more questions, make a referral for Obstructive Sleep Apnea Patient and Caregiver Support System: Patient lives with a spouse Means of Transportation: Drives. Patient lives in [place] Community Resources: Not Applicable Functional Status and ADL Skills: Has patient ever had an amputation? No Functional Assessment: 80- Normal activity with effort: some symptoms of disease Ambulation: Patient ambulates with assistive device. Cane Dressing: Gets clothes and dresses without any assistance: Independent Able to move freely in chair or bed including turning over: Independent Repositioning (bed or chair): Not applicable Transfers: Independent Toileting: Goes to bathroom, uses toilet, arranges clothes and returns without any assistance: Independent Toileting: continent of bladder Feeding: Self Bathing: Self; Not Applicable Requires none assistance with ADLs. Instrumental ADL's: Shopping: Independent Housekeeping: Independent Handling Finances: Independent [email or web address] Vendor Name: Not Applicable Fall Risk Assessment: Can the patient demonstrate that he can stand from a sitting position? Yes Has the patient had a fall within the last 6 months? No Does the patient have a problem with his gait or balance? Yes Does the patient take 4 or more prescription medicines? Yes Does the patient use sedatives or narcotics? No Fall Risk Factors Present: Uses more than 4 medications Uses assistive devices Balance or gait disturbances Older than age 70 Jnb-Wm-gdd-Go Test: Time began at 2:05 PM. Patient stood from sitting position and walked approximately 10 feet, returned and sat down. Total time for ldq-jw-ebr-go test was 20 seconds. Uzk-Ge-fwa-Go Test completed? Yes Gender Specific Preventative Plan: Health Maintenance Topic Date Due Adult Wellness Visit 04/06/2020 Diabetic Foot Exam 02/20/2024 HbA1c 09/01/2024 Albumin/Creatinine Ratio 10/21/2024 Depression Screening 10/21/2024 B-12 10/21/2024 Diabetic Eye Exam 12/10/2024 GFR 05/04/2025 DTap/Tdap Vaccines (3 - Td or Tdap) 09/03/2028 Influenza Vaccine (FLU shot) Completed Pneumococcal Vaccine: 65+ Years Completed COVID-19 Vaccine Completed Hepatitis B Vaccine Aged Out MENINGOCOCCAL (MENACTRA/MENVEO) Aged Out HPV (Gardasil) Vaccine Aged Out Zoster Vaccines Discontinued Follow Up/ Referrals/Handouts: No further action needed Routine general medical examination at a health care facility (Primary) Follow Up: Return in 1 year (on 05/12/2025) for 12 month Subsequent Adult Wellness Visit. | For: 12 month Subsequent Adult Wellness Visit | Check-out note: 12 month Subsequent Adult Wellness Visit Would patient like to schedule next AWV visit? No AD8 Dementia Screening Interview Person answering questions: patient Remember, "Yes, a change" indicates that there has been a change in the last several years caused by cognitive (thinking and memory) problems 1. Problems with judgement (eg: problems making decisions, bad financial decisions, problems with thinking). No (0) 2. Less interest in hobbies/activities. No (0) 3. Repeats the same things over and over (questions, stories, or statements). No (0) 4. Trouble learning how to use a tool, appliance, or gadget (eg: VCR, computer, microwave, remote control). No (0) 5. Forgets correct month or year. No (0) 6. Trouble handling complicated financial affairs (eg: balancing checkbook, income taxes, paying bills). No (0) 7. Trouble remembering appointments. No (0) 8. Daily problems with thinking and/or memory. No (0) TOTAL AD8: 0 - AD8 Dementia Screening Score The final score is a sum of the number items marked "Yes, A Change". 0 - 1: Normal cognition; 2 or greater: Cognitive impairments is likely to be present - further testing required Laurita Paula PharmD, [facility] PGY1 Hobbing Machine Operator Medication Therapy Management [facility] 05/12/2024 2:48 PM documented in this encounter Plan of Treatment Upcoming Encounters Date Type Department Care Team (Late st Contact Info) Description 05/31/2024 11:20 AM EDT Office Visit [facility] [address] [facility] [place] [id number] Radha Waldrop, DO [address] [facility] [place] [id number] 07/07/2024 10:00 AM EST Anticoagulation Pharmacy, [facility] [address] [facility] [place] [address] [facility] [address] [facility] [place] [address] 07/07/2024 10:10 AM EST Office Visit Pharmacy, [facility] [address] [facility] [place] [address] [facility] [address] [facility] [place] [address] 08/09/2024 9:00 AM EST Office Visit Cardiology, [facility] [address] [facility] [place] [address] Nichol Morales PA-C [address] [facility] [place] [address] 09/14/2024 11:15 AM EST Procedure Only Urology, [facility] [address] [facility] [place] [address] Luis Manuel Tyler MD [address] [place] [id number] 10/27/2024 3:40 PM EST Office Visit Family Practice [facility] [address] [facility] [place] [address] Jason Jameson, DO [address] [place] [address] Health Maintenance Due Date Last Done Comments [...] Additional history exists Adult Wellness Visit 05/12/2025 05/12/2024, 04/06/20 19 DTap/Tdap Vaccines (3 - Td or Tdap) [...] this encounter Medical Devices Implanted Type Area Paraprofessional Aide Device Identifier Shelf Expiration Date Model / Serial / Lot Electrode Pacing [id number] - [id number] Implanted:Qty: 1 on 10/07/2022 by Giovanni Smith MD at [facility] : MEDICAL [id number] 06/23/2027 007 [id number] / / [id number] Valve Ford 3 Ultra 26mm - [id number] Implanted:Qty: 1 on 10/07/2022 by Giovanni Smith MD at [facility] [employer] [id number] 04/07/2023 [id number] / / documented as of this encounter Visit Diagnoses Diagnosis Routine general medical examination at a health care facility- Primary documented in this encounter Advance Directives * Full Code (Latest Code Status on File) Date Activated Date Inactivated Comments 10/07/2022 1:07 PM 10/08/2022 8:13 PM This order r eflects the patients wishes and were consensually agreed upon. Question Answer Comments Discussion of Advance Direct mago occurred with: Not Discussed due to patient's condition Care Teams Edge Trimming Machine Operator Relationship Specialty Start Date End Date Jason Jameson DO [address] [place] [address] PCP - General Family Medicine 05/11/19 documented as of this encounter
--- OUTSIDE RECORDS SUMMARY | 2024-09-01 05:18 | External Medical Summary | Summary of Care ---
Author Name Unknown Organization [facility] Address [address] [facility] [address] Phone [phone] Care Team Providers Care Pomology Teacher Name Role Phone Jason Jameson Primary Care Provider Reason for Visit * Reason Onset Date Comments Durable Medical Equipment 05/31/2024 BPAP s upplies Encounter Details Date Type Department Care Team (Late st Contact Info) Description 05/31/2024 Telephone Sleep Disorders Ctr [facility] [address] [place] [phone] Radha Waldrop DO [address] [place] [address] Durable Medical Equipment (BPAP supplies ) Allergies No known active allergiesdocumented as of [...] 30 to 34 mm in diameter ([facility]) Take 4 capsules 1 hour [...] goal below 140/90,Atrial flutter, unspecified type ([facility]) TAKE 1 TABLET BY MOUTH TWICE A DAY 180 Tablet 3 09/09/2023 Active Ozempic (2 MG/DOSE) 8 MG/3ML Subcutaneous Solution Pen-injector (Semaglutide (2 MG/DOSE))Indications: DM type 2, goal HbA1c < 8% ([facility]) Inject 2 mg under the [...] Tablet (Coumadin)Indications :Chronic atrial fibrillation (HCC),Anticoagulation management encounter,halfway current use of anticoagulant therapy,Atrial [...] morning. 90 Capsule 5 01/25/2024 Active Pen [place] 32G X 6 MM Use as directed. [...] 130/80 10/29/2015 Overview: Per HTN Protocol #27. 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 documented in this encounter Plan of Treatment Upcoming Encounters Date Type Department Care Team (Late st Contact Info) Description 07/07/2024 10:00 AM EST Anticoagulation Pharmacy, [facility] [address] [place] [address] [facility] [address] [place] [address] 07/07/2024 10:10 AM EST Office Visit Pharmacy, [facility] [address] [place] [address] [address] [facility] [address] [place] [address] 08/09/2024 9:00 AM EST Office Visit Cardiology, [facility] [address] [facility] [place] [address] Nichol Morales PA-C [address] [facility] [place] [address] 09/14/2024 11:15 AM EST Procedure Only Urology, [facility] [address] [facility] [place] [address] Luis Manuel Tyler MD [address] [place] [address] 10/27/2024 3:40 PM EST Office Visit Family Practice [facility] [address] [facility] [place] [address] Jason Jameson, DO [address] [facility] [place] [address] 05/31/2025 11:40 AM EDT Office Visit Sleep Disorders Ctr [facility] [address] [facility] [place] [phone] Radha Waldrop, DO [address] [facility] [place] [address] Health Maintenance Due Date Last Done Comments [...] this encounter Medical Devices Implanted Type Area Youth Services Librarian Device Identifier Shelf Expiration Date Model / Serial / Lot Electrode Pacing [id number] - [id number] Implanted:Qty: 1 on 10/07/2022 by Giovanni Smith MD at [facility] BARD : MEDICAL [id number] 06/23/2027 007 [id number] / / [id number] Valve Ford 3 Ultra 26mm - [id number] Implanted:Qty: 1 on 10/07/2022 by Giovanni Smith MD at [facility] [employer] [id number] 04/07/2023 [id number] / / documented as of this encounter Advance Directives * Full Code (Latest Code Status on File) Date Activated Date Inactivated Comments 10/07/2022 1:07 PM 10/08/2022 8:13 PM This order r eflects the patients wishes and were consensually agreed upon. Question Answer Comments Discussion of Advance Direct mago occurred with: Not Discussed due to patient's condition Care Teams Pomology Teacher Relationship Specialty Start Date End Date Jason Jameson DO [address] [place] [address] PCP - General Family Medicine 05/11/19 documented as of this encounter
--- OUTSIDE RECORDS SUMMARY | 2024-09-01 05:18 | External Medical Summary | Summary of Care ---
Author Name Unknown Organization [facility] Address [address] [place] [address] Phone [phone] Care Team Providers Care Fruit Or Nut Crops Farm Manager Name Role Phone Jason Jameson Primary Care Provider Reason for Visit * Reason Onset Date Comments STAIR AAA 05/18/2024 Encounter Details Date Type Department Care Team (Late st Contact Info) Description 05/18/2024 Telephone [facility] [address], [place] [id number] Program, Stair [address] [place] [address] STAIR [facility] Allergies No known active allergiesdocumented as of this encounter (statuses as of 05/18/2024) Medications Medication Sig Dispensed Refills Start Date [...] XL)Indications:HTN, goal below 140/90,Atrial flutter, unspecified type ([facility]) TAKE 1 TABLET BY MOUTH [...] Tablet (Coumadin)Indications :Chronic atrial fibrillation (HCC),Anticoagulation management encounter,USP current use of anticoagulant therapy,Atrial [...] morning. 90 Capsule 5 01/25/2024 Active Pen [place] 32G X 6 MM Use as directed. [...] as of this encounter (statuses as of 05/18/2024) Active Problems Problem Noted Date Diagnosed Date [...] 10/29/2015 Overview: Per HTN Protocol #27. 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 10/201003/04/2011 03/18/2017 Diabetes mellitus with [...] as of this encounter (statuses as of 05/18/2024) Immunizations Name Administration Dates Next Due COVID-19 [...] encounter Miscellaneous Notes * Telephone Encounter - Vanessa Rodríguez LPN - 05/18/2024 3:46 PM EDT AAA - Clinical Summary Name: Dave Dow Age: [age] year old AAA Review: Follow-up Follow-up Encounter Provider: N/A Patient Identified by: Problem List Report Imaging Interpretation: Ultrasound Type of Result: AAA 3.0 to 3.9 cm AAA Care Plan Imaging Recommendation: Aortic Duplex - details below Details: in 2 years AAA Care Plan Visit Recommendation: No Visit needed Details: None Next steps: Notify patient of updated care plan. Time spent: 10 minutes AAA - Communication to Patient Patient letter sent through [facility] or mail. Vanessa Rodríguez LPN Coordinator CHITRAIR (System to Track Abnormalities of Importance Reliably) US AORTA 07/02/2023 Narrative EXAM US AORTA - 07/02/2023 11:18 am HISTORY aaa TECHNIQUE Sonogram of the abdominal aorta. COMPARISON 03/18/2022. FINDINGS As per the technologist's note, the evaluation is limited by body habitus. Aorta measures as follows : Proximal: 2.1 cm x 2.1 cm. Previously 2.9 cm x 3 cm. Mid: 1.7 cm x 1.7 cm. Previously 1.9 cm x 2.2 cm. Distal: 3.1 cm x 3.0 cm. Previously 3.2 cm x 3 cm. Right common iliac: 1.3 cm x 1.1 cm. Left common iliac: 1.2 cm x 1.0 cm. Impression IMPRESSION Distal abdominal aortic aneurysm not significantly changed. documented in this encounter Plan of Treatment Upcoming Encounters Date Type Department Care Team (Late st Contact Info) Description 05/31/2024 11:20 AM EDT Office Visit [facility] [place] [phone] Radha Waldrop DO 132 [facility] [place] [address] 07/07/2024 10:00 AM EST Anticoagulation Pharmacy, [facility] [address] [facility] [place] [address] [address] [address] 07/07/2024 10:10 AM EST Office Visit Pharmacy, [facility] [address] [place] [address] [facility] [place] [address] 08/09/2024 9:00 AM EST Office Visit Cardiology, [facility] 132 [facility] [place] [address] Nichol Morales PA-C [address] [place] [address] 09/14/2024 11:15 AM EST Procedure Only Urology, [facility] [address] [place] [address] Luis Manuel Tyler MD [address] [place] [id number] 10/27/2024 3:40 PM EST Office Visit Family Practice [facility] [address] [place] [address] Jason Jameson, [address] [place] [address] Health Maintenance Due Date Last Done Comments [...] this encounter Medical Devices Implanted Type Area Mediator Device Identifier Shelf Expiration Date Model / Serial / Lot Electrode Pacing [id number] - [id number] Implanted:Qty: 1 on 10/07/2022 by Giovanni Smith MD at [facility] [place] : MEDICAL [id number] 06/23/2027 007 151P / / [id number] Valve Ford 3 Ultra 26mm - [id number] Implanted:Qty: 1 on 10/07/2022 by Giovanni Smith MD at [facility] [employer] [id number] 04/07/2023 [id number] / / documented as of this encounter Advance Directives * Full Code (Latest Code Status on File) Date Activated Date Inactivated Comments 10/07/2022 1:07 PM 10/08/2022 8:13 PM This order r eflects the patients wishes and were consensually agreed upon. Question Answer Comments Discussion of Advance Direct mago occurred with: Not Discussed due to patient's condition Care Teams Fruit Or Nut Crops Farm Manager Relationship Specialty Start Date End Date Jason Jameson DO [address] [facility] [place] [address] PCP - General Family Medicine 05/11/19 documented as of this encounter
--- OUTSIDE RECORDS SUMMARY | 2024-09-01 05:18 | External Medical Summary | Summary of Care ---
Author Name Unknown Organization [facility] Address [address] [address] Phone [phone] Care Team Providers Care Flower Picker Name Role Phone Jason Jameson Primary Care Provider Reason for Visit * Reason Comments Follow Up Return sleep. 1 yr O SA. Bipap. No complaints. Encounter Details Date Type Department Care Team (Late st Contact Info) Description 05/31/2024 11:20 AM EDT Office Visit Sleep Disorders Ctr [facility] [address] [place] [phone] Radha Waldrop DO [address] [place] [address] Obstructive sleep apnea* Allergies No known active allergiesdocumented as of [...] (AAA) 30 to 34 mm in diameter ([facility]) Take 4 capsules 1 hour prior to [...] XL)Indications:HTN, goal below 140/90,Atrial flutter, unspecified type ([facility]) TAKE 1 TABLET BY MOUTH TWICE A DAY 180 Tablet 3 09/09/2023 Active Ozempic (2 MG/DOSE) 8 MG/3ML Subcutaneous Solution Pen-injector (Semaglutide (2 MG/DOSE))Indications: DM type 2, goal HbA1c < 8% ([facility]) Inject 2 mg under the skin once [...] Tablet (Coumadin)Indications :Chronic atrial fibrillation (HCC),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 90 Capsule 5 01/25/2024 Active Pen [place] 32G X 6 MM Use as directed. [...] 130/80 10/29/2015 Overview: Per HTN Protocol #27. [facility] current use of anticoagulant therapy 0 03/09/2012 [...] Sign Reading Time Taken Comments Blood Pressure 116/80 05/31/2024 11:20 AM EDT Pulse 62 05/31/2024 11:20 AM EDT Temperature 35.8 C (96.5 F) 05/31/2024 11:20 AM E DT Respiratory Rate 16 05/31/2024 11:20 AM EDT Oxygen Saturation 96% 05/31/2024 11:20 AM EDT Inhaled Oxygen Concentration - - Weight 112 kg (247 lb) 05/31/2024 11:20 AM EDT Height 177.8 cm (5' 10") 05/31/2024 11:20 AM EDT Body Mass Index 35.44 05/31/2024 11:20 AM EDT documented in this [...] as of this encounter Progress Notes * Radha Waldrop, - 05/31/2024 11:39 AM EDT Sleep Medicine Follow-Up HISTORY: Dave Dow is a 78 year old male for follow up of severe VENU. Initially diagnosed in 2000 after presenting with driving home without remembering the drive, falling asleep driving home or once he got home. PSG 02/08/2001: AHI 51, SpO2 antonio 78%, no significant PLMS. PAP titration 03/15/2003: CPAP 17 cmH2O. Sometime between then and when he had seen me initially on 05/28/2021, he had been changed to BiPAP.Previously followed with Dr. Leiva ([facility], now retired). Seen by me 05/28/21: using BiPAP 17/12 cwp, doing great with it. Zahl 7. Residual AHI was mildly elevated at 9.6, with large leak noted on his compliance report. Replaced mask cushion. Subsequently adjusted to 15/10 cwp due to persistent large leak. TAVR 2022 Last seen 05/29/23: leak was not as bothersome. Residual AHI remained mildly elevated (6.7 on BiPAP 15/10 cwp) Using CPAP 15/10 cmH2O. Pt notes he needs headgear and mask replaced, but DME will not replace more often than insurance would cover. He would like to try an N30 nasal interface. Subjective PAP adherence: excellent. (He notes breathing is labored if he lays down without BiPAP.) Snoring on PAP: not that he is aware of. Daytime sleepiness: not usually Daytime napping: daily, refreshing, sometimes might make it a bit harder to get to sleep at night. Drowsy driving: none Interface: FFM; he does not think he is mouthbreathing. Mask leak: occasionally bothersome to . Notes some discomfort from hernia repair, wrist needing surgery. Morning headaches: no Zahl Sleepiness Scale: 5 Travel Screening Question 05/31/2024 11:10 AM EDT - Filed by Patient Do you have any of the following new or worsening symptoms? None of these Have you recently been in contact with someone who was sick? No / Unsure Zahl Sleepiness Scale Question 05/31/2024 11:19 AM EDT - Filed by Myrna Godfrey LPN What is the chance you will doze off in the following situation? Sitting and reading No chance of dozing Watching TV Slight chance of dozing Sitting inactive in a public place, such as a theater or meeting No chance of dozing As a passenger in a car for an hour without a break No chance of dozing Lying down to rest in the afternoon when circumstances permit High chance of dozing When sitting and talking to someone No chance of dozing When sitting quietly after lunch without alcohol Slight chance of dozing In a car, while stopped for a few minutes in traffic No chance of dozing Score (range: 0 - 24) 5 CPAP Compliance: Report date: 05/24/24 % total days used: 100% % days used > 4 hours: 100% Average hours per day used: 9h 26m Large leak: 1h 16m/day AHI: 6.5 /hr Pressure settin/10 cmH2O Equipment: DME Provider is [facility] Uses a [employer] Rover autoBiPAP. ROS: Pulmonary: + episodes of dyspnea, not related to BiPAP. He checks SpO2 at home (including during these episodes), and finds it to be 95% or higher. 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 90 Tablet 3 Accu-Chek Guide In Vitro Strip (Glucose Blood) USE TO TEST BLOOD SUGAR VALUES ONCE DAILY E 11.9 100Strip 11 hydrALAZINE HCl 10 MG Oral Tablet (Apresoline) TAKE 1 TABLET BY MOUTH THREE TIMES A DAY 270 Tablet 5 Pen [place] 32G X 6 MM Use as directed. Inject 15 units daily E11.9 100 Each 3 hydroCHLOROthiazide 12.5 MG Oral Capsule Take 1 Capsule by mouth in the morning. 90 Capsule 5 Losartan Potassium 25 MG Oral Tablet (Cozaar) TAKE 1 TABLET BY MOUTH EVERY DAY 90 Tablet 1 Warfarin Sodium 5 MG Oral Tablet (Coumadin) TAKE 10MG (2 TABLETS) MON AND FRI, 7.5MG (1 AND 1/2 TABLETS) ALL OTHER DAYS 160 Tablet 3 Tamsulosin HCl 0.4 MG Oral Capsule (Flomax) TAKE 1 CAPSULE BY MOUTH EVERY MORNING 90 Capsule 1 Vitron-C 65-125 MG Oral Tablet (Iron-Vitamin C 65-125 mg per tab) TAKE 1 TABLET BY MOUTH EVERY DAY 90 Tablet 3 metFORMIN HCl 1000 MG Oral Tablet (Glucophage) TAKE 1 TABLET BY MOUTH TWICE A DAY WITH BREAKFAST AND DINNER 180 Tablet 3 Pantoprazole Sodium 40 MG Oral Tablet Delayed Release (Protonix) TAKE 1 TABLET BY MOUTH EVERY DAY 90 Tablet 3 Rosuvastatin Calcium 40 MG Oral Tablet (Crestor) TAKE 1 TABLET BY MOUTH EVERY DAY 90 Tablet 3 Ozempic (2 MG/DOSE) 8 MG/3ML Subcutaneous Solution Pen-injector (Semaglutide (2 MG/DOSE)) Inject 2 mg under the skin once a week. 9 mL 3 Metoprolol Succinate ER 50 MG Oral Tablet Extended Release 24 Hour (toPROL XL) TAKE 1 TABLET BY MOUTH TWICE A DAY 180 Tablet 3 Accu-Chek Softclix Lancets Use to test BG once daily E11.9 100 Each 5 Accu-Chek Guide w/Device Kit Use as directed. Use to test BG values E11.9 1 Kit 0 Amoxicillin 500 MG Oral Capsule (Amoxil) Take 4 capsules 1 hour prior to any dental work 4 Capsule 4 BiPAP every night at bedtime. Accu-Chek Softclix Lancets USE TO TEST BLOOD SUGAR 4 TIMES DAILY DIRECTED E11.9 (Patient taking differently: Use to test blood sugar 1 time daily as directed E11.9) 400 Each 3 aspirin enteric coated 81 MG TBEC TAKE 1 TABLET BY MOUTH DAILY. 31 Tab 11 Tresiba FlexTouch 200 UNIT/ML Subcutaneous Solution Pen-injector (Insulin Degludec) Inject 17 Unitsunder the skin in the morning. E11.9. 15 mL 3 Mupirocin 2 % External Ointment (Bactroban) To affected area for up to 14 days. (Patient not taking: Reported on 05/31/2024) 30 g 1 No current facility-administered medications for this visit. PHYSICAL EXAM: Filed Vitals: 05/31/24 1120 BP: 116/80 Pulse: 62 Resp: 16 Temp: 35.8 C (96.5 F) TempSrc: Tympanic SpO2: 96% Weight: 112 kg (247 lb) Height: 1.778 m (5' 10") Body mass index is 35.44 kg/m. General: alert, no acute distress Head: NC/AT Lungs: normal respiratory effort Neuro: speech clear and appropriate ASSESSMENT/PLAN: Obstructive sleep apnea - excellent adherence; encourage continued use of BiPAP with all sleep - excellent efficacy of therapy; continue PAP at current setting 15/10 cmH2O - mask fitting -- he is interested in trying an N30. - DME: [facility] - Routine cleaning and change of supplies as needed. - Continue to avoid driving when feeling sleepy/drowsy. Follow-up with Sleep Medicine in 1 year. Radha Waldrop DO documented in this encounter Nursing Notes * Myrna Godfrey LPN - 05/31/2024 11:22 AM EDT Chief Complaint Patient presents with Follow Up Return sleep. 1 yr VENU. Bipap. No complaints. Travel Screening Question 05/31/2024 11:10 AM EDT - Filed by Patient Do you have any of the following new or worsening symptoms? None of these Have you recently been in contact with someone who was sick? No / Unsure Zahl Sleepiness Scale Question 05/31/2024 11:19 AM EDT - Filed by Myrna Godfrey LPN What is the chance you will doze off in the following situation? Sitting and reading No chance of dozing Watching TV Slight chance of dozing Sitting inactive in a public place, such as a theater or meeting No chance of dozing As a passenger in a car for an hour without a break No chance of dozing Lying down to rest in the afternoon when circumstances permit High chance of dozing When sitting and talking to someone No chance of dozing When sitting quietly after lunch without alcohol Slight chance of dozing In a car, while stopped for a few minutes in traffic No chance of dozing Score (range: 0 - 24) 5 documented in this encounter Plan of Treatment Upcoming Encounters Date Type Department Care Team (Late st Contact Info) Description 07/07/2024 10:00 AM EST Anticoagulation Pharmacy, [facility] [address] [place] [address] [facility] [address] [place] [address] 07/07/2024 10:10 AM EST Office Visit Pharmacy, [facility] [address] [place] [address] [facility] [address] [place], [place] [address] 08/09/2024 9:00 AM EST Office Visit Cardiology, [facility] [address] [place] [address] Nichol Morales PA-C [address] [place] [address] 09/14/2024 11:15 AM EST Procedure Only Urology, [facility] [address] [place] [address] Luis Manuel Tyler MD [address] [place] [id number] 10/27/2024 3:40 PM EST Office Visit Family Practice [facility] [address] [place] [address] Jason Jameson DO [address] [place] [address] 05/31/2025 11:40 AM EDT Office Visit [facility] [address] [place] [phone] Radha Waldrop, DO [address] [place] [address] Health Maintenance Due Date Last Done Comments [...] this encounter Medical Devices Implanted Type Area Retread Supervisor Device Identifier Shelf Expiration Date Model / Serial / Lot Electrode Pacing [id number] - [id number] Implanted:Qty: 1 on 10/07/2022 by Giovanni Smith MD at [facility] [place] [employer] : MEDICAL [id number] 06/23/2027 007 151P / / [id number] Valve Ford 3 Ultra 26mm - [id number] Implanted:Qty: 1 on 10/07/2022 by Giovanni Smith MD at [facility] [place] [employer] [id number] 04/07/2023 [id number] / / documented as of this encounter Visit Diagnoses Diagnosis Obstructive sleep apnea- Primary Obstructive sleep apnea (adult) (pediatric) documented in this encounter Advance Directives * Full Code (Latest Code Status on File) Date Activated Date Inactivated Comments 10/07/2022 1:07 PM 10/08/2022 8:13 PM This order r eflects the patients wishes and were consensually agreed upon. Question Answer Comments Discussion of Advance Direct mago occurred with: Not Discussed due to patient's condition Care Teams Flower Picker Relationship Specialty Start Date End Date Jason Jameson DO [address] [place] [address] PCP - General Family Medicine 05/11/19 documented as of this encounter
--- OUTSIDE RECORDS SUMMARY | 2024-09-01 05:18 | External Medical Summary | Summary of Care ---
Author Name Unknown Organization [facility] Address [address] [place] [address] Phone [phone] Care Team Providers Care Crocodile Farmer Name Role Phone Jason Jameson Primary Care Provider Encounter Details Date Type Department Care Team (Late st Contact Info) Description 03/18/2024 Telephone Orthopaedics [facility] [address] [place] [address] Damien Morales MD [address] [place] [phone] Allergies No known active allergiesdocumented as of [...] days. 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 90 Capsule 01/25/20 24 Active Pen [place] 32G X 6 MM Use as directed. Inject 15 units daily E11.9 100 Each 3 03/01/20 24 Active hydrALAZINE HCl 10 MG Oral Tablet (Apresoline) TAKE 1 TABLET BY MOUTH THREE TIMES A DAY 270 Tablet 02/06/20 024 Discontinued Accu-Chek Guide In Vitro Strip (Glucose Blood) Use to test BG values once daily E 11.9 100 Strip 03/17/20 024 Discontinued Tresiba FlexTouch 200 UNIT/ML Subcutaneous Solution Pen-injector (Insulin Degludec) Inject 15 Units under the skin in the morning. E11.9. 15 mL 03/01/20 24 024 Discontinued(Re fill) documented as of this encounter (statuses as of 05/31/2024) Active Problems Problem Noted Date Diagnosed Date S/P TAVR (transcatheter aortic valve replacement ) [...] 130/80 10/29/2015 Overview: Per HTN Protocol #27. 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 Pt was put on insulin and is going back on the 8th to get the levels rechecked, he is going to have that clinic send the results to Dr Morales Thank you Lexis * Telephone Encounter - Mame Zavaleta LPN - 03/18/2024 4:25 PM EDT Conferred with pre- anesthesia ( Sarah Montero RN) BS should not be greater than 300. Pt's last A1C was > 9. Mame Osborn LPN * Telephone Encounter - Vikki Johnston OSA - 03/18/2024 8:54 AM EDT Pt Was to have surgery with Dr. Morales 03/02 but his Glucose levels were to high. He would like to knowwhat the target is to have the surgery done pleases give him a call #[phone] documented in this encounter Plan of Treatment Upcoming Encounters Date Type Department Care Team (Late st Contact Info) Description 07/07/2024 10:00 AM EST Anticoagulation Pharmacy, [facility] [address] [facility] [place] [address] [facility] [address] [facility] [place] [address] 07/07/2024 10:10 AM EST Office Visit Pharmacy, [facility] [address] [facility] [place] [address] [facility] [address] [facility] [place] [address] 08/09/2024 9:00 AM EST Office Visit Cardiology, [facility] [address] [facility] [place] [address] Nichol Morales PA-C [address] [place] [address] 09/14/2024 11:15 AM EST Procedure Only Urology, [facility] [address] [facility] [place] [address] Luis Manuel Tyler MD [address] [place] [id number] 10/27/2024 3:40 PM EST Office Visit Family Practice [facility] [address] [facility] [place] [address] Jason Jameson, [address] [place] [address] 05/31/2025 11:40 AM EDT Office Visit Sleep Disorders Ctr [facility] [address] [place] [phone] [place] Radha Aguilar, [address] [place] [address] Health Maintenance Due Date Last Done Comments [...] encounter Medical Devices Implanted Type Area Supervisor Silvering Department Device Identifier Shelf Expiration Date Model / Serial / Lot Electrode Pacing [id number] - [id number] Implanted:Qty: 1 on 10/07/2022 by Giovanni Smith MD at [facility] [employer] : MEDICAL [id number] 06/23/2027 007 [id number] / / [id number] Valve Ford 3 Ultra 26mm - [id number] Implanted:Qty: 1 on 10/07/2022 by Giovanni Smith MD at [facility] [employer] [id number] 04/07/2023 [id number] / / documented as of this encounter Advance Directives * Full Code (Latest Code Status on File) Date Activated Date Inactivated Comments 10/07/2022 1:07 PM 10/08/2022 8:13 PM This order r eflects the patients wishes and were consensually agreed upon. Question Answer Comments Discussion of Advance Direct mago occurred with: Not Discussed due to patient's condition Care Teams Crocodile Farmer Relationship Specialty Start Date End Date Jason Jameson DO [address] [place] [address] PCP - General Family Medicine 05/11/19 documented as of this encounter
--- OUTSIDE RECORDS SUMMARY | 2024-09-01 05:19 | External Medical Summary | Summary of Care ---
Author Name Unknown Organization [facility] Address [address] [facility] [place] [address] Phone [phone] Care Team Providers Care Web Retailer Name Role Phone Jason Jameson Primary Care Provider Encounter Details Date Type Department Care Team (Late st Contact Info) Description 04/23/2024 Orders Only PATIENT PORTAL DO NOT DELETE THIS DEPT USED BY [place] [id number] Allergies No known active allergiesdocumented as of this encounter (statuses as of 04/23/2024) Medications Medication Sig Dispensed Refills Start Date [...] values E11.9 1 Kit 03/17/2023 Active Accu-Chek Guide In Vitro Strip (Glucose Blood) Use to test BG values once daily E 11.9 100 Strip 11 03/17/2023 Active Accu-Chek Softclix Lancets Use to [...] Tablet (Coumadin)Indications :Chronic atrial fibrillation (HCC),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 90 Capsule 5 01/25/2024 Active Pen [place] 32G X 6 MM Use as directed. Inject 15 units daily E11.9 100 Each 3 03/01/2024 Active Tresiba FlexTouch 200 UNIT/ML Subcutaneous Solution Pen-injector (Insulin Degludec) Inject 17 Units under the skin in the morning. E11.9. 15 mL 3 03/31/2024 Active hydrALAZINE HCl 10 MG Oral Tablet (Apresoline) TAKE 1 TABLET BY MOUTH THREE TIMES A DAY 270 Tablet 5 04/22/2024 Active documented as of this encounter (statuses as of 04/23/2024) Active Problems Problem Noted Date Diagnosed Date [...] 130/80 10/29/2015 Overview: Per HTN Protocol #27. assisted current use of anticoagulant therapy 0 03/09/2012 [...] as of this encounter (statuses as of 04/23/2024) Resolved Problems Problem Noted Date Diagnosed Date [...] as of this encounter (statuses as of 04/23/2024) Immunizations Name Administration Dates Next Due COVID-19 [...] (15 years old or older) No 10/07/19 23 Cognitive Status Response Date of Assessm ent Because of a physical, menta l, or emotional condition, do you have serious difficulty concentrating, remembering, or making decisions? (5 years old or older) No 10/07/2022 documented as of this encounter Plan of Treatment Upcoming Encounters Date Type Department Care Team (Late st Contact Info) Description 05/12/2024 1:00 PM EDT Anticoagulation Pharmacy, [facility] [address] [place] [address] [facility] [address] [place] [address] 05/12/2024 1:10 PM EDT Office Visit Pharmacy, [facility] [address] [place] [address] [facility] [address] [place] [address] 05/12/2024 1:40 PM EDT Pharmacy Pharmacy, [facility] [address] [place] [address] [facility] [address] [place] [address] 05/31/2024 11:20 AM EDT Office Visit Sleep Disorders Ctr [facility] [address] [place] [phone] Radha [place], [address] [place] [address] 08/09/2024 9:00 AM EST Office Visit Cardiology, [facility] [address] [place] [address] Nichol Morales PA-C [address] [place] [address] 10/27/2024 3:40 PM EST Office Visit Family Practice [facility] [address] [place] [address] Jason Jameson DO [address] [place] [address] 11/02/2024 4:00 PM EDT Office Visit Urology, [facility] [address] [place] [address] Luis Manuel Tyler MD [address] [place] [address] Health Maintenance Due Date Last Done Comments Adult Wellness Visit 04/06/2020 04/06/2019 COVID-19 Vaccine ( season) 2023 05/24/2023, 06/06/2022, 08/12/2021, Additional history exists Diabetic Foot Exam 02/20/2024 02/19/2023, 0 02/18/2022, 02/14/2021, Additional history exists Influenza Vaccine (FLU shot) (#1) 2024 05/20/2023, 05/01/2022, 05/06/2021, Additional history exists HbA1c 09/01/2024 03/01/2024, 09/25, 04/30/2023, Additional history exists Albumin/Creatinine Ratio 10/21/2024 024, 04/30/2023, 11/10/2022, Additional history exists B-12 10/21/2024 10/22/2023, 10/23, 02/18/2022, Additional history exists Depression Screening 10/21/2024 10/22/2023 GFR 11/03/2024 11/04/2023, 09/25, 06/25/2023, Additional history exists Diabetic Eye Exam 12/10/2024 12/11/2023, , 05/03/2021, Additional history exists DTap/Tdap Vaccines (3 - Td or Tdap) 09/03/2028 09/03/2018, 02/07/2008, 08/21/1997, Additional history exists Zoster Vaccines Discontinued 04/12/2012 Pneumococcal Vaccine: 65+ Years Completed 12/27/2014, 06/22/2012, 02/19/2006 HPV (Gardasil) Vaccine Aged Out No lo nger eligible based on patient's age to complete this topic Hepatitis B Vaccine Aged Out No longe r eligible based on patient's age to complete this topic MENINGOCOCCAL (MENACTRA/MENVEO) Aged Out No longer eligible based on patient's age to complete this topic documented as of this encounter Medical Devices Implanted Type Area Statistician Mathematical Device Identifier Shelf Expiration Date Model / Serial / Lot Electrode Pacing [id number] - [id number] Implanted:Qty: 1 on 10/07/2022 by Giovanni Smith MD at [facility] : MEDICAL [id number] 06/23/2027 007 [id number] / / [id number] Valve Ford 3 Ultra 26mm - [id number] Implanted:Qty: 1 on 10/07/2022 by Giovanni Smith MD at [facility] [employer] [id number] 04/07/2023 [id number] / / documented as of this encounter Advance Directives * Full Code (Latest Code Status on File) Date Activated Date Inactivated Comments 10/07/2022 1:07 PM 10/08/2022 8:13 PM This order r eflects the patients wishes and were consensually agreed upon. Question Answer Comments Discussion of Advance Direct mago occurred with: Not Discussed due to patient's condition Care Teams Web Retailer Relationship Specialty Start Date End Date Jason Jameson DO [address] [place] [address] PCP - General Family Medicine 05/11/19 documented as of this encounter
--- OUTSIDE RECORDS SUMMARY | 2024-09-01 05:19 | External Medical Summary ---
Author Name Unknown Address Unknown Organization K01:[facility] [place] [address] [place] [address] Laboratory Report Ordering Provider Test Date Status JEANINE CHANG 05/04/2024 12:09:33 Final Observation Date Value Abnormality Reference (Units ) Status Triglyceride 05/04/2024 12:09:33 163 <=174 ( mg/dL) Final Triglyceride Reference Range s (mg/dL):
<150 Acceptable
150-174 Borderline high
175-499 High
>=500 Very high Cholesterol 05/04/2024 12:09:33 140 <200 (mg /dL) Final Total Cholesterol Reference Ranges (mg/dL):
<200 Desirable
200-239 Borderline high
>=240 High HDL 05/04/2024 12:09:33 36 Below low normal >39 (mg/dL) Final HDL Cholesterol Reference Ra nges (mg/dL):
>=60 High (Desirable)
<50 Low (Undesirable) For Females
<40 Low (Undesirable) For Males NON-HDL CHOLESTEROL 05/04/2024 12:09:33 104 <=159 (mg/dL) Final Non-HDL Cholesterol Referenc e Range (mg/dL):
<100 Target level for high risk ASCVD patient
<130 Optimal for general population
130-159 Near optimal for general population
160-189 Borderline High
190-219 High
>=220 Very High LDL, (calculated) 05/04/2024 12:09:33 71 <= 129 (mg/dL) Final LDL Cholesterol Reference Ra nges (mg/dL):
<70 Target level for high risk ASCVD patient
<100 Optimal for general population
100-129 Near optimal for general population
130-159 Borderline high
160-189 High
>=190 Very high Performing Location [facility] [place] [address] [facility] [address]
--- OUTSIDE RECORDS SUMMARY | 2024-09-01 05:19 | External Medical Summary | Summary of Care ---
Author Name Unknown Organization [facility] Address [address] [place] [address] Phone [phone] Care Team Providers Care Appeals Writer Name Role Phone Cristian Jameson Primary Care Provider Reason for Visit * Reason Comments Follow Up * Evaluate & Treat - Unlimited Visits (Within 10 days (routine)) - Authorized Specialty Diagnoses / Procedures Referred By Eric grullon Referred To Contact Urology Diagnoses BPH with obstruction/lower urinary tract symptoms Amy Jeff CRNP [address] [place] [address] Referral ID Status Reason Start Date Expiration Date Visits Requested Visits Authorized [id number] Authorized Specialty Services Required 04/21/[phone] Encounter Details Date Type Department Care Team (Late st Contact Info) Description 05/04/2024 11:15 AM EDT Office Visit Urology, [facility] [address] [place] [address] Luis Manuel Tyler MD [address] [place] [id number] BPH with obstruction/lower urinary tract symptoms*; Left inguinal pain; Nocturia; Urgency of urination; Urge incontinence; Impotence Allergies No known active allergiesdocumented as of this encounter (statuses as of 05/04/2024) Medications Medication Sig Dispensed Refills Start Date [...] (AAA) 30 to 34 mm in diameter ([facility]) Take 4 capsules 1 hour prior to [...] below 140/90,Atrial flutter, unspecified type ([facility]) TAKE 1 TABLET BY MOUTH TWICE A DAY 180 Tablet 3 09/09/2023 Active Ozempic (2 MG/DOSE) 8 MG/3ML Subcutaneous Solution Pen-injector (Semaglutide (2 MG/DOSE))Indications: DM type 2, goal HbA1c < 8% ([facility]) Inject 2 mg under the skin once [...] Tablet (Coumadin)Indications :Chronic atrial fibrillation (HCC),Anticoagulation management encounter,penitentiary current use of anticoagulant therapy,Atrial flutter, unspecified [...] morning. 90 Capsule 5 01/25/2024 Active Pen Temple 32G X 6 MM Use as directed. 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 rOozco 10/201003/04/2011 03/18/2017 Diabetes mellitus with background retinopathy [...] as of this encounter (statuses as of 05/04/2024) Immunizations Name Administration Dates Next Due COVID-19 [...] Influenza, Trivalen t, (IIV3), with Preserv, (Fluzone) 05/02/2015,05/05/2014,05/09/2013,04/25,05/13/2011,06/07/2010,05/24/20 09,06/16/2008,07/06/2007,06/26/2006,1 ,06/13/2003,06/23/2002,08/04,06/11/1999 Seasonal Influenza, Trivalen t, Adjuvanted, 65+ YRS, [...] Sign Reading Time Taken Comments Blood Pressure - - Pulse - - Temperature - - Respiratory Rate - - Oxygen Saturation - - Inhaled Oxygen Concentration - - Weight 110.6 kg (243 lb 14.4 oz) 2023 11:11 AM EDT Height - - Body Mass Index 35 04/21/2024 4:07 PM EDT documented in this encounter Functional [...] as of this encounter Progress Notes * Luis Manuel Tyler MD - 05/04/2024 11:09 AM EDT [id number] PCP: CRISTIAN JAMESON [address] [place] [address] [phone] Dave Dow is a 78 year old male, who presents in referral for evaluation of his BPH history.Patient's previous visit with physician distribution center assistant over 2 years ago are reviewed. No recent PSA value is appreciated. Patient's hernia repair a year ago was appreciated. Patient feels he is having penile shrinkage and genital pain during the healing process. On review of chart it seems nocturia and urgency are the reason for referral. Impotence: Trial of sildenafil without success. Offered Trimix - declines. BPH: Patient is being seen for BPH today. He has had the following symptoms: urgency, nocturia Q2 hours,slow stream. Severity is mild. He has tried tamsulosin. He has previously had no surgery done. Problem has been present for years. Problem is getting worse. PSA Results: Lab Results Component Value Date/Time PSA - [facility] 2.96 12/30/2017 11:29 AM PSA - [facility] 0.65 05/12/2003 10:58 AM PSA - [facility] 2.07 11/16/2000 09:39 PM PSA SCREENING 0.65 12/27/2014 10:09 AM PSA SCREENING 0.75 11/14/2011 08:42 AM PSA SCREENING 0.66 11/01/2010 08:52 AM Current Outpatient Medications Medication Sig Dispense Refill [...] in the morning. 90 Capsule 5 Pen Temple 32G X 6 MM Use as directed. [...] VALUES ONCE DAILY E 11.9 100Strip 11 No current facility-administered medications for this visit. Review of patient's allergies indicates: No Known Allergies Social History: Social History Tobacco Use Smoking status: Former Current packs/day: 0.00 Average packs/day: 3.0 packs/day for 25.9 years (77.8 ttl pk-yrs) Types: Cigarettes Start date: 1964 Quit date: 07/27/1990 Years since quittin.7 Smokeless tobacco: Never Tobacco comments: passive smoke exposure at wk - as of 10-22-06 no smoke exposure Substance Use Topics Alcohol use: No Vaping/E-Cigarette Use Vaping/E-Cigarette Use Never User Passive Exposure No Counseling Given? No Vaping/E-Cigarette Substances Nicotine No Other No Flavoring No THC No Cannabidiol (CBD) No Vaping/E-Cigarette Devices Disposable No Pre-filled or Refillable Cartridge No Refillable Tank No Pre-filled Pod No Family History Problem Relation Name Age of Onset Cancer Mother breast ca, survived; also colon cancer- in her 80's Heart Disorder Father CABGx2, [place], defibrillator, pacemaker Cancer Father lymphoma, at age 83 + prostate cancer Eye Problems None denies family hx of eye problems No Past Hx Other denies any skin diseases, cancers, or melanoma Past Surgical History: Procedure Laterality Date ARTHROPLASTY KNEE TOTAL 11/28 left- Dr. Souza ARTHROPLASTY KNEE TOTAL 12/29/2013 right- Dr. Souza CATHETERIZE LEFT HEART THRU SKIN [address] Anglin at [facility] COLONOSCOPY, DIAGNOSTIC (RECTUM) 04/16/10 int. hemorrhoids COLONOSCOPY, DIAGNOSTIC (RECTUM) 04/25/2015 hyperplastic tissue on bx, repeat 5 yrs/COLONOSCOPY FLEXIBLE PROXIMAL DIAGNOSTIC performed by Rj Menendez MD at [facility] COLONOSCOPY, DIAGNOSTIC (RECTUM) 06/30/2018 normal/COLONOSCOPY FLEXIBLE PROXIMAL DIAGNOSTIC performed by Rj Menendez MD at [facility] COLONOSCOPY, REMOVE LESION 03/28 serrated adenoma polyp-repeat in 5 years CORONARY ANGIOGRAPHY W/LEFT HEART CATH 07/16/2022 CORONARY ANGIOGRAPHY W/LEFT HEART CATH performed by Celestino Cooper MD at [facility] EGD, FLEXIBLE, DIAGNOSTIC 06/30/2018 Mariann infection, hiatal hernia/ESOPHAGOGASTRODUODENOSCOPY (EGD), FLEXIBLE, TRANSORAL, DIAGNOSTIC performed by Rj Menendez MD at [facility] EXERCISE ECHO 06/01 Normal- no ischemic [...] at [facility] REPLACE AORTIC VALVE, PERCUTANEOUS FEMORAL Bilateral 10/07/2022 REPLACE AORTIC VALVE, PERCUTANEOUS FEMORAL performed by Teto Granados MD, PhD at [facility] Past Medical History: Diagnosis Date Anticoagulation management [...] SLEEP APNEA NOS 02/19/2001 Sleep apnea, obstructive Patient Active Problem List Diagnosis Sleep apnea ATHEROSCLEROTIC CORONARY DISEASE HX COLON POLYP- 02/2000 + 04/15/05 GENERAL OSTEOARTHROSIS ADVANCE DIRECTIVE INFORMATION HYPERTENSIVE HEART DZ Localized, primary osteoarthritis of hand DM type 2, goal HbA1c < 8% (HCC) DYSLIPIDEMIA, GOAL LDL BELOW 70 Severe obesity with body mass index (BMI) of 35.0 to 39.9 with serious comorbidity (HCC) 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 Constitutional: Appearance: Normal appearance. He is obese. He is not ill-appearing or toxic-appearing. Comments: Using cane HENT: Head: Normocephalic and atraumatic. Right Ear: External ear normal. Left Ear: External ear normal. Nose: Nose normal. Mouth/Throat: Mouth: Mucous membranes are moist. Eyes: Extraocular Movements: Extraocular movements intact. Cardiovascular: Pulses: Normal pulses. Pulmonary: Effort: Respiratory distress (Pickwickian) present. Abdominal: General: Abdomen is protuberant. Palpations: Abdomen is soft. Tenderness: There is no abdominal tenderness. Genitourinary: Comments: 60 gram prostate, no induration or nodules, no seminal vesicle abnormalities, normal rectal tone, uninflamed external hemorrhoids Musculoskeletal: Cervical back: Normal range of motion and neck supple. Lymphadenopathy: Cervical: No cervical adenopathy. Skin: Coloration: Skin is not cyanotic or pale. Neurological: Mental Status: He is alert and oriented to person, place, and time. Motor: Weakness present. Gait: Gait abnormal. Psychiatric: Attention and Perception: Attention normal. Mood and Affect: Mood and affect normal. Behavior: Behavior normal. Impression/Plan: 78-year-old male with a history of BPH, ED. Seen patient's persistent LUTS will add finasteride to regimen. Will check a PSA value with next labs. Will see the patient back in 4 months time to check on his progress. Will consider cystoscopy atthat time if voiding has not improved. Possible etiologies of LUTS are noted. Above content is personally reviewed. Patient vocalizes good understanding of the treatment plan. Options for management of ED including Trimix are reviewed - patient notes he "hates needles," declines. Luis Manuel Tyler MD 11:09 AM 05/04/2024 documented in this encounter Nursing Notes * Gissel Bustillo LPN - 05/04/2024 11:09 AM EDT 2 yr ret Pt self-scheduled Ref back by PCP for BPH Tamsulosin PSA Results: Lab Results Component Value Date/Time PSA - [facility] 2.96 12/30/2017 11:29 AM PSA - [facility] 0.65 05/12/2003 10:58 AM PSA - [facility] 2.07 11/16/2000 09:39 PM PSA SCREENING 0.65 12/27/2014 10:09 AM PSA SCREENING 0.75 11/14/2011 08:42 AM PSA SCREENING 0.66 11/01/2010 08:52 AM C/o- right inguinal pain radiates to left, states he feels it is in relation to his hernia repair from Dr Vibha Tyler in June. He is experiencing urinary frequency/urinary, shrinking of penis receeding into groin. ED documented in this encounter Plan of Treatment Upcoming Encounters Date Type Department Care Team (Late st Contact Info) Description 05/04/2024 12:10 PM EDT Laboratory Laboratory, [facility] [place] [phone] [place] [id number] Arrived 05/12/2024 1:00 PM EDT Anticoagulation Pharmacy, [facility], [place] [address] [facility] [facility] [place] [phone] 05/12/2024 1:10 PM EDT Office Visit Pharmacy, [facility] [address] [place] [address] [facility] [address] [place] [address] 05/12/2024 1:40 PM EDT Pharmacy Pharm[facility], [facility] [place] [address] [facility] [address] [place] [address] 05/31/2024 11:20 AM EDT Office Visit [facility] [address] [place] [phone] Radha Waldrop, [address] [place] [address] 08/09/2024 9:00 AM EST Office Visit Cardiology, [facility] [address] [place] [address] Nichol Morales PA-C [address] [place] [address] 09/14/2024 11:15 AM EST Procedure Only Urology, [facility] [place] [address] Luis Manuel Tyler MD [address] [place] [address] 10/27/2024 3:40 PM EST Office Visit Family Practice [facility] [address] [place] [address] Cristian Jameson DO [address] [place] [address] Health Maintenance Due Date Last Done Comments Adult Wellness Visit 04/06/2020 04/06/2019 Diabetic Foot Exam 02/20/2024 02/19/2023, 0 02/18/2022, 02/14/2021, Additional history exists COVID-19 Vaccine (2022- season) 2024 04/29/2024, 05/24/2023, 06/06/2022, Additional history exists HbA1c 09/01/2024 03/01/2024, 09/25, [...] this encounter Medical Devices Implanted Type Area Service Tech Device Identifier Shelf Expiration Date Model / Serial / Lot Electrode Pacing [id number] - [id number] Implanted:Qty: 1 on 10/07/2022 by Giovanni Smith MD at [facility] [id number] 06/23/2027 [id number] [id number] / / [id number] Valve Ford 3 Ultra 26mm - [id number] Implanted:Qty: 1 on 10/07/2022 by Giovanni Smith MD at [facility] [employer] [id number] 04/07/2023 [id number] / / documented as of this encounter Visit Diagnoses Diagnosis BPH with obstruction/lower urinary tract symptoms- Primary Hypertrophy of prostate with urinary obstruction and other lower urinary tract symptoms (LUTS) Left inguinal pain Abdominal pain, left lower quadrant Nocturia Urgency of urination Urge incontinence Impotence Impotence of organic origin documented in this encounter Advance Directives * Full Code (Latest Code Status on File) Date Activated Date Inactivated Comments 10/07/2022 1:07 PM 10/08/2022 8:13 PM This order r eflects the patients wishes and were consensually agreed upon. Question Answer Comments Discussion of Advance Direct mago occurred with: Not Discussed due to patient's condition Care Teams Appeals Writer Relationship Specialty Start Date End Date Cristian Jameson DO [address] [place] [address] PCP - General Family Medicine 05/11/19 documented as of this encounter
--- OUTSIDE RECORDS SUMMARY | 2024-09-01 05:19 | External Medical Summary ---
Author Name Unknown Address Unknown Organization [id number]:[facility] [place] [address] [place] [address] Laboratory Report Ordering Provider Test Date Status JEANINE CHANG 05/04/2024 12:09:33 Final Observation Date Value Abnormality Reference (Units ) Status PSA 05/04/2024 12:09:33 2.45 <4.10 (ng/ mL) Final Performing Location LABORATORY [facility] - [address] [place] [address]
--- OUTSIDE RECORDS SUMMARY | 2024-09-01 05:19 | External Medical Summary ---
Author Name Unknown Address Unknown Organization [id number]:[facility] - [address] [place] [address] Laboratory Report Ordering Provider Test Date Status JEANINE CHANG 05/04/2024 12:09:33 Final Observation Date Value Abnormality Reference (Units ) Status SYNC LEUKOCYTES IN BLOOD BY AUTOMATED COUNT 05/04/2024 12:09:33 8.30 4.00-10.80 (K/uL) Final Neutrophils/100 leukocytes in Blood by Manual count 05/04/2024 12:09:33 55.0 40.0-75.0 (%) Final Lymphocytes/100 leukocytes in Blood by Manual count 05/04/2024 12:09:33 32.0 18.0-42.0 (%) Final Monocytes/100 leukocytes in Blood by Manual count 05/04/2024 12:09:33 11.0 1.0-11.0 (%) Final Eosinophils/100 leukocytes in Blood by Manual count 05/04/2024 12:09:33 2.0 0.0-6.0 (%) Final Neutrophils [#/volume] in Blood by Manual count 05/04/2024 12:09:33 4.57 1.80-7.70 (K/uL) Final Lymphocytes [#/volume] in Blood by Manual count 05/04/2024 12:09:33 2.66 1.00-4.80 (K/uL) Final Monocytes [#/volume] in Blood by Manual count 05/04/2024 12:09:33 0.91 0.00-1.10 (K/uL) Final Eosinophils [#/volume] in Blood by Manual count 05/04/2024 12:09:33 0.17 0.00-0.70 (K/uL) Final Nucleated erythrocytes/100 leukocytes [Ratio] in Blood by Automated count 05/04/2024 12:09:33 Final Performing Location LAB[facility]ATORY [facility] - [address] [facility] [address]
--- OUTSIDE RECORDS SUMMARY | 2024-09-01 05:19 | External Medical Summary | Summary of Care ---
Author Name Unknown Organization [facility] Address [address] [place] [address] Phone [phone] Care Team Providers Care Blister Packing Machine Tender Name Role Phone Jason Jameson Primary Care Provider Reason for Referral * Evaluate & Treat - Unlimited Visits (Within 10 days (routine)) - Authorized Specialty Diagnoses / Procedures Referred By Eric grullon Referred To Contact Urology Diagnoses BPH with obstruction/lower urinary tract symptoms Amy Jeff CRNP [address] [facility] [place] [address] Referral ID Status Reason Start Date Expiration Date Visits Requested Visits Authorized [id number] Authorized Specialty Services Required 04/21/2024 999 999 Question Answer Referral Priority Within 10 days (routine) Where should this appointment be scheduled? [facility] What is the patient being referred for? BPH Reason for Visit * Reason Comments Re-Check 6 month recheck Encounter Details Date Type Department Care Team (Latest Contact Info) Description 04/21/2024 4:00 PM EDT Office Visit Family [facility] [address] [place] [address] Amy Jeff CRNP [address] [place] [address] Encounter for long-term (current) use of medications*; DM type 2, goal HbA1c < 8% ([facility]); DM type 2 with diabetic peripheral neuropathy (HCC); VENU treated with BiPAP; Chronic atrial fibrillation (HCC); custodial current use of anticoagulant therapy; S/P TAVR (transcatheter aortic valve replacement); HTN, goal below 130/80; Gastroesophageal reflux disease without esophagitis; BPH with obstruction/lower urinary tract symptoms; Scapholunate advanced collapse of right wrist; Obesity, Class I, BMI 30.0-34.9 (see actual BMI); Unilateral recurrent inguinal hernia without obstruction or gangrene; Dyslipidemia, goal LDL below 70; Ceruminosis, bilateral Allergies No known active allergiesdocumented as of this encounter (statuses as of 04/21/2024) Medications Medication Sig Dispensed Refills Start Date [...] to 34 mm in diameter ([facility]) Take 4 capsules 1 hour prior to any dental work 4 Capsule 4 11/10/2022 Active hydrALAZINE HCl 10 MG Oral Tablet (Apresoline) TAKE 1 TABLET BY MOUTH THREE TIMES A DAY 270 Tablet 5 02/05/2023 Active Mupirocin 2 % External Ointment (Bactroban)Indication [...] TABLET BY MOUTH EVERY DAY 90 Tablet 11/21/2023 Active Rosuvastatin Calcium 40 MG Oral Tablet (Crestor) TAKE 1 TABLET BY MOUTH EVERY DAY 90 Tablet 11/21/2023 Active Vitron-C 65-125 MG Oral Tablet (Iron-Vitamin C 65-125 mg per tab)Indications:Low ferritin level TAKE 1 TABLET BY MOUTH EVERY DAY 90 Tablet 11/23/2023 Active metFORMIN HCl 1000 MG Oral Tablet (Glucophage)Indicatio ns:HTN, goal below 140/90 TAKE 1 TABLET BY MOUTH TWICE A DAY WITH BREAKFAST AND DINNER 180 Tablet 11/21/2023 Active Tamsulosin HCl 0.4 MG Oral Capsule (Flomax) TAKE 1 CAPSULE BY MOUTH EVERY MORNING 90 Capsule 12/31/2023 Active Warfarin Sodium 5 MG Oral [...] morning. 90 Capsule 5 01/25/2024 Active Pen Wadsworth 32G X 6 MM Use as directed. Inject 15 units daily E11.9 100 Each 3 03/01/2024 Active Tresiba FlexTouch 200 UNIT/ML Subcutaneous Solution Pen-injector (Insulin Degludec) Inject 17 Units under the skin in the morning. E11.9. 15 mL 3 03/31/2024 Active documented as of this encounter (statuses as of 04/21/2024) Active Problems Problem Noted Date Diagnosed Date [...] as of this encounter (statuses as of 04/21/2024) Resolved Problems Problem Noted Date Diagnosed Date [...] as of this encounter (statuses as of 04/21/2024) Immunizations Name Administration Dates Next Due COVID-19 [...] Sign Reading Time Taken Comments Blood Pressure 122/68 04/21/2024 4:07 PM EDT Pulse 74 04/21/2024 4:07 PM EDT Temperature 36.4 C (97.5 F) 04/21/2024 4:07 PM ED T Respiratory Rate - - Oxygen Saturation 94% 04/21/2024 4:07 PM EDT Inhaled Oxygen Concentration - - Weight 109.4 kg (241 lb 3.2 oz) 04/21/2024 4:07 PM EDT Height 177.8 cm (5' 10") 04/21/2024 4:07 PM EDT Body Mass Index 34.61 04/21/2024 4:07 PM EDT documented in this [...] as of this encounter Progress Notes * Amy Jeff CRNP - 04/21/2024 4:15 PM EDT Images from the original note were not included. History of Present Illness Dave Dow is a 78 year old male that presents for Re-Check (6 month recheck ) HPI Here in routine follow up Working with MTM to improve diabetes control Interested in CGM - ordered some type of wrist watch device from [employer] after learning his CGM wouldn't be covered. This was before he was on insulin. Now that he is on insulin will ask MTM pharmacistagain about CGM. Large inguinal hernia repair 07/2023. Some residual incision pain after inguinal hernia repair not severe Would like to follow up with urology about urinary frequency overnight. On flomax. Symptoms are notprogressing. Current Outpatient Medications Medication Sig Dispense Refill Tresiba FlexTouch 200 UNIT/ML Subcutaneous Solution Pen-injector (Insulin Degludec) Inject 17 Unitsunder the skin in the morning. E11.9. 15 mL 3 Pen Wadsworth 32G X 6 MM Use as directed. [...] daily E11.9 100 Each 5 Accu-Chek Guide In Vitro Strip (Glucose Blood) Use to test BG values once daily E 11.9 100 Strip 11 Accu-Chek Guide w/Device Kit Use as directed. Use to test BG values E11.9 1 Kit 0 Mupirocin 2 % External Ointment (Bactroban) To affected area for up to 14 days. 30 g 1 hydrALAZINE HCl 10 MG Oral Tablet (Apresoline) TAKE 1 TABLET BY MOUTH THREE TIMES A DAY 270 Tablet 5 Amoxicillin 500 MG Oral Capsule (Amoxil) Take [...] TABLET BY MOUTH DAILY. 31 Tab 11 No current facility-administered medications for this visit. Physical Exam Vitals: 04/21/24 1607 Temp: 36.4 C (97.5 F) Pulse: 74 SpO2: 94% BP: 122/68 BMI: 34.61 Physical Exam Vitals reviewed. Constitutional: Appearance: Normal appearance. HENT: Head: Normocephalic and atraumatic. Right Ear: There is impacted cerumen. Left Ear: There is impacted cerumen. Nose: Nose normal. Mouth/Throat: Mouth: Mucous membranes are moist. Eyes: Extraocular Movements: Extraocular movements intact. Conjunctiva/sclera: Conjunctivae normal. Pupils: Pupils are equal, round, and reactive to light. Cardiovascular: Rate and Rhythm: Normal rate and regular rhythm. Heart sounds: Normal heart sounds. Pulmonary: Effort: Pulmonary effort is normal. Breath sounds: Normal breath sounds. Abdominal: General: There is no distension. Palpations: Abdomen is soft. Tenderness: There is no abdominal tenderness. Musculoskeletal: Cervical back: Neck supple. Right lower leg: No edema. Left lower leg: No edema. Lymphadenopathy: Cervical: No cervical adenopathy. Skin: General: Skin is warm and dry. Capillary Refill: Capillary refill takes less than 2 seconds. Neurological: Mental Status: He is alert and oriented to person, place, and time. Psychiatric: Behavior: Behavior normal. Thought Content: Thought content normal. 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 MTM following S/P TAVR (transcatheter aortic valve replacement) As above HTN, goal below 130/80 - BASIC METABOLIC PANEL; Future Gastroesophageal reflux disease without esophagitis stable BPH with obstruction/lower urinary tract symptoms - ADULT/PEDS UROLOGY REFERRAL OP - PSA; Future Scapholunate advanced collapse of right wrist Following with dr Morales -- surgery postponed due to poorly controlled DM Obesity, Class I, BMI 30.0-34.9 (see actual BMI) On ozempic Unilateral recurrent inguinal hernia without obstruction or gangrene S/p repair -- aware to follow up with surgeon if pain recurs Dyslipidemia, goal LDL below 70 - LIPID PANEL WITH DIRECT LDL IF TG IS HIGH; Future Ceruminosis, bilateral Lavage today Wrap-Up Follow-up: Return if symptoms worsen or fail to improve. | Check-out note: Also needs cardiology follow up Lab appt on day he comes in for MTM Time: I spent a total of 30-39 minutes (exact time 30 mins) on the date of service in preparation, delivery, and documentation of the care provided to Dave Dow excluding any time spent in the performance of separately billed services. documented in this encounter Nursing Notes * Toma Mccloud LPN - 04/21/2024 4:06 PM EDT The patient has been properly identified by confirmation of name and date of . Chief Complaint Patient presents with Re-Check 6 month recheck documented in this encounter Plan of Treatment Upcoming Encounters Date Type Department Care Team (Late st Contact Info) Description 05/12/2024 1:00 PM EDT Anticoagulation Pharmacy, [facility] [address] [place] [address] [place] [address] [place], [place] [address] 05/12/2024 1:10 PM EDT Office Visit Pharmacy, [facility] [address] [place], [place] [address] [facility] [address] [place] [address] 05/12/2024 1:40 PM EDT Pharmacy Pharmacy, [facility] [address] [place] [address] [facility], [facility] [address] [place] [address] 05/31/2024 11:20 AM EDT Office Visit Sleep Disorders Ctr [facility]y [facility], [place] [address] [place], [place] [phone] Radha Waldrop DO [address] [place], [place] [address] 08/09/2024 9:00 AM EST Office Visit Cardiology, [facility] [address] [place] [address] Nichol Morales PA-C [address] [place] [address] 10/27/2024 3:40 PM EST Office Visit [facility] [place] [address] Jason Jaemson, [address] [place] [address] 11/02/2024 4:00 PM EDT Office Visit Urology, [facility] [address] [place] [address] Luis Manuel Tyler MD [address] [place] [address] Scheduled Orders Name Type Priority Associated Diagnoses Orde r Schedule CBC WITH WBC DIFFERENTIAL Lab Routine Encounter for long-term (current) use of medications Expected: 04/21/2024 (Approximate), Expires: 04/21/2025 BASIC METABOLIC PANEL Lab Routine Encounter for long-term (current) use of medications HTN, goal below 130/80 Expected: 04/21/2024 (Approximate), Expires: 04/21/2025 LIPID PANEL WITH DIRECT LDL IF TG IS HIGH Lab Routine Encounter for long-term (current) use of medications Dyslipidemia, goal LDL below 70 Expected: 04/21/2024, Expires: 04/21/2025 PSA Lab Routine BPH with obstruction/lower urinary tract symptoms Expected: 04/21/2024 (Approximate), Expires: 04/21/2025 REMOVAL IMPACTED CERUMEN IRRIGATION/LAVAGE, UNILAT Procedures Routine Ceruminosis, bilateral Ordered: 04/21/2024 Scheduled Referrals Name Type Priority Associated Diagnoses Orde r Schedule ADULT/PEDS UROLOGY REFERRAL OP Referral Within 10 days (routine) BPH with obstruction/lower urinary tract symptoms Ordered: 04/21/2024 Health Maintenance Due Date Last Done Comments [...] this encounter Medical Devices Implanted Type Area Operations And Maintenance Technician Device Identifier Shelf Expiration Date Model / Serial / Lot Electrode Pacing [id number] - [id number] Implanted:Qty: 1 on 10/07/2022 by Giovanni Smith MD at [facility] [place] : MEDICAL [id number] 06/23/2027 [id number] / / [id number] Valve Ford 3 Ultra 26mm - [id number] Implanted:Qty: 1 on 10/07/2022 by Giovanni Smith MD at [facility] [employer] [id number] 04/07/2023 [id number] / / documented as of this encounter Visit Diagnoses Diagnosis Encounter for long-term (current) use of medications- Primary Encounter for long-term (current) use of other medications DM type 2, goal HbA1c < 8% (HCC) DM type 2 with diabetic peripheral neuropathy (HCC) Type II or unspecified type diabetes mellitus with neurological manifestations, not stated as uncontrolled VENU treated with BiPAP Chronic atrial fibrillation (HCC) Atrial fibrillation custodial current use of anticoagulant therapy S/P TAVR (transcatheter aortic valve replacement) Heart valve replaced by other means HTN, goal below 130/80 Unspecified essential hypertension Gastroesophageal reflux disease without esophagitis Esophageal reflux BPH with obstruction/lower urinary tract symptoms Hypertrophy of prostate with urinary obstruction and other lower urinary tract symptoms (LUTS) Scapholunate advanced collapse of right wrist Obesity, Class I, BMI 30.0-34.9 (see actual BMI) Obesity, unspecified Unilateral recurrent inguinal hernia without obstruction or gangrene Inguinal hernia without mention of obstruction or gangrene, recurrent unilateral or unspecified Dyslipidemia, goal LDL below 70 Other and unspecified hyperlipidemia Ceruminosis, bilateral documented in this encounter Advance Directives * Full Code (Latest Code Status on File) Date Activated Date Inactivated Comments 10/07/2022 1:07 PM 10/08/2022 8:13 PM This order r eflects the patients wishes and were consensually agreed upon. Question Answer Comments Discussion of Advance Direct mago occurred with: Not Discussed due to patient's condition Care Teams Blister Packing Machine Tender Relationship Specialty Start Date End Date Jason Jameson DO [address] [place] [address] PCP - General Family Medicine 05/11/19 documented as of this encounter
--- OUTSIDE RECORDS SUMMARY | 2024-09-01 05:19 | External Medical Summary ---
Author Name Unknown Address Unknown Organization K[facility] [place] [address] Laboratory Report Ordering Provider Test Date Status GISELA MILES 05/12/2024 13:16:53 Final Therapeutic ranges for non-o perative patients:
Prophylaxsis/treatment of DVT: (Range:2.0-3.0)
Treatment of pulmonary embolism:(Range:2.0-3.0)
Prevention of systemic embolism from:
-tissue heart valves
-acute myocardial infarction
-valvular heart disease
-atrial fibrillation
(Range: 2.0-3.0)
Mechanical prosthetic valves: (Range: 2.5-3.5) Observation Date Value Abnormality Reference (Units ) Status INR in Capillary blood by Coagulation assay 05/12/2024 13:16:53 3.3 (INR) Final Performing Location [facility] [place] [address]
--- OUTSIDE RECORDS SUMMARY | 2024-09-01 05:19 | External Medical Summary ---
Author Name Unknown Address Unknown Organization K0G:[facility] [address] [place] [address] Laboratory Report Ordering Provider Test Date Status JEANINE CHANG 05/04/2024 12:09:33 Final Observation Date Value Abnormality Reference (Units ) Status WBC, Total 05/04/2024 12:09:33 8.30 4.00-10.8 0 (K/uL) Final RBC 05/04/2024 12:09:33 4.27 4.50-5.25 (M/uL) Final Hemoglobin 05/04/2024 12:09:33 13.2 Below low normal 14 .0-16.8 (g/dL) Final HCT 05/04/2024 12:09:33 42.1 40.0-48.4 (%) Final MCV 05/04/2024 12:09:33 98.6 82.0-99.5 (fL) Final MCH 05/04/2024 12:09:33 30.9 27.0-34.0 (pg) Final MCHC 05/04/2024 12:09:33 31.4 32.0-36.0 (g/dL) Final RDW 05/04/2024 12:09:33 13.0 11.5-15.5 (%) Final Platelets 05/04/2024 12:09:33 171 140-400 (K /uL) Final MPV 05/04/2024 12:09:33 11.8 6.6-11.1 ( fL) Final Performing Location [facility] [address] [place] [address]
--- OUTSIDE RECORDS SUMMARY | 2024-09-01 05:19 | External Medical Summary | Summary of Care ---
Author Name Unknown Organization [facility] Address [address] [facility] [address] Phone [phone] Care Team Providers Care Lockstitch Topstitcher Name Role Phone Jason Jameson DO Primary Care Provider Reason for Visit * Reason Comments eRx-Medication Refill Encounter Details Date Type Department Care Team (Late st Contact Info) Description 04/21/[address] [facility] [address] [place] [address] Jason Jameson DO [address] [place] [address] Allergies No known active allergiesdocumented as of this encounter (statuses as of 04/22/2024) Medications Medication Sig Dispensed Refills Start Date [...] (AAA) 30 to 34 mm in diameter ([facility]) Take 4 capsules 1 hour prior to any dental work 4 Capsule 4 3 Active Mupirocin 2 % External Ointment (Bactroban)Indicati ons:Folliculitis To affected area for up to 14 days. 30 g 1 3 Active Accu-Chek Guide w/Device Kit Use as directed. Use to test BG values E11.9 1 Kit 3 Active Accu-Chek Guide In Vitro Strip (Glucose Blood) Use to test BG values once daily E 11.9 100 Strip 11 3 Active Accu-Chek Softclix Lancets Use to test BG once daily E11.9 100 Each 5 3 Active Metoprolol Succinate ER 50 MG Oral Tablet Extended Release 24 Hour (toPROL XL)Indications:HTN, goal below 140/90,Atrial flutter, unspecified type ([facility]) TAKE 1 TABLET BY MOUTH TWICE A DAY 180 Tablet 3 4 Active Ozempic (2 MG/DOSE) 8 MG/3ML Subcutaneous Solution Pen-injector (Semaglutide (2 MG/DOSE))Indication s:DM type 2, goal HbA1c < 8% ([facility]) Inject 2 mg under [...] AND DINNER 180 Tablet 3 4 Active Tamsulosin HCl 0.4 MG Oral Capsule (Flomax) TAKE 1 CAPSULE BY MOUTH EVERY MORNING 90 Capsule 1 4 Active Warfarin Sodium 5 MG Oral Tablet (Coumadin)Indicatio ns:Chronic atrial fibrillation (HCC),Anticoagulati on management encounter,[facility] current use of anticoagulant therapy,Atrial flutter, unspecified [...] the morning. 90 Capsule 5 4 Active Pen Linch 32G X 6 MM Use as directed. Inject 15 units daily E11.9 100 Each 3 4 Active Tresiba FlexTouch 200 UNIT/ML Subcutaneous Solution Pen-injector (Insulin Degludec) Inject 17 Units under the skin in the morning. E11.9. 15 mL 3 4 Active hydrALAZINE HCl 10 MG Oral Tablet (Apresoline) TAKE 1 TABLET BY MOUTH THREE TIMES A DAY 270 Tablet 5 4 Active hydrALAZINE HCl 10 MG Oral Tablet (Apresoline) TAKE 1 TABLET BY MOUTH THREE TIMES A DAY 270 Tablet 5 3 04/22/20 24 Discontinued documented as of this encounter (statuses as of 04/22/2024) Active Problems Problem Noted Date Diagnosed Date [...] 130/80 10/29/2015 Overview: Per HTN Protocol #27. [facility] current use of anticoagulant therapy 0 03/09/2012 [...] as of this encounter (statuses as of 04/22/2024) Resolved Problems Problem Noted Date Diagnosed Date [...] as of this encounter (statuses as of 04/22/2024) Immunizations Name Administration Dates Next Due COVID-19 [...] encounter Miscellaneous Notes * Telephone Encounter - Amy Jeff CRNP - 04/22/2024 10:30 AM EDTSigned Prescriptions: Disp Refills hydrALAZINE HCl 10 MG Oral Tablet (Apresol*270 Ta*5 Sig: TAKE 1 TABLET BY MOUTH THREE TIMES A DAY Authorizing Provider: AMY JEFF * Telephone Encounter - Mavis Shelton [facility] - 04/22/2024 10:09 AM EDT Pending Prescriptions: Disp Refills hydrALAZINE HCl 10 MG Oral Tablet [Pharmac*270 Ta*5 Sig: TAKE 1 TABLET BY MOUTH THREE TIMES A DAY * Telephone Encounter - Mavis Shelton RPh - 04/22/2024 10:09 AM EDT Telepharmacy is currently not authorized to approve refills for this class of medication per refillprotocol. Thank you, Mavis Shelton, PharmD Staff Pharmacist Refill Call Center [phone] 04/22/2024, 10:09 AM Pending Prescriptions: Disp Refills hydrALAZINE HCl 10 MG Oral Tablet [Pharmac*270 Ta*5 Sig: TAKE 1 TABLET BY MOUTH THREE TIMES A DAY Last Visit: 01/01/2024 (in office), 08/07/2022 (telemedicine) Next Visit: 10/27/2024 If no future appointments scheduled, and last appointment is greater than a year ago, please schedule patient for a follow-up appointment Last date the medication was ordered: 02/05/23 Pharmacy: [id number] [address] [facility] Is this request for a controlled substance?No Urine Drug Screen:No results found. However, due to the size of the patient record, not all encounters were searched. Please check Results Review for a complete set of results. Patient Phone Numbers Labs: Lab Results Component Value Date/Time CREAT 1.4 (H) 11/04/2023 10:59 AM CREAT 0.9 04/18/2020 10:22 AM POTASSIUM 4.5 11/04/2023 10:59 AM POTASSIUM 4.4 04/18/2020 10:22 AM TSH 1.62 11/04/2023 10:59 AM TSH 1.62 04/18/2020 10:22 AM LDL 76 10/22/2023 03:40 PM LDL 78 11/10/2022 10:16 AM LDL 68 04/18/2020 10:22 AM LDL 73 08/12/2019 10:25 AM ALT 19 10/22/2023 03:40 PM ALT 13 01/28/2019 10:21 AM HGBA1C 9.4 (H) 03/01/2024 01:45 PM HGBA1C 7.2 (H) 04/18/2020 10:22 AM documented in this encounter Plan of Treatment Upcoming Encounters Date Type Department Care Team (Late st Contact Info) Description 05/12/2024 1:00 PM EDT Anticoagulation Pharmacy, [facility] [address] [facility] [place] [address] [facility] [place] [address] 05/12/2024 1:10 PM EDT Office Visit Pharmacy, [facility] [address] [facility] [place] [address] [facility] [address] [facility] [place] [address] 05/12/2024 1:40 PM EDT Pharmacy Pharmacy, [facility] [address] [facility] [place] [address] [facility] [address] [place] [address] 05/31/2024 11:20 AM EDT Office Visit Sleep Disorders Ctr [facility] [address] [place] [phone] Radha Waldrop, [address] [place] [address] 08/09/2024 9:00 AM EST Office Visit Cardiology, [facility] [address] [place] [address] Nichol Morales PA-C [address] [place] [address] 10/27/2024 3:40 PM EST Office Visit Family Practice [facility] [address] [place] [address] Jason Jameson, [address] [place] [address] 11/02/2024 4:00 PM EDT Office Visit Urology, [facility] [address] [place] [address] Luis Manuel Tyler MD [address] [place] [address] Health Maintenance Due Date Last Done Comments [...] this encounter Medical Devices Implanted Type Area Oil Lease Broker Device Identifier Shelf Expiration Date Model / Serial / Lot Electrode Pacing [id number] - [id number] Implanted:Qty: 1 on 10/07/2022 by Giovanni Smith MD at [facility] [employer] : MEDICAL [id number] 06/23/2027 007 151P / / [id number] Valve Ford 3 Ultra 26mm - [id number] Implanted:Qty: 1 on 10/07/2022 by Giovanni Smith MD at [facility] [employer] [id number] 04/07/2023 [id number] / / documented as of this encounter Advance Directives * Full Code (Latest Code Status on File) Date Activated Date Inactivated Comments 10/07/2022 1:07 PM 10/08/2022 8:13 PM This order r eflects the patients wishes and were consensually agreed upon. Question Answer Comments Discussion of Advance Direct mago occurred with: Not Discussed due to patient's condition Care Teams Lockstitch Topstitcher Relationship Specialty Start Date End Date Jason Jameson DO [address] [place] [address] PCP - General Family Medicine 05/11/19 documented as of this encounter
--- OUTSIDE RECORDS SUMMARY | 2024-09-01 05:19 | External Medical Summary | Summary of Care ---
Author Name Unknown Organization [facility] Address [address] [place] [address] Phone [phone] Care Team Providers Care Director Of Mechanical Engineering Name Role Phone Cristian Jameson DO Primary Care Provider Reason for Visit * Reason Comments eRx-Medication Refill Encounter Details Date Type Department Care Team (Late st Contact Info) Description 04/23/2024 Refill Pharmacy, [facility] [address] [place] [address] Cristian Jameson DO [address] [facility] [place] [address] Allergies No known active allergiesdocumented as of this encounter (statuses as of 04/26/2024) Medications Medication Sig Dispensed Refills Start Date [...] goal below 140/90,Atrial flutter, unspecified type ([facility]) TAKE 1 TABLET BY MOUTH TWICE A DAY 180 Tablet 3 4 Active Ozempic (2 MG/DOSE) 8 MG/3ML Subcutaneous Solution Pen-injector (Semaglutide (2 MG/DOSE))Indication s:DM type 2, goal HbA1c < 8% ([facility] [...] fibrillation (HCC),Anticoagulati on management encounter,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 90 Capsule 5 4 Active Pen [place] 32G X 6 MM Use as directed. [...] E 11.9 100 Strip 11 4 Active Accu-Chek Guide In Vitro Strip (Glucose Blood) Use to test BG values once daily E 11.9 100 Strip 11 3 04/26/20 24 Discontinued documented as of this encounter (statuses as of 04/26/2024) Active Problems Problem Noted Date Diagnosed Date [...] 130/80 10/29/2015 Overview: Per HTN Protocol #27. skilled nursing current use of anticoagulant therapy 0 03/09/2012 [...] as of this encounter (statuses as of 04/26/2024) Resolved Problems Problem Noted Date Diagnosed Date [...] as of this encounter (statuses as of 04/26/2024) Immunizations Name Administration Dates Next Due COVID-19 [...] expos ure at wk - as of 3-07 no smoke exposure Alcohol Use Standard Drinks/Week [...] Telephone Encounter - Lindsay Mercedes RPh - 04/26/2024 7:54 AM EDT Signed Prescriptions: Disp Refills Accu-Chek Guide In Vitro Strip (Glucose Bl*100 St*11 Sig: USE TOTEST BLOOD SUGAR VALUES ONCE DAILY E 11.9Authorizing Provider: CRISTIAN JAMESON User:LINDSAY MERCEDES documented in this encounter Plan of Treatment Upcoming Encounters Date Type Department Care Team (Late st Contact Info) Description 05/12/2024 1:00 PM EDT Anticoagulation Pharmacy, [facility] [address] [place] [address] [facility] [address] [place] [address] 05/12/2024 1:10 PM EDT Office Visit Pharmacy, [facility] 132 [facility] [place] [address] [facility] [place] [address] 05/12/2024 1:40 PM EDT Pharmacy Pharmacy, [facility] 132 [facility] [place] [address] [facility] [place] [address] 05/31/2024 11:20 AM EDT Office Visit Sleep Disorders Ctr [facility] 132 [facility] [place] [phone] Radha Waldrop, DO 132 [facility] [place] [address] 08/09/2024 9:00 AM EST Office Visit Cardiology, [facility] 132 [facility] [place] [address] Nichol Morales PA-C [address] [place] [address] 10/27/2024 3:40 PM EST Office Visit Family Practice [facility] 132 [facility] [place] [address] Cristian Jameson, DO [address] [place] [address] 11/02/2024 4:00 PM EDT Office Visit Urology, [facility] [address] [facility] [place] [address] Luis Manuel Tyler MD [address] [place] [address] Health Maintenance Due Date Last Done Comments Adult Wellness Visit 04/06/2020 04/06/2019 Diabetic Foot Exam 02/20/2024 02/19/2023, 0 02/18/2022, 02/14/2021, Additional history exists COVID-19 Vaccine ( season) 2024 05/24/2023, 06/06/2022, 08/12/2021, Additional history exists Influenza Vaccine (FLU shot) (#1) 2024 05/20/2023, 05/01/2022, 05/06/2021, Additional history exists HbA1c 09/01/2024 03/01/2024, 09/25, 04/30/2023, Additional history exists Albumin/Creatinine Ratio 10/21/2024 024, 04/30/2023, 11/10/2022, Additional history exists B-12 10/21/2024 10/22/2023, 10/23, 02/18/2022, Additional history exists Depression Screening 10/21/2024 10/22/2023 GFR 11/03/2024 11/04/2023, 022 04/2024, 06/25/2023, Additional history exists Diabetic Eye Exam [...] this encounter Medical Devices Implanted Type Area Back Panel Padder Device Identifier Shelf Expiration Date Model / Serial / Lot Electrode Pacing [id number] - [id number] Implanted:Qty: 1 on 10/07/2022 by Giovanni Smith MD at [facility] BARD : MEDICAL [id number] 06/23/2027 007 [id number] / / [id number] Valve Ford 3 Ultra 26mm - [id number] Implanted:Qty: 1 on 10/07/2022 by Giovanni Smith MD at [facility] [employer] [id number] 04/07/2023 [id number] / / documented as of this encounter Advance Directives * Full Code (Latest Code Status on File) Date Activated Date Inactivated Comments 10/07/2022 1:07 PM 10/08/2022 8:13 PM This order r eflects the patients wishes and were consensually agreed upon. Question Answer Comments Discussion of Advance Direct mago occurred with: Not Discussed due to patient's condition Care Teams Director Of Mechanical Engineering Relationship Specialty Start Date End Date Cristian Jameson DO [address] [place] [address] PCP - General Family Medicine 05/11/19 documented as of this encounter
--- OUTSIDE RECORDS SUMMARY | 2024-09-01 05:19 | External Medical Summary | Summary of Care ---
Author Name Unknown Organization [facility] Address [address] [place] [address] Phone [phone] Care Team Providers Care Highway Commissioner Name Role Phone Jason Jameson Primary Care Provider Reason for Visit * Reason Comments Outpatient Testing Encounter Details Date Type Department Care Team (Late st Contact Info) Description 05/04/2024 12:10 PM EDT Laboratory Laboratory, [facility] 132 [facility] [place] [phone] [facility] 132 [place] [address] Encounter for long-term (current) use of medications; HTN, goal below 130/80; Dyslipidemia, goal LDL below 70; BPH with obstruction/lower urinary tract symptoms Allergies No known active allergiesdocumented as of [...] Tablet (Coumadin)Indications :Chronic atrial fibrillation (HCC),Anticoagulation management encounter,residential current use of anticoagulant therapy,Atrial flutter, unspecified [...] morning. 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 [address] [place] [address] 05/12/2024 1:40 PM EDT Pharmacy Pharmacy, [facility] [address] [place] [address] [facility] [address] [place] [address] 05/31/2024 11:20 AM EDT Office Visit Sleep Disorders Ctr [facility] 132 [facility] [place] [phone] Radha Waldrop, DO 132 [facility] [place] [address] 08/09/2024 9:00 AM EST Office Visit Cardiology, [facility] 132 [facility] [place] [address] Nichol Morales PA-C 132 [facility] [place] [address] 09/14/2024 11:15 AM EST Procedure Only Urology, [facility] 132 [facility] [place] [address] Luis Manuel Tyler MD [address] [place] [address] 10/27/2024 3:40 PM EST Office Visit Family Practice [facility] 132 [facility] [place] [address] Jason Jameson, DO 132 [facility] [place] [address] Pending Results Name Type Priority Associated Diagnoses Date /Time CBC WITH WBC DIFFERENTIAL Lab Routine Encounter for long-term (current) use of medications 05/04/2024 12:09 PM EDT BASIC METABOLIC PANEL Lab Routine Encounter for long-term (current) use of medications HTN, goal below 130/80 05/04/2024 12:09 PM EDT LIPID PANEL WITH DIRECT LDL IF TG IS HIGH Lab Routine Encounter for long-term (current) use of medications Dyslipidemia, goal LDL below 70 05/04/2024 12:09 PM EDT PSA Lab Routine BPH with obstruction/lower urinary tract symptoms 05/04/2024 12:09 PM EDT CBC Lab Routine Encounter for long-term (current) use of medications 05/04/2024 12:09 PM EDT DIFFERENTIAL, AUTOMATED Lab Routine Encounter for long-term (current) use of medications 05/04/2024 12:09 PM EDT Health Maintenance Due Date Last Done Comments Adult Wellness Visit 04/06/2020 04/06/2019 Diabetic Foot Exam 02/20/2024 02/19/2023, 0 02/18/2022, 02/14/2021, Additional history exists COVID-19 Vaccine ( season) 2024 04/29/2024, 05/24/2023, [...] this encounter Medical Devices Implanted Type Area Turn Supervisor Device Identifier Shelf Expiration Date Model / Serial / Lot Electrode Pacing [id number] - [id number] Implanted:Qty: 1 on 10/07/2022 by Giovanni Smith MD at [facility] [place] : MEDICAL [id number] 06/23/2027 007 151P / / [id number] Valve Ford 3 Ultra 26mm - [id number] Implanted:Qty: 1 on 10/07/2022 by Giovanni Smith MD at [facility] [employer] [id number] 04/07/2023 [id number] / / documented as of this encounter Visit Diagnoses Diagnosis Encounter for long-term (current) use of medications Encounter for long-term (current) use of other medications HTN, goal below 130/80 Unspecified essential hypertension Dyslipidemia, goal LDL below 70 Other and unspecified hyperlipidemia BPH with obstruction/lower urinary tract symptoms Hypertrophy of prostate with urinary obstruction and other lower urinary tract symptoms (LUTS) documented in this encounter Advance Directives * Full Code (Latest Code Status on File) Date Activated Date Inactivated Comments 10/07/2022 1:07 PM 10/08/2022 8:13 PM This order r eflects the patients wishes and were consensually agreed upon. Question Answer Comments Discussion of Advance Direct mago occurred with: Not Discussed due to patient's condition Care Teams Highway Commissioner Relationship Specialty Start Date End Date Jason Jameson DO [address] [place] [address] PCP - General Family Medicine 05/11/19 documented as of this encounter
--- OUTSIDE RECORDS SUMMARY | 2024-09-01 05:19 | External Medical Summary ---
Author Name Unknown Address Unknown Organization K0G:[facility] [address] [place] [address] Laboratory Report Ordering Provider Test Date Status JEANINE CHANG 05/04/2024 12:09:33 Final Observation Date Value Abnormality Reference (Units ) Status BUN 05/04/2024 12:09:33 21 Above high normal 6-20 (mg/dL) Final Creatinine 05/04/2024 12:09:33 1.2 0.6-1.2 (mg/dL) Final Glomerular filtration rate/1.73 sq M.predicted [Volume Rate/Area] in Serum, Plasma or Blood by Creatinine-based formula (CKD-EPI) 05/04/2024 12:09:33 61 >=60 (mL/min) Final eGFR is calculated based on the CKD-EPI 2020 equation. Sodium 05/04/2024 12:09:33 140 135-146 (m mol/L) Final Potassium 05/04/2024 12:09:33 4.8 3.5-5.1 (m mol/L) Final Cl 05/04/2024 12:09:33 101 98-107 (mm ol/L) Final CO2 05/04/2024 12:09:33 28 22-32 (mmo l/L) Final Anion gap 05/04/2024 12:09:33 11 7-15 (mmol /L) Final Glucose 05/04/2024 12:09:33 141 Above high normal 70 -120 (mg/dL) Final Calcium 05/04/2024 12:09:33 9.8 8.4-10.2 ( mg/dL) Final Performing Location [facility] [address] [place] [address]
--- OUTSIDE RECORDS SUMMARY | 2024-09-01 05:19 | External Medical Summary | Summary of Care ---
Author Name Unknown Organization [facility] Address [address] [place] [address] Phone [phone] Care Team Providers Care Special Technical Operations Officer Name Role Phone Cristian Jameson Primary Care Provider Reason for Visit * Reason Comments Follow Up * Evaluate & Treat - Unlimited Visits (Within 10 days (routine)) - Authorized Specialty Diagnoses / Procedures Referred By Eric grullon Referred To Contact Urology Diagnoses BPH with obstruction/lower urinary tract symptoms Amy Jeff CRNP [address] [place] [address] Referral ID Status Reason Start Date Expiration Date Visits Requested Visits Authorized [id number] Authorized Specialty Services Required 04/21/[phone] Encounter Details Date Type Department Care Team (Late st Contact Info) Description 05/04/2024 11:15 AM EDT Office Visit Urology, [facility] [address] [place] [address] Luis Manuel Tyler MD [address] [place] [phone] BPH with obstruction/lower urinary tract symptoms*; Left [...] (AAA) 30 to 34 mm in diameter ([facility]) Take 4 capsules 1 hour prior to [...] XL)Indications:HTN, goal below 140/90,Atrial flutter, unspecified type ([facility]) TAKE 1 TABLET BY MOUTH TWICE A DAY 180 Tablet 3 09/09/2023 Active Ozempic (2 MG/DOSE) 8 MG/3ML Subcutaneous Solution Pen-injector (Semaglutide (2 MG/DOSE))Indications: DM type 2, goal HbA1c < 8% ([facility]) Inject 2 mg under the skin once [...] Tablet (Coumadin)Indications :Chronic atrial fibrillation (HCC),Anticoagulation management encounter,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 90 Capsule 5 01/25/2024 Active Pen [place] 32G X 6 MM Use as directed. [...] 130/80 10/29/2015 Overview: Per HTN Protocol #27. 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 [...] in the morning. 90 Capsule 5 Pen [place] 32G X 6 MM Use as directed. [...] in her 80's Heart Disorder Father CABGx2, [place], defibrillator, pacemaker Cancer Father lymphoma, at age 83 + prostate cancer Eye Problems None denies family hx of eye problems No Past Hx Other denies any skin diseases, cancers, or melanoma Past Surgical History: Procedure Laterality Date ARTHROPLASTY KNEE TOTAL 11/28 left- Dr. Souza ARTHROPLASTY KNEE TOTAL 12/29/2013 right- Dr. Souza CATHETERIZE LEFT HEART THRU SKIN [address] Anglin at [facility] COLONOSCOPY, DIAGNOSTIC (RECTUM) 04/16/10 int. hemorrhoids COLONOSCOPY, DIAGNOSTIC (RECTUM) 04/25/2015 hyperplastic tissue on bx, repeat 5 yrs/COLONOSCOPY FLEXIBLE PROXIMAL DIAGNOSTIC performed by Rj Menendez MD at [facility] COLONOSCOPY, DIAGNOSTIC (RECTUM) 06/30/2018 normal/COLONOSCOPY FLEXIBLE PROXIMAL DIAGNOSTIC performed by Rj Menendez MD at [facility] COLONOSCOPY, REMOVE LESION 03/28 serrated adenoma polyp-repeat in 5 years CORONARY ANGIOGRAPHY W/LEFT HEART CATH 07/16/2022 CORONARY ANGIOGRAPHY W/LEFT HEART CATH performed by Celestino Cooper MD at [facility] EGD, FLEXIBLE, DIAGNOSTIC 06/30/2018 Mariann infection, hiatal hernia/ESOPHAGOGASTRODUODENOSCOPY (EGD), FLEXIBLE, TRANSORAL, DIAGNOSTIC performed by Rj Menendez MD at [facility] EXERCISE ECHO 06/01 Normal- no ischemic [...] Giovanni Smith MD at [facility] REPLACE AORTIC VALVE, PERCUTANEOUS FEMORAL Bilateral 10/07/2022 REPLACE AORTIC VALVE, PERCUTANEOUS FEMORAL performed by Teto Granados MD, PhD at [facility] Past Medical History: Diagnosis Date Anticoagulation management [...] 35.0 to 39.9 with serious comorbidity (HCC) 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 He is experiencing urinary frequency/urinary, shrinking of penis receeding into groin. ED documented in this encounter Plan of Treatment Upcoming Encounters Date Type Department Care Team (Late st Contact Info) Description 05/12/2024 1:00 PM EDT Anticoagulation Pharmacy, [facility] [address] [place] [address] [address] [facility] [place] [address] 05/12/2024 1:10 PM EDT [facility] [address] [place] [address] [facility] [address] [place] [address] 05/12/2024 1:40 PM EDT [facility]acy [facility] [address] [place] [address] [facility] [address] [place] [address] 05/31/2024 11:20 AM EDT Office Visit Sleep Disorders Ctr [facility] [address] [place] [phone] Radha Waldrop, DO [address] [place] [address] 08/09/2024 9:00 AM EST Office Visit Cardiology, [facility] [address] [place] [address] Nichol Morales, PAJaquelin [address] [place] [address] 10/27/2024 3:40 PM EST Office Visit Family Practice [facility] [address] [place] [address] Cristian Jameson, DO [address] [place] [address] Health Maintenance Due Date Last Done Comments [...] this encounter Medical Devices Implanted Type Area Pulping Machine Operator Device Identifier Shelf Expiration Date Model / Serial / Lot Electrode Pacing [id number] - [id number] Implanted:Qty: 1 on 10/07/2022 by Giovanni Smith MD at [facility] BARD : MEDICAL [id number] 06/23/2027 007 151P / / [id number] Valve Ford 3 Ultra 26mm - [id number] Implanted:Qty: 1 on 10/07/2022 by Giovanni Smith MD at [facility] [employer] [id number] 04/07/2023 [id number] / / documented as of this encounter [...] Discussed due to patient's condition Care Teams Special Technical Operations Officer Relationship Specialty Start Date End Date Cristian Jameson DO [address] [place] [address] PCP - General Family Medicine 05/11/19 documented as of this encounter
--- OUTSIDE RECORDS SUMMARY | 2024-09-01 05:19 | External Medical Summary | Summary of Care ---
Author Name Unknown Organization [facility] Address [address] [place] [address] Phone [phone] Care Team Providers Care Store Group Manager Name Role Phone Jason Jameson Primary Care Provider Reason for Referral * Evaluate & Treat - Unlimited Visits (Within 10 days (routine)) - Authorized Specialty Diagnoses / Procedures Referred By Eric grullon Referred To Contact Urology Diagnoses BPH with obstruction/lower urinary tract symptoms Amy Jeff CRNP 132 [facility] [place] [address] Referral ID Status Reason Start Date Expiration Date Visits Requested Visits Authorized [id number] Authorized Specialty Services Required 04/21/[phone] Question Answer Referral Priority Within 10 days (routine) Where should this appointment be scheduled? [facility] What is the patient being referred for? BPH Reason for Visit * Reason Comments Re-Check 6 month recheck Encounter Details Date Type Department Care Team (Latest Contact Info) Description 04/21/2024 4:00 PM EDT Office Visit Family [facility] [address] [place] [address] Amy Jeff CRNP [address] [place] [address] Encounter for long-term (current) use of medications*; DM type 2, goal HbA1c < 8% ([facility]); DM type 2 with diabetic peripheral neuropathy (HCC); VENU treated with BiPAP; Chronic atrial fibrillation (HCC); nursing home current use of anticoagulant therapy; S/P TAVR [...] (AAA) 30 to 34 mm in diameter ([facility]) Take 4 capsules 1 hour prior [...] Tablet (Coumadin)Indications :Chronic atrial fibrillation (HCC),Anticoagulation management encounter,nursing home current use of anticoagulant therapy,Atrial flutter, unspecified [...] morning. 90 Capsule 5 01/25/2024 Active Pen [place] 32G X 6 MM Use as directed. [...] 130/80 10/29/2015 Overview: Per HTN Protocol #27. nursing home current use of anticoagulant therapy 0 03/09/2012 [...] some type of wrist watch device from [employer] after learning his CGM wouldn't be covered. [...] the morning. E11.9. 15 mL 3 Pen [place] 32G X 6 MM Use as directed. 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 [address] [place] [address] [place] [address] [address] [place], [place] [address] 05/12/2024 1:10 PM EDT Office Visit Pharmacy, [facility] [address] [place], [place] [address] [facility] [address] [place] [address] 05/12/2024 1:40 PM EDT Pharmacy Pharmacy, [facility] [address] [place] [address] [facility] [address] [place] [address] 05/31/2024 11:20 AM EDT Office Visit Sleep Disorders Ctr [facility] [place], [place] [address] [place], [place] [phone] Radha Waldrop DO [address] [place], [place] [address] 08/09/2024 9:00 AM EST Office Visit Cardiology, [facility] [address] [place] [address] Nichol Morales PA-C [address] [place] [address] 10/27/2024 3:40 PM EST Office Visit Family Practice [facility] [place] [address] Jason Jameson, [address] [place] [address] 11/02/2024 4:00 PM EDT Office Visit Urology, [facility] [address] [place] [address] Luis Manuel Tyler MD [address] [place] [address] Scheduled Orders Name Type Priority Associated Diagnoses [...] this encounter Medical Devices Implanted Type Area Dispatcher Maintenance Service Device Identifier Shelf Expiration Date Model / Serial / Lot Electrode Pacing [id number] - [id number] Implanted:Qty: 1 on 10/07/2022 by Giovanni Smith MD at [facility] CR BARD : MEDICAL [id number] 06/23/2027 007 151P / / [id number] Valve Ford 3 Ultra 26mm - [id number] Implanted:Qty: 1 on 10/07/2022 by Giovanni Smith MD at [facility] [employer] [id number] 04/07/2023 [id number] / / documented as of this encounter [...] BiPAP Chronic atrial fibrillation (HCC) Atrial fibrillation nursing home current use of anticoagulant therapy S/P TAVR [...] Discussed due to patient's condition Care Teams Store Group Manager Relationship Specialty Start Date End Date Jason aJmeson DO [address] [place] [address] PCP - General Family Medicine 05/11/19 documented as of this encounter
--- OUTSIDE RECORDS SUMMARY | 2024-09-01 05:20 | External Medical Summary | Summary of Care ---
Author Name Unknown Organization [facility] Address [address] [address] Phone [phone] Care Team Providers Care Theatrical Dresser Name Role Phone Jason Jameson DO Primary Care Provider Reason for Visit * Reason Comments Dosage Adjustment In Person (Anticoag Cl inic) Diabetes Follow-Up Encounter Details Date Type Department Care Team (Late st Contact Info) Description 03/31/2024 1:40 PM EDT Office Visit Pharmacy, [facility] [address] [facility] [place] [address] [facility] [address] [facility] [place] [address] DM type 2, goal HbA1c < 8% ([facility])* Allergies No known active allergiesdocumented as of this encounter (statuses as of 03/31/2024) Medications Medication Sig Dispensed Refills Start Date [...] 02/05/2023 Active Mupirocin 2 % External Ointment (Bactroban)Indicatio [...] XL)Indications:HTN, goal below 140/90,Atrial flutter, unspecified type ([facility]) TAKE 1 TABLET BY MOUTH TWICE A DAY 180 Tablet 3 09/09/2023 Active Ozempic (2 MG/DOSE) 8 MG/3ML Subcutaneous Solution Pen-injector (Semaglutide (2 MG/DOSE))Indications :DM type 2, goal HbA1c < 8% ([facility]) Inject 2 mg under the skin once [...] (Coumadin)Indication s:Chronic atrial fibrillation (HCC),Anticoagulatio n management encounter,longterm current use of anticoagulant therapy,Atrial [...] morning. 90 Capsule 5 01/25/2024 Active Pen [place] 32G X 6 MM Use as directed. Inject 15 units daily E11.9 100 Each 3 03/01/2024 Active Tresiba FlexTouch 200 UNIT/ML Subcutaneous Solution Pen-injector (Insulin Degludec) Inject 17 Units under the skin in the morning. E11.9. 15 mL 3 03/31/2024 Active Tresiba FlexTouch 200 UNIT/ML Subcutaneous Solution Pen-injector (Insulin Degludec) Inject 15 Units under the skin in the morning. E11.9. 15 mL 3 03/01/2024 03/31/20 24 Discontinu ed(Refill) documented as of this encounter (statuses as of 03/31/2024) Active Problems Problem Noted Date Diagnosed Date [...] 130/80 10/29/2015 Overview: Per HTN Protocol #27. longterm current use of anticoagulant therapy 0 03/09/2012 [...] as of this encounter (statuses as of 03/31/2024) Resolved Problems Problem Noted Date Diagnosed Date [...] as of this encounter (statuses as of 03/31/2024) Immunizations Name Administration Dates Next Due COVID-19 [...] lent, No Preserve, IM 06/04/2016 Seasonal Influenza, Split, I IV3, With Preserve, Inj 05/02/2015,05/05/2014,05/09/2013,05/18,05/13/2011,06/07/2010,05/24/2009 ,06/16/2008,07/06/2007,06/26/2006 Seasonal Influenza, Trivalen t, Adjuvanted, 65+ yrs 05/11/2019 TDAP (age 10 and older)(Boostrix) 09/03/2018 [...] of this encounter Progress Notes * Lindsay Mercedes, [facility] - 03/31/2024 1:34 PM EDT Medication Therapy Disease Management Clinic - Diabetes Management Progress Note Dave Dow, identified by name and date of , is a 78 year old male being seen for diabetes management/education. Patient presents for return diabetic visit. DIABETES: Current diabetic medications: Ozempic 2 mg weekly - Thursday Metformin 1000 mg BID START: Tresiba 15 units daily Medication Injection Site: Abdomen Lifestyle: Diet: unchanged Glucose Review/SMBG: Readings obtained from patient documented BG logbook Pre am Post am Pre Lunch Post Lunch Pre pm Post pm HS 3am 221 212 221 210 172 168 175 219 142 179 178 220 148 159 237 162 177 179 204 245 189 174 212 153 153 180 225 160 184 224 Average 173 #DIV/0! 184 #DIV/0! 207 #DIV/0! 196 #DIV/0! Hi 221 0 224 0 237 0 245 0 Lo 142 0 159 0 175 [address]5 0 182 0 208 0 194.2 0 Range 79 0 65 0 62 0 92 0 Hypoglycemia: Does your blood sugar go below 70 mg/dL? No Hyperglycemia symptoms present: none Recent Labs Units 03/01/24 1345 10/22/23 1540 04/30/23 1254 HEMOGLOBIN A1C - [facility] % -- 9.3* 8.8* HEMOGLOBIN A1C POCT - [facility] % 9.4* -- -- Recent Labs Units 11/04/23 1059 10/22/23 1540 06/25/23 1127 ESTIMATED GLOMERULAR FILTRATION RATE - [facility] mL/min 53* 68 75 CREATININE - [facility] mg/dL 1.4* 1.1 1.0 HYPERTENSION: Patient on ACEi/ARB: yes BP Readings from Last 3 Encounters: 03/02/24 130/66 01/01/24 100/58 11/04/23 134/76 Blood pressure at goal: yes HYPERLIPIDEMIA: Patient is taking moderate or high intensity statin: yes HEALTH MAINTENANCE REVIEW: Health Maintenance Due Topic Date Due Adult Wellness Visit 04/06/2020 COVID-19 Vaccine () 09/24/2023 Diabetic Foot Exam 02/20/2024 ASSESSMENT & PLAN: ICD-10-CM 1. DM type 2, goal HbA1c < 8% ([facility]) E11.9 BG Readings - Blood sugars controlled. BG values are very much improved at this time. Medications - Reviewed current regimen, patient is adherent to regimen. Will attempt to tighten control of BG values slightly for optimial control, will increase lantus. Diet, Exercise, Lifestyle - No significant lifestyle changes since last visit. Discussed with patient. Patient is agreeable to SMBG 1 time(s) daily. Patient aware to contact clinic if any hypoglycemia before next visit. MEDICATION CHANGES: yes, see below; preferred pharmacy: [facility] Diabetic Medications: Ozempic 2 mg weekly - Thursday INCREASE: Tresiba 17 units daily HEALTH MAINTENANCE INTERVENTIONS: Labs: Up to Date Immunizations: Up to Date Foot Exam: Up to Date Eye Exam: complete with next mtm visit Annual Wellness Visit: Visit Scheduled for 05/12/24 FOLLOW UP: Return to clinic in 8 weeks 05/12/2024 Lindsay Mercedes RPh Clinical Pharmacist - Chief Security Officer Medication Therapy Management Clinic 03/31/2024, 1:34 PM documented in this encounter Plan of Treatment Upcoming Encounters Date Type Department Care Team (Late st Contact Info) Description 04/21/2024 4:00 PM EDT Office Visit [facility] [address] [place] [address] Amy Jeff CRNP [address] [place] [address] 05/12/2024 1:00 PM EDT Anticoagulation Pharmacy, [facility] [address] [place] [address] [facility] [address] [place] [address] 05/12/2024 1:10 PM EDT Office Visit Pharmacy, [facility] [address] [place] [address] [facility] [address] [place] [address] 05/12/2024 1:40 PM EDT Pharmacy Pharmacy, [facility] [address] [place] [address] [facility] [address] [place] [address] 05/31/2024 11:20 AM EDT Office Visit [facility] Disorders Ctr [facility] [address] [place] [phone] Radha Waldrop, DO [address] [place] [address] 10/27/2024 3:40 PM EST Office Visit [facility] [address] [place] [address] Jason Jameson, DO [address] [place] [address] Health Maintenance Due Date Last Done Comments [...] Depression Screening 10/21/2024 10/22/2023 GFR 11/03/2024 11/04/2023, 02/2 04/2024, 06/25/2023, Additional history exists Diabetic Eye Exam 12/10/2024 12/11/2023, , 05/03/2021, Additional history exists DTaP,Tdap,and Td Vaccines (3 - Td or Tdap) 09/03/2028 [...] this encounter Medical Devices Implanted Type Area Master Motorcycle Technician Device Identifier Shelf Expiration Date Model / Serial / Lot Electrode Pacing [id number] - [id number] Implanted:Qty: 1 on 10/07/2022 by Giovanni Smith MD at [facility] : MEDICAL [id number] 06/23/2027 007 151P / / [id number] Valve Ford 3 Ultra 26mm - [id number] Implanted:Qty: 1 on 10/07/2022 by Giovanni Smith MD at [facility] [employer] [id number] 04/07/2023 [id number] / / documented as of this encounter Visit Diagnoses Diagnosis DM type 2, goal HbA1c < 8% ([facility])- Primary documented in this encounter Advance Directives * Full Code (Latest Code Status on File) Date Activated Date Inactivated Comments 10/07/2022 1:07 PM 10/08/2022 8:13 PM This order r eflects the patients wishes and were consensually agreed upon. Question Answer Comments Discussion of Advance Direct mago occurred with: Not Discussed due to patient's condition Care Teams Theatrical Dresser Relationship Specialty Start Date End Date Jason Jameson DO [address] [place] [address] PCP - General Family Medicine 05/11/19 documented as of this encounter
--- OUTSIDE RECORDS SUMMARY | 2024-09-01 05:20 | External Medical Summary | Summary of Care ---
Author Name Unknown Organization [facility] Address [address] [facility] [place] [address] Phone [phone] Care Team Providers Care Senior Center Director Name Role Phone Jason Jameson Primary Care Provider Encounter Details Date Type Department Care Team (Late st Contact Info) Description 03/18/2024 Telephone Orthopaedics [facility] [address] [facility] [address] [place] [address] Damien Morales MD [address] [place] [address] Allergies No known active allergiesdocumented as of this encounter (statuses as of 03/28/2024) Medications Medication Sig Dispensed Refills Start Date [...] XL)Indications:HTN, goal below 140/90,Atrial flutter, unspecified type ([facility]) TAKE 1 TABLET BY MOUTH TWICE A DAY 180 Tablet 3 09/09/2023 Active Ozempic (2 MG/DOSE) 8 MG/3ML Subcutaneous Solution Pen-injector (Semaglutide (2 MG/DOSE))Indications: DM type 2, goal HbA1c < 8% ([facility]) Inject 2 mg under the [...] Tablet (Coumadin)Indications :Chronic atrial fibrillation (HCC),Anticoagulation management encounter,snf current use of anticoagulant therapy,Atrial [...] morning. 90 Capsule 5 01/25/2024 Active Pen [place] 32G X 6 MM Use as directed. Inject 15 units daily E11.9 100 Each 3 03/01/2024 Active Tresiba FlexTouch 200 UNIT/ML Subcutaneous Solution Pen-injector (Insulin Degludec) Inject 15 Units under the skin in the morning. E11.9. 15 mL 3 03/01/2024 Active documented as of this encounter (statuses as of 03/28/2024) Active Problems Problem Noted Date Diagnosed Date [...] as of this encounter (statuses as of 03/28/2024) Resolved Problems Problem Noted Date Diagnosed Date [...] as of this encounter (statuses as of 03/28/2024) Immunizations Name Administration Dates Next Due COVID-19 [...] Influenza, Split, I IV3, With Preserve, Inj 05/02/2015,05/05/2014,05/09/2013,04/25,05/13/2011,06/07/2010,05/24/20 09,06/16/2008,07/06/2007,06/26/2006,1 ,06/13/2003,06/23/2002,08/04,06/11/1999 Seasonal Influenza, Trivalen t, Adjuvanted, 65+ yrs [...] rescheduled, explained we were waiting till her B8Lvoht down. Pt was put on insulin and is going back on the to get the levels rechecked, he is [...] surgery done pleases give him a call #[phone] documented in this encounter Plan of Treatment Upcoming Encounters Date Type Department Care Team (Late st Contact Info) Description 03/31/2024 1:30 PM EDT Anticoagulation Pharmacy, [facility] [address] [facility] [place] [address] [facility] [address] [place] [address] 03/31/2024 1:40 PM EDT Office Visit Pharmacy, [facility] [address] [place] [address] [facility] [address] [place] [address] 04/21/2024 4:00 PM EDT Office Visit [facility] [address] [place] [address] Amy Jeff CRNP [address] [place] [address] 05/31/2024 11:20 AM EDT Office Visit Sleep Disorders Ctr [facility] [address] [place] [phone] Radha Waldrop, [address] [place] [address] 10/27/2024 3:40 PM EST Office Visit [facility] [address] [place] [address] Jason Jameson, [address] [place] [address] Health Maintenance Due Date Last Done Comments COVID-19 Vaccine (2022- season) 2023 05/24/2023, 06/06/2022, 08/12/2021, Additional history [...] this encounter Medical Devices Implanted Type Area Department Store Salesperson Device Identifier Shelf Expiration Date Model / Serial / Lot Electrode Pacing [id number] - [id number] Implanted:Qty: 1 on 10/07/2022 by Giovanni Smith MD at [facility] : MEDICAL [id number] 06/23/2027 007 151P / / [id number] Valve Ford 3 Ultra 26mm - [id number] Implanted:Qty: 1 on 10/07/2022 by Giovanni Smith MD at [facility] [employer] [id number] 04/07/2023 [id number] / / documented as of this encounter Advance Directives * Full Code (Latest Code Status on File) Date Activated Date Inactivated Comments 10/07/2022 1:07 PM 10/08/2022 8:13 PM This order r eflects the patients wishes and were consensually agreed upon. Question Answer Comments Discussion of Advance Direct mago occurred with: Not Discussed due to patient's condition Care Teams Senior Center Director Relationship Specialty Start Date End Date Jason Jameson DO [address] [place] [address] PCP - General Family Medicine 05/11/19 documented as of this encounter
--- OUTSIDE RECORDS SUMMARY | 2024-09-01 05:20 | External Medical Summary | Summary of Care ---
Author Name Unknown Organization [facility] Address [address] [facility] [place] [address] Phone [phone] Care Team Providers Care Research Biologist Name Role Phone Jason Jameson Primary Care Provider Encounter Details Date Type Department Care Team (Late st Contact Info) Description 03/18/2024 Telephone Orthopaedics [facility] [address] [place] [address] Damien Morales MD [address] [place] [address] Allergies No known active allergiesdocumented as of this encounter (statuses as of 03/21/2024) Medications Medication Sig Dispensed Refills Start Date [...] Tablet (Coumadin)Indications :Chronic atrial fibrillation (HCC),Anticoagulation management encounter,intermediate card tender current use of anticoagulant therapy,Atrial flutter, unspecified [...] morning. 90 Capsule 5 01/25/2024 Active Pen [place] 32G X 6 MM Use as directed. Inject 15 units daily E11.9 100 Each 3 03/01/2024 Active Tresiba FlexTouch 200 UNIT/ML Subcutaneous Solution Pen-injector (Insulin Degludec) Inject 15 Units under the skin in the morning. E11.9. 15 mL 3 03/01/2024 Active documented as of this encounter (statuses as of 03/21/2024) Active Problems Problem Noted Date Diagnosed Date [...] 10/29/2015 Overview: Per HTN Protocol #27. intermediate card tender current use of anticoagulant therapy 0 03/09/2012 [...] as of this encounter (statuses as of 03/21/2024) Resolved Problems Problem Noted Date Diagnosed Date [...] as of this encounter (statuses as of 03/21/2024) Immunizations Name Administration Dates Next Due COVID-19 [...] the money to buy more. Never true 04/27/20 24 Within the past 12 months, t [...] surgery done pleases give him a call #[phone] documented in this encounter Plan of Treatment Upcoming Encounters Date Type Department Care Team (Late st Contact Info) Description 03/31/2024 1:30 PM EDT [facility] [address] [place] [address] [facility] Penny Pena [address] [place] [address] 03/31/2024 1:40 PM EDT [facility] [address] [place] [address] [facility] [address] [place] [address] 04/21/2024 4:00 PM EDT Office Visit [facility] [address] [place] [address] Amy Jeff CRNP [address] [place] [address] 05/31/2024 11:20 AM EDT Office Visit [facility] Disorders Ctr [facility] [address] [place] [phone] Radha Waldrop, DO [address] [place] [address] 10/27/2024 3:40 PM EST Office Visit [facility] [address] [place] [address] Jason Jameson, DO [address] [place] [address] Health Maintenance Due Date Last Done Comments [...] Vaccine: 65+ Years Completed 12/27/2014, 06/22/2012, 02/19/2006 *BASELINE EKG FOR HTN Completed 06/16/2023 , 10/08/2022, 10/07/2022, Additional history exists HPV (Gardasil) Vaccine Aged Out No lo nger eligible based on patient's age to complete this topic Hepatitis B Vaccine Aged Out No longe r eligible based on patient's age to complete this topic MENINGOCOCCAL (MENACTRA/MENVEO) Aged Out No longer eligible based on patient's age to complete this topic documented as of this encounter Medical Devices Implanted Type Area Condenser Tester Device Identifier Shelf Expiration Date Model / Serial / Lot Electrode Pacing [id number] - [id number] Implanted:Qty: 1 on 10/07/2022 by Giovanni Smith MD at [facility] : MEDICAL [id number] 06/23/2027 007 151P / / [id number] Valve Ford 3 Ultra 26mm - [id number] Implanted:Qty: 1 on 10/07/2022 by Giovanni Smith MD at [facility] [employer] [id number] 04/07/2023 [id number] / / documented as of this encounter Advance Directives * Full Code (Latest Code Status on File) Date Activated Date Inactivated Comments 10/07/2022 1:07 PM 10/08/2022 8:13 PM This order r eflects the patients wishes and were consensually agreed upon. Question Answer Comments Discussion of Advance Direct mago occurred with: Not Discussed due to patient's condition Care Teams Research Biologist Relationship Specialty Start Date End Date Jason Jameson DO [address] [place] [address] PCP - General Family Medicine 05/11/19 documented as of this encounter
--- OUTSIDE RECORDS SUMMARY | 2024-09-01 05:20 | External Medical Summary | Summary of Care ---
Author Name Unknown Organization [facility] Address [address] [facility] [address] Phone [phone] Care Team Providers Care Chief Design Branch Name Role Phone Jason Jameson Primary Care Provider Reason for Visit * Reason Comments Dosage Adjustment In Person (Anticoag Cl inic) Encounter Details Date Type Department Care Team (Latest Contact Info) Description 03/31/2024 1:30 PM EDT Anticoagulation Pharmacy, [facility] 132 [facility] [place] [address] [facility] [address] [place] [address] Anticoagulation management encounter*; Chronic atrial fibrillation (HCC) [...] goal below 140/90,Atrial flutter, unspecified type ([facility]) TAKE 1 TABLET BY MOUTH TWICE A DAY 180 Tablet 3 09/09/2023 Active Ozempic (2 MG/DOSE) 8 MG/3ML Subcutaneous Solution Pen-injector (Semaglutide (2 MG/DOSE))Indications :DM type 2, goal HbA1c < 8% ([facility]) Inject 2 mg under the [...] (Coumadin)Indication s:Chronic atrial fibrillation (HCC),Anticoagulatio n management encounter,long-term current use of anticoagulant therapy,Atrial flutter, unspecified [...] morning. 90 Capsule 5 01/25/2024 Active Pen [place] 32G X 6 MM Use as directed. [...] No 12/19/2023 Does the household have a [facility] source of income? (Household - for [...] of this encounter Progress Notes * Laurita Paula RPh - 03/31/2024 1:35 PM EDT Medication Therapy Disease Management - Anticoagulation Patient: Dave Dow | : 1945 Subjective Patient-Reported Symptoms: Patient Findings Negatives: Signs/symptoms of thrombosis, Signs/symptoms of bleeding, Change in health, Change in alcohol use, Change in activity, Upcoming invasive procedure, Missed doses, Extra doses, Change in medications, Change in diet/appetite, Bruising Objective Current Warfarin Dose As of 03/31/2024 Warfarin maintenance plan: 10 mg (5 mg x 2) every Mon, Fri; 5 mg (5 mg x 1) all other days INR Result As of 03/31/2024 INR goal: 2.0-3.0 INR used for dosin.8 (03/31/2024) Assessment & Plan Warfarin Plan As of 03/31/2024 Full warfarin instructions: 10 mg every Mon, Fri; 5 mg all other days No change documented: Laurita Paula RPh Next INR check: 05/12/2024 Repeat PT/INR in 6 week(s) Weekly dose: not changed Additional Dosing Information: Description Directions for procedure on 03/02 found in communications tab I spent a total of 10-19 minutes (exact time 15 mins) on the date of service in preparation, delivery, and documentation of the care provided to Dave Dow excluding any time spent in the performance of separately billed services or time spent by another provider/QHP. Laurita Paula (Tina), PharmD, [facility] PGY1 Billet Driller Medication Therapy Management Clinic 03/31/2024 2:11 PM documented in this encounter Miscellaneous Notes * Addendum Note - Lindsay Mercedes [facility] - 03/31/2024 2:16 PM EDTAddended by: LINDSAY MERCEDES on: 03/31/2024 02:16 PM Modules accepted: Level of Service documented in this encounter Plan of Treatment Upcoming Encounters Date Type Department Care Team (Late st Contact Info) Description 04/21/2024 4:00 PM EDT Office Visit Family Practice [facility] [address] [facility] [place] [address] Amy Jeff CRNP [address] [place] [address] 05/12/2024 1:00 PM EDT [facility]tico[facility] Pharmacy, [facility] [place] [address] [facility] [address] [place] [address] 05/12/2024 1:10 PM EDT Office Visit Pharmacy, [facility] [place] [address] [facility] [address] [place] [address] 05/12/2024 1:40 PM EDT Pharmacy Pharmacy, [facility] [address] [place] [address] [place], [facility] Becky [address] [place] [address] 05/31/2024 11:20 AM EDT Office Visit [facility] [address] [place] [phone] Radha Waldrop, DO [address] [place] [address] 10/27/2024 3:40 PM EST Office Visit Family Practice [facility] [address] [place] [address] Jason Jameson, DO [address] [place] [address] Health Maintenance Due Date Last Done Comments [...] encounter Medical Devices Implanted Type Area Data Coordinator Device Identifier Shelf Expiration Date Model / Serial / Lot Electrode Pacing [id number] - [id number] Implanted:Qty: 1 on 10/07/2022 by Giovanni Smith MD at [facility] : MEDICAL [id number] 06/23/2027 007 151P / / [id number] Valve Ford 3 Ultra 26mm - [id number] Implanted:Qty: 1 on 10/07/2022 by Giovanni Smith MD at [facility] [employer] [id number] 04/07/2023 [id number] / / documented as of this encounter Procedures Procedure Name Priority Date/Time Associated Diagnosis Comments INR FINGERSTICK, POINT OF CARE ARLIN 03/31/2024 1:39 PM EDT documented in this encounter Results * INR FINGERSTICK, POINT OF CARE (03/31/2024 1:39 PM EDT) Fingerstick INR 2.8 INR 1:54 PM EDT LAB[facility] [place] 57-10 Blood 03/31/2024 1:39 PM EDT 03/31/2024 1:54 PM EDT Narrative [facility] 57- - 03/31/2024 1:54 PM EDT Therapeutic ranges for non-operative patients: Prophylaxsis/treatment of DVT: (Range:2.0-3.0) Treatment of pulmonary embolism:(Range:2.0-3.0) Prevention of systemic embolism from: -tissue heart valves -acute myocardial infarction -valvular heart disease -atrial fibrillation (Range: 2.0-3.0) Mechanical prosthetic valves: (Range: 2.5-3.5) [facility] POINT OF CARE TEST DOCKED DEVICE UNSOLICITED RESULTS [facility] [place] 57-10 [address] [place] [address] documented in this encounter Visit Diagnoses Diagnosis [...] Discussed due to patient's condition Care Teams Chief Design Branch Relationship Specialty Start Date End Date Jason Jameson DO [address] [place] [address] PCP - General Family Medicine 05/11/19 documented as of this encounter"
--- OUTSIDE RECORDS SUMMARY | 2024-09-01 05:20 | External Medical Summary ---
Author Name Unknown Address Unknown Organization K0G[facility] [address] [place] [address] Laboratory Report Ordering Provider Test Date Status MALINI ASHBY 03/31/2024 13:39:39 Final Therapeutic ranges for non-o perative patients:
Prophylaxsis/treatment of DVT: (Range:2.0-3.0)
Treatment of pulmonary embolism:(Range:2.0-3.0)
Prevention of systemic embolism from:
-tissue heart valves
-acute myocardial infarction
-valvular heart disease
-atrial fibrillation
(Range: 2.0-3.0)
Mechanical prosthetic valves: (Range: 2.5-3.5) Observation Date Value Abnormality Reference (Units ) Status INR in Capillary blood by Coagulation assay 03/31/2024 13:39:39 2.8 (INR) Final Performing Location [facility] [place] [id number]
--- OUTSIDE RECORDS SUMMARY | 2024-09-01 05:20 | External Medical Summary | Summary of Care ---
Author Name Unknown Organization [facility] Address [address] [place] [address] Phone [phone] Care Team Providers Care Learning Administrator Name Role Phone Jason Jameson Primary Care Provider Encounter Details Date Type Department Care Team (Late st Contact Info) Description 04/11/2024 Result Scan Unspecified Department Wil Anglin MD [address] [place] [address] <No scans attached> Allergies No known active allergiesdocumented as of this encounter (statuses as of 04/11/2024) Medications Medication Sig Dispensed Refills Start Date [...] unspecified type ([facility]) TAKE 1 TABLET BY MOUTH TWICE A DAY 180 Tablet 3 09/09/2023 Active Ozempic (2 MG/DOSE) 8 MG/3ML Subcutaneous Solution Pen-injector (Semaglutide (2 MG/DOSE))Indications: DM type 2, goal HbA1c < 8% ([facility]) Inject 2 mg under the skin [...] (Coumadin)Indications :Chronic atrial fibrillation (HCC),Anticoagulation management encounter,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 90 Capsule 5 01/25/2024 Active Pen [place] 32G X 6 MM Use as directed. Inject 15 units daily E11.9 100 Each 3 03/01/2024 Active Tresiba FlexTouch 200 UNIT/ML Subcutaneous Solution Pen-injector (Insulin Degludec) Inject 17 Units under the skin in the morning. E11.9. 15 mL 3 03/31/2024 Active documented as of this encounter (statuses as of 04/11/2024) Active Problems Problem Noted Date Diagnosed Date [...] as of this encounter (statuses as of 04/11/2024) Resolved Problems Problem Noted Date Diagnosed Date [...] as of this encounter (statuses as of 04/11/2024) Immunizations Name Administration Dates Next Due COVID-19 [...] 4:00 PM EDT Office Visit Family Practice [facility] [address] [place] [address] Amy Jeff CRNP [address] [place] [address] 05/12/2024 1:00 PM EDT Anticoagulation Pharmacy, [facility] [address] [place] [address] [facility] [address] [place], [place] [address] 05/12/2024 1:10 PM EDT Office Visit Pharmacy, [facility] [address] [place] [address] [facility] [address] [place] [address] 05/12/2024 1:40 PM EDT Pharmacy Pharmacy, [facility] [address] [place] [address] [facility] [address] [place] [address] 05/31/2024 11:20 AM EDT Office Visit Sleep Disorders Ctr [facility] [address] [place] [address] Radha Waldrop, DO [address] [place] [address] 10/27/2024 3:40 PM EST Office Visit [facility] [address] [place] [address] Jason Jameson, DO [address] [place] [address] Health Maintenance Due Date Last Done Comments [...] this encounter Medical Devices Implanted Type Area Brass Reclaimer Device Identifier Shelf Expiration Date Model / Serial / Lot Electrode Pacing [id number] - [id number] Implanted:Qty: 1 on 10/07/2022 by Giovanni Smith MD at [facility] CR BARD : MEDICAL [id number] 06/23/2027 007 [id number] / / [id number] Valve Ford 3 Ultra 26mm - [id number] Implanted:Qty: 1 on 10/07/2022 by Giovanni Smith MD at [facility] [employer] [id number] 04/07/2023 [id number] / / documented as of this encounter Procedures Procedure Name Priority Date/Time Associated Diagnosis Comments CARDIOLOGY SCANNED RESULT 04/11/2024 documented in this encounter Results * CARDIOLOGY SCANNED RESULT (04/11/2024) 04/11/2024 Wil Anglin MD OTHER documented in this encounter Advance Directives * Full Code (Latest Code Status on File) Date Activated Date Inactivated Comments 10/07/2022 1:07 PM 10/08/2022 8:13 PM This order r eflects the patients wishes and were consensually agreed upon. Question Answer Comments Discussion of Advance Direct mago occurred with: Not Discussed due to patient's condition Care Teams Learning Administrator Relationship Specialty Start Date End Date Jason Jameson DO [address] [place] [address] PCP - General Family Medicine 05/11/19 documented as of this encounter
--- OUTSIDE RECORDS SUMMARY | 2024-09-01 05:20 | External Medical Summary | Summary of Care ---
Author Name Unknown Organization [facility] Address [address] [facility] [place] [address] Phone [phone] Care Team Providers Care Bench Patternmaker Metal Name Role Phone Jason Jameson Primary Care Provider Reason for Visit * Reason Comments Dosage Adjustment In Person (Anticoag Cl inic) Encounter Details Date Type Department Care Team (Latest Contact Info) Description 03/31/2024 1:30 PM EDT Anticoagulation Pharmacy, [facility] [address] [facility] [place] [address] [facility] [address] [place] [address] Anticoagulation management encounter*; Chronic atrial fibrillation (HCC) [...] XL)Indications:HTN, goal below 140/90,Atrial flutter, unspecified type ([facility]) TAKE 1 TABLET BY MOUTH TWICE A DAY 180 Tablet 3 09/09/2023 Active Ozempic (2 MG/DOSE) 8 MG/3ML Subcutaneous Solution Pen-injector (Semaglutide (2 MG/DOSE))Indications :DM type 2, goal HbA1c < 8% ([facility]) Inject 2 mg under the skin once [...] (Coumadin)Indication s:Chronic atrial fibrillation (HCC),Anticoagulatio n management encounter,group home current use of anticoagulant therapy,Atrial flutter, [...] morning. 90 Capsule 5 01/25/2024 Active Pen [place] 32G X 6 MM Use as directed. [...] 130/80 10/29/2015 Overview: Per HTN Protocol #27. group home current use of anticoagulant therapy 0 [...] No 12/19/2023 Does the household have a [facility] source of income? (Household - for [...] by another provider/QHP. Laurita Paula (Tina), PharmD, [facility], located within [facility] PGY1 Cigarette Machine Operator Medication [facility] 03/31/2024 2:11 PM Electronically signed by Lindsay Mercedes [facility] at 03/31/2024 2:16 PM EDT documented in this encounter Miscellaneous Notes * Addendum Note - Lindsay [facility] - 03/31/2024 2:16 PM EDTAddended by: LINDSAY MERCEDES on: 03/31/2024 02:16 PM Modules accepted: Level of Service Electronically signed by Lindsay [facility] at 03/31/2024 2:16 PM EDT documented in this encounter Plan of Treatment Upcoming Encounters Date Type Department Care Team (Late st Contact Info) Description 04/21/2024 4:00 PM EDT Office Visit Family Practice [facility] [address] [facility] [place] [address] Amy Jeff CRNP [address] [place] [address] 05/12/2024 1:00 PM EDT Anticoagulation Pharmacy, [facility] [place] [address] [facility] [address] [place] [address] 05/12/2024 1:10 PM EDT Office Visit Pharmacy, [facility] [address] [facility] [place] [address] [facility] [address] [place] [address] 05/12/2024 1:40 PM EDT Pharmacy Pharmacy, [facility] [address] [place] [address] [place], [facility] [address] [place] [address] 05/31/2024 11:20 AM EDT Office Visit Sleep Disorders Ctr [facility] [address] [place] [phone] Radha Waldrop, DO [address] [place] [address] 10/27/2024 3:40 PM EST Office Visit Family Practice [facility] [address] [place] [address] Jason Jameson, DO [address] [place] [address] Health Maintenance Due Date Last Done Comments [...] this encounter Medical Devices Implanted Type Area Telemarketing Agent Device Identifier Shelf Expiration Date Model / Serial / Lot Electrode Pacing [id number] - [id number] Implanted:Qty: 1 on 10/07/2022 by Giovanni Smith MD at [facility] BARD : MEDICAL [id number] 06/23/2027 007 [id number] / / [id number] Valve Ford 3 Ultra 26mm - [id number] Implanted:Qty: 1 on 10/07/2022 by Giovanni Smith MD at [facility] [employer] [id number] 04/07/2023 [id number] / / documented as of this encounter Procedures Procedure Name Priority Date/Time Associated Diagnosis Comments INR FINGERSTICK, POINT OF CARE [place] 03/31/2024 1:39 PM EDT documented in this encounter Results * INR FINGERSTICK, POINT OF CARE (03/31/2024 1:39 PM EDT) Fingerstick INR 2.8 INR 1:54 PM EDT LAB[facility]ATORY [place]-10 Blood 03/31/2024 1:39 PM EDT 03/31/2024 1:54 PM EDT Narrative [facility] 57- - 03/31/2024 1:54 PM EDT Therapeutic ranges for non-operative patients: Prophylaxsis/treatment of DVT: (Range:2.0-3.0) Treatment of pulmonary embolism:(Range:2.0-3.0) Prevention of systemic embolism from: -tissue heart valves -acute myocardial infarction -valvular heart disease -atrial fibrillation (Range: 2.0-3.0) Mechanical prosthetic valves: (Range: 2.5-3.5) [facility] POINT OF CARE TEST DOCKED DEVICE UNSOLICITED RESULTS [facility] [place] [facility] [place] [address] documented in this encounter Visit Diagnoses Diagnosis [...] Discussed due to patient's condition Care Teams Bench Patternmaker Metal Relationship Specialty Start Date End Date Jason Jameson DO [address] [place] [address] PCP - General Family Medicine 05/11/19 documented as of this encounter"
[2024-09-01] MEDS: oxyCODONE/ACETAMINOPHEN 5mg/325mg TAB PO PRN (05:38)
[2024-09-01 06:03] VITALS: BP 165/84
[2024-09-01 07:11] LABS: Estimated Average Glucose 183 mg/dl
--- NOTE | 2024-09-01 08:11 | Electrocardiogram Report ---
Test Reason : Blood Pressure : */* mmHG Vent. Rate : 67 BPM Atrial Rate : 59 BPM P-R Int : * ms QRS Dur : 144 ms QT Int : 486 ms P-R-T Axes : * 63 126 degrees QTcB Int : 513 ms Ventricular-paced rhythm Atrial fibrillation Abnormal ECG When compared with ECG of 22-Mar-2022 11:48, No significant change Confirmed by Toby Casey ([id number]) on 09/01/2024 8:10:34 AM Referred By: Damien Morales Confirmed By: Toby Casey
[2024-09-01] MEDS ORDERED: NON-FORMULARY MEDICATION (Iron,Carbonyl-Vitamin C [Vitron-C] 65 mg iron- 125 mg Tablet,Del PO SCH (09:00)
[2024-09-01] MEDS: METOPROLOL SUCC 50MG EXT REL TAB PO SCH (09:51)
[2024-09-01] MEDS: FINASTERIDE 5 MG TAB PO SCH (09:51)
[2024-09-01] MEDS: ASPIRIN 81 MG ECTAB PO SCH (09:51)
[2024-09-01] MEDS: TAMSULOSIN HCL 0.4 MG CAP PO SCH (09:51)
[2024-09-01] MEDS: hydroCHLOROthiazide 25 MG TAB PO SCH (09:52)
[2024-09-01] MEDS: INSULIN ASPART PER UNIT CHARGE SC SCH (09:52)
[2024-09-01] MEDS: hydrALAZINE 10 MG TAB PO SCH (09:52)
[2024-09-01] MEDS: LANTUS PER UNIT CHARGE SC SCH (09:53)
[2024-09-01] MEDS ORDERED: oxyCODONE/ACETAMINOPHEN 5mg/325mg TAB PO PRN (10:16)
[2024-09-01] MEDS ORDERED: FUROSEMIDE INJ 20 MG/2 ML VIAL IV ONE (11:31)
--- NOTE | 2024-09-01 11:33 | Discharge Summary ---
Discharge Summary Date of Service September 01, 2024 Principal Dx & Hospital Course #1 = Principal Diagnosis (1) Acute hypercapnic respiratory failure: (2) Acute and chronic respiratory failure: (3) Acute metabolic encephalopathy: (4) UTI (urinary tract infection): (5) COPD suggested by initial evaluation: (6) VENU treated with BiPAP: (7) Diabetes mellitus: (8) Chronic atrial fibrillation: (9) History of carpal tunnel surgery of right wrist: Plan Patient 79-year-old gentleman with known Sleep apnea on BiPAP at home and follows with sleep medicine. Presented to [facility] outpatient surgical facility yesterday for carpal tunnel repair/release. Postoperatively patient was encephalopathic had difficulty arousing and was sent to the emergency room for evaluation. In the emergency room was noted to be hypercarbic. Chest x- rays showed some possible congestion. Patient was treated with his BiPAP overnight. His mental status returned to baseline. Laboratory studies improved and he diuresed. Patient was still requiring some oxygen. Patient states that his medical laboratory technical officer told him he may need oxygen at home in the past. He reports that sometimes his oxygen levels drop into the 80s at home but has never been pr escribed oxygen. Two-step pulse oximetry performed here in the hospital indicated that he would benefit from home oxygen at rest and with activity. He will continue his BiPAP at night. This was coordinated for him. His surgical dressing was dry and intact. BLACK drain was in place and had serosanguineous fluid. Urinalysis was consistent with possible urinary tract infection. He was given Rocephin here in the hospital and be discharged on oral Keflex. He be discharged home with oxygen. He will follow-up with orthopedics as coordinated at the time of discharge from his surgery. He will get a PT/INR done on per his usual process tomorrow and will help coordinate outpatient pulmonary follow-up. Notes For Next Care Provider Follow-up urine culture, adjust antibiotics if needed continue to evaluate need for home oxygen INR goal 2-3 Follow-up with orthopedics per their recommendations Follow-up with sleep medicine/pulmonary medicine for chronic oxygen needs Medication Changes From Visit Keflex for presumed UTI Admission HPI Per Admitting Provider 79-year-old male with past medical history significant for diabetes, diabetic retinopathy, diabetic peripheral neuropathy, dyslipidemia, sleep apnea on BiPAP, history of CAD, chronic atrial fibrillation, status post TAVR, abdominal aortic aneurysm, hypertension, history of obesity, GERD, BPH, osteoarthritis, patient is status post right hand carpal tunnel release and also wrist fusion surgeries today as outpatient procedure. Patient postsurgery was difficult to wake up so he was sent in to the ER. Currently patient is alert and oriented. In the ER he was saturating 87% room air and on 2 L saturating okay. His VBG showed pH of 7.25 and pCO2 64. Patient has sleep apnea and uses BiPAP . Denies any headache. No runny nose or sore throat. Vision is okay. No nausea. Denies chest pain. He says when he was in the CAT scan he felt short of breath. No cough. Afebrile. No abdominal pain. Resting comfortably and hemodynamic stable currently. Past medical history. As mentioned above. Past surgical history. Bilateral knee arthroplasty. Left heart catheterization. Colonoscopy. EGD. Right shoulder anterior acromioplasty. Appendectomy. Left rotator cuff repair. Repair of umbilical hernia. Status post TAVR. Status post pacemaker. Social history. Quit smoking 1989. Smoked 3 pack a day for 25 years. No alcohol use. Lives with his . Family history. Father had lymphoma. CABG. Defibrillator and pacemaker. Mother had breast cancer. Colon cancer. Admission Exam Per Admitting Provider See H&P Discharge Exam Constitutional: Alert, nontoxic HEENT: Mucous membranes moist. Lungs: Decreased breath sounds, prolonged expiratory phase, few crackles CV: S1-S2, irregular irregular Abdomen: Soft, nontender, nondistended Extremities: Some pretibial edema, right hand, wrist, forearm in surgical dressing with Karl wrap, BLACK drain in place Neuro: No focal deficits Psych: Cooperative, normal mood Updated Medication List Medication Instructions Recorded Confirmed Type iron,carbonyl 65 mg-vitamin C 125 1 tab PO DAILY 05/14/18 08/31/24 History mg tablet,delayed release (Vitron-C) pantoprazole 40 mg tablet,delayed 40 mg PO QDD 05/14/18 08/31/24 History release (Protonix) rosuvastatin 40 mg tablet (Crestor) 40 mg PO HS 05/14/18 08/31/24 History tamsulosin 0.4 mg capsule (Flomax) 0.4 mg PO QAM 05/14/18 08/31/24 History losartan 25 mg tablet 25 mg PO QDL 10/14/19 08/31/24 History BiPap Supplies #1 ea 12/06/20 08/31/24 Rx hydralazine 10 mg tablet 10 mg PO TID 02/15/21 08/31/24 History metoprolol succinate 50 mg 50 mg PO BID #0 tabs 02/19/21 08/31/24 Rx tablet,extended release 24 hr metformin 1,000 mg tablet 1,000 mg PO BID 06/26/23 08/31/24 History aspirin 81 mg tablet,delayed 81 mg PO DAILY 08/31/24 08/31/24 History release finasteride 5 mg tablet 5 mg PO QAM 08/31/24 08/31/24 History hydrochlorothiazide 12.5 mg capsule 12.5 mg PO QAM 08/31/24 08/31/24 History insulin degludec 200 unit/mL (3 17 unit subcut QAM 08/31/24 08/31/24 History mL) subcutaneous pen (Tresiba FlexTouch U-200 insulin) oxycodone-acetaminophen 5 mg-325 1 tab PO Q4 PRN moderate or severe 08/31/24 08/31/24 History mg tablet (Percocet) pain semaglutide 2 mg/dose (8 mg/3 mL) 2 mg subcut WK 08/31/24 08/31/24 History subcutaneous pen injector (Ozempic) warfarin 5 mg tablet 5 mg PO UD 08/31/24 08/31/24 History cephalexin 500 mg capsule 500 mg PO TID 5 days #15 caps 09/01/24 Rx Hospital Stay Data Consultations 08/31/24 21:53 ED Decision to Admit Stat Diagnostic Imagining Performed 08/31/24 21:37 CT head/brain wo con Stat Reviewed imaging, laboratory and diagnostic studies. Pertinent findings as below. WBCs 10.3 Hemoglobin 12.7 INR 1.1 on 08/31/2024 pCO2 53, significantly improved BMP within normal range Creatinine 1.06 Glucose 181 Hemoglobin A1c 8.0% Urine culture pending Pending Results Patient Have Any Pending Studies at Discharge: Yes Discharge Instructions Given to Patient (Per Discharging Provider) Follow-up with your orthopedic team as scheduled Recommend follow-up with pulmonary Wear the oxygen at all times Get your INR checked tomorrow per your usual process Total Time Total Time Spent Total Time Spent (In Minutes): 40
[2024-09-01] MEDS: LOSARTAN POTASSIUM 25 MG TAB PO SCH (13:06)
[2024-09-01 14:49] VITALS: PULSE 60; RESP 26; O2SAT 92
[2024-09-01] MEDS ORDERED: PANTOprazole 40 MG TAB PO SCH (16:30)
[2024-09-01] MEDS ORDERED: ROSUVASTATIN CALCIUM 20 MG TAB PO SCH (21:00)
== END 2024-09-01 14:48 | disposition home or self-care (01) | DRG 689 ==
LOC: ED 18:03 → INTOOBSV 23:38 → EDINP 23:38